=== PATIENT | female | born 1935 | race Asian ===

== ENCOUNTER 2017-10-19 19:37 | Inpatient (IN) | payer MEDICARE, OTHER ==
[~2017-10-19] VITALS: Ht 154.9 cm; Wt 53.9 kg
[~2017-10-19 19:37] MED LIST: AMLODIPINE BESY10 MG ORAL; ASPIR 8181 MG ORAL; CIPRO500 MG PO; COZAAR50 MG ORAL; DOXAZOSIN MESYLA4 MG ORAL; FOSAMAX70 MG ORAL; GLIPIZIDE-METF1 EAC2 PO; METOPROLOL SUCC50 MG ORAL; OYSTER SHELL C500 MG PO; SYNTHROID125 MCG ORAL; TRICOR145 MG ORAL; UNOBMED
[2017-10-19 20:30] VITALS: BP 129/65
[2017-10-19] MEDS ORDERED: Sodium Chloride 500ML 500 ML IV ONE (20:38)
--- NOTE | 2017-10-19 21:11 | Emergency Room Report ---
History of Present Illness General Chief Complaint: Abdominal Pain Source: Patient, Family Member Present Illness HPI Patient is an 82-year-old female who is presenting with several months of diffuse abdominal pain now mainly in the right upper quadrant. The patient has not seen a physician for this. The daughter states that she brought her mother in now because she has had nausea and vomiting associated with pain. Additionally the pain seems to have migrated to the right upper quadrant. Patient denies any prior abdominal surgeries. She denies any diarrhea. Allergies: Coded Allergies: No Known Allergies (Verified , 07/20/11) Patient History Past Medical History: see triage record Past Surgical History: none Pertinent Family History: none Social History: Denies: smoking, alcohol use, drug use Nursing Documentation-H Hx Cardiac Problems: Yes Hx Hypertension: Yes Hx Diabetes: Yes Hx Cancer: No Hx Gastrointestinal Problems: No Hx Neurological Problems: No Review of Systems Constitutional: Reports: weakness; Denies: no symptoms, see HPI, chills, sweats , fever, malaise, other Eye: Denies: no symptoms, see HPI, eye pain, blurred vision, tearing, double vision, nose pain, nose congestion, acuity changes, discharge, other Respiratory: Denies: no symptoms, see HPI, cough, orthopnea, shortness of breath, stridor, wheezing, MANN, sputum, other Cardiovascular: Denies: no symptoms, see HPI, chest pain, edema, palpitations, syncope, PND, other Gastrointestinal: Reports: see HPI Genitourinary: Denies: no symptoms, see HPI, discharge, dysuria, frequency, hematuria, pain, retention, incontinence, urgency, vag bleed/dc, other Musculoskeletal: Denies: no symptoms, see HPI, back pain, gout, joint pain, joint swelling, muscle pain, muscle stiffness, other Skin: Denies: no symptoms, see HPI, rash, change in color, change in hair/nails , dryness, lesions, other Neurological: Denies: no symptoms, see HPI, headache, numbness, paresthesia, seizure, tingling, tremors, focal weakness, syncope, dizziness, other Endocrine: Denies: no symptoms, see HPI, excessive sweating, flushing, intolerance to temperature, increased thirst, increased urine, unexplained weight loss, other Hematologic/Lymphatic: Denies: no symptoms, see HPI, anemia, blood clots, easy bleeding, easy bruising, swollen glands, diathesis, other Physical Exam Vital Signs Date Time Temp Pulse Resp B/P (MAP) Pulse Ox O2 Delivery O2 Flow Rate FiO2 10/19/17 20:00 97.7 71 16 114/62 99 Room Air 97.7 Sp02 EP Interpretation: reviewed, normal General Appearance: no apparent distress, alert, GCS 15, non-toxic Head: normocephalic, atraumatic Eyes: bilateral eye normal inspection, bilateral eye PERRL ENT: hearing grossly normal, normal pharynx, no angioedema, normal voice Neck: full range of motion, supple/symm/no masses Respiratory: chest non-tender, lungs clear, normal breath sounds, speaking full sentences Cardiovascular #1: regular rate, rhythm, no edema Cardiovascular #2: 2+ carotid (R), 2+ carotid (L), 2+ radial (R), 2+ radial (L) , 2+ dorsalis pedis (R), 2+ dorsalis pedis (L) Gastrointestinal: normal bowel sounds, soft, non-distended, no guarding, no rebound, tenderness - Mild right upper quadrant tenderness to palpation, negative Queen sign Rectal: deferred Genitourinary: normal inspection, no CVA tenderness Musculoskeletal: back normal, gait/station normal, normal range of motion, non- tender, calf tenderness Neurologic: alert, oriented x3, responsive, motor strength/tone normal, sensory intact, speech normal Psychiatric: judgement/insight normal, memory normal, mood/affect normal, no suicidal/homicidal ideation Reflexes: 3+ bicep (R), 3+ bicep (L), 3+ tricep (R), 3+ tricep (L), 3+ knee (R) , 3+ knee (L) Skin: normal color, no rash, warm/dry, well hydrated Lymphatic: no adenopathy Medical Decision Making Diagnostic Impression: Primary Impression: Cholelithiasis Qualified Codes: K80.71 - Calculus of gallbladder and bile duct without cholecystitis with obstruction ER Course Patient is an 82-year-old female complaining of several months of abdominal pain now localized to the right upper quadrant. Ultrasound examination shows a dilated common duct at 24 mm per process maintenance technician. Patient will require admission for MRCP and/or GI/surgical consultation. Laboratory Tests Test 10/19/17 20:40 White Blood Count 9.0 K/UL (4.8-10.8) Red Blood Count 3.29 M/UL (4.20-5.40) L Hemoglobin 11.0 G/DL (12.0-16.0) L Hematocrit 32.1 % (37.0-47.0) L Mean Corpuscular Volume 98 FL (80-99) Mean Corpuscular Hemoglobin 33.4 PG (27.0-31.0) H Mean Corpuscular Hemoglobin Concent 34.2 G/DL (32.0-36.0) Red Cell Distribution Width 13.2 % (11.6-14.8) Platelet Count 272 K/UL (150-450) Mean Platelet Volume 8.9 FL (6.5-10.1) Neutrophils (%) (Auto) % (45.0-75.0) Lymphocytes (%) (Auto) % (20.0-45.0) Monocytes (%) (Auto) % (1.0-10.0) Eosinophils (%) (Auto) % (0.0-3.0) Basophils (%) (Auto) % (0.0-2.0) Differential Total Cells Counted 100 Neutrophils % (Manual) 90 % (45-75) H Lymphocytes % (Manual) 5 % (20-45) L Monocytes % (Manual) 4 % (1-10) Eosinophils % (Manual) 0 % (0-3) Basophils % (Manual) 0 % (0-2) Band Neutrophils 1 % (0-8) Platelet Estimate Adequate Platelet Morphology Normal Hypochromasia 1+ Anisocytosis 1+ Sodium Level 135 MMOL/L (136-145) L Potassium Level 4.5 MMOL/L (3.5-5.1) Chloride Level 102 MMOL/L (98-107) Carbon Dioxide Level 24 MMOL/L (21-32) Anion Gap 9 mmol/L (5-15) Blood Urea Nitrogen 12 mg/dL (7-18) Creatinine 1.4 MG/DL (0.55-1.30) H Estimate Glomerular Filtration Rate mL/min (>60) Glucose Level 220 MG/DL (74-106) H Calcium Level 9.1 MG/DL (8.5-10.1) Total Bilirubin 3.1 MG/DL (0.2-1.0) H Direct Bilirubin 1.6 MG/DL (0.0-0.3) H Aspartate Amino Transferase (AST) 106 U/L (15-37) H Alanine Aminotransferase (ALT) 75 U/L (12-78) Alkaline Phosphatase < 10 U/L (46-116) L Total Protein 8.1 G/DL (6.4-8.2) Albumin 3.4 G/DL (3.4-5.0) Globulin 4.7 g/dL Albumin/Globulin Ratio 0.7 (1.0-2.7) L Lipase 382 U/L (73-393) Last Vital Signs Date Time Temp Pulse Resp B/P (MAP) Pulse Ox O2 Delivery O2 Flow Rate FiO2 10/19/17 20:00 97.7 71 16 114/62 99 Room Air 97.7 Disposition: ADMITTED INPATIENT Condition: Stable Referrals: NON PHYSICIAN (PCP) William Mayorga MD Oct 19, 2017 21:11
[2017-10-19 21:28] LABS: HEMATOCRIT 32.1 % (37.0-47.0); MEAN CORPUSCULAR VOLUME 98 FL (80-99); PLATELET COUNT 272 K/UL (150-450); RED BLOOD COUNT 3.29 M/UL (4.20-5.40); RED CELL DISTRIBUTION WIDTH 13.2 % (11.6-14.8)
[2017-10-19 21:38] LABS: ANION GAP 9 mmol/L (5-15); BLOOD UREA NITROGEN 12 mg/dL (7-18); CALCIUM 9.1 MG/DL (8.5-10.1); CARBON DIOXIDE 24 MMOL/L (21-32); CHLORIDE 102 MMOL/L (98-107); CREATININE 1.4 MG/DL (0.55-1.30); POTASSIUM 4.5 MMOL/L (3.5-5.1); SODIUM 135 MMOL/L (136-145)
[2017-10-19 21:48] LABS: ALANINE AMINOTRANSFERASE 75 U/L (12-78); ALBUMIN 3.4 G/DL (3.4-5.0); ALBUMIN/GLOBULIN RATIO 0.7 (1.0-2.7); ALKALINE PHOSPHATASE < 10 U/L (46-116); ASPARTATE AMINO TRANSFERASE 106 U/L (15-37); BILIRUBIN,TOTAL 3.1 MG/DL (0.2-1.0)
[2017-10-19 21:52] LABS: BILIRUBIN,DIRECT 1.6 MG/DL (0.0-0.3)
--- NOTE | 2017-10-19 22:40 | Diagnostic Imaging Report ---
EXAM: US Abdomen Limited, Right Upper Quadrant CLINICAL HISTORY: ABD PAIN TECHNIQUE: Real-time ultrasound of the right upper quadrant with image documentation. COMPARISON: No relevant prior studies available. FINDINGS: Liver: Unremarkable. No mass. No intrahepatic bile duct dilation. Gallbladder: There are multiple gallstones. No gallbladder wall thickening. The gallbladder wall measures 2.2 mm in thickness. Common bile duct: The common bile duct is dilated measuring 24.2 mm in diameter. No stones. Pancreas: Unremarkable as visualized. Right kidney: Multiple cysts in the right kidney measuring up to 0.9 cm. No stones. No hydronephrosis. IMPRESSION: 1. Cholelithiasis. No evidence of cholecystitis. 2. Dilated common bile duct measuring 24.2 mm diameter.
[2017-10-19] MEDS ORDERED: Milk of Magnesia 30ml Ud ORAL PRN (22:45)
[2017-10-19] MEDS ORDERED: Morphine Sulfate 4mg/ml Inj (IV USE ONLY) IVP PRN (22:45)
[2017-10-19] MEDS ORDERED: Morphine Sulfate 2mg/ml Inj(IV/IM USE ONLY) IVP PRN (22:45)
[2017-10-19] MEDS ORDERED: Gadavist 7.5mMol/7.5ml vial IV ONE (22:45)
[2017-10-19] MEDS ORDERED: Nitroglycerin Subl 0.4mg tab SL PRN (22:45)
[2017-10-19] MEDS ORDERED: Acetaminophen 650 MG SUPP RECTAL PRN ×2 (22:45)
[2017-10-19 22:53] VITALS: BP 115/67
[2017-10-19 23:00] VITALS: BP 110/61
[2017-10-20] MEDS ORDERED: Zosyn 3.375gm/50ml Premix 50 ML IVPB SCH
[2017-10-20] MEDS: 1/2NS w/KCl 20mEq 1000ml 1,000 ML IV SCH ×3 (00:43→16:53)
[2017-10-20 04:00] VITALS: BP 111/66
[2017-10-20] MEDS: Levothyroxine 125mcg tab ORAL SCH (06:18)
[2017-10-20] MEDS: NovoLOG Insulin Flexpen SUBQ SCH ×4 (06:21→21:00)
[2017-10-20 07:52] LABS: BASOPHILS % (AUTO) 0.6 % (0.0-2.0); EOSINOPHILS % (AUTO) 0.6 % (0.0-3.0); HEMATOCRIT 27.5 % (37.0-47.0); HEMOGLOBIN 9.3 G/DL (12.0-16.0); LYMPHOCYTES % (AUTO) 9.6 % (20.0-45.0); MEAN CORPUSCULAR VOLUME 98 FL (80-99); MONOCYTES % (AUTO) 7.5 % (1.0-10.0); NEUTROPHILS % (AUTO) 81.8 % (45.0-75.0); PLATELET COUNT 271 K/UL (150-450); RED BLOOD COUNT 2.81 M/UL (4.20-5.40); RED CELL DISTRIBUTION WIDTH 12.7 % (11.6-14.8)
[2017-10-20 08:00] VITALS: BP 103/62
[2017-10-20 08:26] LABS: ALANINE AMINOTRANSFERASE 71 U/L (12-78); ALBUMIN 2.7 G/DL (3.4-5.0); ALBUMIN/GLOBULIN RATIO 0.8 (1.0-2.7); ALKALINE PHOSPHATASE 103 U/L (46-116); ANION GAP 10 mmol/L (5-15); ASPARTATE AMINO TRANSFERASE 108 U/L (15-37); BILIRUBIN,TOTAL 4.2 MG/DL (0.2-1.0); BLOOD UREA NITROGEN 11 mg/dL (7-18); CARBON DIOXIDE 22 MMOL/L (21-32); CHLORIDE 106 MMOL/L (98-107); CREATININE 1.5 MG/DL (0.55-1.30); SODIUM 138 MMOL/L (136-145)
[2017-10-20 08:28] LABS: BILIRUBIN,DIRECT 3.7 MG/DL (0.0-0.3)
[2017-10-20] MEDS ORDERED: Aspirin EC 81mg tab ORAL SCH (09:00)
[2017-10-20] MEDS: Doxazosin 4mg tab ORAL SCH (09:00)
[2017-10-20] MEDS: Metoprolol Succinate XL 50mg tab ORAL SCH (09:00)
[2017-10-20] MEDS: Losartan 50mg tab ORAL SCH (09:00)
[2017-10-20] MEDS: Zoysn 3.37gm in NS 100ML IVPB SCH ×2 (10:13→16:54)
[2017-10-20] MEDS: Heparin 5000 units/ml inj SUBQ SCH ×2 (10:18→21:24)
[2017-10-20 11:52] VITALS: BP 115/68
--- NOTE | 2017-10-20 14:10 | Consultation ---
History of Present Illness General Date patient seen: Oct 20, 2017 Chief Complaint: Abdominal Pain Reason for Consultation: obstructive jaundice Present Illness HPI 82 year old female presented with abdominal pain, RUQ pain for over a month that is acutely worsening. In ed noted to have elevated LFT's, elevated t bili , US with stones and dilated duct. surgery called to evaluate for obstructive jaundice. patient seen, chart reviewed, patient examined. pending further imaging. Allergies: Coded Allergies: No Known Allergies (Verified , 07/20/11) Medication History Scheduled Alendronate Sodium* (Fosamax*), 70 MG ORAL ONCE A WEEK, (Reported) Amlodipine Besylate* (Amlodipine Besylate*), 10 MG ORAL DAILY, (Reported) Aspirin* (Aspir 81*), 81 MG ORAL DAILY, (Reported) Doxazosin Mesylate* (Doxazosin Mesylate*), 4 MG ORAL DAILY, (Reported) Fenofibrate (Tricor), 145 MG ORAL DAILY, (Reported) Levothyroxine Sodium* (Synthroid*), 125 MCG ORAL DAILY, (Reported) Losartan Potassium* (Cozaar*), 100 MG ORAL DAILY, (Reported) Metoprolol Succinate* (Metoprolol Succinate*), 50 MG ORAL DAILY, (Reported) Miscellaneous Medications Calcium Carbonate (Oyster Shell Calcium), 500 MG PO, (Reported) Glipizide/Metformin Hcl (Glipizide-Metformin 5-500 Mg), 1 EACH PO, (Reported) Patient History Limited by: age History Provided By: Patient, Medical Record, PMD Healthcare decision maker Resuscitation status Advanced Directive on File No Past Medical/Surgical History Past Medical/Surgical History: (1) Obstructive jaundice (2) ARF (acute renal failure) (3) CHF exacerbation (4) Dyspnea (5) Hypercholesterolemia (6) UTI (urinary tract infection) (7) Thyroid cancer (8) E coli infection (9) Anemia, chronic renal failure (10) Diabetes mellitus (11) Hypothyroidism (12) Renal failure (13) HTN (hypertension) (14) Anemia of renal disease (15) Cholelithiasis Review of Systems All Other Systems: negative except mentioned in HPI Physical Exam General Appearance: no apparent distress Lines, tubes and drains: peripheral HEENT: mucous membranes moist Neck: normal inspection Respiratory/Chest: normal breath sounds, no respiratory distress, no accessory muscle use Cardiovascular/Chest: normal rate Abdomen: normal bowel sounds, soft, no organomegaly, no mass, tender Extremities: non-tender, normal inspection Skin Exam: normal pigmentation Neurologic: alert, responsive Last 24 Hour Vital Signs Date Time Temp Pulse Resp B/P (MAP) Pulse Ox O2 Delivery O2 Flow Rate FiO2 10/20/17 11:52 98.9 81 20 115/68 (84) 96 98.9 10/20/17 09:00 83 103/62 10/20/17 09:00 103/62 10/20/17 09:00 83 103/62 10/20/17 09:00 Room Air 10/20/17 08:00 99.5 83 20 103/62 (76) 100 99.5 10/20/17 07:19 98.9 10/20/17 06:20 99.8 10/20/17 04:00 99.8 89 20 111/66 (81) 100 99.8 10/19/17 23:28 Room Air 10/19/17 23:20 97.5 94 22 115/67 95 Room Air 10/19/17 23:00 98.9 85 20 110/61 (77) 96 98.9 10/19/17 22:53 97.9 94 22 115/67 95 Room Air 97.9 10/19/17 20:30 97.9 81 20 129/65 98 Room Air 97.9 10/19/17 20:00 97.7 71 16 114/62 99 Room Air 97.7 Intake and Output 10/19/17 10/20/17 19:00 07:00 Intake Total 450 ml Output Total 50 ml Balance 400 ml Intake IV Total 450 ml Output Emesis 50 ml # Voids 4 # Bowel Movements 1 Laboratory Tests Test 10/19/17 20:40 10/20/17 07:25 White Blood Count 9.0 K/UL (4.8-10.8) 7.0 K/UL (4.8-10.8) Red Blood Count 3.29 M/UL (4.20-5.40) L 2.81 M/UL (4.20-5.40) L Hemoglobin 11.0 G/DL (12.0-16.0) L 9.3 G/DL (12.0-16.0) L Hematocrit 32.1 % (37.0-47.0) L 27.5 % (37.0-47.0) L Mean Corpuscular Volume 98 FL (80-99) 98 FL (80-99) Mean Corpuscular Hemoglobin 33.4 PG (27.0-31.0) H 33.0 PG (27.0-31.0) H Mean Corpuscular Hemoglobin Concent 34.2 G/DL (32.0-36.0) 33.7 G/DL (32.0-36.0) Red Cell Distribution Width 13.2 % (11.6-14.8) 12.7 % (11.6-14.8) Platelet Count 272 K/UL (150-450) 271 K/UL (150-450) Mean Platelet Volume 8.9 FL (6.5-10.1) 7.5 FL (6.5-10.1) Neutrophils (%) (Auto) % (45.0-75.0) 81.8 % (45.0-75.0) H Lymphocytes (%) (Auto) % (20.0-45.0) 9.6 % (20.0-45.0) L Monocytes (%) (Auto) % (1.0-10.0) 7.5 % (1.0-10.0) Eosinophils (%) (Auto) % (0.0-3.0) 0.6 % (0.0-3.0) Basophils (%) (Auto) % (0.0-2.0) 0.6 % (0.0-2.0) Differential Total Cells Counted 100 Neutrophils % (Manual) 90 % (45-75) H Lymphocytes % (Manual) 5 % (20-45) L Monocytes % (Manual) 4 % (1-10) Eosinophils % (Manual) 0 % (0-3) Basophils % (Manual) 0 % (0-2) Band Neutrophils 1 % (0-8) Platelet Estimate Adequate Platelet Morphology Normal Hypochromasia 1+ Anisocytosis 1+ Sodium Level 135 MMOL/L (136-145) L 138 MMOL/L (136-145) Potassium Level 4.5 MMOL/L (3.5-5.1) 4.0 MMOL/L (3.5-5.1) Chloride Level 102 MMOL/L (98-107) 106 MMOL/L (98-107) Carbon Dioxide Level 24 MMOL/L (21-32) 22 MMOL/L (21-32) Anion Gap 9 mmol/L (5-15) 10 mmol/L (5-15) Blood Urea Nitrogen 12 mg/dL (7-18) 11 mg/dL (7-18) Creatinine 1.4 MG/DL (0.55-1.30) H 1.5 MG/DL (0.55-1.30) H Estimat Glomerular Filtration Rate mL/min (>60) mL/min (>60) Glucose Level 220 MG/DL (74-106) H 79 MG/DL (74-106) # Calcium Level 9.1 MG/DL (8.5-10.1) 8.0 MG/DL (8.5-10.1) L Total Bilirubin 3.1 MG/DL (0.2-1.0) H 4.2 MG/DL (0.2-1.0) H Direct Bilirubin 1.6 MG/DL (0.0-0.3) H 3.7 MG/DL (0.0-0.3) H Aspartate Amino Transf (AST/SGOT) 106 U/L (15-37) H 108 U/L (15-37) H Alanine Aminotransferase (ALT/SGPT) 75 U/L (12-78) 71 U/L (12-78) Alkaline Phosphatase < 10 U/L (46-116) L 103 U/L (46-116) Total Protein 8.1 G/DL (6.4-8.2) 6.3 G/DL (6.4-8.2) L Albumin 3.4 G/DL (3.4-5.0) 2.7 G/DL (3.4-5.0) L Globulin 4.7 g/dL 3.6 g/dL Albumin/Globulin Ratio 0.7 (1.0-2.7) L 0.8 (1.0-2.7) L Lipase 382 U/L (73-393) Prothrombin Time 10.9 SEC (9.30-11.50) Prothromb Time International Ratio 1.0 (0.9-1.1) Height (Feet): 5 Height (Inches): 1.00 Weight (Pounds): 130 Medications Current Medications Medications (Trade) Dose Ordered Sig/Tatianna Route PRN Reason Start Time Stop Time Status Last Admin Dose Admin Acetaminophen (Tylenol) 650 mg Q4H PRN ORAL Mild Pain (Pain Scale 1-3) 10/19/17 22:45 11/18/17 22:44 10/20/17 06:20 Acetaminophen (Tylenol) 650 mg Q4H PRN ORAL fever 10/19/17 22:45 11/18/17 22:44 Acetaminophen (Tylenol) 650 mg Q4H PRN RECTAL Mild Pain (Pain Scale 1-3) 10/19/17 22:45 11/18/17 22:44 Acetaminophen (Tylenol) 650 mg Q4H PRN RECTAL fever 10/19/17 22:45 11/18/17 22:44 Amlodipine Besylate (Norvasc) 10 mg DAILY ORAL 10/20/17 09:00 11/19/17 08:59 Aspirin (Ecotrin) 81 mg DAILY ORAL 10/20/17 09:00 11/19/17 08:59 10/20/17 10:14 Dextrose (Dextrose 50%) 25 ml STAT PRN IV Hypoglycemia 10/19/17 22:45 11/18/17 22:44 Dextrose (Dextrose 50%) 50 ml STAT PRN IV Hypoglycemia 10/19/17 22:45 11/18/17 22:44 Doxazosin Mesylate (Cardura) 4 mg DAILY ORAL 10/20/17 09:00 11/19/17 08:59 Famotidine (Pepcid I.v.) 20 mg Q12HR IVP 10/20/17 11:50 11/19/17 11:49 10/20/17 12:35 Heparin Sodium (Porcine) (Heparin 5000 units/ml) 5,000 units EVERY 12 HOURS SUBQ 10/20/17 09:00 11/19/17 08:59 10/20/17 10:18 Insulin Aspart (NovoLOG) BEFORE MEALS AND HS SUBQ 10/20/17 06:30 11/19/17 06:29 10/20/17 06:21 Levothyroxine Sodium (Synthroid) 125 mcg DAILY@0630 ORAL 10/20/17 06:30 11/19/17 06:29 10/20/17 06:18 Losartan Potassium (Cozaar) 100 mg DAILY ORAL 10/20/17 09:00 11/19/17 08:59 Magnesium Hydroxide (Mom) 30 ml HSPRN PRN ORAL Constipation 10/19/17 22:45 11/18/17 22:44 Metoprolol Succinate (Toprol XL) 50 mg DAILY ORAL 10/20/17 09:00 11/19/17 08:59 Morphine Sulfate (Morphine Sulfate) 2 mg Q3H PRN IVP Moderate Pain (Pain Scale 4-6) 10/19/17 22:45 10/26/17 22:44 Morphine Sulfate (Morphine Sulfate) 4 mg Q3H PRN IVP Severe Pain (Pain Scale 7-10) 10/19/17 22:45 10/26/17 22:44 Nitroglycerin (Ntg) 0.4 mg Q5M X 3 DOSES PRN SL Prn Chest Pain 10/19/17 22:45 11/18/17 22:44 Ondansetron HCl (Zofran) 4 mg Q6H PRN IVP Nausea & Vomiting 10/19/17 22:45 11/18/17 22:44 Pantoprazole (Protonix) 40 mg DAILY ORAL 10/21/17 09:00 11/20/17 08:59 Piperacillin Sod/ Tazobactam Sod 3.375 gm/Sodium Chloride 110 ml @ 27.5 mls/hr Q8H IVPB 10/20/17 08:00 10/27/17 07:59 10/20/17 10:13 Sodium 1,000 ml @ 75 mls/hr [id number] IV 10/20/17 00:00 11/19/17 00:00 10/20/17 00:43 Assessment/Plan Problem List: (1) Cholelithiasis Assessment & Plan: 82F with choledocholithiasis, obstructive jaundice likely from stones, low grade fevers, abdominal pain. US as above labs with worsening LFT's and t bili -MRCP -GI input appreciated. possible ERCP -will discuss need for cholecystectomy as work up continues -need to monitor for cholangitis given above. -IV Abx -bowel rest. -IV fluids thank you for this consultation. will follow with recs. ICD Codes: K80.20 - Calculus of gallbladder without cholecystitis without obstruction SNOMED: 561529000 Qualifiers: Qualified Codes: K80.71 - Calculus of gallbladder and bile duct without cholecystitis with obstruction (2) Obstructive jaundice ICD Codes: K83.8 - Other specified diseases of biliary tract SNOMED: 37229178 Status: stable KarelyDavis Oct 20, 2017 14:10
--- NOTE | 2017-10-20 15:12 | Diagnostic Imaging Report ---
EXAM: MR Abdomen Without and With Intravenous Contrast CLINICAL HISTORY: ABD PAIN TECHNIQUE: Multiplanar magnetic resonance images of the abdomen without and with intravenous contrast. COMPARISON: Abdominal ultrasound 10/19/17 FINDINGS: Lung bases: Unremarkable. No mass. No consolidation. Pleural space: Tiny bilateral pleural effusions. Liver: Diffusely fatty liver. Gallbladder and bile ducts: 1.5 x 2.7 cm stone in the distal CBD resulting in biliary obstruction. CBD is dilated 2.6 cm. Intrahepatic biliary dilatation. Markedly distended gallbladder. Distended gallbladder with small gallstones. There are some small stones within the cystic duct. No inflammatory changes. Pancreas: Somewhat atrophic. No ductal dilation. No mass. No inflammatory changes. Spleen: Unremarkable. No splenomegaly. Adrenals: Unremarkable. No mass. Kidneys and ureters: Several small cystic lesions within atrophic right kidney, largest measuring 10 mm. A few small cystic lesions of the left kidney, largest 10 mm.. No hydronephrosis. Stomach and bowel: Unremarkable. No obstruction. Intraperitoneal space: Unremarkable. No significant fluid collection. Bones/joints: L4 compression deformity, age-indeterminate. Soft tissues: 3.4 cm complex cystic lesion of the right breast. Vasculature: Unremarkable. No abdominal aortic aneurysm. Lymph nodes: Unremarkable. No enlarged lymph nodes. IMPRESSION: 1. 1.5 x 2.7 cm stone in the distal CBD resulting in biliary obstruction. CBD is dilated to 2.6 cm. Intrahepatic biliary dilatation. Markedly distended gallbladder. 2. Distended gallbladder with small gallstones. There are some small stones within the cystic duct. No inflammatory changes. 3. Small bilateral renal cysts. Atrophic right kidney. 4. Diffusely fatty liver. 5. 3.4 cm complex cystic lesion of the right breast. Correlate with mammography and physical exam. 6. L4 compression deformity, age-indeterminate.
[2017-10-20 16:00] VITALS: BP 114/67
[2017-10-20] MEDS ORDERED: FENOFIBRATE145 M1 ORAL (17:08)
[2017-10-20] MEDS ORDERED: OMEPRAZOLE40 M1 ORAL (17:08)
[2017-10-20] MEDS ORDERED: BACLOFEN10 MG ORAL (17:08)
[2017-10-20 20:00] VITALS: BP 106/66
--- NOTE | 2017-10-20 20:46 | History and Physical Report ---
DATE OF ADMISSION: 10/19/2017 CHIEF COMPLAINT/REASON FOR HOSPITALIZATION: The patient is admitted for abdominal pain, nausea, and vomiting. HISTORY OF PRESENT ILLNESS: The patient has had on and off nausea and vomiting for about three months with some right upper quadrant pain. She came to the emergency room with elevated bilirubin and liver enzymes. Ultrasound was read as cholelithiasis. No evidence of cholecystitis. Common bile duct measuring 24.2 mm. There are multiple gallstones. The pancreas as visualized unremarkable. The patient denies fever or chills. History is taken with the photography spotter. She has had some heartburn, hypertension, and hypothyroidism, on replacement. SURGERIES: Thyroidectomy many years ago and bilateral cataracts. MEDICATIONS: Omeprazole 40 mg daily, fenofibrate 145 mg daily, aspirin 81 mg daily, doxazosin 4 mg daily, alendronate 70 mg weekly, [place] 500 mg b.i.d., losartan 100 mg daily, glipizide-metformin 5/500 b.i.d., levothyroxine 125 mg daily, metoprolol succinate 50 mg daily, amlodipine 10 mg daily, and baclofen 10 mg p.r.n. ALLERGIES: None known. HABITS: She is a nonsmoker and nondrinker. No use of illicit drugs. SYSTEM REVIEW: HEENT: History of cataracts. Vision preserved. Hearing is good. ENDOCRINE: History of hypothyroidism, on replacement and diabetes. PULMONARY: No asthma, TB, or chronic cough. CARDIAC: History of hypertension. No angina or AR. GASTROINTESTINAL: History of being treated for gastritis and symptoms as above. No hematochezia or melena. GENITOURINARY: No dysuria or hematuria. NEUROLOGIC: No CVA or seizures. MUSCULOSKELETAL: She uses a walker. No severe joint pains. ONCOLOGIC: On my exam, I noticed a breast mass, which she says that it has been there for many years after breast-feeding, infection, not clear if there is any history of breast cancer. PHYSICAL EXAMINATION: GENERAL: The patient is an alert elderly lady, seen with a Irish-speaking nurse. VITAL SIGNS: Temperature 99.5, pulse 83, respirations 20, and blood pressure 103/62. HEENT: Oral mucosa is slightly dry. There is mild scleral icterus. NECK: No adenopathy. BREASTS: There is a hard mass in the right breast about 4 cm. Left breast has no masses. No axillary masses. LUNGS: Clear. HEART: Regular rhythm. No murmur. ABDOMEN: Soft. I am unable to feel liver or spleen. There is perhaps some minimal right upper quadrant tenderness. EXTREMITIES: No edema, cyanosis, or clubbing. There are mild degenerative changes in the knees. NEUROLOGIC: The patient is alert and oriented. Cranial nerves intact. No focal findings. PERTINENT LABORATORY DATA: Glucose 220 and 79, bilirubin total 3.1 and 4.2, and direct bilirubin 1.6 and 3.7. AST 108 and ALT is 71. Albumin 2.7. White count 9000 and 7000. Serial hemoglobin 11 and 9.3 serially. IMPRESSION: 1. Cholecystitis, most likely chronic. 2. Possible common duct stone. 3. Breast mass. 4. Anemia, possible laboratory error, possible gastrointestinal bleeding. 5. Gastritis. 6. Hypertension. 7. Diabetes. 8. Hypothyroidism. PLAN: We will try to get appropriate imaging in the consultation to rule out cholecystitis and need for gallbladder surgery. She is being given IV hydration and comfort measures. Serial CBCs in view of the drop in hemoglobin. We need to discuss further with the family as far as the status of the breast mass and prior evaluation. Detailed orders have been given. A call placed to the family. Donato Higgins M.D. DR: ROSALIND JOB#: [id number] CC:
[2017-10-21] VITALS: BP 117/72
[2017-10-21] MEDS: Zoysn 3.37gm in NS 100ML IVPB SCH ×4 (00:35→23:50)
[2017-10-21 04:00] VITALS: BP 115/69
[2017-10-21] MEDS: Levothyroxine 125mcg tab ORAL SCH (06:10)
[2017-10-21] MEDS: NovoLOG Insulin Flexpen SUBQ SCH ×4 (06:30→21:00)
[2017-10-21 08:00] VITALS: BP 129/84
[2017-10-21] MEDS: Doxazosin 4mg tab ORAL SCH (08:37)
[2017-10-21] MEDS: Heparin 5000 units/ml inj SUBQ SCH ×3 (08:38→21:30)
[2017-10-21] MEDS: 1/2NS w/KCl 20mEq 1000ml 1,000 ML IV SCH ×2 (08:39→23:50)
[2017-10-21] MEDS: Losartan 50mg tab ORAL SCH (08:50)
[2017-10-21] MEDS: Metoprolol Succinate XL 50mg tab ORAL SCH (08:51)
[2017-10-21 08:53] LABS: BASOPHILS % (AUTO) 1.3 % (0.0-2.0); EOSINOPHILS % (AUTO) 2.2 % (0.0-3.0); HEMATOCRIT 30.7 % (37.0-47.0); HEMOGLOBIN 10.2 G/DL (12.0-16.0); LYMPHOCYTES % (AUTO) 20.3 % (20.0-45.0); MEAN CORPUSCULAR VOLUME 98 FL (80-99); MONOCYTES % (AUTO) 7.3 % (1.0-10.0); NEUTROPHILS % (AUTO) 68.9 % (45.0-75.0); PLATELET COUNT 319 K/UL (150-450); RED BLOOD COUNT 3.12 M/UL (4.20-5.40); WHITE BLOOD COUNT 4.8 K/UL (4.8-10.8)
[2017-10-21 09:07] LABS: ALANINE AMINOTRANSFERASE 68 U/L (12-78); ALBUMIN/GLOBULIN RATIO 0.7 (1.0-2.7); ALKALINE PHOSPHATASE 107 U/L (46-116); ANION GAP 12 mmol/L (5-15); ASPARTATE AMINO TRANSFERASE 71 U/L (15-37); BILIRUBIN,DIRECT 2.5 MG/DL (0.0-0.3); BILIRUBIN,TOTAL 3.3 MG/DL (0.2-1.0); BLOOD UREA NITROGEN 10 mg/dL (7-18); CALCIUM 8.3 MG/DL (8.5-10.1); CARBON DIOXIDE 23 MMOL/L (21-32); CHLORIDE 106 MMOL/L (98-107); CREATININE 1.6 MG/DL (0.55-1.30); PHOSPHORUS 2.5 MG/DL (2.5-4.9); POTASSIUM 3.9 MMOL/L (3.5-5.1); SODIUM 141 MMOL/L (136-145)
[2017-10-21 12:00] VITALS: BP 110/71
--- NOTE | 2017-10-21 13:10 | General Surgery Progress Note ---
General Surgery-Progress Note Subjective Additional Comments no acute events. comfortable. labs mildly improved. Objective Last 24 Hour Vital Signs Date Time Temp Pulse Resp B/P (MAP) Pulse Ox O2 Delivery O2 Flow Rate FiO2 10/21/17 09:00 Room Air 10/21/17 08:51 82 129/84 10/21/17 08:50 129/84 10/21/17 08:37 82 129/84 10/21/17 08:00 98.6 82 20 129/84 (99) 98 98.6 10/21/17 04:00 99.1 84 20 115/69 (84) 96 99.1 10/21/17 00:00 98.8 85 20 117/72 (87) 95 98.8 10/20/17 21:00 Room Air 10/20/17 20:00 99.4 81 20 106/66 (79) 95 99.4 10/20/17 16:00 98.6 86 19 114/67 (83) 96 98.6 I&O Intake and Output 10/20/17 10/21/17 19:00 07:00 Intake Total 915.0 ml 1065.0 ml Output Total 350 ml Balance 565.0 ml 1065.0 ml Intake Oral 0 ml IV Total 915.0 ml 1065.0 ml Output Urine Total 350 ml # Voids 10 Drains: none Cardiovascular: RSR Respiratory: clear Abdomen: soft, flat, non-tender, present bowel sounds Extremities: no cyanosis Laboratory Tests Test 10/21/17 08:00 White Blood Count 4.8 K/UL (4.8-10.8) Red Blood Count 3.12 M/UL (4.20-5.40) L Hemoglobin 10.2 G/DL (12.0-16.0) L Hematocrit 30.7 % (37.0-47.0) L Mean Corpuscular Volume 98 FL (80-99) Mean Corpuscular Hemoglobin 32.6 PG (27.0-31.0) H Mean Corpuscular Hemoglobin Concent 33.1 G/DL (32.0-36.0) Red Cell Distribution Width 13.0 % (11.6-14.8) Platelet Count 319 K/UL (150-450) Mean Platelet Volume 7.7 FL (6.5-10.1) Neutrophils (%) (Auto) 68.9 % (45.0-75.0) Lymphocytes (%) (Auto) 20.3 % (20.0-45.0) Monocytes (%) (Auto) 7.3 % (1.0-10.0) Eosinophils (%) (Auto) 2.2 % (0.0-3.0) Basophils (%) (Auto) 1.3 % (0.0-2.0) Sodium Level 141 MMOL/L (136-145) Potassium Level 3.9 MMOL/L (3.5-5.1) Chloride Level 106 MMOL/L (98-107) Carbon Dioxide Level 23 MMOL/L (21-32) Anion Gap 12 mmol/L (5-15) Blood Urea Nitrogen 10 mg/dL (7-18) Creatinine 1.6 MG/DL (0.55-1.30) H Estimat Glomerular Filtration Rate mL/min (>60) Glucose Level 97 MG/DL (74-106) Calcium Level 8.3 MG/DL (8.5-10.1) L Phosphorus Level 2.5 MG/DL (2.5-4.9) Magnesium Level 2.1 MG/DL (1.8-2.4) Total Bilirubin 3.3 MG/DL (0.2-1.0) H Direct Bilirubin 2.5 MG/DL (0.0-0.3) H Aspartate Amino Transf (AST/SGOT) 71 U/L (15-37) H Alanine Aminotransferase (ALT/SGPT) 68 U/L (12-78) Alkaline Phosphatase 107 U/L (46-116) Total Protein 7.1 G/DL (6.4-8.2) Albumin 3.0 G/DL (3.4-5.0) L Globulin 4.1 g/dL Albumin/Globulin Ratio 0.7 (1.0-2.7) L Lipase 94 U/L (73-393) Plan Problems: (1) Cholelithiasis Assessment & Plan: 82F with choledocholithiasis, obstructive jaundice likely from stones, low grade fevers, abdominal pain. US as above labs with worsening LFT's and t bili labs improved MRCP with obstructing stone -GI input appreciated. possible ERCP -will discuss need for cholecystectomy as work up continues -need to monitor for cholangitis given above. -IV Abx -bowel rest. -IV fluids thank you for this consultation. will follow with recs. (2) Obstructive jaundice Davis Cali Oct 21, 2017 13:10
--- NOTE | 2017-10-21 14:23 | General Progress Note ---
Assessment/Plan Problem List: (1) Choledocholithiasis with acute cholecystitis with obstruction ICD Codes: K80.43 - Calculus of bile duct with acute cholecystitis with obstruction SNOMED: 72365609 (2) Cholelithiasis ICD Codes: K80.20 - Calculus of gallbladder without cholecystitis without obstruction SNOMED: 598390299 Qualifiers: Qualified Codes: K80.71 - Calculus of gallbladder and bile duct without cholecystitis with obstruction (3) Diabetes mellitus ICD Codes: E11.9 - Type 2 diabetes mellitus without complications SNOMED: 78891263 Assessment/Plan cont antibiotics, possible ERCP soon Subjective Constitutional: Reports: weakness HEENT: Reports: no symptoms Cardiovascular: Reports: no symptoms Respiratory: Reports: no symptoms Gastrointestinal/Abdominal: Reports: no symptoms, abdominal pain Genitourinary: Reports: no symptoms Neurologic/Psychiatric: Reports: no symptoms Endocrine: Reports: no symptoms Allergies: Coded Allergies: No Known Allergies (Verified , 07/20/11) Objective Last 24 Hour Vital Signs Date Time Temp Pulse Resp B/P (MAP) Pulse Ox O2 Delivery O2 Flow Rate FiO2 10/21/17 12:00 99.4 85 20 110/71 (84) 98 99.4 10/21/17 09:00 Room Air 10/21/17 08:51 82 129/84 10/21/17 08:50 129/84 10/21/17 08:37 82 129/84 10/21/17 08:00 98.6 82 20 129/84 (99) 98 98.6 10/21/17 04:00 99.1 84 20 115/69 (84) 96 99.1 10/21/17 00:00 98.8 85 20 117/72 (87) 95 98.8 10/20/17 21:00 Room Air 10/20/17 20:00 99.4 81 20 106/66 (79) 95 99.4 10/20/17 16:00 98.6 86 19 114/67 (83) 96 98.6 Intake and Output 10/20/17 10/21/17 19:00 07:00 Intake Total 915.0 ml 1065.0 ml Output Total 350 ml Balance 565.0 ml 1065.0 ml Intake Oral 0 ml IV Total 915.0 ml 1065.0 ml Output Urine Total 350 ml # Voids 10 Laboratory Tests 10/21/17 08:00: White Blood Count 4.8, Red Blood Count 3.12L, Hemoglobin 10.2L, Hematocrit 30.7L , Mean Corpuscular Volume 98, Mean Corpuscular Hemoglobin 32.6H, Mean Corpuscular Hemoglobin Concent 33.1, Red Cell Distribution Width 13.0, Platelet Count 319, Mean Platelet Volume 7.7, Neutrophils (%) (Auto) 68.9, Lymphocytes (% ) (Auto) 20.3, Monocytes (%) (Auto) 7.3, Eosinophils (%) (Auto) 2.2, Basophils ( %) (Auto) 1.3, Sodium Level 141, Potassium Level 3.9, Chloride Level 106, Carbon Dioxide Level 23, Anion Gap 12, Blood Urea Nitrogen 10, Creatinine 1.6H, Estimat Glomerular Filtration Rate , Glucose Level 97, Calcium Level 8.3L, Phosphorus Level 2.5, Magnesium Level 2.1, Total Bilirubin 3.3H, Direct Bilirubin 2.5H, Aspartate Amino Transf (AST/SGOT) 71H, Alanine Aminotransferase (ALT/SGPT) 68, Alkaline Phosphatase 107, Total Protein 7.1, Albumin 3.0L, Globulin 4.1, Albumin/Globulin Ratio 0.7L, Lipase 94 Height (Feet): 5 Height (Inches): 1.00 Weight (Pounds): 130 General Appearance: no apparent distress, alert EENT: normal ENT inspection Neck: normal alignment Cardiovascular: regular rhythm Respiratory/Chest: lungs clear, normal breath sounds Abdomen: non tender, soft, tender - mild ruq Extremities: no calf tenderness Edema: no edema noted Arm (L), no edema noted Arm (R), no edema noted Leg (L), no edema noted Leg (R), no edema noted Pedal (L), no edema noted Pedal (R), no edema noted Generalized MARCIA ADAMS Oct 21, 2017 14:23
--- NOTE | 2017-10-21 14:53 | General Progress Note ---
Assessment/Plan Assessment/Plan GI CONSULT Full note dictated Will arrange for ERCP in am Thank you Elizabeth Elliott MD Subjective Allergies: Coded Allergies: No Known Allergies (Verified , 07/20/11) Objective Last 24 Hour Vital Signs Date Time Temp Pulse Resp B/P (MAP) Pulse Ox O2 Delivery O2 Flow Rate FiO2 10/21/17 12:00 99.4 85 20 110/71 (84) 98 99.4 10/21/17 09:00 Room Air 10/21/17 08:51 82 129/84 10/21/17 08:50 129/84 10/21/17 08:37 82 129/84 10/21/17 08:00 98.6 82 20 129/84 (99) 98 98.6 10/21/17 04:00 99.1 84 20 115/69 (84) 96 99.1 10/21/17 00:00 98.8 85 20 117/72 (87) 95 98.8 10/20/17 21:00 Room Air 10/20/17 20:00 99.4 81 20 106/66 (79) 95 99.4 10/20/17 16:00 98.6 86 19 114/67 (83) 96 98.6 Intake and Output 10/20/17 10/21/17 19:00 07:00 Intake Total 915.0 ml 1065.0 ml Output Total 350 ml Balance 565.0 ml 1065.0 ml Intake Oral 0 ml IV Total 915.0 ml 1065.0 ml Output Urine Total 350 ml # Voids 10 Laboratory Tests 10/21/17 08:00: White Blood Count 4.8, Red Blood Count 3.12L, Hemoglobin 10.2L, Hematocrit 30.7L , Mean Corpuscular Volume 98, Mean Corpuscular Hemoglobin 32.6H, Mean Corpuscular Hemoglobin Concent 33.1, Red Cell Distribution Width 13.0, Platelet Count 319, Mean Platelet Volume 7.7, Neutrophils (%) (Auto) 68.9, Lymphocytes (% ) (Auto) 20.3, Monocytes (%) (Auto) 7.3, Eosinophils (%) (Auto) 2.2, Basophils ( %) (Auto) 1.3, Sodium Level 141, Potassium Level 3.9, Chloride Level 106, Carbon Dioxide Level 23, Anion Gap 12, Blood Urea Nitrogen 10, Creatinine 1.6H, Estimat Glomerular Filtration Rate , Glucose Level 97, Calcium Level 8.3L, Phosphorus Level 2.5, Magnesium Level 2.1, Total Bilirubin 3.3H, Direct Bilirubin 2.5H, Aspartate Amino Transf (AST/SGOT) 71H, Alanine Aminotransferase (ALT/SGPT) 68, Alkaline Phosphatase 107, Total Protein 7.1, Albumin 3.0L, Globulin 4.1, Albumin/Globulin Ratio 0.7L, Lipase 94 Height (Feet): 5 Height (Inches): 1.00 Weight (Pounds): 130 Citlali Elliott MD Oct 21, 2017 14:52
[2017-10-21 16:00] VITALS: BP 129/61
[2017-10-21] MEDS ORDERED: Tubing IV Secondary IV ONE (16:36)
[2017-10-21 20:00] VITALS: BP 109/66
--- NOTE | 2017-10-21 23:45 | Consultation ---
DATE OF CONSULTATION: 10/21/2017 GASTROENTEROLOGY CONSULTATION CONSULTING PHYSICIAN: Citlali Elliott M.D. REFERRING PHYSICIAN: Donato Higgins M.D. CHIEF COMPLAINT: I was asked to see this patient by Dr. Donato Higgins for evaluation of choledocholithiasis. HISTORY OF PRESENT ILLNESS: The patient is an 82-year-old [place]zer[place] woman, who is admitted with abdominal pain, nausea, and vomiting. She also has some elevated bilirubin and liver enzymes. Ultrasound showed cholelithiasis and subsequent imaging with an MRI showed common bile duct stone. Surgery has been consulted. ERCP examination has been requested first. The patient feels better today and complains of minimal right upper quadrant abdominal tenderness. She is n.p.o. PAST MEDICAL HISTORY: Remarkable for history of diabetes, history of osteoporosis, and hypertension. PAST SURGICAL HISTORY: Status post thyroidectomy as well as cataracts. ALLERGIES: None. FAMILY HISTORY: Not available. SOCIAL HISTORY: The patient by report is a nonsmoker and nondrinker. REVIEW OF SYSTEMS: Otherwise negative. PHYSICAL EXAMINATION: GENERAL: An elderly [place]zeri woman, seen in her room. HEENT: Normocephalic and atraumatic. Sclerae anicteric. Oropharynx clear. NECK: Supple. CHEST: Clear to auscultation. CARDIOVASCULAR: Regular rate. ABDOMEN: Soft with good bowel sounds. There was no organomegaly. There was some minimal right upper quadrant tenderness to palpation. EXTREMITIES: No edema. LABORATORY DATA: Noted. ASSESSMENT: choledocholithiasis. The patient will require an ERCP to remove the visualized common bile duct stones. Subsequently, the patient will have laparoscopic cholecystectomy to complete the clearance of the bile duct and the gallbladder. The above was discussed with the patient's family. An informed consent will be obtained. The patient will be kept n.p.o. and the procedure can be scheduled for tomorrow once consent was obtained. RECOMMENDATIONS: Per above discussion and per orders written in the chart. Thank you for asking me to participate in the care of this patient. Citlali Elliott M.D. DR: DENAE JOB#: [id number] CC: BLANCA
[2017-10-22] VITALS (11 sets, daily range): BP systolic 91–135; BP diastolic 58–81
[2017-10-22] MEDS: Levothyroxine 125mcg tab ORAL SCH (06:10)
[2017-10-22] MEDS: NovoLOG Insulin Flexpen SUBQ SCH ×4 (06:30→22:09)
[2017-10-22] MEDS: Doxazosin 4mg tab ORAL SCH (08:14)
[2017-10-22] MEDS: Heparin 5000 units/ml inj SUBQ SCH ×2 (08:14→22:08)
[2017-10-22] MEDS: Metoprolol Succinate XL 50mg tab ORAL SCH (08:15)
[2017-10-22] MEDS: Losartan 50mg tab ORAL SCH (08:16)
[2017-10-22] MEDS: Zoysn 3.37gm in NS 100ML IVPB SCH ×2 (08:17→16:18)
[2017-10-22 08:54] LABS: BASOPHILS % (AUTO) 1.9 % (0.0-2.0); EOSINOPHILS % (AUTO) 1.9 % (0.0-3.0); HEMATOCRIT 30.4 % (37.0-47.0); HEMOGLOBIN 10.4 G/DL (12.0-16.0); LYMPHOCYTES % (AUTO) 26.7 % (20.0-45.0); MEAN CORPUSCULAR VOLUME 98 FL (80-99); MONOCYTES % (AUTO) 8.7 % (1.0-10.0); NEUTROPHILS % (AUTO) 60.8 % (45.0-75.0); PLATELET COUNT 370 K/UL (150-450); RED CELL DISTRIBUTION WIDTH 12.9 % (11.6-14.8); WHITE BLOOD COUNT 5.2 K/UL (4.8-10.8)
[2017-10-22 09:47] LABS: ALANINE AMINOTRANSFERASE 53 U/L (12-78); ALBUMIN/GLOBULIN RATIO 0.7 (1.0-2.7); ALKALINE PHOSPHATASE 99 U/L (46-116); ANION GAP 18 mmol/L (5-15); ASPARTATE AMINO TRANSFERASE 33 U/L (15-37); BLOOD UREA NITROGEN 11 mg/dL (7-18); CALCIUM 8.3 MG/DL (8.5-10.1); CARBON DIOXIDE 18 MMOL/L (21-32); CHLORIDE 102 MMOL/L (98-107); CREATININE 1.5 MG/DL (0.55-1.30); SODIUM 137 MMOL/L (136-145)
[2017-10-22 09:59] LABS: BILIRUBIN,DIRECT 1.5 MG/DL (0.0-0.3)
[2017-10-22] MEDS ORDERED: Iothalamate Meglumine 60% 30ML INJ ONE ×2 (11:07→12:58)
[2017-10-22] MEDS ORDERED: Ketamine 500mg Inj ONE (11:50)
[2017-10-22] MEDS ORDERED: Midazolam 2mg/2ml Inj ONE (12:00)
[2017-10-22] MEDS ORDERED: LR 1000ml ONE (12:00)
[2017-10-22] MEDS ORDERED: Propofol 200mg/20ml IV ONE (12:00)
[2017-10-22] MEDS ORDERED: Lidocaine 1% MPF 10mg/ml 5ml ONE (12:00)
[2017-10-22] MEDS ORDERED: NS 500ML IVPB ONE (12:15)
[2017-10-22] MEDS ORDERED: LR 1000ml 1,000 ML IVLG SCH (12:16)
--- NOTE | 2017-10-22 12:16 | Anethesia Preoperative Eval ---
Anesthesia Pre-op PMH/ROS General Date of Evaluation: Oct 22, 2017 Time of Evaluation: 12:01 Anesthesiologist: Jessica ASA Score: ASA 3 Mallampati Score Class I : Soft palate, uvula, fauces, pillars visible Class II: Soft palate, uvula, fauces visible Class III: Soft palate, base of uvula visible Class IV: Only hard plate visible Mallampati Classification: Class III Surgeon: Sunil Diagnosis: Abd Pain Surgical Procedure: ERCP Anesthesia History: none Family History: no anesthesia problems Allergies: Coded Allergies: No Known Allergies (Verified , 07/20/11) Medications: see eMAR Past Medical History Cardiovascular: Reports: HTN Gastrointestinal/Genitourinary: Reports: GERD Endocrine: Reports: DM Hematology/Immune: Reports: anemia PSxH Narrative: Thyroidectomy Anesthesia Pre-op Phys. Exam Physician Exam Last Vital Signs Date Time Temp Pulse Resp B/P (MAP) Pulse Ox O2 Delivery O2 Flow Rate FiO2 10/22/17 08:30 Room Air 10/22/17 08:16 120/85 10/22/17 08:15 85 10/22/17 08:00 99.0 20 96 99.0 Constitutional: NAD Neurologic: CN 2-12 intact Cardiovascular: RRR Respiratory: CTA Gastrointestinal: S/NT/ND Airway Exam Mallampati Score: Class III MO: limited ROM: limited Teeth: missing Anesthesia Pre-op A/P Labs Hematology Test 10/22/17 08:30 White Blood Count 5.2 K/UL (4.8-10.8) Red Blood Count 3.10 M/UL (4.20-5.40) L Hemoglobin 10.4 G/DL (12.0-16.0) L Hematocrit 30.4 % (37.0-47.0) L Mean Corpuscular Volume 98 FL (80-99) Mean Corpuscular Hemoglobin 33.6 PG (27.0-31.0) H Mean Corpuscular Hemoglobin Concent 34.3 G/DL (32.0-36.0) Red Cell Distribution Width 12.9 % (11.6-14.8) Platelet Count 370 K/UL (150-450) Mean Platelet Volume 6.9 FL (6.5-10.1) Neutrophils (%) (Auto) 60.8 % (45.0-75.0) Lymphocytes (%) (Auto) 26.7 % (20.0-45.0) Monocytes (%) (Auto) 8.7 % (1.0-10.0) Eosinophils (%) (Auto) 1.9 % (0.0-3.0) Basophils (%) (Auto) 1.9 % (0.0-2.0) Chemistry Test 10/22/17 08:30 Sodium Level 137 MMOL/L (136-145) Potassium Level 4.0 MMOL/L (3.5-5.1) Chloride Level 102 MMOL/L (98-107) Carbon Dioxide Level 18 MMOL/L (21-32) L Anion Gap 18 mmol/L (5-15) H Blood Urea Nitrogen 11 mg/dL (7-18) Creatinine 1.5 MG/DL (0.55-1.30) H Estimat Glomerular Filtration Rate mL/min (>60) Glucose Level 90 MG/DL (74-106) Calcium Level 8.3 MG/DL (8.5-10.1) L Total Bilirubin 2.0 MG/DL (0.2-1.0) H Direct Bilirubin 1.5 MG/DL (0.0-0.3) H Aspartate Amino Transf (AST/SGOT) 33 U/L (15-37) Alanine Aminotransferase (ALT/SGPT) 53 U/L (12-78) Alkaline Phosphatase 99 U/L (46-116) Total Protein 7.5 G/DL (6.4-8.2) Albumin 3.0 G/DL (3.4-5.0) L Globulin 4.5 g/dL Albumin/Globulin Ratio 0.7 (1.0-2.7) L Risk Assessment & Plan Assessment: ASA 3 Plan: GA Status Change Before Surgery: Jonathan Toney MD Oct 22, 2017 12:16
--- NOTE | 2017-10-22 12:17 | Pre-Procedure Note/Attestation ---
Pre-Procedure Note/Attestation Complete Prior to Procedure Planned Procedure: not applicable Procedure Narrative: ercp Indications for Procedure Pre-Operative Diagnosis: choledocholithiasis Attestation I attest that I discussed the nature of the procedure; its benefits; risks and complications; and alternatives (and the risks and benefits of such alternatives ), prior to the procedure, with the patient (or the patient's legal major account representative). I attest that, if there was a reasonable possibility of needing a blood transfusion, the patient (or the patient's legal major account representative) was given the [facility] standardized written summary, pursuant to the Jose Enrique Sabi Blood Safety Act ([place] Health and Safety Code # 1645, as amended). I attest that I re-evaluated the patient just prior to the surgery and that there has been no change in the patient's H&P, except as documented below: Dewayne Barber MD Oct 22, 2017 12:17
--- NOTE | 2017-10-22 12:19 | Immediate Post-Op Evaluation ---
Immediate Post-Op Evalulation Immediate Post-Op Evalulation Procedure: ERCP Date of Evaluation: Oct 22, 2017 Time of Evaluation: 13:15 IV Fluids: 400 LR Blood Products: 0 Estimated Blood Loss: 4 Urinary Output: 0 Blood Pressure Systolic: 91 Blood Pressure Diastolic: 58 Pulse Rate: 72 Respiratory Rate: 14 O2 Sat by Pulse Oximetry: 98 Temperature (Fahrenheit): 97.9 Pain Score (1-10): 2 Nausea: No Vomiting: No Complications 0 Patient Status: awake, reacts, patent, none Hydration Status: adequate Jonathan Lopez MD Oct 22, 2017 12:19
--- NOTE | 2017-10-22 12:20 | 48 Hour Post Anesthesia Eval ---
Post Anesthesia Evaluation Procedure: ERCP Date of Evaluation: Oct 22, 2017 Time of Evaluation: 15:21 Blood Pressure Systolic: 119 0: 82 Pulse Rate: 74 Respiratory Rate: 18 Temperature (Fahrenheit): 98.2 O2 Sat by Pulse Oximetry: 97 Airway: patent Nausea: No Vomiting: No Pain Intensity: 1 Hydration Status: adequate Cardiopulmonary Status: Stable Mental Status/LOC: patient returned to baseline Follow-up Care/Observations: 0 Post-Anesthesia Complications: 0 Follow-up care needed: ready to discharge Jonathan Lopez MD Oct 22, 2017 12:20
[2017-10-22] MEDS ORDERED: DiphenhydrAMINE 50mg/ml Inj IVP PRN (12:30)
[2017-10-22] MEDS ORDERED: HYDROcodone/Acetamin 7.5/325 tab ORAL PRN (12:30)
[2017-10-22] MEDS ORDERED: Midazolam 2mg/2ml Inj IVP PRN (12:30)
[2017-10-22] MEDS ORDERED: fentaNYL 100 mcg/2 mL IV PRN (12:30)
[2017-10-22] MEDS ORDERED: LORazepam Inj 2mg/ml 1ml IV PRN (12:30)
[2017-10-22] MEDS ORDERED: Labetalol 5mg/ml 20ml vial IV PRN (12:30)
[2017-10-22] MEDS ORDERED: Hydromorphone 0.5mg/0.5ml inj IVP PRN (12:30)
[2017-10-22] MEDS ORDERED: Metoclopramide 10mg/2ml Inj IVP PRN (12:30)
[2017-10-22] MEDS ORDERED: oxyCODONE HCL/Acetaminophen 5/325mg ORAL PRN (12:30)
[2017-10-22] MEDS ORDERED: Norco 5mg/325mg tab ORAL PRN (12:30)
[2017-10-22] MEDS ORDERED: Atropine Inj 1mg/10ml Syr IV PRN (12:30)
--- NOTE | 2017-10-22 12:54 | Endoscopy Procedure Note ---
Endoscopy Procedure Note General Indication for Procedure: choledocholithiasis Procedures Performed: ERCP Operative Findings/Diagnosis: same Specimen: none Pt Tolerated Procedure Well: Yes Estimated Blood Loss: none Anesthesia Anesthesiologist: quan Anesthesia: MAC Inserted Devices Implant(s) used?: No GI Core Measures 50 yrs or older w/o bx or poly: Not Applicable 10yrs. F/U not recommended: Not Applicable Dewayne Barber MD Oct 22, 2017 12:54
[2017-10-22] MEDS: 1/2NS w/KCl 20mEq 1000ml 1,000 ML IV SCH (15:12)
--- NOTE | 2017-10-22 16:07 | Diagnostic Imaging Report ---
Indication: Abnormal liver function tests, biliary duct stone demonstrated on previous imaging studies Technique: Intraoperative images Comparison: MRCP dated 10/20/2017 Findings: Intraoperative images demonstrate cannulation and opacification of the bile ducts. A large filling defect is seen in the common hepatic duct, presumably correlating to the common duct stone demonstrated on MRCP. There is also dilatation of the central intrahepatic ducts. Subsequent images demonstrate deployment of stone extraction balloon. Impression: Intraoperative images, as described
--- NOTE | 2017-10-22 16:30 | Procedure Note ---
DATE OF PROCEDURE: 10/22/2017 SURGEON: Dewayne Barber M.D. REFERRING PHYSICIAN: Donato Higgins M.D. PROCEDURE: ERCP, sphincterotomy, stone removal, lithotripsy. ANESTHESIA: Per Dr. Lopez. INSTRUMENT: Olympus adult flexible ERCP scope. INDICATION: Choledocholithiasis. The procedure, risks, benefits, and possible consequences, including hemorrhage, aspiration, perforation and infection, and alternative treatments, were explained to the patient/legal guardian by Dr. Dewayne Barber and the patient/legal guardian understood and accepted these risks. DESCRIPTION OF PROCEDURE: After informed consent was obtained and the patient was adequately sedated, an ERCP scope was advanced from mouth into the second portion of duodenum. The patient had a large periampullary diverticulum. Using a sphincterotome, common bile duct was selectively cannulated. Initially, cholangiogram showed severely dilated duct to about 15 to 16 mm with a large stone, roughly about 3 cm in the proximal common bile duct. Cystic duct was not filled out and the gallbladder was not seen. At this time, over a guidewire, 95% sphincterotomy was performed. Then, we used a balloon to perform repeat cholangiogram, which showed again same findings. Given the stone was very big, we decided to do lithotripsy, which was successful using a basket. Partially broken. Then, using a balloon, we swept the duct and removed the large stone from distal common bile duct. Postballoon occlusion cholangiogram showed no further filling defect in the common bile duct. At this time, the procedure was terminated. The patient tolerated the procedure very well without any complication. SUMMARY OF FINDINGS: 1. Choledocholithiasis. 2. Periampullary diverticulum. 3. Status post ERCP with sphincterotomy, lithotripsy, stone removal. 4. Unable to see the gallbladder. No cystic duct. RECOMMENDATIONS: Monitor labs. Advance diet as tolerated. Follow up with surgical team for possible cholecystectomy. I want to thank Dr. Higgins for this kind referral. Dewayne Barber M.D. DR: VISHNU JOB#: [id number] CC: Donato Higgins M.D.; Fax#: [phone]
--- NOTE | 2017-10-22 20:13 | General Surgery Progress Note ---
General Surgery-Progress Note Subjective Additional Comments no acute events. ERCP today Objective Last 24 Hour Vital Signs Date Time Temp Pulse Resp B/P (MAP) Pulse Ox O2 Delivery O2 Flow Rate FiO2 10/22/17 16:00 98.0 80 19 120/77 (91) 98 98.0 10/22/17 13:30 98.0 73 16 103/67 99 Nasal Cannula 3 98.0 10/22/17 13:20 72 21 101/65 99 Nasal Cannula 3 10/22/17 13:14 72 23 102/67 99 Nasal Cannula 3 10/22/17 13:09 71 21 95/63 99 Nasal Cannula 3 10/22/17 13:04 97.9 72 14 91/58 98 Nasal Cannula 3 97.9 10/22/17 13:04 208.8 74 18 97 10/22/17 12:00 98.9 82 20 123/79 (94) 97 98.9 10/22/17 08:30 Room Air 10/22/17 08:16 120/85 10/22/17 08:15 85 120/81 10/22/17 08:15 85 120/81 10/22/17 08:00 99.0 85 20 120/81 (94) 96 99.0 10/22/17 04:00 99.0 85 20 132/72 (92) 94 99.0 10/22/17 00:00 99.1 87 20 135/80 (98) 96 99.1 10/21/17 21:00 Room Air I&O Intake and Output 10/21/17 10/22/17 19:00 07:00 Intake Total 887.5 ml 990.0 ml Output Total 500 ml Balance 387.5 ml 990.0 ml IV Total 887.5 ml 990.0 ml Output Urine Total 500 ml # Voids 8 4 Cardiovascular: RSR Respiratory: clear Abdomen: soft, non-tender, present bowel sounds Laboratory Tests Test 10/22/17 08:30 White Blood Count 5.2 K/UL (4.8-10.8) Red Blood Count 3.10 M/UL (4.20-5.40) L Hemoglobin 10.4 G/DL (12.0-16.0) L Hematocrit 30.4 % (37.0-47.0) L Mean Corpuscular Volume 98 FL (80-99) Mean Corpuscular Hemoglobin 33.6 PG (27.0-31.0) H Mean Corpuscular Hemoglobin Concent 34.3 G/DL (32.0-36.0) Red Cell Distribution Width 12.9 % (11.6-14.8) Platelet Count 370 K/UL (150-450) Mean Platelet Volume 6.9 FL (6.5-10.1) Neutrophils (%) (Auto) 60.8 % (45.0-75.0) Lymphocytes (%) (Auto) 26.7 % (20.0-45.0) Monocytes (%) (Auto) 8.7 % (1.0-10.0) Eosinophils (%) (Auto) 1.9 % (0.0-3.0) Basophils (%) (Auto) 1.9 % (0.0-2.0) Sodium Level 137 MMOL/L (136-145) Potassium Level 4.0 MMOL/L (3.5-5.1) Chloride Level 102 MMOL/L (98-107) Carbon Dioxide Level 18 MMOL/L (21-32) L Anion Gap 18 mmol/L (5-15) H Blood Urea Nitrogen 11 mg/dL (7-18) Creatinine 1.5 MG/DL (0.55-1.30) H Estimat Glomerular Filtration Rate mL/min (>60) Glucose Level 90 MG/DL (74-106) Calcium Level 8.3 MG/DL (8.5-10.1) L Total Bilirubin 2.0 MG/DL (0.2-1.0) H Direct Bilirubin 1.5 MG/DL (0.0-0.3) H Aspartate Amino Transf (AST/SGOT) 33 U/L (15-37) Alanine Aminotransferase (ALT/SGPT) 53 U/L (12-78) Alkaline Phosphatase 99 U/L (46-116) Total Protein 7.5 G/DL (6.4-8.2) Albumin 3.0 G/DL (3.4-5.0) L Globulin 4.5 g/dL Albumin/Globulin Ratio 0.7 (1.0-2.7) L Plan Problems: (1) Cholelithiasis Assessment & Plan: 82F with choledocholithiasis, obstructive jaundice likely from stones, low grade fevers, abdominal pain. US as above labs with worsening LFT's and t bili labs improved MRCP with obstructing stone s/p ERCP with removal of large stone -will discuss need for cholecystectomy as work up continues -need to monitor for cholangitis given above. -IV Abx -bowel rest. -IV fluids thank you for this consultation. will follow with recs. (2) Obstructive jaundice Davis Cali Oct 22, 2017 20:13
[2017-10-23] VITALS (20 sets, daily range): BP systolic 91–133; BP diastolic 48–84
--- NOTE | 2017-10-23 00:30 | Progress Note ---
DATE: 10/22/2017 SUBJECTIVE: The patient is alert post ERCP. She is in no distress. She is seen as just she is arriving in the room. OBJECTIVE: VITAL SIGNS: Blood pressure 101/65, pulse 72, O2 saturation 99%, and temperature 97.9 degrees. LUNGS: Clear. HEART: Regular rhythm. No murmur. ABDOMEN: Soft. No organomegaly. EXTREMITIES: No edema. ASSESSMENT AND PLAN: The patient is seen post ERCP in the chart. She is nontoxic at this time. We will discuss with Dr. Barber. Plan is for any further studies and advancing diet as tolerated. Her bilirubin is low today at 2.0. Remainder of the labs also show improvement of . Empiric antibiotics are continued. Donato Higgins M.D. DR: Cheyanne JOB#: [id number] CC:
[2017-10-23] MEDS: Zoysn 3.37gm in NS 100ML IVPB SCH ×2 (01:15→08:25)
[2017-10-23 06:42] LABS: EOSINOPHILS % (AUTO) 2.2 % (0.0-3.0); HEMATOCRIT 30.9 % (37.0-47.0); HEMOGLOBIN 10.4 G/DL (12.0-16.0); LYMPHOCYTES % (AUTO) 20.9 % (20.0-45.0); MEAN CORPUSCULAR VOLUME 98 FL (80-99); PLATELET COUNT 373 K/UL (150-450); RED BLOOD COUNT 3.14 M/UL (4.20-5.40); RED CELL DISTRIBUTION WIDTH 12.8 % (11.6-14.8); WHITE BLOOD COUNT 5.9 K/UL (4.8-10.8)
[2017-10-23] MEDS: NovoLOG Insulin Flexpen SUBQ SCH ×3 (06:42→19:43)
[2017-10-23] MEDS: Levothyroxine 125mcg tab ORAL SCH (06:43)
[2017-10-23 07:12] LABS: ALANINE AMINOTRANSFERASE 36 U/L (12-78); ALBUMIN 3.1 G/DL (3.4-5.0); ALBUMIN/GLOBULIN RATIO 0.7 (1.0-2.7); ALKALINE PHOSPHATASE 97 U/L (46-116); ANION GAP 12 mmol/L (5-15); ASPARTATE AMINO TRANSFERASE 27 U/L (15-37); BILIRUBIN,TOTAL 1.7 MG/DL (0.2-1.0); BLOOD UREA NITROGEN 10 mg/dL (7-18); CALCIUM 8.5 MG/DL (8.5-10.1); CARBON DIOXIDE 21 MMOL/L (21-32); CHLORIDE 105 MMOL/L (98-107); CREATININE 1.4 MG/DL (0.55-1.30); POTASSIUM 3.7 MMOL/L (3.5-5.1); SODIUM 138 MMOL/L (136-145)
[2017-10-23 07:14] LABS: BILIRUBIN,DIRECT 1.2 MG/DL (0.0-0.3)
[2017-10-23] MEDS: 1/2NS w/KCl 20mEq 1000ml 1,000 ML IV SCH (08:24)
[2017-10-23] MEDS: Heparin 5000 units/ml inj SUBQ SCH ×2 (08:26→21:01)
[2017-10-23] MEDS: Doxazosin 4mg tab ORAL SCH (08:28)
[2017-10-23] MEDS: Metoprolol Succinate XL 50mg tab ORAL SCH (08:28)
[2017-10-23] MEDS: Losartan 50mg tab ORAL SCH (08:29)
--- NOTE | 2017-10-23 10:47 | General Surgery Progress Note ---
General Surgery-Progress Note Subjective Symptoms: improved, pain absent, passing flatus Objective Last 24 Hour Vital Signs Date Time Temp Pulse Resp B/P (MAP) Pulse Ox O2 Delivery O2 Flow Rate FiO2 10/23/17 08:29 133/73 10/23/17 08:28 80 133/73 10/23/17 08:28 80 133/73 10/23/17 08:15 Room Air 10/23/17 08:00 98.6 78 20 133/73 (93) 97 98.6 10/23/17 04:43 98.7 72 18 132/72 (92) 97 98.7 10/23/17 00:15 98.0 89 18 125/69 (87) 97 98.0 10/22/17 21:00 Room Air 10/22/17 20:00 97.9 91 18 128/72 (90) 96 97.9 10/22/17 16:00 98.0 80 19 120/77 (91) 98 98.0 10/22/17 13:30 98.0 73 16 103/67 99 Nasal Cannula 3 98.0 10/22/17 13:20 72 21 101/65 99 Nasal Cannula 3 10/22/17 13:14 72 23 102/67 99 Nasal Cannula 3 10/22/17 13:09 71 21 95/63 99 Nasal Cannula 3 10/22/17 13:04 97.9 72 14 91/58 98 Nasal Cannula 3 97.9 10/22/17 13:04 208.8 74 18 97 10/22/17 12:00 98.9 82 20 123/79 (94) 97 98.9 I&O Intake and Output 10/22/17 10/23/17 19:00 07:00 Intake Total 1915.0 ml 315 ml Output Total 4 ml Balance 1911.0 ml 315 ml Intake Oral 800 ml 240 ml IV Total 1115.0 ml 75 ml Estimated Blood Loss 4 ml # Voids 2 3 # Bowel Movements 2 Drains: none Cardiovascular: RSR Respiratory: clear Abdomen: soft, non-tender, present bowel sounds Extremities: no cyanosis Laboratory Tests Test 10/23/17 05:10 White Blood Count 5.9 K/UL (4.8-10.8) Red Blood Count 3.14 M/UL (4.20-5.40) L Hemoglobin 10.4 G/DL (12.0-16.0) L Hematocrit 30.9 % (37.0-47.0) L Mean Corpuscular Volume 98 FL (80-99) Mean Corpuscular Hemoglobin 33.1 PG (27.0-31.0) H Mean Corpuscular Hemoglobin Concent 33.6 G/DL (32.0-36.0) Red Cell Distribution Width 12.8 % (11.6-14.8) Platelet Count 373 K/UL (150-450) Mean Platelet Volume 7.2 FL (6.5-10.1) Neutrophils (%) (Auto) 69.0 % (45.0-75.0) Lymphocytes (%) (Auto) 20.9 % (20.0-45.0) Monocytes (%) (Auto) 7.0 % (1.0-10.0) Eosinophils (%) (Auto) 2.2 % (0.0-3.0) Basophils (%) (Auto) 1.0 % (0.0-2.0) Sodium Level 138 MMOL/L (136-145) Potassium Level 3.7 MMOL/L (3.5-5.1) Chloride Level 105 MMOL/L (98-107) Carbon Dioxide Level 21 MMOL/L (21-32) Anion Gap 12 mmol/L (5-15) Blood Urea Nitrogen 10 mg/dL (7-18) Creatinine 1.4 MG/DL (0.55-1.30) H Estimat Glomerular Filtration Rate mL/min (>60) Glucose Level 121 MG/DL (74-106) H Calcium Level 8.5 MG/DL (8.5-10.1) Total Bilirubin 1.7 MG/DL (0.2-1.0) H Direct Bilirubin 1.2 MG/DL (0.0-0.3) H Aspartate Amino Transf (AST/SGOT) 27 U/L (15-37) Alanine Aminotransferase (ALT/SGPT) 36 U/L (12-78) Alkaline Phosphatase 97 U/L (46-116) Total Protein 7.5 G/DL (6.4-8.2) Albumin 3.1 G/DL (3.4-5.0) L Globulin 4.4 g/dL Albumin/Globulin Ratio 0.7 (1.0-2.7) L Plan Problems: (1) Cholelithiasis Assessment & Plan: 82F with choledocholithiasis, obstructive jaundice likely from stones, low grade fevers, abdominal pain. US as above labs with worsening LFT's and t bili labs improved MRCP with obstructing stone s/p ERCP with removal of large stone -will schedule for lap rob soon thank you for this consultation. will follow with recs. (2) Obstructive jaundice Davis Cali Oct 23, 2017 10:47
--- NOTE | 2017-10-23 10:52 | Pre-Procedure Note/Attestation ---
Pre-Procedure Note/Attestation Complete Prior to Procedure Planned Procedure: not applicable Procedure Narrative: laparoscopic cholecystectomy, possible open Indications for Procedure Pre-Operative Diagnosis: acute cholecystitis, choledocholithiasis Attestation I attest that I discussed the nature of the procedure; its benefits; risks and complications; and alternatives (and the risks and benefits of such alternatives ), prior to the procedure, with the patient (or the patient's legal technology sales representative). I attest that, if there was a reasonable possibility of needing a blood transfusion, the patient (or the patient's legal technology sales representative) was given the [facility] standardized written summary, pursuant to the [employer] [place] Blood Safety Act ([place] Health and Safety Code # 1645, as amended). I attest that I re-evaluated the patient just prior to the surgery and that there has been no change in the patient's H&P, except as documented below: Davis Cali Oct 23, 2017 10:52
[2017-10-23] MEDS ORDERED: Iothalamate Meglumine 60% 30ML INJ ONE (12:28)
[2017-10-23] MEDS ORDERED: Bupivacaine 0.25% Inj 30ml INJ ONE ×2 (12:28→15:37)
[2017-10-23] MEDS ORDERED: Lidocaine 1% 10mg/ml/EPI 0.01mg/ml 50ml INJ ONE (12:28)
[2017-10-23] MEDS ORDERED: Sterile Water Irrig 1000ml IRRIG ONE (13:00)
[2017-10-23] MEDS ORDERED: LR 1000ml ONE (13:00)
[2017-10-23] MEDS ORDERED: NS Irrig 1000ml ONE (13:00)
--- NOTE | 2017-10-23 13:13 | General Progress Note ---
Assessment/Plan Problem List: (1) Choledocholithiasis with acute cholecystitis with obstruction ICD Codes: K80.43 - Calculus of bile duct with acute cholecystitis with obstruction SNOMED: 13877971 (2) Cholelithiasis ICD Codes: K80.20 - Calculus of gallbladder without cholecystitis without obstruction SNOMED: 607309359 Qualifiers: Qualified Codes: K80.71 - Calculus of gallbladder and bile duct without cholecystitis with obstruction (3) Diabetes mellitus ICD Codes: E11.9 - Type 2 diabetes mellitus without complications SNOMED: 28374076 Assessment/Plan cont antibiotics, stable for cholecystectomy Subjective Constitutional: Reports: weakness HEENT: Reports: no symptoms Cardiovascular: Reports: no symptoms Respiratory: Reports: no symptoms Gastrointestinal/Abdominal: Reports: abdominal pain Genitourinary: Reports: no symptoms Neurologic/Psychiatric: Reports: no symptoms Endocrine: Reports: no symptoms Hematologic/Lymphatic: Reports: no symptoms Allergies: Coded Allergies: No Known Allergies (Verified , 07/20/11) Objective Last 24 Hour Vital Signs Date Time Temp Pulse Resp B/P (MAP) Pulse Ox O2 Delivery O2 Flow Rate FiO2 10/23/17 12:00 98.8 78 20 125/74 (91) 95 98.8 10/23/17 08:29 133/73 10/23/17 08:28 80 133/73 10/23/17 08:28 80 133/73 10/23/17 08:15 Room Air 10/23/17 08:00 98.6 78 20 133/73 (93) 97 98.6 10/23/17 04:43 98.7 72 18 132/72 (92) 97 98.7 10/23/17 00:15 98.0 89 18 125/69 (87) 97 98.0 10/22/17 21:00 Room Air 10/22/17 20:00 97.9 91 18 128/72 (90) 96 97.9 10/22/17 16:00 98.0 80 19 120/77 (91) 98 98.0 10/22/17 13:30 98.0 73 16 103/67 99 Nasal Cannula 3 98.0 10/22/17 13:20 72 21 101/65 99 Nasal Cannula 3 10/22/17 13:14 72 23 102/67 99 Nasal Cannula 3 Intake and Output 10/22/17 10/23/17 19:00 07:00 Intake Total 1915.0 ml 315 ml Output Total 4 ml Balance 1911.0 ml 315 ml Intake Oral 800 ml 240 ml IV Total 1115.0 ml 75 ml Estimated Blood Loss 4 ml # Voids 2 3 # Bowel Movements 2 Laboratory Tests 10/23/17 05:10: White Blood Count 5.9, Red Blood Count 3.14L, Hemoglobin 10.4L, Hematocrit 30.9L , Mean Corpuscular Volume 98, Mean Corpuscular Hemoglobin 33.1H, Mean Corpuscular Hemoglobin Concent 33.6, Red Cell Distribution Width 12.8, Platelet Count 373, Mean Platelet Volume 7.2, Neutrophils (%) (Auto) 69.0, Lymphocytes (% ) (Auto) 20.9, Monocytes (%) (Auto) 7.0, Eosinophils (%) (Auto) 2.2, Basophils ( %) (Auto) 1.0, Sodium Level 138, Potassium Level 3.7, Chloride Level 105, Carbon Dioxide Level 21, Anion Gap 12, Blood Urea Nitrogen 10, Creatinine 1.4H, Estimat Glomerular Filtration Rate , Glucose Level 121H, Calcium Level 8.5, Total Bilirubin 1.7H, Direct Bilirubin 1.2H, Aspartate Amino Transf (AST/SGOT) 27, Alanine Aminotransferase (ALT/SGPT) 36, Alkaline Phosphatase 97, Total Protein 7.5, Albumin 3.1L, Globulin 4.4, Albumin/Globulin Ratio 0.7L Height (Feet): 5 Height (Inches): 1.00 Weight (Pounds): 130 General Appearance: no apparent distress, alert EENT: normal ENT inspection Neck: non-tender, normal alignment Cardiovascular: normal rate, regular rhythm Respiratory/Chest: lungs clear, normal breath sounds Abdomen: non tender, soft Extremities: non-tender Edema: no edema noted Arm (L), no edema noted Arm (R), no edema noted Leg (L), no edema noted Leg (R), no edema noted Pedal (L), no edema noted Pedal (R), no edema noted Generalized MARCIA ADAMS Oct 23, 2017 13:13
[2017-10-23] MEDS ORDERED: Zemuron 50mg/5ml Inj IV ONE (13:30)
[2017-10-23] MEDS ORDERED: Lidocaine 1% MPF 10mg/ml 5ml ONE (13:33)
[2017-10-23] MEDS ORDERED: Propofol 200mg/20ml IV ONE (13:33)
[2017-10-23] MEDS ORDERED: fentaNYL 100 mcg/2 mL IV ONE (13:58)
--- NOTE | 2017-10-23 13:59 | GI Progress Note ---
Assessment/Plan Problems: (1) Choledocholithiasis with acute cholecystitis with obstruction ICD Codes: K80.43 - Calculus of bile duct with acute cholecystitis with obstruction SNOMED: 14543208 (2) Anemia, chronic renal failure ICD Codes: N18.9 - Chronic kidney disease, unspecified; D63.1 - Anemia in chronic kidney disease SNOMED: 84313879 (3) CHF exacerbation ICD Codes: I50.9 - Heart failure, unspecified SNOMED: 99718275 (4) Diabetes mellitus ICD Codes: E11.9 - Type 2 diabetes mellitus without complications SNOMED: 98198892 (5) Cholelithiasis ICD Codes: K80.20 - Calculus of gallbladder without cholecystitis without obstruction SNOMED: 987354422 Qualifiers: Qualified Codes: K80.71 - Calculus of gallbladder and bile duct without cholecystitis with obstruction (6) Hypothyroidism ICD Codes: E03.9 - Hypothyroidism, unspecified SNOMED: 55890157 Status: unchanged Status Narrative Discussed with Dr. Barber. Assessment/Plan SUMMARY OF FINDINGS: 1. Choledocholithiasis. 2. Periampullary diverticulum. 3. Status post ERCP with sphincterotomy, lithotripsy, stone removal. 4. Unable to see the gallbladder. No cystic duct. RECOMMENDATIONS: lap rob today fu surgical recommendations will follow with additional recs for post operative N/V pain mgmt diet per surgery ppi fu labs Subjective Gastrointestinal/Abdominal: Reports: no symptoms Objective Last 24 Hour Vital Signs Date Time Temp Pulse Resp B/P (MAP) Pulse Ox O2 Delivery O2 Flow Rate FiO2 10/23/17 12:00 98.8 78 20 125/74 (91) 95 98.8 10/23/17 08:29 133/73 10/23/17 08:28 80 133/73 10/23/17 08:28 80 133/73 10/23/17 08:15 Room Air 10/23/17 08:00 98.6 78 20 133/73 (93) 97 98.6 10/23/17 04:43 98.7 72 18 132/72 (92) 97 98.7 10/23/17 00:15 98.0 89 18 125/69 (87) 97 98.0 10/22/17 21:00 Room Air 10/22/17 20:00 97.9 91 18 128/72 (90) 96 97.9 10/22/17 16:00 98.0 80 19 120/77 (91) 98 98.0 Intake and Output 10/22/17 10/23/17 19:00 07:00 Intake Total 1915.0 ml 315 ml Output Total 4 ml Balance 1911.0 ml 315 ml Intake Oral 800 ml 240 ml IV Total 1115.0 ml 75 ml Estimated Blood Loss 4 ml # Voids 2 3 # Bowel Movements 2 Laboratory Tests Test 10/23/17 05:10 White Blood Count 5.9 K/UL (4.8-10.8) Red Blood Count 3.14 M/UL (4.20-5.40) L Hemoglobin 10.4 G/DL (12.0-16.0) L Hematocrit 30.9 % (37.0-47.0) L Mean Corpuscular Volume 98 FL (80-99) Mean Corpuscular Hemoglobin 33.1 PG (27.0-31.0) H Mean Corpuscular Hemoglobin Concent 33.6 G/DL (32.0-36.0) Red Cell Distribution Width 12.8 % (11.6-14.8) Platelet Count 373 K/UL (150-450) Mean Platelet Volume 7.2 FL (6.5-10.1) Neutrophils (%) (Auto) 69.0 % (45.0-75.0) Lymphocytes (%) (Auto) 20.9 % (20.0-45.0) Monocytes (%) (Auto) 7.0 % (1.0-10.0) Eosinophils (%) (Auto) 2.2 % (0.0-3.0) Basophils (%) (Auto) 1.0 % (0.0-2.0) Sodium Level 138 MMOL/L (136-145) Potassium Level 3.7 MMOL/L (3.5-5.1) Chloride Level 105 MMOL/L (98-107) Carbon Dioxide Level 21 MMOL/L (21-32) Anion Gap 12 mmol/L (5-15) Blood Urea Nitrogen 10 mg/dL (7-18) Creatinine 1.4 MG/DL (0.55-1.30) H Estimat Glomerular Filtration Rate mL/min (>60) Glucose Level 121 MG/DL (74-106) H Calcium Level 8.5 MG/DL (8.5-10.1) Total Bilirubin 1.7 MG/DL (0.2-1.0) H Direct Bilirubin 1.2 MG/DL (0.0-0.3) H Aspartate Amino Transf (AST/SGOT) 27 U/L (15-37) Alanine Aminotransferase (ALT/SGPT) 36 U/L (12-78) Alkaline Phosphatase 97 U/L (46-116) Total Protein 7.5 G/DL (6.4-8.2) Albumin 3.1 G/DL (3.4-5.0) L Globulin 4.4 g/dL Albumin/Globulin Ratio 0.7 (1.0-2.7) L Height (Feet): 5 Height (Inches): 1.00 Weight (Pounds): 130 General Appearance: WD/WN, no apparent distress, alert Cardiovascular: normal rate Respiratory/Chest: normal breath sounds, no respiratory distress Abdominal Exam: normal bowel sounds, non tender, soft Extremities: non-tender Kranthi Pearl NP Oct 23, 2017 13:59
[2017-10-23] MEDS ORDERED: Dexamethasone 4mg/ml vial ONE (14:08)
[2017-10-23] MEDS ORDERED: Glycopyrrolate 0.2mg/ml 1ml Vial ONE (14:22)
[2017-10-23] MEDS ORDERED: Neostigmine 1mg/ml 10ml Inj ONE (14:22)
--- NOTE | 2017-10-23 14:27 | Anethesia Preoperative Eval ---
Anesthesia Pre-op PMH/ROS General Date of Evaluation: Oct 23, 2017 Time of Evaluation: 12:30 Anesthesiologist: ASA Score: ASA 3 Mallampati Score Class I : Soft palate, uvula, fauces, pillars visible Class II: Soft palate, uvula, fauces visible Class III: Soft palate, base of uvula visible Class IV: Only hard plate visible Mallampati Classification: Class II Surgeon: elías Diagnosis: cholelithiasis Surgical Procedure: lapchole Anesthesia History: none Allergies: Coded Allergies: No Known Allergies (Verified , 07/20/11) Past Medical History Cardiovascular: Reports: HTN; Denies: CAD, AR, valve dz, arrhythmia, other Pulmonary: Denies: asthma, COPD, IVAN, other Gastrointestinal/Genitourinary: Denies: GERD, CRI, ESRD, other Neurologic/Psychiatric: Reports: dementia; Denies: CVA, depression/anxiety, TIA, other Endocrine: Reports: DM, hypothyroidism; Denies: steroids, other HEENT: Denies: cataract (L), cataract (R), glaucoma, [place] (L), [place] (R), other Hematology/Immune: Denies: anemia, DVT, bleeding disorder, other Musculoskeletal/Integumentary: Denies: OA, RA, DJD, DDD, edema, other Anesthesia Pre-op Phys. Exam Physician Exam Last Vital Signs Date Time Temp Pulse Resp B/P (MAP) Pulse Ox O2 Delivery O2 Flow Rate FiO2 10/23/17 12:00 98.8 78 20 125/74 (91) 95 98.8 10/23/17 08:15 Room Air 10/22/17 13:30 3 Constitutional: NAD Cardiovascular: RRR Respiratory: CTA Gastrointestinal: S/NT/ND Airway Exam Mallampati Score: Class II MO: full ROM: full Teeth: missing Anesthesia Pre-op A/P Labs Hematology Test 10/23/17 05:10 White Blood Count 5.9 K/UL (4.8-10.8) Red Blood Count 3.14 M/UL (4.20-5.40) L Hemoglobin 10.4 G/DL (12.0-16.0) L Hematocrit 30.9 % (37.0-47.0) L Mean Corpuscular Volume 98 FL (80-99) Mean Corpuscular Hemoglobin 33.1 PG (27.0-31.0) H Mean Corpuscular Hemoglobin Concent 33.6 G/DL (32.0-36.0) Red Cell Distribution Width 12.8 % (11.6-14.8) Platelet Count 373 K/UL (150-450) Mean Platelet Volume 7.2 FL (6.5-10.1) Neutrophils (%) (Auto) 69.0 % (45.0-75.0) Lymphocytes (%) (Auto) 20.9 % (20.0-45.0) Monocytes (%) (Auto) 7.0 % (1.0-10.0) Eosinophils (%) (Auto) 2.2 % (0.0-3.0) Basophils (%) (Auto) 1.0 % (0.0-2.0) Chemistry Test 10/23/17 05:10 Sodium Level 138 MMOL/L (136-145) Potassium Level 3.7 MMOL/L (3.5-5.1) Chloride Level 105 MMOL/L (98-107) Carbon Dioxide Level 21 MMOL/L (21-32) Anion Gap 12 mmol/L (5-15) Blood Urea Nitrogen 10 mg/dL (7-18) Creatinine 1.4 MG/DL (0.55-1.30) H Estimat Glomerular Filtration Rate mL/min (>60) Glucose Level 121 MG/DL (74-106) H Calcium Level 8.5 MG/DL (8.5-10.1) Total Bilirubin 1.7 MG/DL (0.2-1.0) H Direct Bilirubin 1.2 MG/DL (0.0-0.3) H Aspartate Amino Transf (AST/SGOT) 27 U/L (15-37) Alanine Aminotransferase (ALT/SGPT) 36 U/L (12-78) Alkaline Phosphatase 97 U/L (46-116) Total Protein 7.5 G/DL (6.4-8.2) Albumin 3.1 G/DL (3.4-5.0) L Globulin 4.4 g/dL Albumin/Globulin Ratio 0.7 (1.0-2.7) L Risk Assessment & Plan Assessment: asa 3E Plan: ETGA Status Change Before Surgery: No Pre-Antibiotics Drug: ancef 2 grams Given Within 1 Hr of Incision: Yes Time Given: 13:55 Aminata Aguila M.D. Oct 23, 2017 14:26
--- NOTE | 2017-10-23 14:28 | Brief Operative Note ---
Immediate Post Operative Note Operative Note Pre-op Diagnosis: acute cholecystitis, choledocholithiasis Procedure: laparoscopic cholecystectomy Post-op Diagnosis: same as pre-op Surgeon: elías Anesthesiologist: zev Anesthesia: general Specimen: yes Complications: none Condition: stable Fluids: see records Estimated Blood Loss: minimal Drains: none Implant(s) used?: No Davis Cali Oct 23, 2017 14:28
[2017-10-23] MEDS ORDERED: Morphine Sulfate 4mg/ml Inj (IV USE ONLY) IVP PRN ×2 (14:30→18:30)
[2017-10-23] MEDS ORDERED: Morphine Sulfate 2mg/ml Inj(IV/IM USE ONLY) IVP PRN ×3 (14:30→18:30)
[2017-10-23] MEDS ORDERED: Milk of Magnesia 30ml Ud ORAL PRN ×2 (14:30→18:30)
[2017-10-23] MEDS ORDERED: Norco 5mg/325mg tab ORAL PRN ×2 (14:30→18:30)
[2017-10-23] MEDS ORDERED: HYDROcodone/Acetamin 10/325 tab ORAL PRN ×2 (14:30→18:30)
[2017-10-23] MEDS ORDERED: LR 1000ml 1,000 ML IVLG SCH (14:32)
[2017-10-23] MEDS ORDERED: DiphenhydrAMINE 50mg/ml Inj IVP PRN ×2 (14:45→17:15)
[2017-10-23] MEDS ORDERED: fentaNYL 100 mcg/2 mL IV PRN ×2 (14:45→17:15)
--- NOTE | 2017-10-23 14:45 | Immediate Post-Op Evaluation ---
Immediate Post-Op Evalulation Immediate Post-Op Evalulation Procedure: lap rob Date of Evaluation: Oct 23, 2017 Time of Evaluation: 15:03 IV Fluids: 1000ml Blood Products: 0 Estimated Blood Loss: 10ml Urinary Output: 0 Blood Pressure Systolic: 92 Blood Pressure Diastolic: 64 Pulse Rate: 110 Respiratory Rate: 23 O2 Sat by Pulse Oximetry: 98 Temperature (Fahrenheit): 97.2 Pain Score (1-10): 0 Nausea: No Vomiting: No Complications none Patient Status: awake, patent, none Hydration Status: adequate Drug: ancef 2 grams Given Within 1 Hr of Incision: Yes Time Given: 13:55 Aminata Aguila M.D. Oct 23, 2017 14:45
[2017-10-23] MEDS ORDERED: Sugammadex Sodium 200mg/2ml vial IV ONE (14:55)
[2017-10-23] MEDS ORDERED: D5 1/2NS w/KCl 40meq 1000ml 1,000 ML IV ONE ×2 (16:15→17:15)
[2017-10-23 17:03] LABS: HEMATOCRIT 29.2 % (37.0-47.0); HEMOGLOBIN 9.8 G/DL (12.0-16.0); MEAN CORPUSCULAR VOLUME 98 FL (80-99); PLATELET COUNT 315 K/UL (150-450); RED BLOOD COUNT 2.97 M/UL (4.20-5.40); RED CELL DISTRIBUTION WIDTH 13.1 % (11.6-14.8)
[2017-10-23 17:20] LABS: ANION GAP 15 mmol/L (5-15); BLOOD UREA NITROGEN 9 mg/dL (7-18); CALCIUM 8.1 MG/DL (8.5-10.1); CARBON DIOXIDE 19 MMOL/L (21-32); CHLORIDE 105 MMOL/L (98-107); CREATININE 1.3 MG/DL (0.55-1.30); POTASSIUM 3.6 MMOL/L (3.5-5.1); SODIUM 139 MMOL/L (136-145)
[2017-10-23] MEDS ORDERED: Docusate 100mg cap ORAL SCH (18:00)
[2017-10-23] MEDS ORDERED: Metoprolol 25mg tab ORAL SCH ×2 (18:30→21:45)
[2017-10-23] MEDS ORDERED: Nitroglycerin Subl 0.4mg tab SL PRN (18:30)
[2017-10-23] MEDS: Docusate 100mg cap ORAL SCH (19:47)
--- NOTE | 2017-10-23 20:00 | Operative Note - Dictated ---
DATE OF OPERATION: 10/23/2017 PREOPERATIVE DIAGNOSES: 1. Choledocholithiasis. 2. Cystic duct stones. POSTOPERATIVE DIAGNOSES: 1. Choledocholithiasis. 2. Cystic duct stones. OPERATION PERFORMED: Laparoscopic cholecystectomy. ATTENDING PHYSICIAN: Davis Cali M.D. NUCLEAR WEAPONS SPECIALIST: None. ANESTHESIOLOGIST: Dr. Machuca. ANESTHESIA: General EXECUTIVE SOUS CHEF. ESTIMATED BLOOD LOSS: Minimal. IV FLUIDS: Please see anesthesia records. ANTIBIOTICS: Ancef 2 g IV given 1 hour prior to cut time. COMPLICATIONS: None. DRAINS: None. SPECIMEN: Gallbladder and stones sent to pathology for review. WOUND CLASSIFICATION: Class III. COUNT: Sponge and needle count correct x2. INDICATIONS FOR PROCEDURE: This is an 82-year-old female, who presented to the emergency department at [facility] with weakness, fatigue, abdominal pain, nausea, and vomiting with elevated bilirubin and liver enzymes. The patient on imaging studies was found to have abdominal ultrasound with cholelithiasis and dilated common bile duct of 2.42 mm with likely stone. MRCP performed identified a large stone in the distal common bile duct resulting in biliary obstruction with common bile duct of 2.6 cm, distended gallbladder with multiple stones, and some stones in the cystic duct as well. The patient had ERCP and stones were evacuated and the common duct cleared, but there were significant concerns given the stones in the cystic duct and the gallbladder that there would be another episode of choledocholithiasis and potentially worsening condition and therefore, surgery was indicated and recommended. Surgical intervention was discussed with primary team and GI as well as Surgical teams, who all agreed that in the patient's best interest, cholecystectomy prior to discharge would be recommended. Risks, benefits, and alternatives were discussed with the patient's family who consented to surgery. OPERATIVE NOTE: The patient was taken to the operating room and placed on the operating table in supine position with left arm tucked. All bony prominences were well padded. SCDs were placed. No Casper catheter was inserted given the patient voided prior to entering the operating room. General anesthesia was induced. The patient was intubated. Preoperative time-out was taken identifying the patient, procedure, operative site, and surgical staff. The abdomen was prepped and draped in standard surgical fashion. IV antibiotics were given prior to cut time. Infraumbilical incision was made using a fresh #11 scalpel. Incision was carried down to the fascia, which was elevated and incised. The abdomen was entered using open Austen technique without complication. A Austen trocar was inserted. The abdomen was insufflated to 12-15 mmHg. The patient tolerated the insufflation well. The abdomen was inspected and no abnormalities were noted. Secondary trocars were placed in the following positions beginning with a subxiphoid epigastric 12 mm trocar and two 5 mm right subcostal port sites. The dome of the gallbladder was identified, grasped, and retracted over the liver. The infundibulum was identified, grasped, and retracted to the right lower quadrant. The peritoneal lining of the gallbladder was taken down and the cystic duct and artery were easily identified and circumferentially dissected out. Critical view was obtained identifying these two to be the only structures entering within the gallbladder. Stones were milked out of the cystic duct and infundibulum was grasped to ensure that no stones were released into the common bile duct during the procedure. The cystic duct and artery were then doubly clipped and divided. The gallbladder was then taken off the remaining liver attachments using electrocautery. Hemostasis was obtained with electrocautery as necessary. Once this was completed, the gallbladder was placed in an endoscopic retrieval bag and removed through the subxiphoid port and sent to pathology for review. The abdomen was inspected and no other abnormalities were noted and hemostasis was achieved. No cystic duct leak or cystic artery bleeding was identified. At this time, we began the conclusion of our procedure. Secondary trocars were removed under direct visualization. The abdomen was allowed to desufflate and the umbilical trocar site removed. The umbilical trocar site fascia was closed using #0 [id number] Vicryl suture. The wounds were cleansed and the surgical skin incisions were closed using interrupted 4-0 Monocryl subcuticular sutures. Benzoin and Steri-Strips were placed followed by dressings. The patient tolerated the procedure well, was extubated, and taken to postanesthetic care unit in stable condition. Margoth Campbell JOB#: [id number] CC:
[2017-10-23] MEDS ORDERED: D5 1/2NS w/KCl 40meq 1000ml 1,000 ML IV SCH (21:15)
[2017-10-23] MEDS: D5 1/2NS w/KCl 40meq 1000ml 1,000 ML IV SCH (21:21)
[2017-10-23] MEDS: Piperacillin/Tazobactam 3.375 GM in NS 110 ML IVPB SCH (23:51)
[2017-10-24] VITALS (24 sets, daily range): BP systolic 105–151; BP diastolic 42–87
[2017-10-24] MEDS: NovoLOG Insulin Flexpen SUBQ SCH ×4 (06:26→21:00)
[2017-10-24] MEDS: D5 1/2NS w/KCl 40meq 1000ml 1,000 ML IV SCH (06:27)
[2017-10-24] MEDS ORDERED: Levothyroxine 125mcg tab ORAL SCH (06:30)
[2017-10-24 06:56] LABS: BASOPHILS % (AUTO) 0.4 % (0.0-2.0); EOSINOPHILS % (AUTO) 0.2 % (0.0-3.0); HEMATOCRIT 32.8 % (37.0-47.0); HEMOGLOBIN 11.1 G/DL (12.0-16.0); LYMPHOCYTES % (AUTO) 12.7 % (20.0-45.0); MEAN CORPUSCULAR VOLUME 98 FL (80-99); MONOCYTES % (AUTO) 6.2 % (1.0-10.0); NEUTROPHILS % (AUTO) 80.6 % (45.0-75.0); PLATELET COUNT 380 K/UL (150-450); RED BLOOD COUNT 3.34 M/UL (4.20-5.40); RED CELL DISTRIBUTION WIDTH 12.7 % (11.6-14.8); WHITE BLOOD COUNT 8.2 K/UL (4.8-10.8)
[2017-10-24 07:18] LABS: ALANINE AMINOTRANSFERASE 40 U/L (12-78); ALBUMIN 3.1 G/DL (3.4-5.0); ALBUMIN/GLOBULIN RATIO 0.7 (1.0-2.7); ALKALINE PHOSPHATASE 92 U/L (46-116); ANION GAP 10 mmol/L (5-15); ASPARTATE AMINO TRANSFERASE 51 U/L (15-37); BILIRUBIN,TOTAL 1.4 MG/DL (0.2-1.0); BLOOD UREA NITROGEN 7 mg/dL (7-18); CALCIUM 8.6 MG/DL (8.5-10.1); CARBON DIOXIDE 23 MMOL/L (21-32); CHLORIDE 106 MMOL/L (98-107); CREATININE 1.3 MG/DL (0.55-1.30); POTASSIUM 4.4 MMOL/L (3.5-5.1); SODIUM 139 MMOL/L (136-145)
[2017-10-24 07:19] LABS: BILIRUBIN,DIRECT 0.9 MG/DL (0.0-0.3)
[2017-10-24] MEDS: Piperacillin/Tazobactam 3.375 GM in NS 110 ML IVPB SCH ×3 (08:07→23:47)
--- NOTE | 2017-10-24 08:10 | 48 Hour Post Anesthesia Eval ---
Post Anesthesia Evaluation Procedure: lap rob Date of Evaluation: Oct 24, 2017 Time of Evaluation: 07:00 Blood Pressure Systolic: 130 0: 70 Pulse Rate: 66 Respiratory Rate: 20 Temperature (Fahrenheit): 98.5 O2 Sat by Pulse Oximetry: 100 Airway: patent Nausea: No Vomiting: No Pain Intensity: 0 Hydration Status: adequate Cardiopulmonary Status: patient back in SR. Mental Status/LOC: patient returned to baseline Post-Anesthesia Complications: 0 Follow-up care needed: N/A - further care as per primary team Elysia Dickson MD Oct 24, 2017 08:10
--- NOTE | 2017-10-24 08:51 | Diagnostic Imaging Report ---
Indication: Dyspnea Technique: One view of the chest Comparison: 12/28/2015 Findings: Free air seen under the right hemidiaphragm. The lungs demonstrate diffuse interstitial disease which appears similar in extent to the prior study. The pleural spaces are clear. The heart is borderline enlarged. The aorta is tortuous and calcified. Old healed fracture deformity of the right proximal humerus again noted. Impression: Positive for pneumoperitoneum. Per the electronic medical record, patient has undergone recent laparoscopic cholecystectomy earlier the same day so this is an expected finding Diffuse interstitial disease. Acuity is indeterminate; similarity similarity to the prior study suggests this is likely chronic in nature but could also be acute. This agrees with the preliminary interpretation provided overnight by [facility] teleradiology service.
[2017-10-24] MEDS ORDERED: Metoprolol Succinate XL 50mg tab ORAL SCH (09:00)
[2017-10-24] MEDS ORDERED: Doxazosin 4mg tab ORAL SCH (09:00)
[2017-10-24] MEDS ORDERED: Losartan 50mg tab ORAL SCH (09:00)
[2017-10-24] MEDS ORDERED: Aspirin Baby 81mg ORAL SCH (09:00)
[2017-10-24] MEDS ORDERED: Metoprolol 25mg tab ORAL SCH (09:00)
[2017-10-24] MEDS: Metoprolol Tartrate 50mg tab ORAL SCH ×2 (09:06→21:21)
[2017-10-24] MEDS: Docusate 100mg cap ORAL SCH ×2 (09:06→17:34)
[2017-10-24] MEDS: Losartan 50mg tab ORAL SCH ×2 (09:07→21:22)
[2017-10-24] MEDS: Heparin 5000 units/ml inj SUBQ SCH (09:08)
--- NOTE | 2017-10-24 09:28 | Diagnostic Imaging Report ---
Indication: Cough Technique: One view of the chest Comparison: 10/23/2017 Findings: Previously demonstrated interstitial disease has improved somewhat. Previously demonstrated postoperative pneumoperitoneum is no longer evident. The pleural spaces remain clear. The heart size is upper limits of normal. Aorta is tortuous and calcified. Impression: Improved interstitial congestion, over one Other findings as noted
--- NOTE | 2017-10-24 10:34 | General Surgery Progress Note ---
General Surgery-Progress Note Subjective Procedure Performed laparoscopic cholecystectomy Additional Comments intermittent a fib post op. given age and post op placed in ICU for overnight monitoring. back in NSR without intervention. no n/v/f/c. doing well. pain minimal. good spirits today. Objective Last 24 Hour Vital Signs Date Time Temp Pulse Resp B/P (MAP) Pulse Ox O2 Delivery O2 Flow Rate FiO2 10/24/17 10:00 65 18 122/64 (83) 100 10/24/17 09:07 124/72 10/24/17 09:06 71 124/72 10/24/17 09:00 72 21 124/72 (89) 100 10/24/17 08:10 209.3 66 20 100 10/24/17 08:00 74 10/24/17 08:00 69 20 126/71 (89) 100 10/24/17 08:00 Nasal Cannula 2.0 10/24/17 07:00 98.5 66 20 130/70 (90) 100 98.5 10/24/17 06:00 70 17 130/67 (88) 100 10/24/17 05:00 76 16 146/76 (99) 100 10/24/17 04:00 97.7 78 20 130/87 (101) 100 97.7 10/24/17 04:00 Nasal Cannula 2.0 10/24/17 04:00 78 10/24/17 03:00 73 18 135/76 (95) 96 10/24/17 02:00 79 18 132/81 (98) 96 10/24/17 01:00 78 18 122/67 (85) 96 10/24/17 00:00 98.2 68 18 129/77 (94) 98 98.2 10/24/17 00:00 68 10/24/17 00:00 Nasal Cannula 2.0 10/23/17 23:00 61 17 114/68 (83) 99 10/23/17 22:06 74 105/59 10/23/17 22:00 71 18 109/64 (79) 100 10/23/17 21:00 70 17 105/59 (74) 100 10/23/17 20:00 84 10/23/17 20:00 84 20 129/84 (99) 98 10/23/17 20:00 Nasal Cannula 2.0 10/23/17 19:47 83 124/74 10/23/17 19:00 102 18 106/70 (82) 95 10/23/17 19:00 82 18 124/74 (91) 100 10/23/17 18:00 102 18 106/70 (82) 95 10/23/17 18:00 Nasal Cannula 2.0 10/23/17 17:06 111 10/23/17 17:05 98.5 103 20 95/48 (64) 96 98.5 10/23/17 16:44 101 20 96/54 97 Room Air 10/23/17 16:25 103 23 91/54 98 Room Air 10/23/17 16:00 109 20 94/54 97 Room Air 10/23/17 15:45 107 20 99/49 97 Room Air 10/23/17 15:35 103 23 99/62 93 Room Air 10/23/17 15:30 103 23 95/68 98 Simple Mask 5 10/23/17 15:15 207.0 110 23 98 10/23/17 15:12 110 23 94/65 98 Simple Mask 5 10/23/17 15:07 110 23 94/65 98 Simple Mask 5 10/23/17 15:02 98 110 23 92/64 98 Simple Mask 5 98.0 10/23/17 12:00 98.8 78 20 125/74 (91) 95 98.8 I&O Intake and Output 10/23/17 10/24/17 19:00 07:00 Intake Total 2437.5 ml 1490.0 ml Output Total 610 ml 2650 ml Balance 1827.5 ml -1160.0 ml Intake Oral 530 ml 180 ml IV Total 1907.5 ml 1310.0 ml Output Urine Total 600 ml 2650 ml Estimated Blood Loss 10 ml # Voids 5 Wound: clean Drains: none Cardiovascular: RSR Respiratory: clear Abdomen: soft, non-tender, present bowel sounds Extremities: no cyanosis Laboratory Tests Test 10/23/17 16:55 10/24/17 05:43 White Blood Count 9.0 K/UL (4.8-10.8) # 8.2 K/UL (4.8-10.8) Red Blood Count 2.97 M/UL (4.20-5.40) L 3.34 M/UL (4.20-5.40) L Hemoglobin 9.8 G/DL (12.0-16.0) L 11.1 G/DL (12.0-16.0) L Hematocrit 29.2 % (37.0-47.0) L 32.8 % (37.0-47.0) L Mean Corpuscular Volume 98 FL (80-99) 98 FL (80-99) Mean Corpuscular Hemoglobin 33.1 PG (27.0-31.0) H 33.3 PG (27.0-31.0) H Mean Corpuscular Hemoglobin Concent 33.6 G/DL (32.0-36.0) 33.9 G/DL (32.0-36.0) Red Cell Distribution Width 13.1 % (11.6-14.8) 12.7 % (11.6-14.8) Platelet Count 315 K/UL (150-450) 380 K/UL (150-450) Mean Platelet Volume 6.6 FL (6.5-10.1) 6.9 FL (6.5-10.1) Neutrophils (%) (Auto) % (45.0-75.0) 80.6 % (45.0-75.0) H Lymphocytes (%) (Auto) % (20.0-45.0) 12.7 % (20.0-45.0) L Monocytes (%) (Auto) % (1.0-10.0) 6.2 % (1.0-10.0) Eosinophils (%) (Auto) % (0.0-3.0) 0.2 % (0.0-3.0) Basophils (%) (Auto) % (0.0-2.0) 0.4 % (0.0-2.0) Differential Total Cells Counted 100 Neutrophils % (Manual) 93 % (45-75) H Lymphocytes % (Manual) 3 % (20-45) L Monocytes % (Manual) 2 % (1-10) Eosinophils % (Manual) 1 % (0-3) Basophils % (Manual) 0 % (0-2) Band Neutrophils 1 % (0-8) Platelet Estimate Adequate Platelet Morphology Normal Hypochromasia 1+ Anisocytosis 1+ Macrocytosis Occasional Schistocytes Occasional Sodium Level 139 MMOL/L (136-145) 139 MMOL/L (136-145) Potassium Level 3.6 MMOL/L (3.5-5.1) 4.4 MMOL/L (3.5-5.1) Chloride Level 105 MMOL/L (98-107) 106 MMOL/L (98-107) Carbon Dioxide Level 19 MMOL/L (21-32) L 23 MMOL/L (21-32) Anion Gap 15 mmol/L (5-15) 10 mmol/L (5-15) Blood Urea Nitrogen 9 mg/dL (7-18) 7 mg/dL (7-18) Creatinine 1.3 MG/DL (0.55-1.30) 1.3 MG/DL (0.55-1.30) Estimat Glomerular Filtration Rate mL/min (>60) mL/min (>60) Glucose Level 267 MG/DL (74-106) #H 195 MG/DL (74-106) H Calcium Level 8.1 MG/DL (8.5-10.1) L 8.6 MG/DL (8.5-10.1) Troponin I 0.000 ng/mL (0.000-0.056) 0.000 ng/mL (0.000-0.056) Total Bilirubin 1.4 MG/DL (0.2-1.0) H Direct Bilirubin 0.9 MG/DL (0.0-0.3) H Aspartate Amino Transf (AST/SGOT) 51 U/L (15-37) H Alanine Aminotransferase (ALT/SGPT) 40 U/L (12-78) Alkaline Phosphatase 92 U/L (46-116) Total Protein 7.6 G/DL (6.4-8.2) Albumin 3.1 G/DL (3.4-5.0) L Globulin 4.5 g/dL Albumin/Globulin Ratio 0.7 (1.0-2.7) L Plan Problems: (1) Cholelithiasis Assessment & Plan: 82F with choledocholithiasis, obstructive jaundice likely from stones, low grade fevers, abdominal pain. US as above labs with worsening LFT's and t bili labs improved MRCP with obstructing stone s/p ERCP with removal of large stone s/p lap rob post op a fib resolved tolerating diet labs improving -okay to downgrade -diet as tolerated -activity as tolerated -AM labs appreciate cardiology input thank you for this consultation. will follow with recs. (2) Obstructive jaundice Davis Cali Oct 24, 2017 10:34
--- NOTE | 2017-10-24 11:29 | GI Progress Note ---
Assessment/Plan Problems: (1) Choledocholithiasis with acute cholecystitis with obstruction ICD Codes: K80.43 - Calculus of bile duct with acute cholecystitis with obstruction SNOMED: 32671435 (2) Anemia, chronic renal failure ICD Codes: N18.9 - Chronic kidney disease, unspecified; D63.1 - Anemia in chronic kidney disease SNOMED: 95113855 (3) CHF exacerbation ICD Codes: I50.9 - Heart failure, unspecified SNOMED: 60984964 (4) Diabetes mellitus ICD Codes: E11.9 - Type 2 diabetes mellitus without complications SNOMED: 75360444 (5) Cholelithiasis ICD Codes: K80.20 - Calculus of gallbladder without cholecystitis without obstruction SNOMED: 018360918 Qualifiers: Qualified Codes: K80.71 - Calculus of gallbladder and bile duct without cholecystitis with obstruction (6) Hypothyroidism ICD Codes: E03.9 - Hypothyroidism, unspecified SNOMED: 01962432 Status: stable, progressing Status Narrative Discussed with Dr. Barber. Assessment/Plan SUMMARY OF FINDINGS: 1. Choledocholithiasis. 2. Periampullary diverticulum. 3. Status post ERCP with sphincterotomy, lithotripsy, stone removal. 4. Unable to see the gallbladder. No cystic duct. s/p lap rob RECOMMENDATIONS: fu surgical recommendations monitor for post operative N/V >> zofran prn pain mgmt diet per surgery ppi fu labs The patient was seen and examined at bedside and all new and available data was reviewed in the patients chart. I agree with the above findings, impression and plan. (Patient seen earlier today. Signature stamp does not reflect patient encounter time.). - Dewayne Barber MD Subjective Gastrointestinal/Abdominal: Reports: no symptoms Objective Last 24 Hour Vital Signs Date Time Temp Pulse Resp B/P (MAP) Pulse Ox O2 Delivery O2 Flow Rate FiO2 10/24/17 11:00 67 17 113/58 (76) 100 10/24/17 10:00 65 18 122/64 (83) 100 10/24/17 09:07 124/72 10/24/17 09:06 71 124/72 10/24/17 09:00 72 21 124/72 (89) 100 10/24/17 08:10 209.3 66 20 100 10/24/17 08:00 74 10/24/17 08:00 69 20 126/71 (89) 100 10/24/17 08:00 Nasal Cannula 2.0 10/24/17 07:00 98.5 66 20 130/70 (90) 100 98.5 10/24/17 06:00 70 17 130/67 (88) 100 10/24/17 05:00 76 16 146/76 (99) 100 10/24/17 04:00 97.7 78 20 130/87 (101) 100 97.7 10/24/17 04:00 Nasal Cannula 2.0 10/24/17 04:00 78 10/24/17 03:00 73 18 135/76 (95) 96 10/24/17 02:00 79 18 132/81 (98) 96 10/24/17 01:00 78 18 122/67 (85) 96 10/24/17 00:00 98.2 68 18 129/77 (94) 98 98.2 10/24/17 00:00 68 10/24/17 00:00 Nasal Cannula 2.0 10/23/17 23:00 61 17 114/68 (83) 99 18 22:06 74 105/59 18 22:00 71 18 109/64 (79) 100 10/23/17 21:00 70 17 105/59 (74) 100 10/23/17 20:00 84 10/23/17 20:00 84 20 129/84 (99) 98 10/23/17 20:00 Nasal Cannula 2.0 10/23/17 19:47 83 124/74 10/23/17 19:00 102 18 106/70 (82) 95 18 19:00 82 18 124/74 (91) 100 18 18:00 102 18 106/70 (82) 95 18 18:00 Nasal Cannula 2.0 10/23/17 17:06 111 10/23/17 17:05 98.5 103 20 95/48 (64) 96 98.5 10/23/17 16:44 101 20 96/54 97 Room Air 10/23/17 16:25 103 23 91/54 98 Room Air 18 16:00 109 20 94/54 97 Room Air 18 15:45 107 20 99/49 97 Room Air 10/23/17 15:35 103 23 99/62 93 Room Air 10/23/17 15:30 103 23 95/68 98 Simple Mask 5 10/23/17 15:15 207.0 110 23 98 10/23/17 15:12 110 23 94/65 98 Simple Mask 5 10/23/17 15:07 110 23 94/65 98 Simple Mask 5 10/23/17 15:02 98 110 23 92/64 98 Simple Mask 5 98.0 10/23/17 12:00 98.8 78 20 125/74 (91) 95 98.8 Intake and Output 10/23/17 10/24/17 19:00 07:00 Intake Total 2437.5 ml 1490.0 ml Output Total 610 ml 2650 ml Balance 1827.5 ml -1160.0 ml Intake Oral 530 ml 180 ml IV Total 1907.5 ml 1310.0 ml Output Urine Total 600 ml 2650 ml Estimated Blood Loss 10 ml # Voids 5 Laboratory Tests Test 10/23/17 16:55 10/24/17 05:43 White Blood Count 9.0 K/UL (4.8-10.8) # 8.2 K/UL (4.8-10.8) Red Blood Count 2.97 M/UL (4.20-5.40) L 3.34 M/UL (4.20-5.40) L Hemoglobin 9.8 G/DL (12.0-16.0) L 11.1 G/DL (12.0-16.0) L Hematocrit 29.2 % (37.0-47.0) L 32.8 % (37.0-47.0) L Mean Corpuscular Volume 98 FL (80-99) 98 FL (80-99) Mean Corpuscular Hemoglobin 33.1 PG (27.0-31.0) H 33.3 PG (27.0-31.0) H Mean Corpuscular Hemoglobin Concent 33.6 G/DL (32.0-36.0) 33.9 G/DL (32.0-36.0) Red Cell Distribution Width 13.1 % (11.6-14.8) 12.7 % (11.6-14.8) Platelet Count 315 K/UL (150-450) 380 K/UL (150-450) Mean Platelet Volume 6.6 FL (6.5-10.1) 6.9 FL (6.5-10.1) Neutrophils (%) (Auto) % (45.0-75.0) 80.6 % (45.0-75.0) H Lymphocytes (%) (Auto) % (20.0-45.0) 12.7 % (20.0-45.0) L Monocytes (%) (Auto) % (1.0-10.0) 6.2 % (1.0-10.0) Eosinophils (%) (Auto) % (0.0-3.0) 0.2 % (0.0-3.0) Basophils (%) (Auto) % (0.0-2.0) 0.4 % (0.0-2.0) Differential Total Cells Counted 100 Neutrophils % (Manual) 93 % (45-75) H Lymphocytes % (Manual) 3 % (20-45) L Monocytes % (Manual) 2 % (1-10) Eosinophils % (Manual) 1 % (0-3) Basophils % (Manual) 0 % (0-2) Band Neutrophils 1 % (0-8) Platelet Estimate Adequate Platelet Morphology Normal Hypochromasia 1+ Anisocytosis 1+ Macrocytosis Occasional Schistocytes Occasional Sodium Level 139 MMOL/L (136-145) 139 MMOL/L (136-145) Potassium Level 3.6 MMOL/L (3.5-5.1) 4.4 MMOL/L (3.5-5.1) Chloride Level 105 MMOL/L (98-107) 106 MMOL/L (98-107) Carbon Dioxide Level 19 MMOL/L (21-32) L 23 MMOL/L (21-32) Anion Gap 15 mmol/L (5-15) 10 mmol/L (5-15) Blood Urea Nitrogen 9 mg/dL (7-18) 7 mg/dL (7-18) Creatinine 1.3 MG/DL (0.55-1.30) 1.3 MG/DL (0.55-1.30) Estimat Glomerular Filtration Rate mL/min (>60) mL/min (>60) Glucose Level 267 MG/DL (74-106) #H 195 MG/DL (74-106) H Calcium Level 8.1 MG/DL (8.5-10.1) L 8.6 MG/DL (8.5-10.1) Troponin I 0.000 ng/mL (0.000-0.056) 0.000 ng/mL (0.000-0.056) Total Bilirubin 1.4 MG/DL (0.2-1.0) H Direct Bilirubin 0.9 MG/DL (0.0-0.3) H Aspartate Amino Transf (AST/SGOT) 51 U/L (15-37) H Alanine Aminotransferase (ALT/SGPT) 40 U/L (12-78) Alkaline Phosphatase 92 U/L (46-116) Total Protein 7.6 G/DL (6.4-8.2) Albumin 3.1 G/DL (3.4-5.0) L Globulin 4.5 g/dL Albumin/Globulin Ratio 0.7 (1.0-2.7) L Height (Feet): 5 Height (Inches): 1.00 Weight (Pounds): 130 General Appearance: WD/WN, no apparent distress, alert, thin Cardiovascular: normal rate Respiratory/Chest: normal breath sounds, no respiratory distress Abdominal Exam: normal bowel sounds, non tender, soft Extremities: normal range of motion, non-tender Kranthi Pearl NP Oct 24, 2017 11:29
--- NOTE | 2017-10-24 17:24 | General Progress Note ---
Assessment/Plan Problem List: (1) Choledocholithiasis with acute cholecystitis with obstruction ICD Codes: K80.43 - Calculus of bile duct with acute cholecystitis with obstruction SNOMED: 19167108 (2) Cholelithiasis ICD Codes: K80.20 - Calculus of gallbladder without cholecystitis without obstruction SNOMED: 321715220 Qualifiers: Qualified Codes: K80.71 - Calculus of gallbladder and bile duct without cholecystitis with obstruction (3) Diabetes mellitus ICD Codes: E11.9 - Type 2 diabetes mellitus without complications SNOMED: 64214154 (4) Paroxysmal A-fib ICD Codes: I48.0 - Paroxysmal atrial fibrillation SNOMED: 280091573 Assessment/Plan cont antibiotics, stable post cholecystectomy, had postop afib, converted nsr, bp 90's postop now normal, improving Subjective Constitutional: Reports: weakness HEENT: Reports: no symptoms Cardiovascular: Reports: no symptoms Respiratory: Reports: no symptoms Gastrointestinal/Abdominal: Reports: abdominal pain Genitourinary: Reports: no symptoms Neurologic/Psychiatric: Reports: no symptoms Endocrine: Reports: no symptoms Allergies: Coded Allergies: No Known Allergies (Verified , 07/20/11) Objective Last 24 Hour Vital Signs Date Time Temp Pulse Resp B/P (MAP) Pulse Ox O2 Delivery O2 Flow Rate FiO2 10/24/17 17:00 72 23 119/76 (90) 99 10/24/17 16:00 Nasal Cannula 2.0 10/24/17 16:00 72 10/24/17 16:00 72 24 118/63 (81) 99 10/24/17 15:00 71 23 106/51 (69) 99 10/24/17 14:00 74 23 113/60 (77) 100 10/24/17 13:00 67 22 114/66 (82) 99 10/24/17 12:00 98.2 66 25 118/59 (78) 99 98.2 10/24/17 12:00 63 10/24/17 12:00 Nasal Cannula 2.0 10/24/17 11:00 67 17 113/58 (76) 100 10/24/17 10:00 65 18 122/64 (83) 100 10/24/17 09:07 124/72 10/24/17 09:06 71 124/72 10/24/17 09:00 72 21 124/72 (89) 100 10/24/17 08:10 209.3 66 20 100 10/24/17 08:00 74 10/24/17 08:00 69 20 126/71 (89) 100 10/24/17 08:00 Nasal Cannula 2.0 10/24/17 07:00 98.5 66 20 130/70 (90) 100 98.5 10/24/17 06:00 70 17 130/67 (88) 100 10/24/17 05:00 76 16 146/76 (99) 100 10/24/17 04:00 97.7 78 20 130/87 (101) 100 97.7 10/24/17 04:00 Nasal Cannula 2.0 10/24/17 04:00 78 10/24/17 03:00 73 18 135/76 (95) 96 10/24/17 02:00 79 18 132/81 (98) 96 10/24/17 01:00 78 18 122/67 (85) 96 10/24/17 00:00 98.2 68 18 129/77 (94) 98 98.2 10/24/17 00:00 68 10/24/17 00:00 Nasal Cannula 2.0 10/23/17 23:00 61 17 114/68 (83) 99 10/23/17 22:06 74 105/59 10/23/17 22:00 71 18 109/64 (79) 100 10/23/17 21:00 70 17 105/59 (74) 100 10/23/17 20:00 84 10/23/17 20:00 84 20 129/84 (99) 98 10/23/17 20:00 Nasal Cannula 2.0 10/23/17 19:47 83 124/74 10/23/17 19:00 102 18 106/70 (82) 95 10/23/17 19:00 82 18 124/74 (91) 100 10/23/17 18:00 102 18 106/70 (82) 95 10/23/17 18:00 Nasal Cannula 2.0 Intake and Output 10/23/17 10/24/17 19:00 07:00 Intake Total 2437.5 ml 1490.0 ml Output Total 610 ml 2650 ml Balance 1827.5 ml -1160.0 ml Intake Oral 530 ml 180 ml IV Total 1907.5 ml 1310.0 ml Output Urine Total 600 ml 2650 ml Estimated Blood Loss 10 ml # Voids 5 Laboratory Tests 10/24/17 05:43: White Blood Count 8.2, Red Blood Count 3.34L, Hemoglobin 11.1L, Hematocrit 32.8L , Mean Corpuscular Volume 98, Mean Corpuscular Hemoglobin 33.3H, Mean Corpuscular Hemoglobin Concent 33.9, Red Cell Distribution Width 12.7, Platelet Count 380, Mean Platelet Volume 6.9, Neutrophils (%) (Auto) 80.6H, Lymphocytes ( %) (Auto) 12.7L, Monocytes (%) (Auto) 6.2, Eosinophils (%) (Auto) 0.2, Basophils (%) (Auto) 0.4, Sodium Level 139, Potassium Level 4.4, Chloride Level 106, Carbon Dioxide Level 23, Anion Gap 10, Blood Urea Nitrogen 7, Creatinine 1.3, Estimat Glomerular Filtration Rate , Glucose Level 195H, Calcium Level 8.6 , Total Bilirubin 1.4H, Direct Bilirubin 0.9H, Aspartate Amino Transf (AST/SGOT ) 51H, Alanine Aminotransferase (ALT/SGPT) 40, Alkaline Phosphatase 92, Troponin I 0.000, Total Protein 7.6, Albumin 3.1L, Globulin 4.5, Albumin/ Globulin Ratio 0.7L Height (Feet): 5 Height (Inches): 1.00 Weight (Pounds): 130 General Appearance: no apparent distress, alert EENT: normal ENT inspection Neck: normal alignment Cardiovascular: normal rate, regular rhythm Respiratory/Chest: lungs clear, normal breath sounds Abdomen: non tender, soft Edema: no edema noted Arm (L), no edema noted Arm (R), no edema noted Leg (L), no edema noted Leg (R), no edema noted Pedal (L), no edema noted Pedal (R), no edema noted 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
[2017-10-24] MEDS: Surgicel 4in x 8in TOPIC ONE ×2 (17:34→19:29)
--- NOTE | 2017-10-24 18:26 | Cardiology Progress Note ---
Assessment/Plan Assessment/Plan The patient is seen and examined, full consult note will be dictated. Objective Last 24 Hour Vital Signs Date Time Temp Pulse Resp B/P (MAP) Pulse Ox O2 Delivery O2 Flow Rate FiO2 10/24/17 18:00 71 21 112/61 (78) 99 10/24/17 17:00 72 23 119/76 (90) 99 10/24/17 16:00 Nasal Cannula 2.0 10/24/17 16:00 72 10/24/17 16:00 72 24 118/63 (81) 99 10/24/17 15:00 71 23 106/51 (69) 99 10/24/17 14:00 74 23 113/60 (77) 100 10/24/17 13:00 67 22 114/66 (82) 99 10/24/17 12:00 98.2 66 25 118/59 (78) 99 98.2 10/24/17 12:00 63 10/24/17 12:00 Nasal Cannula 2.0 10/24/17 11:00 67 17 113/58 (76) 100 10/24/17 10:00 65 18 122/64 (83) 100 10/24/17 09:07 124/72 10/24/17 09:06 71 124/72 10/24/17 09:00 72 21 124/72 (89) 100 10/24/17 08:10 209.3 66 20 100 10/24/17 08:00 74 10/24/17 08:00 69 20 126/71 (89) 100 10/24/17 08:00 Nasal Cannula 2.0 10/24/17 07:00 98.5 66 20 130/70 (90) 100 98.5 10/24/17 06:00 70 17 130/67 (88) 100 10/24/17 05:00 76 16 146/76 (99) 100 10/24/17 04:00 97.7 78 20 130/87 (101) 100 97.7 10/24/17 04:00 Nasal Cannula 2.0 10/24/17 04:00 78 10/24/17 03:00 73 18 135/76 (95) 96 10/24/17 02:00 79 18 132/81 (98) 96 10/24/17 01:00 78 18 122/67 (85) 96 10/24/17 00:00 98.2 68 18 129/77 (94) 98 98.2 10/24/17 00:00 68 10/24/17 00:00 Nasal Cannula 2.0 10/23/17 23:00 61 17 114/68 (83) 99 10/23/17 22:06 74 105/59 10/23/17 22:00 71 18 109/64 (79) 100 10/23/17 21:00 70 17 105/59 (74) 100 10/23/17 20:00 84 10/23/17 20:00 84 20 129/84 (99) 98 10/23/17 20:00 Nasal Cannula 2.0 10/23/17 19:47 83 124/74 10/23/17 19:00 102 18 106/70 (82) 95 10/23/17 19:00 82 18 124/74 (91) 100 Intake and Output 10/23/17 10/24/17 19:00 07:00 Intake Total 2437.5 ml 1490.0 ml Output Total 610 ml 2650 ml Balance 1827.5 ml -1160.0 ml Intake Oral 530 ml 180 ml IV Total 1907.5 ml 1310.0 ml Output Urine Total 600 ml 2650 ml Estimated Blood Loss 10 ml # Voids 5 Laboratory Tests Test 10/24/17 05:43 White Blood Count 8.2 K/UL (4.8-10.8) Red Blood Count 3.34 M/UL (4.20-5.40) L Hemoglobin 11.1 G/DL (12.0-16.0) L Hematocrit 32.8 % (37.0-47.0) L Mean Corpuscular Volume 98 FL (80-99) Mean Corpuscular Hemoglobin 33.3 PG (27.0-31.0) H Mean Corpuscular Hemoglobin Concent 33.9 G/DL (32.0-36.0) Red Cell Distribution Width 12.7 % (11.6-14.8) Platelet Count 380 K/UL (150-450) Mean Platelet Volume 6.9 FL (6.5-10.1) Neutrophils (%) (Auto) 80.6 % (45.0-75.0) H Lymphocytes (%) (Auto) 12.7 % (20.0-45.0) L Monocytes (%) (Auto) 6.2 % (1.0-10.0) Eosinophils (%) (Auto) 0.2 % (0.0-3.0) Basophils (%) (Auto) 0.4 % (0.0-2.0) Sodium Level 139 MMOL/L (136-145) Potassium Level 4.4 MMOL/L (3.5-5.1) Chloride Level 106 MMOL/L (98-107) Carbon Dioxide Level 23 MMOL/L (21-32) Anion Gap 10 mmol/L (5-15) Blood Urea Nitrogen 7 mg/dL (7-18) Creatinine 1.3 MG/DL (0.55-1.30) Estimat Glomerular Filtration Rate mL/min (>60) Glucose Level 195 MG/DL (74-106) H Calcium Level 8.6 MG/DL (8.5-10.1) Total Bilirubin 1.4 MG/DL (0.2-1.0) H Direct Bilirubin 0.9 MG/DL (0.0-0.3) H Aspartate Amino Transf (AST/SGOT) 51 U/L (15-37) H Alanine Aminotransferase (ALT/SGPT) 40 U/L (12-78) Alkaline Phosphatase 92 U/L (46-116) Troponin I 0.000 ng/mL (0.000-0.056) Total Protein 7.6 G/DL (6.4-8.2) Albumin 3.1 G/DL (3.4-5.0) L Globulin 4.5 g/dL Albumin/Globulin Ratio 0.7 (1.0-2.7) L Steven Teixeira MD Oct 24, 2017 18:26
[2017-10-24] MEDS: Morphine Sulfate 2mg/ml Inj(IV/IM USE ONLY) IVP PRN (22:03)
[2017-10-25] VITALS (9 sets, daily range): BP systolic 99–145; BP diastolic 46–73
[2017-10-25] MEDS: Morphine Sulfate 2mg/ml Inj(IV/IM USE ONLY) IVP PRN (02:44)
[2017-10-25] MEDS ORDERED: Nitroglycerin Subl 0.4mg tab SL PRN (04:45)
[2017-10-25 06:10] LABS: BASOPHILS % (AUTO) 0.8 % (0.0-2.0); EOSINOPHILS % (AUTO) 2.1 % (0.0-3.0); HEMATOCRIT 30.5 % (37.0-47.0); HEMOGLOBIN 10.1 G/DL (12.0-16.0); LYMPHOCYTES % (AUTO) 22.2 % (20.0-45.0); MEAN CORPUSCULAR VOLUME 99 FL (80-99); MONOCYTES % (AUTO) 6.3 % (1.0-10.0); NEUTROPHILS % (AUTO) 68.6 % (45.0-75.0); PLATELET COUNT 359 K/UL (150-450); RED BLOOD COUNT 3.08 M/UL (4.20-5.40); RED CELL DISTRIBUTION WIDTH 13.3 % (11.6-14.8); WHITE BLOOD COUNT 7.7 K/UL (4.8-10.8)
[2017-10-25] MEDS ORDERED: Morphine Sulfate 4mg/ml Inj (IV USE ONLY) IVP PRN (06:30)
[2017-10-25] MEDS ORDERED: Levothyroxine 125mcg tab ORAL SCH (06:30)
[2017-10-25] MEDS ORDERED: HYDROcodone/Acetamin 10/325 tab ORAL PRN (06:30)
[2017-10-25] MEDS ORDERED: Norco 5mg/325mg tab ORAL PRN (06:30)
[2017-10-25] MEDS ORDERED: Morphine Sulfate 2mg/ml Inj(IV/IM USE ONLY) IVP PRN ×2 (06:30)
[2017-10-25 06:46] LABS: ALANINE AMINOTRANSFERASE 31 U/L (12-78); ALBUMIN 2.8 G/DL (3.4-5.0); ALBUMIN/GLOBULIN RATIO 0.7 (1.0-2.7); ALKALINE PHOSPHATASE 79 U/L (46-116); ANION GAP 9 mmol/L (5-15); ASPARTATE AMINO TRANSFERASE 38 U/L (15-37); BILIRUBIN,TOTAL 1.3 MG/DL (0.2-1.0); BLOOD UREA NITROGEN 6 mg/dL (7-18); CALCIUM 8.4 MG/DL (8.5-10.1); CARBON DIOXIDE 25 MMOL/L (21-32); CHLORIDE 108 MMOL/L (98-107); CREATININE 1.5 MG/DL (0.55-1.30); POTASSIUM 3.8 MMOL/L (3.5-5.1); SODIUM 141 MMOL/L (136-145)
[2017-10-25 06:47] LABS: BILIRUBIN,DIRECT 0.8 MG/DL (0.0-0.3)
[2017-10-25] MEDS: NovoLOG Insulin Flexpen SUBQ SCH ×3 (06:58→16:30)
[2017-10-25] MEDS ORDERED: Piperacillin/Tazobactam 3.375 GM in NS 110 ML IVPB SCH (08:00)
[2017-10-25] MEDS: Docusate 100mg cap ORAL SCH ×2 (08:22→17:54)
[2017-10-25] MEDS ORDERED: Losartan 50mg tab ORAL SCH (09:00)
[2017-10-25] MEDS ORDERED: Metoprolol Tartrate 50mg tab ORAL SCH (09:00)
--- NOTE | 2017-10-25 10:11 | GI Progress Note ---
Assessment/Plan Problems: (1) Choledocholithiasis with acute cholecystitis with obstruction ICD Codes: K80.43 - Calculus of bile duct with acute cholecystitis with obstruction SNOMED: 79614639 (2) Anemia, chronic renal failure ICD Codes: N18.9 - Chronic kidney disease, unspecified; D63.1 - Anemia in chronic kidney disease SNOMED: 18962848 (3) CHF exacerbation ICD Codes: I50.9 - Heart failure, unspecified SNOMED: 26587386 (4) Diabetes mellitus ICD Codes: E11.9 - Type 2 diabetes mellitus without complications SNOMED: 58312486 (5) Cholelithiasis ICD Codes: K80.20 - Calculus of gallbladder without cholecystitis without obstruction SNOMED: 714962071 Qualifiers: Qualified Codes: K80.71 - Calculus of gallbladder and bile duct without cholecystitis with obstruction (6) Hypothyroidism ICD Codes: E03.9 - Hypothyroidism, unspecified SNOMED: 28172562 Status: stable, progressing Status Narrative Discussed with Dr. Barber. Assessment/Plan SUMMARY OF FINDINGS: 1. Choledocholithiasis. 2. Periampullary diverticulum. 3. Status post ERCP with sphincterotomy, lithotripsy, stone removal. 4. Unable to see the gallbladder. No cystic duct. s/p lap rob RECOMMENDATIONS: fu surgical recommendations >> s/p lap rob monitor for post operative N/V >> zofran prn pain mgmt diet per surgery ppi fu labs The patient was seen and examined at bedside and all new and available data was reviewed in the patients chart. I agree with the above findings, impression and plan. (Patient seen earlier today. Signature stamp does not reflect patient encounter time.). - Dewayne Barber MD Subjective Gastrointestinal/Abdominal: Reports: no symptoms Objective Last 24 Hour Vital Signs Date Time Temp Pulse Resp B/P (MAP) Pulse Ox O2 Delivery O2 Flow Rate FiO2 10/25/17 08:23 91 103/55 10/25/17 08:22 103/55 10/25/17 08:00 75 10/25/17 08:00 Room Air 10/25/17 08:00 97.7 78 20 103/55 (71) 95 97.7 10/25/17 05:30 98.7 74 18 145/73 (97) 95 98.7 10/25/17 04:00 Mechanical Ventilator 10/25/17 04:00 72 15 105/53 (70) 95 10/25/17 04:00 74 10/25/17 03:00 72 15 101/53 (69) 95 10/25/17 02:00 71 18 99/46 (63) 98 10/25/17 01:00 68 18 110/52 (71) 100 10/25/17 00:00 98.2 70 18 105/52 (69) 100 98.2 10/25/17 00:00 Mechanical Ventilator 10/24/17 23:00 70 18 105/42 (63) 100 10/24/17 22:00 74 19 151/71 (97) 100 10/24/17 21:22 136/72 10/24/17 21:21 87 136/72 10/24/17 21:00 83 20 144/66 (92) 99 10/24/17 20:46 72 10/24/17 20:00 77 10/24/17 20:00 98.0 77 20 121/62 (81) 99 98.0 10/24/17 20:00 Nasal Cannula 2.0 10/24/17 19:00 70 20 120/62 (81) 99 10/24/17 18:00 71 21 112/61 (78) 99 10/24/17 17:00 72 23 119/76 (90) 99 10/24/17 16:00 Nasal Cannula 2.0 10/24/17 16:00 72 10/24/17 16:00 98.3 72 24 118/63 (81) 99 98.3 10/24/17 15:00 71 23 106/51 (69) 99 10/24/17 14:00 74 23 113/60 (77) 100 10/24/17 13:00 67 22 114/66 (82) 99 10/24/17 12:00 98.2 66 25 118/59 (78) 99 98.2 10/24/17 12:00 63 10/24/17 12:00 Nasal Cannula 2.0 10/24/17 11:00 67 17 113/58 (76) 100 Intake and Output 10/24/17 10/25/17 19:00 07:00 Intake Total 692.5 ml 140.0 ml Output Total 350 ml 450 ml Balance 342.5 ml -310.0 ml Intake Oral 160 ml 30 ml IV Total 532.5 ml 110.0 ml Output Urine Total 350 ml 450 ml # Bowel Movements 1 Laboratory Tests Test 10/24/17 18:40 10/25/17 04:51 Stool Occult Blood Pending White Blood Count 7.7 K/UL (4.8-10.8) Red Blood Count 3.08 M/UL (4.20-5.40) L Hemoglobin 10.1 G/DL (12.0-16.0) L Hematocrit 30.5 % (37.0-47.0) L Mean Corpuscular Volume 99 FL (80-99) Mean Corpuscular Hemoglobin 32.7 PG (27.0-31.0) H Mean Corpuscular Hemoglobin Concent 33.0 G/DL (32.0-36.0) Red Cell Distribution Width 13.3 % (11.6-14.8) Platelet Count 359 K/UL (150-450) Mean Platelet Volume 6.9 FL (6.5-10.1) Neutrophils (%) (Auto) 68.6 % (45.0-75.0) Lymphocytes (%) (Auto) 22.2 % (20.0-45.0) Monocytes (%) (Auto) 6.3 % (1.0-10.0) Eosinophils (%) (Auto) 2.1 % (0.0-3.0) Basophils (%) (Auto) 0.8 % (0.0-2.0) Sodium Level 141 MMOL/L (136-145) Potassium Level 3.8 MMOL/L (3.5-5.1) Chloride Level 108 MMOL/L (98-107) H Carbon Dioxide Level 25 MMOL/L (21-32) Anion Gap 9 mmol/L (5-15) Blood Urea Nitrogen 6 mg/dL (7-18) L Creatinine 1.5 MG/DL (0.55-1.30) H Estimat Glomerular Filtration Rate mL/min (>60) Glucose Level 132 MG/DL (74-106) H Calcium Level 8.4 MG/DL (8.5-10.1) L Total Bilirubin 1.3 MG/DL (0.2-1.0) H Direct Bilirubin 0.8 MG/DL (0.0-0.3) H Aspartate Amino Transf (AST/SGOT) 38 U/L (15-37) H Alanine Aminotransferase (ALT/SGPT) 31 U/L (12-78) Alkaline Phosphatase 79 U/L (46-116) Total Protein 7.1 G/DL (6.4-8.2) Albumin 2.8 G/DL (3.4-5.0) L Globulin 4.3 g/dL Albumin/Globulin Ratio 0.7 (1.0-2.7) L Height (Feet): 5 Height (Inches): 1.00 Weight (Pounds): 118 General Appearance: WD/WN, no apparent distress, alert Cardiovascular: normal rate Respiratory/Chest: normal breath sounds, no respiratory distress Abdominal Exam: normal bowel sounds, non tender, soft, incision site Extremities: normal range of motion, non-tender Kranthi Pearl NP Oct 25, 2017 10:11
--- NOTE | 2017-10-25 11:23 | General Surgery Progress Note ---
General Surgery-Progress Note Subjective Procedure Performed laparoscopic cholecystectomy Additional Comments doing well. mild oozing from umbilical port site now with good hemostasis. mild elevation in Cr. Objective Last 24 Hour Vital Signs Date Time Temp Pulse Resp B/P (MAP) Pulse Ox O2 Delivery O2 Flow Rate FiO2 10/25/17 08:23 91 103/55 10/25/17 08:22 103/55 10/25/17 08:00 75 10/25/17 08:00 Room Air 10/25/17 08:00 97.7 78 20 103/55 (71) 95 97.7 10/25/17 05:30 98.7 74 18 145/73 (97) 95 98.7 10/25/17 04:00 Mechanical Ventilator 10/25/17 04:00 72 15 105/53 (70) 95 10/25/17 04:00 74 10/25/17 03:00 72 15 101/53 (69) 95 10/25/17 02:00 71 18 99/46 (63) 98 10/25/17 01:00 68 18 110/52 (71) 100 10/25/17 00:00 98.2 70 18 105/52 (69) 100 98.2 10/25/17 00:00 Mechanical Ventilator 10/24/17 23:00 70 18 105/42 (63) 100 10/24/17 22:00 74 19 151/71 (97) 100 10/24/17 21:22 136/72 10/24/17 21:21 87 136/72 10/24/17 21:00 83 20 144/66 (92) 99 10/24/17 20:46 72 10/24/17 20:00 77 10/24/17 20:00 98.0 77 20 121/62 (81) 99 98.0 10/24/17 20:00 Nasal Cannula 2.0 10/24/17 19:00 70 20 120/62 (81) 99 18 18:00 71 21 112/61 (78) 99 10/24/17 17:00 72 23 119/76 (90) 99 10/24/17 16:00 Nasal Cannula 2.0 10/24/17 16:00 72 10/24/17 16:00 98.3 72 24 118/63 (81) 99 98.3 10/24/17 15:00 71 23 106/51 (69) 99 7/18/18 14:00 74 23 113/60 (77) 100 10/24/17 13:00 67 22 114/66 (82) 99 10/24/17 12:00 98.2 66 25 118/59 (78) 99 98.2 10/24/17 12:00 63 10/24/17 12:00 Nasal Cannula 2.0 I&O Intake and Output 10/24/17 10/25/17 19:00 07:00 Intake Total 692.5 ml 140.0 ml Output Total 350 ml 450 ml Balance 342.5 ml -310.0 ml Intake Oral 160 ml 30 ml IV Total 532.5 ml 110.0 ml Output Urine Total 350 ml 450 ml # Bowel Movements 1 Wound: clean, dry Drains: none Cardiovascular: RSR Respiratory: clear Abdomen: soft, flat, non-tender, present bowel sounds Extremities: no cyanosis Laboratory Tests Test 10/24/17 18:40 10/25/17 04:51 Stool Occult Blood Pending White Blood Count 7.7 K/UL (4.8-10.8) Red Blood Count 3.08 M/UL (4.20-5.40) L Hemoglobin 10.1 G/DL (12.0-16.0) L Hematocrit 30.5 % (37.0-47.0) L Mean Corpuscular Volume 99 FL (80-99) Mean Corpuscular Hemoglobin 32.7 PG (27.0-31.0) H Mean Corpuscular Hemoglobin Concent 33.0 G/DL (32.0-36.0) Red Cell Distribution Width 13.3 % (11.6-14.8) Platelet Count 359 K/UL (150-450) Mean Platelet Volume 6.9 FL (6.5-10.1) Neutrophils (%) (Auto) 68.6 % (45.0-75.0) Lymphocytes (%) (Auto) 22.2 % (20.0-45.0) Monocytes (%) (Auto) 6.3 % (1.0-10.0) Eosinophils (%) (Auto) 2.1 % (0.0-3.0) Basophils (%) (Auto) 0.8 % (0.0-2.0) Sodium Level 141 MMOL/L (136-145) Potassium Level 3.8 MMOL/L (3.5-5.1) Chloride Level 108 MMOL/L (98-107) H Carbon Dioxide Level 25 MMOL/L (21-32) Anion Gap 9 mmol/L (5-15) Blood Urea Nitrogen 6 mg/dL (7-18) L Creatinine 1.5 MG/DL (0.55-1.30) H Estimat Glomerular Filtration Rate mL/min (>60) Glucose Level 132 MG/DL (74-106) H Calcium Level 8.4 MG/DL (8.5-10.1) L Total Bilirubin 1.3 MG/DL (0.2-1.0) H Direct Bilirubin 0.8 MG/DL (0.0-0.3) H Aspartate Amino Transf (AST/SGOT) 38 U/L (15-37) H Alanine Aminotransferase (ALT/SGPT) 31 U/L (12-78) Alkaline Phosphatase 79 U/L (46-116) Total Protein 7.1 G/DL (6.4-8.2) Albumin 2.8 G/DL (3.4-5.0) L Globulin 4.3 g/dL Albumin/Globulin Ratio 0.7 (1.0-2.7) L Plan Problems: (1) Cholelithiasis Assessment & Plan: 82F with choledocholithiasis, obstructive jaundice likely from stones, low grade fevers, abdominal pain. US as above labs with worsening LFT's and t bili labs improved MRCP with obstructing stone s/p ERCP with removal of large stone s/p lap rob post op a fib resolved tolerating diet LFT's improving wounds c/d/i now mild elevation in Cr. -stopped meds that could potentially cause simba -diet as tolerated -activity as tolerated -AM labs -discharge planning. thank you for this consultation. will follow with recs. (2) Obstructive jaundice Davis Cali Oct 25, 2017 11:23
--- NOTE | 2017-10-25 17:24 | Cardiology Report ---
APPROVED REPORT EKG Measurement Heart [id number] Sinus rhythm with 1st degree AV block Abnormal ECG
[2017-10-25] MEDS ORDERED: Milk of Magnesia 30ml Ud ORAL PRN (18:30)
[2017-10-25] MEDS ORDERED: Tubing IV Secondary IV ONE (20:16)
[2017-10-25] MEDS ORDERED: NS 500ML ONE (20:16)
--- NOTE | 2017-10-26 04:45 | Discharge Summary ---
DATE OF ADMISSION: 10/19/2017 DATE OF DISCHARGE: 10/25/2017 PERTINENT HISTORY: The patient admitted with abdominal pain, nausea, vomiting, and elevated bilirubin and liver enzymes. There is a history of diabetes, hypertension, hyperlipidemia, gastritis, and hypothyroidism. PERTINENT PHYSICAL FINDINGS: See the dictated History and Physical. HEAD, EYES, EARS, NOSE, AND THROAT: Oral mucosa is slightly dry. NECK: No adenopathy. BREASTS: There is a hard mass in the right breast. LUNGS: Clear. HEART: Regular rhythm. ABDOMEN: Soft. There is minimal right upper quadrant tenderness. EXTREMITIES: No edema. Noted degenerative changes in the knees. COURSE IN THE HOSPITAL: The patient was admitted with clinical cholecystitis and common duct stone. During the hospitalization, she had IV antibiotics hydration and ERCP by Dr. Barber, who removed multiple stones. She subsequently stabilized and brought to surgery by Dr. Cali, who performed laparoscopic cholecystectomy. The patient tolerated the procedure well. However, postoperatively she had transient atrial fibrillation and blood pressure in the 90s and was kept overnight in the ICU and spontaneously converted to sinus rhythm and no further . The patient's blood pressure stabilized. She was able to tolerate her diet. She was able to walk a short distance in the room. Discharge plans were made with the family. She was discharged home in improved condition. FINAL DIAGNOSES: 1. Acute cholecystitis. 2. Choledocholithiasis. 3. Cystic duct stones. 4. Paroxysmal atrial fibrillation. 5. Postoperative hypotension transient. 6. History of hypertension. 7. History of adult-onset diabetes. 8. History of gastritis. 9. History of osteoarthritis. DISCHARGE DISPOSITION: She is discharged home on a diabetic diet. MEDICATIONS: Per the discharge medication list. FOLLOWUP: She can follow up in the office of Dr. Cali for surgical followup as well can follow up in the office of Dr. Higgins providers. Donato Higgins M.D. DR: SOHAIL JOB#: [id number] CC:
--- NOTE | 2017-10-29 08:15 | Consultation ---
DATE OF CONSULTATION: 10/24/2017 CARDIOLOGY CONSULTATION CONSULTING PHYSICIAN: Steven Teixeira M.D. REFERRING PHYSICIAN: Donato Higgins M.D. REASON FOR CONSULTATION: Management of atrial fibrillation. HISTORY OF PRESENT ILLNESS: The patient is a very unfortunate 82-year-old female, who presents to the hospital with diffuse abdominal pain which has been going on for few months. Apparently, over the past couple of days, it has been more focused in the right upper quadrant. According to the patient's daughter, she has nausea and vomiting as well as abdominal pain in the right upper quadrant. She was seen in the emergency department, initial blood pressure was 114/62 mmHg, heart rate of 71, she was admitted to medical/surgical after she was found to have cholelithiasis and dilatation of common bile duct measuring about 24.2 mm in preparation for cholecystectomy. On 10/22/2017, she had ERCP of biliary which showed a large filling defect in the common hepatic duct, it was only due to common duct stone. The patient underwent laparoscopic cholecystectomy on 10/23/2017. Following the surgery, the patient was admitted to the intensive care unit of [facility] with atrial fibrillation and rapid ventricular response. The patient was placed on metoprolol and responded well with which she converted to sinus rhythm. PAST MEDICAL HISTORY: Hypertension, diabetes mellitus, cardiac problems. PAST SURGICAL HISTORY: None. FAMILY HISTORY: No premature coronary artery disease in the first-degree relatives. SOCIAL HISTORY: Denies any use of tobacco, alcohol, or illicit drug use. ALLERGIES: No known drug allergies. REVIEW OF SYSTEMS: HEENT: Denies any headache, diplopia, or blurred vision. CONSTITUTIONAL: denies any fever, chills, night sweats, or weight loss. CARDIOVASCULAR: Denies any chest pain, shortness of breath, PND, orthopnea, or leg swelling. PULMONARY: Denies any cough, hemoptysis, or wheezing. GASTROINTESTINAL: Complains of right upper quadrant abdominal pain, nausea, and vomiting, but no diarrhea, constipation, or GI bleed. GENITOURINARY: Denies any hematuria, dysuria, incontinence. NEUROLOGIC: Denies any motor dysfunction, sensory deficit, or altered speech. MEDICATIONS: List of medications at home including Fosamax 70 mg p.o. q.weekly, amlodipine 10 mg p.o. daily, aspirin 81 mg p.o. daily, baclofen 10 mg three times a day, calcium carbonate 500 mg daily, doxazosin 4 mg p.o. daily, TriCor or fenofibrate 145 mg p.o. daily, glipizide/metformin one tablet daily, Synthroid 125 mcg p.o. daily, Cozaar 100 mg p.o. daily, metoprolol 50 mg p.o. daily, omeprazole 40 mg p.o. daily. PHYSICAL EXAMINATION: VITAL SIGNS: Blood pressure at the time of arrival was 114/62, heart rate of 71, respirations 16, temperature 97.7 degrees Fahrenheit, O2 saturation 99% on room air. GENERAL: The patient is a very unfortunate 82-year-old , who is in no apparent respiratory distress. HEENT: Atraumatic and normocephalic. ENT, pupils are equal, round, reactive to light and accommodation. Extraocular muscles intact. NECK: JVP is less than 5 cm. No carotid bruit. CARDIOVASCULAR: Normal S1, S2. Regular rate and rhythm. No murmurs, gallops, or rubs. PMI is at fourth intercostal space in the midclavicular line. LUNGS: Clear to auscultation bilaterally. ABDOMEN: Soft, nontender, nondistended. No hepatosplenomegaly. Positive bowel sounds. EXTREMITIES: LABORATORY AND DIAGNOSTIC DATA: WBC was 9.0, hemoglobin 11.7, hematocrit 32.1, platelet count 272,000. Sodium 135, potassium was 4.5, chloride 102, bicarbonate 24, BUN 12, creatinine 1.4, glucose is 220, calcium is 9.0. ASSESSMENT AND PLAN: 1. Paroxysmal atrial fibrillation. Metoprolol 50 mg p.o. twice daily initiated. Continue the patient's rhythm throughout the stay. 2. Cholecystitis with gastritis. Steven Teixeira M.D. DR: Dustin JOB#: [id number] CC:
--- NOTE | 2017-10-31 07:42 | Diagnostic Imaging Report ---
APPROVED REPORT CPT Code: 28760 Present Symptoms Comments: BILATERAL LEGS PAIN. BILATERAL: Imaging reveals a patent deep venous system bilaterally. There is no evidence of thrombus within the femoral, popliteal or tibial segments. The greater saphenous veins are also within normal limits. Doppler indicates normal spontaneous flow within these segments.
== END 2017-10-25 20:17 | disposition home or self-care (01) | DRG 418 ==
LOC: EMR 20:36 → 4E 22:16 → EDBEDREQ 22:27 → 4E 10-20 02:00 → ICU 10-23 17:14 → 2E 10-25 05:09
DX: K80.63 Calculus of gallbladder and bile duct with acute cholecystitis with obstruction (principal); I13.0 Hypertensive heart and chronic kidney disease with heart failure and stage 1 through stage 4 chronic kidney disease, or unspecified chronic kidney disease; R17 Unspecified jaundice; K29.70 Gastritis, unspecified, without bleeding; E11.22 Type 2 diabetes mellitus with diabetic chronic kidney disease; N18.9 Chronic kidney disease, unspecified; I50.9 Heart failure, unspecified; E03.9 Hypothyroidism, unspecified; N63.0 Unspecified lump in unspecified breast; D64.9 Anemia, unspecified; M81.0 Age-related osteoporosis without current pathological fracture; K31.4 Gastric diverticulum; I48.0 Paroxysmal atrial fibrillation; I95.89 Other hypotension
CPT/HCPCS: 36415; 71045; 74181; 74328; 76000; 76700; 80048; 80053; 82248; 82270; 82962; 83690; 83735; 84100; 84484; 85007; 85025; 85610; 87040; 93005; 93970; 94003; 94150; 99285; J1815; J2250; J2405; J2710

== ENCOUNTER 2018-10-03 12:20 | Inpatient (IN) | payer MEDICARE, OTHER ==
[~2018-10-03] VITALS: Ht 152.4 cm; Wt 54.9 kg
[~2018-10-03 12:20] MED LIST changes: +BACLOFEN10 MG ORAL; +FENOFIBRATE145 M1 ORAL; +OMEPRAZOLE40 M1 ORAL
--- NOTE | 2018-10-03 12:30 | NUR ---
ED Nurse Note: Patient brought in to ER by daughter from home due to difficulty to breath for last a week but worsen for last 3 days. pt aao x3-4 and able to pivot weight when transfer to bed. skin clean and intact but pale. calm and cooperative. pt is in gown and on claims manager.
[2018-10-03] MEDS ORDERED: CARVEDILOL12.5 MG ORAL (12:34)
[2018-10-03] MEDS ORDERED: ATORVASTATIN CA20 MG ORAL (12:34)
[2018-10-03] MEDS ORDERED: FERROUS SULFAT325 MG ORAL (12:34)
[2018-10-03] MEDS ORDERED: HYDRALAZINE HCL25 M1 ORAL (12:34)
[2018-10-03] MEDS ORDERED: TORSEMIDE20 MG ORAL (12:34)
[2018-10-03] MEDS ORDERED: PLAVIX75 MG ORAL (12:34)
[2018-10-03] MEDS ORDERED: ISOSORBIDE MONO30 M1 PO (12:34)
--- NOTE | 2018-10-03 12:49 | NUR ---
ED Nurse Note: x-ray at bedside.
--- NOTE | 2018-10-03 13:06 | Emergency Room Report ---
History of Present Illness General Chief Complaint: Dyspnea/Respdistress Source: Patient, Family Member Present Illness HPI Patient presents with complaints of shortness of breath and heaviness ongoing for the past 3 days she feels that the symptoms are worse at nighttime laying flat Denies any vomiting or diarrhea denies any fevers or chills denies any cough Denies any dysuria frequency no obvious edema in the legs Allergies: Coded Allergies: No Known Allergies (Verified , 07/20/11) Patient History Past Medical History: see triage record Pertinent Family History: none Reviewed Nursing Documentation: PMH: Agreed; PSxH: Agreed Nursing Documentation-PMH Past Medical History: No History, Except For Hx Cardiac Problems: Yes Hx Hypertension: Yes Hx Diabetes: Yes Hx Cancer: No Hx Gastrointestinal Problems: Yes Hx Neurological Problems: No Review of Systems All Other Systems: negative except mentioned in HPI Physical Exam Vital Signs Date Time Temp Pulse Resp B/P (MAP) Pulse Ox O2 Delivery O2 Flow Rate FiO2 10/03/18 12:22 97.0 85 27 88/56 (67) 96 Room Air Sp02 EP Interpretation: reviewed, normal General Appearance: no apparent distress - However mildly tachypneic Head: normocephalic, atraumatic Eyes: bilateral eye PERRL, bilateral eye EOMI ENT: hearing grossly normal, normal pharynx, TMs + canals normal, uvula midline Neck: full range of motion, supple, no meningismus, no bony tend Respiratory: no respiratory distress, no retraction, no accessory muscle use, crackles - bilaterally Cardiovascular #1: normal peripheral pulses, regular rate, rhythm, no edema, no gallop, no JVD, no murmur Gastrointestinal: normal bowel sounds, non tender, soft, no mass, no organomegaly, non-distended, no guarding, no hernia, no pulsatile mass, no rebound Genitourinary: no CVA tenderness Musculoskeletal: normal inspection Neurologic: oriented x3, responsive, catalogue and special products manager III-XII nml as tested, motor strength/ tone normal, sensory intact Psychiatric: mood/affect normal Skin: normal color, no rash, warm/dry, palpation normal Lymphatic: normal inspection, no adenopathy Procedures Critical Care Time Critical Care Time 75 minutes for multiple re-evaluations critical presentation and critical findings concerning for respiratory and cardiac not including any procedural time Medical Decision Making Diagnostic Impression: Primary Impression: Dyspnea Additional Impression: CHF exacerbation ER Course Patient is a fairly complex patient with multiple differential to consideration including but not limited to cardiac cardiopulmonary and vascular emergencies Patient's x-ray is concerning for CHF initial hemoglobin came back significantly low however I feel it is likely air therefore it was repeated and appears much improved Patient's troponin also elevated Patient provided diuretics aspirin Requires high level of care admission Labs Test 10/03/18 12:35 10/03/18 13:15 10/03/18 13:23 10/03/18 17:43 Sodium Level 137 MMOL/L (136-145) Potassium Level 4.3 MMOL/L (3.5-5.1) Chloride Level 102 MMOL/L (98-107) Carbon Dioxide Level 23 MMOL/L (21-32) Anion Gap 12 mmol/L (5-15) Blood Urea Nitrogen 44 mg/dL (7-18) Creatinine 2.8 MG/DL (0.55-1.30) Estimat Glomerular Filtration Rate mL/min (>60) Glucose Level 166 MG/DL (74-106) Calcium Level 7.8 MG/DL (8.5-10.1) Total Bilirubin 0.8 MG/DL (0.2-1.0) Aspartate Amino Transf (AST/SGOT) 30 U/L (15-37) Alanine Aminotransferase (ALT/SGPT) 10 U/L (12-78) Alkaline Phosphatase 40 U/L (46-116) Total Creatine Kinase 143 U/L (26-308) Creatine Kinase MB 1.7 NG/ML (0.0-3.6) Creatine Kinase MB Relative Index 1.1 Troponin I 2.719 ng/mL (0.000-0.056) Pro-B-Type Natriuretic Peptide 77344 pg/mL (0-125) Total Protein 7.1 G/DL (6.4-8.2) Albumin 3.4 G/DL (3.4-5.0) Globulin 3.7 g/dL Albumin/Globulin Ratio 0.9 (1.0-2.7) Lipase 120 U/L (73-393) Urine Color Pale yellow Urine Appearance Slightly cloudy Urine pH 6 (4.5-8.0) Urine Specific [place] 1.010 (1.005-1.035) Urine Protein 1+ (NEGATIVE) Urine Glucose (UA) Negative (NEGATIVE) Urine Ketones Negative (NEGATIVE) Urine Blood 1+ (NEGATIVE) Urine Nitrite Negative (NEGATIVE) Urine Bilirubin Negative (NEGATIVE) Urine Urobilinogen Normal MG/DL (0.0-1.0) Urine Leukocyte Esterase 2+ (NEGATIVE) Urine RBC 2-4 /HPF (0 - 2) Urine WBC 15-20 /HPF (0 - 2) Urine Squamous Epithelial Cells Occasional /LPF Urine Bacteria Many /HPF (NONE) White Blood Count 5.5 K/UL (4.8-10.8) Red Blood Count 2.56 M/UL (4.20-5.40) Hemoglobin 8.1 G/DL (12.0-16.0) Hematocrit 24.5 % (37.0-47.0) Mean Corpuscular Volume 96 FL (80-99) Mean Corpuscular Hemoglobin 31.8 PG (27.0-31.0) Mean Corpuscular Hemoglobin Concent 33.2 G/DL (32.0-36.0) Red Cell Distribution Width 13.6 % (11.6-14.8) Platelet Count 238 K/UL (150-450) Mean Platelet Volume 8.0 FL (6.5-10.1) Neutrophils (%) (Auto) 60.2 % (45.0-75.0) Lymphocytes (%) (Auto) 27.7 % (20.0-45.0) Monocytes (%) (Auto) 8.9 % (1.0-10.0) Eosinophils (%) (Auto) 2.3 % (0.0-3.0) Basophils (%) (Auto) 1.0 % (0.0-2.0) Arterial Blood pH 7.477 (7.350-7.450) Arterial Blood Partial Pressure CO2 29.4 mmHg (35.0-45.0) Arterial Blood Partial Pressure O2 63.6 mmHg (75.0-100.0) Arterial Blood HCO3 21.3 mmol/L (22.0-26.0) Arterial Blood Oxygen Saturation 91.3 % (95-100) Arterial Blood Base Excess -1.8 (-2-2) Migel Test Positive Test 10/03/18 18:00 10/04/18 04:00 10/04/18 09:30 Troponin I 2.879 ng/mL (0.000-0.056) 2.982 ng/mL (0.000-0.056) White Blood Count 5.1 K/UL (4.8-10.8) Red Blood Count 2.43 M/UL (4.20-5.40) Hemoglobin 7.8 G/DL (12.0-16.0) Hematocrit 23.3 % (37.0-47.0) Mean Corpuscular Volume 96 FL (80-99) Mean Corpuscular Hemoglobin 32.2 PG (27.0-31.0) Mean Corpuscular Hemoglobin Concent 33.6 G/DL (32.0-36.0) Red Cell Distribution Width 14.1 % (11.6-14.8) Platelet Count 273 K/UL (150-450) Mean Platelet Volume 7.8 FL (6.5-10.1) Neutrophils (%) (Auto) % (45.0-75.0) Lymphocytes (%) (Auto) % (20.0-45.0) Monocytes (%) (Auto) % (1.0-10.0) Eosinophils (%) (Auto) % (0.0-3.0) Basophils (%) (Auto) % (0.0-2.0) Differential Total Cells Counted 100 Neutrophils % (Manual) 60 % (45-75) Lymphocytes % (Manual) 32 % (20-45) Monocytes % (Manual) 7 % (1-10) Eosinophils % (Manual) 1 % (0-3) Basophils % (Manual) 0 % (0-2) Band Neutrophils 0 % (0-8) Platelet Estimate Adequate Platelet Morphology Normal Hypochromasia 1+ Anisocytosis 1+ Sodium Level 141 MMOL/L (136-145) Potassium Level 3.3 MMOL/L (3.5-5.1) Chloride Level 105 MMOL/L (98-107) Carbon Dioxide Level 25 MMOL/L (21-32) Anion Gap 11 mmol/L (5-15) Blood Urea Nitrogen 45 mg/dL (7-18) Creatinine 2.6 MG/DL (0.55-1.30) Estimat Glomerular Filtration Rate mL/min (>60) Glucose Level 62 MG/DL (74-106) Calcium Level 8.0 MG/DL (8.5-10.1) Iron Level 76 ug/dL (50-175) Total Iron Binding Capacity 253 ug/dL (250-450) Percent Iron Saturation 30 % (15-50) Unsaturated Iron Binding 177 ug/dL (112-346) Ferritin 332 NG/ML (8-388) Triglycerides Level 92 MG/DL (30-150) Cholesterol Level 119 MG/DL (< 200) LDL Cholesterol 65 mg/dL (<100) HDL Cholesterol 41 MG/DL (40-60) Cholesterol/HDL Ratio 2.9 (3.3-4.4) Vitamin B12 Level 370 PG/ML (193-986) Folate 10.9 NG/ML (8.6-58.9) Thyroid Stimulating Hormone (TSH) 3.545 uiU/mL (0.358-3.740) Free Thyroxine 1.51 NG/DL (0.76-1.46) Free Triiodothyronine 1.7 pg/mL (2.3-4.2) Urine Random Sodium 104 mmol/L (20-110) EKG Diagnostic Results Rate: normal ST Segments: other - Nonspecific ST, T wave changes Rhythm Strip Diag. Results EP Interpretation: yes Rate: 80 Rhythm: NSR, no PVC's, no ectopy Chest X-Ray Diagnostic Results Chest X-Ray Diagnostic Results : Chest X-Ray Ordered: Yes # of Views/Limited/Complete: 1 View Indication: Chest Pain EP Interpretation: Yes Interpretation: no consolidation, no effusion, no pneumothorax, other - Cardiomegaly, pulmonary congestion Impression: Other - Acute CHF Electronically Signed by: Kanchan Loredo DO Last Vital Signs Date Time Temp Pulse Resp B/P (MAP) Pulse Ox O2 Delivery O2 Flow Rate FiO2 10/03/18 12:22 97.0 85 27 88/56 (67) 96 Room Air Status: improved Disposition: ADMITTED INPATIENT Condition: Critical Referrals: NOT CHOSEN IPA/,REFERRING (PCP) Kanchan Loredo DO Oct 03, 2018 13:06
[2018-10-03 13:12] LABS: ANION GAP 12 mmol/L (5-15); BLOOD UREA NITROGEN 44 mg/dL (7-18); CALCIUM 7.8 MG/DL (8.5-10.1); CARBON DIOXIDE 23 MMOL/L (21-32); CHLORIDE 102 MMOL/L (98-107); CREATININE 2.8 MG/DL (0.55-1.30); POTASSIUM 4.3 MMOL/L (3.5-5.1); SODIUM 137 MMOL/L (136-145)
[2018-10-03 13:19] LABS: ALANINE AMINOTRANSFERASE 10 U/L (12-78); ALBUMIN 3.4 G/DL (3.4-5.0); ALBUMIN/GLOBULIN RATIO 0.9 (1.0-2.7); ALKALINE PHOSPHATASE 40 U/L (46-116); ASPARTATE AMINO TRANSFERASE 30 U/L (15-37); BILIRUBIN,TOTAL 0.8 MG/DL (0.2-1.0); CKMB 1.7 NG/ML (0.0-3.6); CREATINE KINASE 143 U/L (26-308)
[2018-10-03 13:35] LABS: APPEARANCE,URINE SLIGHTLY CLOUDY; BILIRUBIN, URINE NEGATIVE (NEGATIVE); COLOR,URINE PALE YELLOW; GLUCOSE, URINE (UA) NEGATIVE (NEGATIVE); KETONES,URINE NEGATIVE (NEGATIVE); LEUKOCYTE ESTERASE ,URINE 2+ (NEGATIVE); NITRITE,URINE NEGATIVE (NEGATIVE); PH,URINE 6 (4.5-8.0); PROTEIN,URINE 1+ (NEGATIVE); UROBILINOGEN,URINE NORMAL MG/DL (0.0-1.0)
[2018-10-03 13:40] LABS: EOSINOPHILS % (AUTO) 2.3 % (0.0-3.0); HEMATOCRIT 24.5 % (37.0-47.0); HEMOGLOBIN 8.1 G/DL (12.0-16.0); LYMPHOCYTES % (AUTO) 27.7 % (20.0-45.0); MEAN CORPUSCULAR VOLUME 96 FL (80-99); MONOCYTES % (AUTO) 8.9 % (1.0-10.0); NEUTROPHILS % (AUTO) 60.2 % (45.0-75.0); PLATELET COUNT 238 K/UL (150-450); RED BLOOD COUNT 2.56 M/UL (4.20-5.40); RED CELL DISTRIBUTION WIDTH 13.6 % (11.6-14.8); WHITE BLOOD COUNT 5.5 K/UL (4.8-10.8)
--- NOTE | 2018-10-03 13:40 | NUR ---
ED Nurse Note: Lab called for new Hgb level 8.1. per lab technitian the previous sample was hemolized.
--- NOTE | 2018-10-03 13:44 | Diagnostic Imaging Report ---
Indication: Dyspnea Comparison: 10/24/2017 A single view chest radiograph was obtained. Findings: Pulmonary vascular congestion with interstitial edema noted moderate in degree. Cardiomegaly is present. Bones are osteopenic. Aorta is moderately calcified. IMPRESSION: Congestive heart failure
[2018-10-03 13:51] VITALS: BP 92/61
[2018-10-03] MEDS ORDERED: Miralax 17gm pkt ORAL PRN (14:30)
[2018-10-03] MEDS ORDERED: Albuterol/Ipratropium 3ml neb HHN PRN (14:30)
--- NOTE | 2018-10-03 14:57 | NUR ---
ED Nurse Note: US at bedside.
--- NOTE | 2018-10-03 15:13 | NUR ---
ED Nurse Note: Per JANNETH Morales the accepting nurse JANNETH Everett is with another patient at this moment. will call back in 10 minutes.
--- NOTE | 2018-10-03 15:22 | NUR ---
ED Nurse Note: Called for a report. no answer. will call back in 5 minutes.
--- NOTE | 2018-10-03 15:24 | NUR ---
ED Nurse Note: US done at bedside.
--- NOTE | 2018-10-03 15:29 | NUR ---
ED Nurse Note: Called for a report. no answer. will try in 5 minutes.
--- NOTE | 2018-10-03 15:38 | NUR ---
ED Nurse Note: Report given to JANNETH Everett.
--- NOTE | 2018-10-03 15:40 | NUR ---
ED Nurse Note: pt left unit with 1 nuclear fuel processing technician and 1 RN.
--- NOTE | 2018-10-03 15:45 | NUR ---
NURSE NOTES: received patient report from alka carrion from ER. Patient came in via gurney. patient is noted to be yakut speaking only. personnel monitor initiated. belongings list checked and signed. daughter came with the patient. daughter speaks simple russian. IV line noted on the R FA& L Hand. skin is intact. no open skin issues. med recon done in ER. under the care of dr reynoso/dr bentley. dr sotelo puts in the order already.will continue to monitor.
[2018-10-03 16:00] VITALS: BP 106/68
--- NOTE | 2018-10-03 16:09 | NUR ---
CASE MANAGEMENT: INITIAL REVIEW 83 YO F PRESENTED TO OUR ED FROM HOME CC: DYSPNEA X 3 DAYS PMHx: HTN. DM. SI:DYSPNEA. ELEVATED TROPONIN. T 97 HR 85 RR 27 B/P 88/56 SATS 96% ON RA BUN 44 CR 2.8 GLU 166 CA 7.8 ALT 10 ALP 40 TROPONIN 2.719 BNP 48722 IS: LASIX IV X1 PATIENT ADMITTED TO SDU @ 1342 DCP: PATIENT TO BE DISCHARGED TO HOME ONCE MEDICALLY CLEARED. PLAN OF CARE: SERIAL TROPONIN CARDIO EVAL Addendum: 10/03/18 at 1622 by Aline Cordero CM INTERQUAL MET
[2018-10-03] MEDS: NovoLOG Insulin Flexpen SUBQ SCH ×2 (16:30→21:48)
--- NOTE | 2018-10-03 17:39 | History & Physical ---
History and Physical History & Physicial Dictated for Int med-no. [id number]. Morgan Ha MD Oct 03, 2018 17:39
--- NOTE | 2018-10-03 19:08 | NUR ---
HAND-OFF: Report given to tl carrion.
--- NOTE | 2018-10-03 19:10 | NUR ---
NURSE NOTES: Received patient from Marguerite LAGUNAS. Patient is awake, in bed with no signs of distress. On 2L nasal canula. Patient is calm follows commands. Bed is at its lowest position, call light in reach and X3 bed rails up.
[2018-10-03 20:00] VITALS: BP 106/68
--- NOTE | 2018-10-03 20:54 | NUR ---
NURSE NOTES: Dr Robert contacted with second EKG and updated with second Troponin levels. Dr Robert acknowledged he received the message. No action needed at this time.
[2018-10-03] MEDS: Carvedilol 12.5mg tab ORAL SCH (21:00)
[2018-10-03] MEDS: Heparin 5000 units/ml inj SUBQ SCH (21:49)
[2018-10-03] MEDS: HydrALAZINE 25mg tab ORAL SCH (21:51)
[2018-10-04] VITALS (16 sets, daily range): BP systolic 91–116; BP diastolic 52–68
--- NOTE | 2018-10-04 01:00 | Consultation ---
DATE OF CONSULTATION: 10/03/2018 CARDIOLOGY CONSULT CONSULTING PHYSICIAN: Brady Meraz M.D. REFERRING PHYSICIAN: Kalen Guan M.D. REASON FOR CONSULT: Acute myocardial infarction. HISTORY OF PRESENT ILLNESS: This 83-year-old Upper Sor[place] female developed shortness of breath and heaviness, which progressed over the past few days. The patient notes she has been unable to lie flat at night and has been congested. She was brought to the emergency room and was noted to have clinical and radiographic signs of acute congestive heart failure and a grossly abnormal troponin level. The patient was placed on anti-platelet therapy, beta-blockade, and diuretics. I have been asked to assist with cardiovascular care. PAST MEDICAL HISTORY: Hypertension, type 2 diabetes mellitus, peripheral artery disease, gastroesophageal reflux disease, history of congestive heart failure. ALLERGIES: None. MEDICATIONS: Reviewed and reconciled. FAMILY HISTORY: Not known. SOCIAL HISTORY: Negative for smoking, alcohol, or substance abuse. REVIEW OF SYSTEMS: Cannot be reliably obtained from the patient due to language barrier; however, with a pail tester all pertinent systems were outlined above. PHYSICAL EXAMINATION: VITAL SIGNS: Initial blood pressure 88/56, heart rate 85, respiratory rate 27, and afebrile. Presently blood pressure slightly better at 106/68, heart rate 79, respiratory rate 20, and afebrile. Monitored rhythm sinus with sinus arrhythmia. There are reports of atrial fibrillation although I have not been able to document this with the available strips and EKGs. HEENT: Conjunctivae pink. Oropharynx clear. NECK: Supple. Jugular venous pressure elevated. LUNGS: With bilateral rales. No accessory muscle use. CARDIAC: Regular rhythm and rate. Normal S1, S2 with a fourth heart sound and a 1/6 systolic murmur at the apex. ABDOMEN: Soft and nontender. EXTREMITIES: No clubbing or cyanosis. No edema. NEUROLOGIC: Nonfocal. DIAGNOSTIC DATA: Chest x-ray reveals pulmonary edema. EKG, sinus rhythm with nonspecific ST-T changes. LABORATORY DATA: Urinalysis with 15 to 20 white cells. Sodium 137, potassium 4.3, bicarbonate 23, BUN 44, creatinine 2.8, glucose 166. Pro-natriuretic peptide is 34,000. Troponin is 2.7, repeated is 2.8. ABG, 7.47, 29, 64. IMPRESSION: 1. Acute myocardial infarction. 2. Acute systolic and diastolic congestive heart failure. 3. Hypoxia. 4. Severe anemia, likely due to chronic kidney disease. 5. Type 2 diabetes mellitus. 6. Acute on chronic kidney disease. 7. Possible paroxysms of atrial fibrillation. PLAN: 1. Cardiac monitoring. 2. Diuresis with intravenous loop diuretic. 3. Monitor volume status and cardiorenal function. 4. Beta-blockade. 5. Anti-platelet therapy. 6. Topical nitrates if blood pressure can tolerate. 7. Check lipid panel and thyroid function. 8. Renal ultrasound. 9. Echocardiogram. 10. Further recommendations will follow based on response to current interventions and clinical course. Brady Meraz M.D. DR: HERMILA JOB#: [id number] CC:
--- NOTE | 2018-10-04 01:06 | NUR ---
NURSE NOTES: Lasix given late due to low BP. Charge nurse notified and approved to give after patient complained of chest discomfort. No signs of acute distress and patient's symptoms are no worsening. Will continue to monitor.
--- NOTE | 2018-10-04 02:00 | History and Physical Report ---
DATE OF ADMISSION: 10/03/2018 CHIEF COMPLAINT: The patient is an 83-year-old female, who presents with a chief complaint of shortness of breath. HISTORY OF PRESENT ILLNESS: The patient has a history of diabetes and paroxysmal atrial fibrillation. The patient presented to [facility] emergency room complaining of a two-day history of shortness of breath. The patient denies cough. The patient herself speaks mostly Creole. Much of the history and physical is taken from the patient's daughter, who is at the bedside. The patient presented to [facility] emergency room. The patient was found to have elevated troponin, elevated BNP, and chest x-ray consistent with congestive heart failure. The patient is admitted with dyspnea and acute exacerbation of congestive heart failure with elevated troponin. REVIEW OF SYSTEMS: CONSTITUTIONAL: The patient denies weight loss or weight gain. The patient denies fevers or chills. HEENT: The patient denies ear or throat pain. The patient denies headache. CARDIOVASCULAR: The patient denies palpitations or chest pain. CHEST: The patient complains of shortness of breath as above. The patient denies wheezes. ABDOMEN: The patient denies nausea, vomiting, diarrhea, or constipation. GENITOURINARY: The patient denies dysuria or increased frequency of urination. NEUROMUSCULAR: The patient denies seizures or generalized weakness. PAST MEDICAL HISTORY: Significant for, 1. Paroxysmal atrial fibrillation. 2. Hypertension. 3. Diabetes type 2. 4. Gastritis. 5. Osteoarthritis. 6. Hypothyroidism. PAST SURGICAL HISTORY: Significant for, 1. Thyroidectomy. 2. Bilateral cataract surgery. 3. Laparoscopic cholecystectomy in October of 2017. CURRENT MEDICATIONS: 1. Fosamax 70 mg p.o. every week. 2. Amlodipine 10 mg p.o. daily. 3. Aspirin 81 mg p.o. daily. 4. Atorvastatin 20 mg p.o. at bedtime. 5. Baclofen 10 mg p.o. three times a day. 6. Calcium carbonate 500 mg p.o. daily. 7. Carvedilol 12.5 mg p.o. twice daily. 8. Clopidogrel 75 mg p.o. daily. 9. Doxazosin 1 mg p.o. daily. 10. TriCor 145 mg p.o. daily. 11. Iron sulfate 325 mg p.o. daily. 12. Glipizide/metformin 5/500 one tab p.o. twice daily. 13. Hydralazine 25 mg p.o. q.8 hours. 14. Isosorbide mononitrate 30 mg p.o. daily. 15. Levoxyl 0.125 mg p.o. daily. 16. Losartan 100 mg p.o. daily. 17. Metoprolol 50 mg p.o. daily. 18. Omeprazole 40 mg p.o. daily. 19. Demodex 20 mg p.o. daily. ALLERGIES: No known drug allergies. SOCIAL HISTORY: The patient is single and lives with her adult daughter. The patient denies tobacco or alcohol use. PHYSICAL EXAMINATION: VITAL SIGNS: Temperature 97, respirations 27, pulse 85, blood pressure 88/56, and pulse oximetry 96% on room air. GENERAL: The patient is a well-developed and well-nourished female, in no apparent distress. HEENT: Eyes, pupils are equal and responsive to light and accommodation. Extraocular movements are intact. NECK: Supple without lymphadenopathy. CHEST: Crackles in bilateral bases. Otherwise, clear to auscultation without wheezes or rales. CARDIOVASCULAR: Irregular rhythm and irregular rate. S1 and S2 are normal without murmurs, rubs, or gallops. ABDOMEN: Soft, nontender, and nondistended. Positive bowel sounds. No evidence of hepatosplenomegaly. Currently, no rebound or guarding noted. EXTREMITIES: Negative for clubbing, cyanosis, or edema. RECTAL/GENITAL: Not performed. NEUROLOGIC: Cranial nerves II through XII are grossly intact without focal deficits. Motor strength is 5/5 bilaterally. Deep tendon reflexes are 2+ plantar. LABORATORY STUDIES: WBC 5.5, hemoglobin 8.1, hematocrit 24.5, and platelets 238,000. Sodium 137, potassium 4.3, chloride 102, CO2 23, BUN 44, creatinine 2.8, and glucose 166. Troponin elevated at 2.719. BNP elevated at 34,176. An EKG demonstrated atrial fibrillation at approximately 85 beats per minute. There are no acute ST changes or Q-waves noted. ASSESSMENT: This is an 83-year-old female. 1. Dyspnea. 2. Congestive heart failure. 3. Elevated troponin. 4. Atrial fibrillation. 5. Hypertension. 6. Diabetes type 2. 7. Acute renal failure. 8. Hypercholesterolemia. TREATMENT: 1. Dyspnea, this may be secondary to congestive heart failure. A chest x-ray was reported as interstitial edema consistent with congestive heart failure. A Cardiology consultation was obtained with Dr. Steven Teixeira. We will follow recommendations of Cardiology. A Pulmonary consultation has been obtained with Dr. Aure Ortega. 2. Elevated troponin. Serial troponin levels will be performed. As above, a Cardiology consultation has been obtained with Dr. Steven Robert. 3. Atrial fibrillation. Continue metoprolol as above. The patient is currently on metoprolol and carvedilol. We will follow recommendations of Cardiology concerning 2 beta-blockers. 4. Hypertension. Continue metoprolol, losartan, and Coreg as above. Continue hydralazine as above. 5. Diabetes type 2. Continue glipizide/metformin as above. A NovoLog sliding scale has been instituted. 6. Hypothyroidism. A TSH is pending. Continue Levoxyl as above. 7. Renal failure. A Nephrology consultation has been obtained with Dr. Valdez. We will follow recommendations of Nephrology. 8. Hypercholesterolemia. Continue fenofibrate as above. Morgan Ha M.D. DR: SAV JOB#: [id number] CC:
[2018-10-04 06:21] LABS: HEMATOCRIT 23.3 % (37.0-47.0); HEMOGLOBIN 7.8 G/DL (12.0-16.0); MEAN CORPUSCULAR VOLUME 96 FL (80-99); PLATELET COUNT 273 K/UL (150-450); RED BLOOD COUNT 2.43 M/UL (4.20-5.40); RED CELL DISTRIBUTION WIDTH 14.1 % (11.6-14.8); WHITE BLOOD COUNT 5.1 K/UL (4.8-10.8)
[2018-10-04] MEDS ORDERED: Levothyroxine 125mcg tab ORAL SCH (06:30)
[2018-10-04] MEDS: NovoLOG Insulin Flexpen SUBQ SCH ×4 (06:30→20:43)
[2018-10-04] MEDS: HydrALAZINE 25mg tab ORAL SCH (06:33)
[2018-10-04 07:15] LABS: ANION GAP 11 mmol/L (5-15); BLOOD UREA NITROGEN 45 mg/dL (7-18); CARBON DIOXIDE 25 MMOL/L (21-32); CHLORIDE 105 MMOL/L (98-107); CREATININE 2.6 MG/DL (0.55-1.30); POTASSIUM 3.3 MMOL/L (3.5-5.1); SODIUM 141 MMOL/L (136-145)
--- NOTE | 2018-10-04 07:20 | NUR ---
HAND-OFF: Report given to Bonny LAGUNAS.
[2018-10-04 07:49] LABS: CHOLESTEROL 119 MG/DL (< 200); HDL CHOLESTEROL 41 MG/DL (40-60); TRIGLYCERIDES 92 MG/DL (30-150)
--- NOTE | 2018-10-04 08:12 | NUR ---
RADIOLOGY DEPT., CHEST X-RAY DONE.-P.DYE
--- NOTE | 2018-10-04 08:14 | NUR ---
NURSE NOTES: Report received from JANNETH Singh. Observed patient in bed eating breakfast. Alert and oriented with verbally responsive. Denies pain at this time. IV site intact and patent. On 2L of oxygen via N/C with no distress noted. Bed in lowest position. Call light within reach. Will continue to monitor.
[2018-10-04 08:39] LABS: FERRITIN 332 NG/ML (8-388)
[2018-10-04] MEDS: Carvedilol 12.5mg tab ORAL SCH (09:09)
[2018-10-04] MEDS: Heparin 5000 units/ml inj SUBQ SCH ×2 (09:10→20:44)
--- NOTE | 2018-10-04 09:15 | NUR ---
NURSE NOTES: Informed Dr. Valdez regarding abnormal lab result. Dr. Valdez said he will take care of it. Will follow up.
[2018-10-04 09:18] LABS: % IRON SATURATION 30 % (15-50); IRON 76 ug/dL (50-175); TOTAL IRON BINDING CAPACITY 253 ug/dL (250-450)
--- NOTE | 2018-10-04 09:26 | Diagnostic Imaging Report ---
Indication: Dyspnea Technique: XRAY Chest 1v Comparison: 10/03/2018 Findings: Stable cardiomegaly. Atherosclerotic calcifications again noted in the aortic arch. Bilateral interstitial and airspace disease again noted unchanged. Smaller pleural effusions not excluded. No evidence of pneumothorax. Linear densities project over the right lung. Degenerative changes in the spine. No acute osseous abnormality. Impression: No significant interval change in the radiographic appearance of the chest recommended prior. Findings as above.
--- NOTE | 2018-10-04 10:05 | NUR ---
NURSE NOTES: CALLED AND LEFT A MESSAGE TO DR ARIAS'S OFFICE RE HR 110-130"S AND TROPONIN LEVEL (SPOKE WITH VALORIE). AWAITING FOR CALL BACK. PATIENT IS SEEN LYING I BED, ASLEEP. NO SIGNS OF DISTRESS. WILL CONTINUE PLAN OF CARE.
[2018-10-04] MEDS ORDERED: Metoprolol 5mg/5ml Inj IVPB SCH (10:27)
[2018-10-04] MEDS ORDERED: Digoxin 0.5mg/2ml Inj IVP SCH (10:29)
[2018-10-04] MEDS ORDERED: dilTIAZem HCl 25mg/5ml Inj IV PRN ×2 (10:30→12:01)
--- NOTE | 2018-10-04 10:50 | NUR ---
NURSE NOTES: Received call from Dr. Meraz with new orders. Order carried out.
--- NOTE | 2018-10-04 10:50 | Consultation ---
History of Present Illness General Date patient seen: Oct 04, 2018 Chief Complaint: Dyspnea/Respdistress Present Illness HPI 83 year old female with hx of chronic renal insufficiency, DM, hypothyroid with multiple admissions to [facility] brought in by paramedics with CC of dyspnea and orthopnea, uncertain acuity. Pt's CXR showed pulmonary edema. She is admitted to [facility] for further management. She is sitting up in the bed, speaks Bulgarian only , looks comfortable. Allergies: Coded Allergies: No Known Allergies (Verified , 07/20/11) Medication History Scheduled Alendronate Sodium* (Fosamax*), 70 MG ORAL ONCE A WEEK, (Reported) Amlodipine Besylate* (Amlodipine Besylate*), 10 MG ORAL DAILY, (Reported) Aspirin* (Aspir 81*), 81 MG ORAL DAILY, (Reported) Atorvastatin Calcium* (Atorvastatin Calcium*), 20 MG ORAL BEDTIME, (Reported) Baclofen* (Baclofen*), 10 MG ORAL THREE TIMES A DAY, (Reported) Carvedilol* (Carvedilol*), 12.5 MG ORAL EVERY 12 HOURS, (Reported) Clopidogrel Bisulfate* (Plavix*), 75 MG ORAL DAILY, (Reported) Doxazosin Mesylate* (Doxazosin Mesylate*), 4 MG ORAL DAILY, (Reported) Fenofibrate (Tricor), 145 MG ORAL DAILY, (Reported) Fenofibrate Nanocrystallized (Fenofibrate), 145 MG ORAL DAILY, (Reported) Ferrous Sulfate* (Ferrous Sulfate*), 325 MG ORAL DAILY, (Reported) Hydralazine Hcl* (Hydralazine Hcl*), 25 MG ORAL EVERY 8 HOURS, (Reported) Levothyroxine Sodium* (Synthroid*), 125 MCG ORAL DAILY, (Reported) Losartan Potassium* (Cozaar*), 100 MG ORAL DAILY, (Reported) Metoprolol Succinate* (Metoprolol Succinate*), 50 MG ORAL DAILY, (Reported) Omeprazole (Omeprazole), 40 MG ORAL DAILY, (Reported) Torsemide* (Demadex*), 20 MG ORAL DAILY, (Reported) Miscellaneous Medications Calcium Carbonate (Oyster Shell Calcium), 500 MG PO, (Reported) Glipizide/Metformin Hcl (Glipizide-Metformin 5-500 Mg), 1 EACH PO, (Reported) Isosorbide Mononitrate (Isosorbide Mononitrate Er), 30 MG PO, (Reported) Patient History Healthcare decision maker N Resuscitation status Full Code Advanced Directive on File Past Medical/Surgical History Past Medical/Surgical History: (1) Diabetes mellitus (2) Hypothyroidism (3) Thyroid cancer (4) HTN (hypertension) (5) Anemia of renal disease Review of Systems Respiratory: Reports: orthopnea, shortness of breath Physical Exam General Appearance: cachetic, thin Lines, tubes and drains: peripheral HEENT: normocephalic, atraumatic Neck: non-tender, normal alignment Respiratory/Chest: chest wall non-tender, lungs clear Breasts: no masses Cardiovascular/Chest: normal peripheral pulses Abdomen: normal bowel sounds, non tender Genitourinary/Rectal: normal genital exam Last 24 Hour Vital Signs Date Time Temp Pulse Resp B/P (MAP) Pulse Ox O2 Delivery O2 Flow Rate FiO2 10/04/18 09:09 110 108/63 10/04/18 09:09 110 108/63 10/04/18 08:00 Nasal Cannula 2.0 10/04/18 08:00 96.3 89 19 108/63 (78) 99 10/04/18 08:00 80 10/04/18 07:36 99 Nasal Cannula 2.0 28 10/04/18 06:33 115/78 10/04/18 04:00 Nasal Cannula 2.0 10/04/18 04:00 97.8 79 19 106/62 (77) 95 10/04/18 03:37 79 10/04/18 00:00 Nasal Cannula 2.0 10/04/18 00:00 97.1 79 20 106/68 (81) 95 10/03/18 23:54 81 10/03/18 21:51 106/68 10/03/18 21:00 79 106/68 10/03/18 20:00 Nasal Cannula 2.0 10/03/18 20:00 2.0 10/03/18 20:00 97.1 79 20 106/68 (81) 95 10/03/18 18:37 Nasal Cannula 2.0 10/03/18 18:01 91 Nasal Cannula 2.0 28 10/03/18 16:20 Room Air 10/03/18 16:08 87 10/03/18 16:00 96.4 91 19 106/68 (81) 96 10/03/18 15:37 97.7 92 19 106/67 98 Room Air 10/03/18 13:51 97.0 85 22 92/61 96 Room Air 10/03/18 13:51 85 27 Room Air 10/03/18 12:22 97.0 85 27 88/56 (67) 96 Room Air Intake and Output 10/03/18 10/04/18 19:00 07:00 Intake Total 120 ml 120 ml Balance 120 ml 120 ml Intake Oral 120 ml 120 ml # Voids 3 # Bowel Movements 2 Laboratory Tests Test 10/03/18 12:35 10/03/18 13:15 10/03/18 13:23 10/03/18 17:43 Sodium Level 137 MMOL/L (136-145) Potassium Level 4.3 MMOL/L (3.5-5.1) Chloride Level 102 MMOL/L (98-107) Carbon Dioxide Level 23 MMOL/L (21-32) Anion Gap 12 mmol/L (5-15) Blood Urea Nitrogen 44 mg/dL (7-18) H Creatinine 2.8 MG/DL (0.55-1.30) H Estimat Glomerular Filtration Rate mL/min (>60) Glucose Level 166 MG/DL (74-106) H Calcium Level 7.8 MG/DL (8.5-10.1) L Total Bilirubin 0.8 MG/DL (0.2-1.0) Aspartate Amino Transf (AST/SGOT) 30 U/L (15-37) Alanine Aminotransferase (ALT/SGPT) 10 U/L (12-78) L Alkaline Phosphatase 40 U/L (46-116) L Total Creatine Kinase 143 U/L (26-308) Creatine Kinase MB 1.7 NG/ML (0.0-3.6) Creatine Kinase MB Relative Index 1.1 Troponin I 2.719 ng/mL (0.000-0.056) Pro-B-Type Natriuretic Peptide 93734 pg/mL (0-125) H Total Protein 7.1 G/DL (6.4-8.2) Albumin 3.4 G/DL (3.4-5.0) Globulin 3.7 g/dL Albumin/Globulin Ratio 0.9 (1.0-2.7) L Lipase 120 U/L (73-393) Urine Color Pale yellow Urine Appearance Slightly cloudy Urine pH 6 (4.5-8.0) Urine Specific [place] 1.010 (1.005-1.035) Urine Protein 1+ (NEGATIVE) H Urine Glucose (UA) Negative (NEGATIVE) Urine Ketones Negative (NEGATIVE) Urine Blood 1+ (NEGATIVE) H Urine Nitrite Negative (NEGATIVE) Urine Bilirubin Negative (NEGATIVE) Urine Urobilinogen Normal MG/DL (0.0-1.0) Urine Leukocyte Esterase 2+ (NEGATIVE) H Urine RBC 2-4 /HPF (0 - 2) H Urine WBC 15-20 /HPF (0 - 2) H Urine Squamous Epithelial Cells Occasional /LPF Urine Bacteria Many /HPF (NONE) H White Blood Count 5.5 K/UL (4.8-10.8) # Red Blood Count 2.56 M/UL (4.20-5.40) L Hemoglobin 8.1 G/DL (12.0-16.0) #L Hematocrit 24.5 % (37.0-47.0) #L Mean Corpuscular Volume 96 FL (80-99) Mean Corpuscular Hemoglobin 31.8 PG (27.0-31.0) H Mean Corpuscular Hemoglobin Concent 33.2 G/DL (32.0-36.0) Red Cell Distribution Width 13.6 % (11.6-14.8) Platelet Count 238 K/UL (150-450) # Mean Platelet Volume 8.0 FL (6.5-10.1) Neutrophils (%) (Auto) 60.2 % (45.0-75.0) Lymphocytes (%) (Auto) 27.7 % (20.0-45.0) Monocytes (%) (Auto) 8.9 % (1.0-10.0) Eosinophils (%) (Auto) 2.3 % (0.0-3.0) Basophils (%) (Auto) 1.0 % (0.0-2.0) Arterial Blood pH 7.477 (7.350-7.450) Arterial Blood Partial Pressure CO2 29.4 mmHg (35.0-45.0) L Arterial Blood Partial Pressure O2 63.6 mmHg (75.0-100.0) L Arterial Blood HCO3 21.3 mmol/L (22.0-26.0) L Arterial Blood Oxygen Saturation 91.3 % (95-100) L Arterial Blood Base Excess -1.8 (-2-2) Migel Test Positive Test 10/03/18 18:00 10/04/18 04:00 10/04/18 09:30 Troponin I 2.879 ng/mL (0.000-0.056) 2.982 ng/mL (0.000-0.056) White Blood Count 5.1 K/UL (4.8-10.8) Red Blood Count 2.43 M/UL (4.20-5.40) L Hemoglobin 7.8 G/DL (12.0-16.0) L Hematocrit 23.3 % (37.0-47.0) L Mean Corpuscular Volume 96 FL (80-99) Mean Corpuscular Hemoglobin 32.2 PG (27.0-31.0) H Mean Corpuscular Hemoglobin Concent 33.6 G/DL (32.0-36.0) Red Cell Distribution Width 14.1 % (11.6-14.8) Platelet Count 273 K/UL (150-450) Mean Platelet Volume 7.8 FL (6.5-10.1) Neutrophils (%) (Auto) % (45.0-75.0) Lymphocytes (%) (Auto) % (20.0-45.0) Monocytes (%) (Auto) % (1.0-10.0) Eosinophils (%) (Auto) % (0.0-3.0) Basophils (%) (Auto) % (0.0-2.0) Differential Total Cells Counted 100 Neutrophils % (Manual) 60 % (45-75) Lymphocytes % (Manual) 32 % (20-45) Monocytes % (Manual) 7 % (1-10) Eosinophils % (Manual) 1 % (0-3) Basophils % (Manual) 0 % (0-2) Band Neutrophils 0 % (0-8) Platelet Estimate Adequate Platelet Morphology Normal Hypochromasia 1+ Anisocytosis 1+ Sodium Level 141 MMOL/L (136-145) Potassium Level 3.3 MMOL/L (3.5-5.1) L Chloride Level 105 MMOL/L (98-107) Carbon Dioxide Level 25 MMOL/L (21-32) Anion Gap 11 mmol/L (5-15) Blood Urea Nitrogen 45 mg/dL (7-18) H Creatinine 2.6 MG/DL (0.55-1.30) H Estimat Glomerular Filtration Rate mL/min (>60) Glucose Level 62 MG/DL (74-106) #L Calcium Level 8.0 MG/DL (8.5-10.1) L Iron Level 76 ug/dL (50-175) Total Iron Binding Capacity 253 ug/dL (250-450) Percent Iron Saturation 30 % (15-50) Unsaturated Iron Binding 177 ug/dL (112-346) Ferritin 332 NG/ML (8-388) Triglycerides Level 92 MG/DL (30-150) Cholesterol Level 119 MG/DL (< 200) LDL Cholesterol 65 mg/dL (<100) HDL Cholesterol 41 MG/DL (40-60) Cholesterol/HDL Ratio 2.9 (3.3-4.4) L Vitamin B12 Level 370 PG/ML (193-986) Folate 10.9 NG/ML (8.6-58.9) Thyroid Stimulating Hormone (TSH) 3.545 uiU/mL (0.358-3.740) Free Thyroxine 1.51 NG/DL (0.76-1.46) H Triiodothyonine (T3) Pending Free Triiodothyronine 1.7 pg/mL (2.3-4.2) L Triiodothyronine (T3) Uptake Pending Urine Random Sodium 104 mmol/L (20-110) Microbiology Date/Time Source Procedure Growth Status 10/03/18 13:15 Urine,Clean Catch Urine Culture - Preliminary Gram Negative Sterling Resulted Height (Feet): 5 Height (Inches): 0.00 Weight (Pounds): 129 Medications Current Medications Medications (Trade) Dose Ordered Sig/Tatianna Route PRN Reason Start Time Stop Time Status Last Admin Dose Admin Acetaminophen (Tylenol) 650 mg Q4H PRN ORAL Fever 10/03/18 14:30 11/02/18 14:29 Albuterol/ Ipratropium (Albuterol/ Ipratropium) 3 ml Q4H PRN HHN Shortness of Breath 10/03/18 14:30 10/08/18 14:29 Amlodipine Besylate (Norvasc) 10 mg DAILY ORAL 10/04/18 09:00 11/03/18 08:59 10/04/18 09:09 Aspirin (ASA) 325 mg DAILY ORAL 10/03/18 15:45 7/27/19 15:44 10/04/18 09:09 Carvedilol (Coreg) 12.5 mg EVERY 12 HOURS ORAL 10/03/18 21:00 11/02/18 20:59 10/04/18 09:09 Clopidogrel Bisulfate (Plavix) 75 mg DAILY ORAL 10/04/18 09:00 11/03/18 08:59 10/04/18 09:10 Dextrose (Dextrose 50%) 25 ml Q30M PRN IV Hypoglycemia 10/03/18 14:30 11/02/18 14:29 Dextrose (Dextrose 50%) 50 ml Q30M PRN IV Hypoglycemia 10/03/18 14:30 11/02/18 14:29 Digoxin (Lanoxin) 0.5 mg ONCE IVP 10/04/18 10:29 10/04/18 12:00 Diltiazem HCl (Cardizem) 10 mg Q1H PRN IV heart rate more than 120, 10/04/18 10:30 11/03/18 10:29 Furosemide 100 mg/ Dextrose 110 ml @ 11 mls/hr Q10H IV 10/04/18 12:00 11/03/18 11:59 Heparin Sodium (Porcine) (Heparin 5000 units/ml) 5,000 units EVERY 12 HOURS SUBQ 10/03/18 21:00 11/02/18 20:59 10/04/18 09:10 Hydralazine HCl (Apresoline) 25 mg EVERY 8 HOURS ORAL 10/03/18 22:00 11/02/18 21:59 10/04/18 06:33 Insulin Aspart (NovoLOG) BEFORE MEALS AND HS SUBQ 10/03/18 16:30 11/02/18 16:29 10/03/18 21:48 Levothyroxine Sodium (Synthroid) 125 mcg Q24H ORAL 10/04/18 06:30 11/03/18 06:29 10/04/18 06:32 Metolazone (Zaroxolyn) 2.5 mg DAILY ORAL 10/05/18 09:00 11/04/18 08:59 Metoprolol Tartrate (Lopressor) 5 mg ONCE IVPB 10/04/18 10:27 10/04/18 12:00 Ondansetron HCl (Zofran) 4 mg Q6H PRN IVP Nausea & Vomiting 10/03/18 14:30 11/02/18 14:29 Polyethylene Glycol (Miralax) 17 gm DAILYPRN PRN ORAL Constipation 10/03/18 14:30 11/02/18 14:29 Temazepam (Restoril) 15 mg HSPRN PRN ORAL Insomnia 10/03/18 14:30 10/10/18 14:29 Assessment/Plan Problem List: (1) Acute respiratory failure ICD Codes: J96.00 - Acute respiratory failure, unspecified whether with hypoxia or hypercapnia SNOMED: 73947138 (2) CHF exacerbation ICD Codes: I50.9 - Heart failure, unspecified SNOMED: 46517779 (3) Paroxysmal A-fib ICD Codes: I48.0 - Paroxysmal atrial fibrillation SNOMED: 263849578 (4) Anemia, chronic renal failure ICD Codes: N18.9 - Chronic kidney disease, unspecified; D63.1 - Anemia in chronic kidney disease SNOMED: 23298344 (5) Hypothyroidism ICD Codes: E03.9 - Hypothyroidism, unspecified SNOMED: 46215728 (6) Diabetes mellitus ICD Codes: E11.9 - Type 2 diabetes mellitus without complications SNOMED: 18293137 (7) Diabetic nephropathy ICD Codes: E11.21 - Type 2 diabetes mellitus with diabetic nephropathy SNOMED: 246667039 (8) HTN (hypertension) ICD Codes: I10 - Essential (primary) hypertension SNOMED: 35765852 Assessment/Plan: diuretics check BNP and CXR in 2-3 days watch bun/creatinine renal US echocardiogram anticoagulation by cardiology Cardizem prn for heart rate more than 120 thyroid supplement, check TSH, t3, and T4 dvt prophylaxis Home meds reviewed and essential ones continued. Aure Ortega MD Oct 04, 2018 10:50
--- NOTE | 2018-10-04 11:35 | Cardiology Report ---
APPROVED REPORT EKG Measurement Heart [id number] [place] 204P53 [id number] Normal sinus rhythm Prolonged QT Abnormal ECG
--- NOTE | 2018-10-04 11:41 | Cardiology Report ---
APPROVED REPORT EKG Measurement Heart [id number] [place] 202P51 [id number] Normal sinus rhythm Prolonged QT Abnormal ECG
--- NOTE | 2018-10-04 11:43 | NUR ---
TRANSFER TO FLOOR: Patient transferred to ICU via hospital bed. Report given to JANNETH Krause. Belongings checked with patient and RN. Family informed of transfer.
--- NOTE | 2018-10-04 11:44 | NUR ---
NURSE NOTES: Received pt transfer from SDU to ICU, and report from Bonny LAGUNAS. Pt was transferred via hospital bed. Pt's belonging's list was checked and signed with the transferring nurse in front of the pt. Pt is awake, alert, oriented x3, Ukrainian speaking. relationship executive placed on pt displays AFib with heart rate fluctuating 100-110's. Bounding radial and weak pedal pulses palpated with no edema noted on extremities. Peripheral IV access is present on right FA #22G and left hand #20G, both saline locks, patent/intact. Pt is on 2L of oxygen via nasal cannula with O2sat at 97%. Bilateral diminished lung sounds. Abdomen is flat, soft, nontender to touch with hyperactive bowel sounds auscultated on all quadrants. Pt has Casper catheter in place, draining clear/yellow urine. Skin is intact. Pt is on bedrest, with head of bed at high mansfield's, bed locked/in lowest position, three side rails up and call light within reach. Will continue to monitor pt and follow plan of care per MD orders and protocol.
[2018-10-04] MEDS ORDERED: Digoxin 0.5mg/2ml Inj IVP ONE (12:00)
[2018-10-04] MEDS ORDERED: Metoprolol 5mg/5ml Inj IVPB ONE (12:00)
[2018-10-04] MEDS ORDERED: Albuterol/Ipratropium 3ml neb HHN PRN (12:01)
[2018-10-04] MEDS ORDERED: Miralax 17gm pkt ORAL PRN (12:02)
--- NOTE | 2018-10-04 12:44 | Cardiac Electrophysiology PN ---
Subjective Subjective EP consult dictated [id number]. Fib with RVR. DC amlodipine to allow higher dose of Betablocker for better rate control Add Dig Dig level in am DW Dr Ha and RN and family at bedside Troponin leak and CHF per Dr Meraz Objective Last 24 Hour Vital Signs Date Time Temp Pulse Resp B/P (MAP) Pulse Ox O2 Delivery O2 Flow Rate FiO2 10/04/18 11:00 102 103/60 10/04/18 10:35 129 10/04/18 09:09 110 108/63 10/04/18 09:09 110 108/63 10/04/18 08:00 Nasal Cannula 2.0 10/04/18 08:00 96.3 89 19 108/63 (78) 99 10/04/18 08:00 80 10/04/18 07:36 99 Nasal Cannula 2.0 10/04/18 06:33 115/78 10/04/18 04:00 Nasal Cannula 2.0 10/04/18 04:00 97.8 79 19 106/62 (77) 95 10/04/18 03:37 79 10/04/18 00:00 Nasal Cannula 2.0 10/04/18 00:00 97.1 79 20 106/68 (81) 95 10/03/18 23:54 81 10/03/18 21:51 106/68 10/03/18 21:00 79 106/68 10/03/18 20:00 Nasal Cannula 2.0 10/03/18 20:00 2.0 10/03/18 20:00 97.1 79 20 106/68 (81) 95 10/03/18 18:37 Nasal Cannula 2.0 10/03/18 18:01 91 Nasal Cannula 2.0 28 10/03/18 16:20 Room Air 10/03/18 16:08 87 10/03/18 16:00 96.4 91 19 106/68 (81) 96 10/03/18 15:37 97.7 92 19 106/67 98 Room Air 10/03/18 13:51 97.0 85 22 92/61 96 Room Air 10/03/18 13:51 85 27 Room Air Intake and Output 10/03/18 10/04/18 18:59 06:59 Intake Total 120 ml 120 ml Balance 120 ml 120 ml Intake Oral 120 ml 120 ml # Voids 3 # Bowel Movements 2 Laboratory Tests Test 6/27/19 13:15 10/03/18 13:23 10/03/18 17:43 10/03/18 18:00 Urine Color Pale yellow Urine Appearance Slightly cloudy Urine pH 6 (4.5-8.0) Urine Specific [place] 1.010 (1.005-1.035) Urine Protein 1+ (NEGATIVE) H Urine Glucose (UA) Negative (NEGATIVE) Urine Ketones Negative (NEGATIVE) Urine Blood 1+ (NEGATIVE) H Urine Nitrite Negative (NEGATIVE) Urine Bilirubin Negative (NEGATIVE) Urine Urobilinogen Normal MG/DL (0.0-1.0) Urine Leukocyte Esterase 2+ (NEGATIVE) H Urine RBC 2-4 /HPF (0 - 2) H Urine WBC 15-20 /HPF (0 - 2) H Urine Squamous Epithelial Cells Occasional /LPF Urine Bacteria Many /HPF (NONE) H White Blood Count 5.5 K/UL (4.8-10.8) # Red Blood Count 2.56 M/UL (4.20-5.40) L Hemoglobin 8.1 G/DL (12.0-16.0) #L Hematocrit 24.5 % (37.0-47.0) #L Mean Corpuscular Volume 96 FL (80-99) Mean Corpuscular Hemoglobin 31.8 PG (27.0-31.0) H Mean Corpuscular Hemoglobin Concent 33.2 G/DL (32.0-36.0) Red Cell Distribution Width 13.6 % (11.6-14.8) Platelet Count 238 K/UL (150-450) # Mean Platelet Volume 8.0 FL (6.5-10.1) Neutrophils (%) (Auto) 60.2 % (45.0-75.0) Lymphocytes (%) (Auto) 27.7 % (20.0-45.0) Monocytes (%) (Auto) 8.9 % (1.0-10.0) Eosinophils (%) (Auto) 2.3 % (0.0-3.0) Basophils (%) (Auto) 1.0 % (0.0-2.0) Arterial Blood pH 7.477 (7.350-7.450) Arterial Blood Partial Pressure CO2 29.4 mmHg (35.0-45.0) L Arterial Blood Partial Pressure O2 63.6 mmHg (75.0-100.0) L Arterial Blood HCO3 21.3 mmol/L (22.0-26.0) L Arterial Blood Oxygen Saturation 91.3 % (95-100) L Arterial Blood Base Excess -1.8 (-2-2) Migel Test Positive Troponin I 2.879 ng/mL (0.000-0.056) Test 10/04/18 04:00 10/04/18 09:30 White Blood Count 5.1 K/UL (4.8-10.8) Red Blood Count 2.43 M/UL (4.20-5.40) L Hemoglobin 7.8 G/DL (12.0-16.0) L Hematocrit 23.3 % (37.0-47.0) L Mean Corpuscular Volume 96 FL (80-99) Mean Corpuscular Hemoglobin 32.2 PG (27.0-31.0) H Mean Corpuscular Hemoglobin Concent 33.6 G/DL (32.0-36.0) Red Cell Distribution Width 14.1 % (11.6-14.8) Platelet Count 273 K/UL (150-450) Mean Platelet Volume 7.8 FL (6.5-10.1) Neutrophils (%) (Auto) % (45.0-75.0) Lymphocytes (%) (Auto) % (20.0-45.0) Monocytes (%) (Auto) % (1.0-10.0) Eosinophils (%) (Auto) % (0.0-3.0) Basophils (%) (Auto) % (0.0-2.0) Differential Total Cells Counted 100 Neutrophils % (Manual) 60 % (45-75) Lymphocytes % (Manual) 32 % (20-45) Monocytes % (Manual) 7 % (1-10) Eosinophils % (Manual) 1 % (0-3) Basophils % (Manual) 0 % (0-2) Band Neutrophils 0 % (0-8) Platelet Estimate Adequate Platelet Morphology Normal Hypochromasia 1+ Anisocytosis 1+ Sodium Level 141 MMOL/L (136-145) Potassium Level 3.3 MMOL/L (3.5-5.1) L Chloride Level 105 MMOL/L (98-107) Carbon Dioxide Level 25 MMOL/L (21-32) Anion Gap 11 mmol/L (5-15) Blood Urea Nitrogen 45 mg/dL (7-18) H Creatinine 2.6 MG/DL (0.55-1.30) H Estimat Glomerular Filtration Rate mL/min (>60) Glucose Level 62 MG/DL (74-106) #L Calcium Level 8.0 MG/DL (8.5-10.1) L Iron Level 76 ug/dL (50-175) Total Iron Binding Capacity 253 ug/dL (250-450) Percent Iron Saturation 30 % (15-50) Unsaturated Iron Binding 177 ug/dL (112-346) Ferritin 332 NG/ML (8-388) Troponin I 2.982 ng/mL (0.000-0.056) Triglycerides Level 92 MG/DL (30-150) Cholesterol Level 119 MG/DL (< 200) LDL Cholesterol 65 mg/dL (<100) HDL Cholesterol 41 MG/DL (40-60) Cholesterol/HDL Ratio 2.9 (3.3-4.4) L Vitamin B12 Level 370 PG/ML (193-986) Folate 10.9 NG/ML (8.6-58.9) Thyroid Stimulating Hormone (TSH) 3.545 uiU/mL (0.358-3.740) Free Thyroxine 1.51 NG/DL (0.76-1.46) H Triiodothyonine (T3) Pending Free Triiodothyronine 1.7 pg/mL (2.3-4.2) L Triiodothyronine (T3) Uptake Pending Urine Random Sodium 104 mmol/L (20-110) Microbiology Date/Time Source Procedure Growth Status 10/03/18 13:15 Urine,Clean Catch Urine Culture - Preliminary Gram Negative Sterling Resulted Steven Robert MD Oct 04, 2018 12:44
--- NOTE | 2018-10-04 13:00 | NUR ---
NURSE NOTES: Pt consumed 80% of her lunch meal. VS stable with heart rhythm converted to NSR with heart rate in the 80's. Temp 98.7F oral prior to meal consumption. Pt's daughter is at bedside. Casper catheter is draining clear/yellow urine at 50-120ml/hourly. Pt was assisted with repositioning in bed. Resting comfortably, watching TV.
[2018-10-04] MEDS ORDERED: HydrALAZINE 25mg tab ORAL SCH (14:00)
--- NOTE | 2018-10-04 14:25 | NUR ---
CASE MANAGEMENT: REVIEW 10/04/2018 SI:DYSPNEA. ELEVATED TROPONIN. T 98.3 HR 102 RR 23 B/P 103/60 SATS 95/65 SATS 100% ON 2L/NC HGB 7.8 HCT 23.3 K 3.3 BUN 45 CR 2.6 GLU 62 CA 8 TROPONIN 2.982 IS: HYDRALAZINE PO Q8H COREG PO Q12H ASA PO QD PLAVIX PO QD METOLAZONE PO QD DIGOXIN PO QD INSULIN ASPART AC/HS ICU STATUS DCP: PATIENT TO BE DISCHARGED TO HOME ONCE MEDICALLY CLEARED. PLAN OF CARE: TRANSFER FOR CARDIAC CATH
--- NOTE | 2018-10-04 14:29 | NUR ---
CASE MANAGEMENT:REVIEW 10/04/18 SI:CHF. ELEVATED TROPONIN ACUTE RENAL FAILURE 96.3 129 23 95/65 100% ON 2L/NC H/H-7.8/23.3 BUN+45 CR+2.6 TROPONIN(+) 2.982 IS: TRANSFUSE 1 UNIT PRBC'S ASA PO QD PLAVIX PO QD ZAROXOLYN PO QD DIGOXIN PO QD HEPARIN SQ Q12 COREG PO Q12 HYDRALAZINE PO Q8HRS : TRANSFER FROM STEP DOWN TO ICU
--- NOTE | 2018-10-04 14:30 | NUR ---
DISCHARGE PLANNING: NOTE PATIENT TO BE TRANSFERRED FOR CARDIAC CATH CLINICALS FAXED TO [facility] T: [phone] X [phone] F [phone]
--- NOTE | 2018-10-04 14:45 | NUR ---
NURSE NOTES: Blood transfusion was started on pt as per order, 1 unit of PRBC is being transfused. VS stable. Pt is resting in bed, watching TV, pt's son-in-law is at bedside.
--- NOTE | 2018-10-04 15:15 | NUR ---
NURSE NOTES: Pt was seen by Dr Valdez. PRBC blood transfusion is in progress. Pt is tolerating transfusion well with no adverse reactions, and VS stable.
--- NOTE | 2018-10-04 15:28 | Consultation ---
Consult Note Consult Note asked to evaluate for renal failure HPI Patient presents with complaints of shortness of breath and heaviness ongoing for the past 3 days she feels that the symptoms are worse at nighttime laying flat Denies any vomiting or diarrhea denies any fevers or chills denies any cough Denies any dysuria frequency no obvious edema in the legs No Known Allergies (Verified , 07/20/11) Past Medical History: No History, Except For Hx Cardiac Problems: Yes Hx Hypertension: Yes Hx Diabetes: Yes Hx Gastrointestinal Problems: Yes seen in ICu Examined data reviewed Kyrgyz speaker Has a trinity . Assessment/Plan Acute on Chronic renal failure Anemia: CKD & or Low Iron Troponin rise Atrial Fib with FVR, h/o PAT CHF Low EjFx 40% DM High Lipids UTI Avoid nephrotoxics HR management Keep BP and BS in check Monitor renal parameters monitor Dig level Varinder Valdez MD Oct 04, 2018 15:28
--- NOTE | 2018-10-04 17:20 | NUR ---
NURSE NOTES: Blood transfusion is complete. Pt tolerated well with no signs/symptoms of adverse reactions noted. VS stable. Pt consumed 80% her dinner meal.
[2018-10-04] MEDS: HydrALAZINE 10mg Tab ORAL SCH ×2 (17:30→23:33)
--- NOTE | 2018-10-04 18:00 | NUR ---
NURSE NOTES: Pt was cleaned and repositioned, gown and linens changed. Optifoam dressing was placed at sacral area for cushion-support to prevent skin breakdown.
--- NOTE | 2018-10-04 18:30 | NUR ---
NURSE NOTES: Call received from Licha from "[facility]", who was inquiring regarding "plan to transfer pt to [facility] for cardiac cath" per case fitter Aline's notes/and faxed paperwork. I spoke with Dr Robert over the phone and read MD notes, currently no MD notes correlate with Aline's notes/fax. I informed Licha to place transfer "on hold" until we can confirm with MD's and with case fitter Aline regarding this plan.
--- NOTE | 2018-10-04 19:11 | Internal Med Progress Note ---
Subjective Date of Service: Oct 04, 2018 Physician Name Morgan Ha Attending Physician Morgan Ha MD Current Medications Medications (Trade) Dose Ordered Sig/Tatianna Route PRN Reason Start Time Stop Time Status Last Admin Dose Admin Acetaminophen (Tylenol) 650 mg Q4H PRN ORAL Fever 10/04/18 11:59 11/03/18 11:58 Albuterol/ Ipratropium (Albuterol/ Ipratropium) 3 ml Q4H PRN HHN Shortness of Breath 10/04/18 12:01 10/09/18 12:00 Aspirin (ASA) 325 mg DAILY ORAL 10/05/18 09:00 11/02/18 15:44 Carvedilol (Coreg) 25 mg EVERY 12 HOURS ORAL 10/04/18 21:00 11/02/18 20:59 Clopidogrel Bisulfate (Plavix) 75 mg DAILY ORAL 10/05/18 09:00 11/03/18 08:59 Dextrose (Dextrose 50%) 25 ml Q30M PRN IV Hypoglycemia 10/04/18 12:00 11/02/18 14:29 Dextrose (Dextrose 50%) 50 ml Q30M PRN IV Hypoglycemia 10/04/18 12:00 11/02/18 14:29 Digoxin (Lanoxin) 0.125 mg DAILY ORAL 10/05/18 09:00 11/04/18 08:59 Diltiazem HCl (Cardizem) 10 mg Q1H PRN IV heart rate more than 120, 10/04/18 12:01 11/03/18 12:00 Heparin Sodium (Porcine) (Heparin 5000 units/ml) 5,000 units EVERY 12 HOURS SUBQ 10/04/18 21:00 11/02/18 20:59 Hydralazine HCl (Apresoline) 10 mg EVERY 6 HOURS ORAL 10/04/18 18:00 11/02/18 21:59 Insulin Aspart (NovoLOG) BEFORE MEALS AND HS SUBQ 10/04/18 16:30 11/02/18 16:29 10/04/18 16:24 Levothyroxine Sodium (Synthroid) 125 mcg Q24H ORAL 10/05/18 06:30 11/03/18 06:29 Metolazone (Zaroxolyn) 2.5 mg DAILY ORAL 10/05/18 09:00 11/04/18 08:59 Ondansetron HCl (Zofran) 4 mg Q6H PRN IVP Nausea & Vomiting 10/04/18 12:02 11/03/18 12:01 Pantoprazole (Protonix) 40 mg EVERY 12 HOURS ORAL 10/04/18 21:00 11/03/18 20:59 Polyethylene Glycol (Miralax) 17 gm DAILYPRN PRN ORAL Constipation 10/04/18 12:02 11/03/18 12:01 Potassium Chloride (K-Dur) 20 meq TWICE A DAY ORAL 10/04/18 18:00 10/05/18 17:59 10/04/18 17:31 Temazepam (Restoril) 15 mg HSPRN PRN ORAL Insomnia 10/04/18 14:30 10/10/18 14:29 Allergies: Coded Allergies: No Known Allergies (Verified , 07/20/11) ROS Limited/Unobtainable: No Constitutional: Reports: no symptoms HEENT: Reports: no symptoms Cardiovascular: Reports: no symptoms Respiratory: Reports: no symptoms Gastrointestinal/Abdominal: Reports: no symptoms Genitourinary: Reports: no symptoms Neurologic/Psychiatric: Reports: no symptoms Subjective 83 YO F admitted with dyspnea. Now congestive heart failure, atrial fibrillation with rapid ventricular rate and elevated troponin. ICU Objective Last Vital Signs Date Time Temp Pulse Resp B/P (MAP) Pulse Ox O2 Delivery O2 Flow Rate FiO2 10/04/18 17:30 116/68 10/04/18 17:00 87 23 98 10/04/18 16:00 98.8 10/04/18 16:00 Nasal Cannula 2.0 10/04/18 07:36 28 Laboratory Tests Test 10/04/18 04:00 10/04/18 09:30 White Blood Count 5.1 K/UL (4.8-10.8) Red Blood Count 2.43 M/UL (4.20-5.40) L Hemoglobin 7.8 G/DL (12.0-16.0) L Hematocrit 23.3 % (37.0-47.0) L Mean Corpuscular Volume 96 FL (80-99) Mean Corpuscular Hemoglobin 32.2 PG (27.0-31.0) H Mean Corpuscular Hemoglobin Concent 33.6 G/DL (32.0-36.0) Red Cell Distribution Width 14.1 % (11.6-14.8) Platelet Count 273 K/UL (150-450) Mean Platelet Volume 7.8 FL (6.5-10.1) Neutrophils (%) (Auto) % (45.0-75.0) Lymphocytes (%) (Auto) % (20.0-45.0) Monocytes (%) (Auto) % (1.0-10.0) Eosinophils (%) (Auto) % (0.0-3.0) Basophils (%) (Auto) % (0.0-2.0) Differential Total Cells Counted 100 Neutrophils % (Manual) 60 % (45-75) Lymphocytes % (Manual) 32 % (20-45) Monocytes % (Manual) 7 % (1-10) Eosinophils % (Manual) 1 % (0-3) Basophils % (Manual) 0 % (0-2) Band Neutrophils 0 % (0-8) Platelet Estimate Adequate Platelet Morphology Normal Hypochromasia 1+ Anisocytosis 1+ Sodium Level 141 MMOL/L (136-145) Potassium Level 3.3 MMOL/L (3.5-5.1) L Chloride Level 105 MMOL/L (98-107) Carbon Dioxide Level 25 MMOL/L (21-32) Anion Gap 11 mmol/L (5-15) Blood Urea Nitrogen 45 mg/dL (7-18) H Creatinine 2.6 MG/DL (0.55-1.30) H Estimat Glomerular Filtration Rate mL/min (>60) Glucose Level 62 MG/DL (74-106) #L Calcium Level 8.0 MG/DL (8.5-10.1) L Iron Level 76 ug/dL (50-175) Total Iron Binding Capacity 253 ug/dL (250-450) Percent Iron Saturation 30 % (15-50) Unsaturated Iron Binding 177 ug/dL (112-346) Ferritin 332 NG/ML (8-388) Troponin I 2.982 ng/mL (0.000-0.056) Triglycerides Level 92 MG/DL (30-150) Cholesterol Level 119 MG/DL (< 200) LDL Cholesterol 65 mg/dL (<100) HDL Cholesterol 41 MG/DL (40-60) Cholesterol/HDL Ratio 2.9 (3.3-4.4) L Vitamin B12 Level 370 PG/ML (193-986) Folate 10.9 NG/ML (8.6-58.9) Thyroid Stimulating Hormone (TSH) 3.545 uiU/mL (0.358-3.740) Free Thyroxine 1.51 NG/DL (0.76-1.46) H Triiodothyonine (T3) Pending Free Triiodothyronine 1.7 pg/mL (2.3-4.2) L Triiodothyronine (T3) Uptake Pending Urine Random Sodium 104 mmol/L (20-110) Microbiology Date/Time Source Procedure Growth Status 10/03/18 13:15 Urine,Clean Catch Urine Culture - Preliminary Gram Negative Sterling Resulted Intake and Output 10/03/18 10/04/18 19:00 07:00 Intake Total 120 ml 120 ml Balance 120 ml 120 ml Intake Oral 120 ml 120 ml # Voids 3 # Bowel Movements 2 Objective PHYSICAL EXAMINATION: GENERAL: The patient is a well-developed and well-nourished female, in no apparent distress. HEENT: Eyes, pupils are equal and responsive to light and accommodation. Extraocular movements are intact. NECK: Supple without lymphadenopathy. CHEST: Crackles in bilateral bases. Otherwise, clear to auscultation without wheezes or rales. CARDIOVASCULAR: Irregular rhythm and irregular rate. S1 and S2 are normal without murmurs, rubs, or gallops. ABDOMEN: Soft, nontender, and nondistended. Positive bowel sounds. No evidence of hepatosplenomegaly. Currently, no rebound or guarding noted. EXTREMITIES: Negative for clubbing, cyanosis, or edema. RECTAL/GENITAL: Not performed. NEUROLOGIC: Cranial nerves II through XII are grossly intact without focal deficits. Motor strength is 5/5 bilaterally. Deep tendon reflexes are 2+ plantar. Assessment/Plan Problem List: (1) Renal failure Assessment & Plan: See nephrology note=Dr Valdez (2) Dyspnea (3) CHF exacerbation Assessment & Plan: see cardiology note=Samantha Lang and Yesica (4) Elevated troponin Assessment & Plan: NSSTEMI? See cardiology note. (5) Paroxysmal A-fib Assessment & Plan: With rapid ventricular rate. Continue IV diltiazem (6) HTN (hypertension) (7) Diabetes mellitus Assessment & Plan: Continue novolog sliding scale (8) Hypothyroidism Assessment & Plan: Continue synthroid (9) Acute respiratory failure Assessment & Plan: Due to CHF (10) Hypercholesterolemia Status: not improved Morgan Ha MD Oct 04, 2018 19:11
--- NOTE | 2018-10-04 19:15 | NUR ---
NURSE NOTES: Received patient from JANNETH Krause. Patient is stable, Thai speaking. On 2L nasal cannula and vital signs are stable. Will continue plan of care.
--- NOTE | 2018-10-04 19:26 | NUR ---
HAND-OFF: Report given to Licha LAGUNAS. VS stable. Endorsed plan of care.
--- NOTE | 2018-10-04 20:00 | NUR ---
NURSE NOTES: Patient is resting comfortably. Vital signs are stable; BP:103/64, Temp:97.6F, HR:74, RESP:20. Will continue plan of care.
[2018-10-04] MEDS: Carvedilol 25mg Tab ORAL SCH (20:44)
[2018-10-04] MEDS ORDERED: Carvedilol 12.5mg tab ORAL SCH (21:00)
--- NOTE | 2018-10-04 21:15 | Consultation ---
DATE OF CONSULTATION: 10/04/2018 CARDIAC ELECTROPHYSIOLOGY CONSULTATION CONSULTING PHYSICIAN: Steven Robert M.D. REFERRING PHYSICIAN: Kalen Guan M.D. REASON FOR CONSULTATION: Atrial fibrillation with rapid ventricular response. HISTORY OF PRESENT ILLNESS: The patient is an 83-year-old [place] lady with history of hypertension, diabetes, peripheral arterial disease, gastroesophageal reflux disease, as well as congestive heart failure, was brought to the emergency room for increasing shortness of breath and heaviness that has been getting worse over the last few days. The patient was not able to lay flat and was congested. The patient was found to have elevated troponin and was evaluated by Dr. Meraz from Cardiology perspective. The patient was started on beta-michi and antiplatelet agent and diuretics. Overnight, the patient developed atrial fibrillation with rapid ventricular response and was transferred to intensive care unit and cardiac electrophysiology consultation was obtained for further evaluation and management. REVIEW OF SYSTEMS: Review of systems was negative other than what was mentioned in the history of present illness. PAST MEDICAL HISTORY: As mentioned above. FAMILY HISTORY: Noncontributory. SOCIAL HISTORY: She lives with family. Does not smoke or drink alcohol. PHYSICAL EXAMINATION: VITAL SIGNS: Show blood pressure of 103/63, pulse is 129, respirations 18, and she is afebrile. HEAD AND NECK: Shows mild JVD. LUNGS: Decreased breath sounds. CARDIOVASCULAR: Irregular S1 and S2 with no gallop or murmur. ABDOMEN: Soft. EXTREMITIES: Have no pitting edema. DIAGNOSTIC DATA: Her EKG showed atrial fibrillation with rapid ventricular response and heart rate of 120 with lateral ischemia on the EKG. LABORATORY AND DIAGNOSTIC DATA: Her labs show white count of 5.1, hemoglobin of 7.8, hematocrit 23.3, and platelet count of 273,000. Sodium 141, potassium 3.3, BUN of 45, creatinine 2.6, and glucose of 62. Troponin is 2.98, 2.87, and 2.7. BNP is 34,000. ASSESSMENT AND PLAN: 1. Atrial fibrillation with rapid ventricular response. I will discontinue amlodipine. Maximize Coreg to 25 mg b.i.d. The patient is on aspirin and Plavix for anticoagulation as well as subcutaneous heparin. The patient may need long-term anticoagulation. In the meantime, I will start the patient on low-dose digoxin. We will check a digoxin level also. 2. Non-ST elevation myocardial infarction with troponin of 2.8, 2.7, and 2.8. This could be due to renal failure. The patient's creatinine is 2.8. The patient currently does not have any chest pain. She is already on aspirin and Plavix and beta-michi per Dr. Soares. 3. Congestive heart failure. BNP of 34,000. Echo showed ejection fraction of 40%. The patient is on Coreg, hydralazine, digoxin, and received Lasix as well. She currently is also on Zaroxolyn. 4. Hypothyroidism. On Synthroid. Thank you very much, Dr. Guan, for allowing me to participate in the care of this patient. Please do not hesitate to contact for any questions regarding my evaluation. Steven Robert M.D. DR: TERESA JOB#: [id number] CC:
--- NOTE | 2018-10-04 22:00 | NUR ---
NURSE NOTES: Patient is sleeping comfortably. Vital signs are stable. BP:98/60 will keep monitoring. Will continue plan of care.
[2018-10-05] VITALS (19 sets, daily range): BP systolic 101–126; BP diastolic 54–75
--- NOTE | 2018-10-05 | NUR ---
NURSE NOTES: Patient is resting comfortably. Able to reposition herself. Vital signs are stable. Will continue plan of care.
--- NOTE | 2018-10-05 02:00 | NUR ---
NURSE NOTES: Patient is sleeping comfortably, able to shift in bed for self-repositioning. Vital signs are stable, shows no signs of pain and distress. Will continue plan of care.
--- NOTE | 2018-10-05 02:45 | Progress Note ---
DATE: 10/04/2018 CARDIOLOGY PROGRESS NOTE SUBJECTIVE: Condition has deteriorated. The patient is having episodes of rapid atrial fibrillation in addition to continued elevations in her troponin level and shortness of breath. She is transferred to the intensive care unit. OBJECTIVE: VITAL SIGNS: Blood pressure 91/52, heart rate 79, and respiratory rate 21. NECK: Jugular venous pressure elevation. LUNGS: Bilateral rales. HEART: Irregularly irregular rhythm. Normal S1, S2. ABDOMEN: Soft. EXTREMITIES: Trace edema. LABORATORY DATA: White count 5.1 and hemoglobin 7.8. Potassium 3.3, sodium 141, bicarbonate 25, BUN 45, and creatinine 2.6. Troponin 2.98. LDL cholesterol 65. IMPRESSION: 1. Acute myocardial infarction. 2. Acute on chronic systolic and diastolic congestive heart failure. 3. Paroxysmal atrial fibrillation with rapid ventricular response. 4. Acute on chronic renal failure. 5. Anemia, acute on chronic. 6. Type 2 diabetes mellitus. PLAN: 1. Intensive care unit care. 2. Intravenous beta-michi and digitalize. 3. Nitrates as tolerated by blood pressure parameters per diuresis within the limiting factor. 4. Antiplatelet therapy. 5. Packed red blood cell transfusion. 6. Hold anticoagulation in view of significant anemia and possibility of bleeding. Brady Meraz M.D. DR: NIKO JOB#: [id number] CC:
--- NOTE | 2018-10-05 04:00 | NUR ---
NURSE NOTES: Patient is awake. Showing no signs of pain or distress. Vital signs are stable. Will continue plan of care.
[2018-10-05] MEDS: HydrALAZINE 10mg Tab ORAL SCH ×3 (05:45→18:17)
[2018-10-05] MEDS: NovoLOG Insulin Flexpen SUBQ SCH ×4 (05:49→21:17)
--- NOTE | 2018-10-05 05:58 | Pulmonolgy Critical Care Note ---
Critical Care - Asmt/Plan Problems: (1) Non-ST elevation (NSTEMI) myocardial infarction (2) Acute respiratory failure (3) Paroxysmal A-fib (4) CHF exacerbation (5) Anemia of renal disease (6) Diabetic nephropathy (7) Diabetes mellitus (8) Hypothyroidism (9) HTN (hypertension) Respiratory: monitor respiratory rate, adjust FIO2, CXR Cardiac: continue to monitor HR/BP Renal: F/U I&O, check electrolytes Infectious Disease: check cultures, continue antibiotics Gastrointestinal: continue feedings/current rate Endocrine: monitor blood sugar Hematologic: monitor H/H, transfuse if hgb<8.5 Neurologic: PRN Ativan, keep patient comfortable Affect: PRN ativan Prophylaxis: Heparin Disposition: keep in ICU Notes Reviewed: produce shipper, cardio Discussed with: nurses, consultants, watch case polisherschedule manager - Objective Last 24 Hour Vital Signs Date Time Temp Pulse Resp B/P (MAP) Pulse Ox O2 Delivery O2 Flow Rate FiO2 10/05/18 05:45 111/60 10/05/18 05:00 98.1 76 24 111/60 (77) 100 10/05/18 04:00 Nasal Cannula 2.0 10/05/18 04:00 98.1 87 20 111/57 (75) 99 10/05/18 03:30 74 10/05/18 03:00 74 18 109/58 (75) 98 10/05/18 02:00 74 17 104/57 (73) 99 10/05/18 01:00 78 18 105/57 (73) 97 10/05/18 00:00 Nasal Cannula 2.0 10/05/18 00:00 98.0 74 21 101/54 (70) 100 10/04/18 23:49 73 10/04/18 23:33 100/55 10/04/18 23:00 75 19 100/55 (70) 99 10/04/18 22:00 76 18 98/60 (73) 99 10/04/18 21:00 75 19 99/57 (71) 99 10/04/18 20:44 91 99/58 10/04/18 20:00 77 10/04/18 20:00 98.8 74 20 103/64 (77) 100 10/04/18 20:00 Nasal Cannula 2.0 10/04/18 19:23 98 Nasal Cannula 2.0 28 10/04/18 19:23 81 23 98 Nasal Cannula 2.0 28 10/04/18 19:00 75 20 98/58 (71) 99 10/04/18 18:00 79 21 91/52 (65) 98 10/04/18 17:30 116/68 10/04/18 17:00 87 23 95/56 (69) 98 10/04/18 16:00 89 10/04/18 16:00 98.8 87 23 116/68 (84) 98 10/04/18 16:00 Nasal Cannula 2.0 10/04/18 15:00 89 23 113/67 (82) 98 10/04/18 15:00 115/60 10/04/18 14:00 89 23 109/61 (77) 98 10/04/18 13:00 97 24 115/60 (78) 100 10/04/18 12:00 98.4 93 24 100/53 (69) 100 10/04/18 12:00 Nasal Cannula 2.0 10/04/18 12:00 90 10/04/18 11:21 104 10/04/18 11:00 102 103/60 10/04/18 11:00 98.3 98 23 95/65 (75) 100 10/04/18 10:35 129 10/04/18 09:09 110 108/63 10/04/18 09:09 110 108/63 10/04/18 08:00 Nasal Cannula 2.0 10/04/18 08:00 96.3 89 19 108/63 (78) 99 10/04/18 08:00 80 10/04/18 07:36 99 Nasal Cannula 2.0 28 10/04/18 06:33 115/78 Status: awake Condition: critical HEENT: atraumatic, normocephalic Neck: full ROM Lungs: rales, rhonchi Heart: HR/BP stable Abdomen: soft, non-tender Extremities: no C/C/E Decubiti: location Micro: Microbiology Date/Time Source Procedure Growth Status 10/03/18 12:45 Blood Blood Culture - Preliminary NO GROWTH AFTER 24 HOURS Resulted 10/03/18 12:30 Blood Blood Culture - Preliminary NO GROWTH AFTER 24 HOURS Resulted 10/03/18 13:15 Urine,Clean Catch Urine Culture - Final Morganella Morg Spp Morganii Complete Accucheck: 123 Critical Care - Subjective ROS Limited/Unobtainable: No Interval Events: awake, comfortable FI02: 28 Sputum Amount: None I&O: Intake and Output 10/04/18 10/05/18 19:00 07:00 Intake Total 420 ml Output Total 1280 ml 875 ml Balance -860 ml -875 ml Intake Oral 420 ml Output Urine Total 1280 ml 875 ml # Bowel Movements 1 Labs: Laboratory Tests Test 10/04/18 09:30 Urine Random Sodium 104 mmol/L (20-110) Aure Ortega MD Oct 05, 2018 05:58
--- NOTE | 2018-10-05 06:00 | NUR ---
NURSE NOTES: Patient is awake, alert and oriented x3 with Hungarian global professional. Bed bath and lien changed. Patient reposition, Dr. Ortega was at bedside to see patient. Will continue care.
[2018-10-05 06:26] LABS: BASOPHILS % (AUTO) 1.6 % (0.0-2.0); EOSINOPHILS % (AUTO) 2.5 % (0.0-3.0); HEMATOCRIT 31.3 % (37.0-47.0); HEMOGLOBIN 10.5 G/DL (12.0-16.0); LYMPHOCYTES % (AUTO) 21.4 % (20.0-45.0); MEAN CORPUSCULAR VOLUME 97 FL (80-99); MONOCYTES % (AUTO) 11.3 % (1.0-10.0); NEUTROPHILS % (AUTO) 63.1 % (45.0-75.0); PLATELET COUNT 304 K/UL (150-450); RED BLOOD COUNT 3.22 M/UL (4.20-5.40); RED CELL DISTRIBUTION WIDTH 14.8 % (11.6-14.8); WHITE BLOOD COUNT 4.9 K/UL (4.8-10.8)
[2018-10-05] MEDS ORDERED: Levothyroxine 125mcg tab ORAL SCH (06:30)
[2018-10-05 07:04] LABS: CREATINE KINASE 37 U/L (26-308); GAMMA GLUTAMYL TRANSPEPTIDASE 9 U/L (5-85); PHOSPHORUS 4.2 MG/DL (2.5-4.9)
--- NOTE | 2018-10-05 07:26 | NUR ---
NURSE NOTES: Called and left message for Dr. Meraz's urgent line regarding patient's troponin this AM at 3.061. Left call back number for further orders.
--- NOTE | 2018-10-05 07:27 | NUR ---
HAND-OFF: Report given to JANNETH Chapin.
--- NOTE | 2018-10-05 07:35 | NUR ---
NURSE NOTES: Received report from Jakob Freedman RN. Patient alert and oriented x 3, able to make needs known. A fib 107 on desk monitor. Receiving O2 via nasal cannula @ 2L/min, no s/s of respiratory distress noted. Casper catheter patent and draining well. Right forearm 22g and left hand 20g saline locks patent and asymptomatic. Troponin level of 3.[address] Meraz's urgent line by night nurse. Bed locked in lowest position with side rails up x 3. All needs attended to. Call light within reach. Will continue to monitor.
[2018-10-05 07:56] LABS: ALANINE AMINOTRANSFERASE 9 U/L (12-78); ALBUMIN 3.2 G/DL (3.4-5.0); ALBUMIN/GLOBULIN RATIO 0.9 (1.0-2.7); ALKALINE PHOSPHATASE 40 U/L (46-116); ANION GAP 10 mmol/L (5-15); ASPARTATE AMINO TRANSFERASE 17 U/L (15-37); BILIRUBIN,TOTAL 0.7 MG/DL (0.2-1.0); BLOOD UREA NITROGEN 43 mg/dL (7-18); CALCIUM 8.3 MG/DL (8.5-10.1); CARBON DIOXIDE 27 MMOL/L (21-32); CHLORIDE 105 MMOL/L (98-107); CREATININE 2.5 MG/DL (0.55-1.30); SODIUM 142 MMOL/L (136-145)
[2018-10-05] MEDS: Carvedilol 25mg Tab ORAL SCH ×2 (08:42→21:02)
[2018-10-05] MEDS: Heparin 5000 units/ml inj SUBQ SCH ×2 (08:43→21:04)
[2018-10-05] MEDS ORDERED: metOLazone 2.5 MG TAB ORAL SCH ×2 (09:00)
[2018-10-05] MEDS ORDERED: Digoxin 0.125mg tab ORAL SCH (09:00)
--- NOTE | 2018-10-05 09:03 | Diagnostic Imaging Report ---
EXAM: XR Chest, 1 View CLINICAL HISTORY: DYSPNEA TECHNIQUE: Frontal view of the chest. COMPARISON: Chest x-ray 10/04/18 7:30 FINDINGS: Lungs: Hyperinflated lungs of COPD. Continued bilateral interstitial prominence and lower lobe airspace opacities that have slightly improved since the prior study. Pleural space: Small bilateral pleural effusions appear similar. No pneumothorax. Heart: Mild cardiomegaly. Mediastinum: Unremarkable. Bones/joints: Degenerative changes of the spine. Dystrophic calcification likely old right proximal humeral fracture. IMPRESSION: 1. Hyperinflated lungs of COPD. 2. Continued bilateral interstitial prominence and lower lobe airspace opacities that have slightly improved since the prior study. 3. Small bilateral pleural effusions appear similar.
--- NOTE | 2018-10-05 09:30 | NUR ---
NURSE NOTES: Patient seen and evaluated by Dr. Valdez at bedside. Potassium level now WNL after K-Dur given, no orders received.
--- NOTE | 2018-10-05 09:47 | Nephrology Progress Note ---
Assessment/Plan Problem List: (1) Renal failure (ARF), acute on chronic (2) Diabetic nephropathy (3) Anemia, chronic renal failure (4) Paroxysmal A-fib (5) CHF exacerbation Assessment: cardiomyopathy, Ej fx 40% Assessment Acute on Chronic renal failure Anemia: CKD & or Low Iron Troponin rise Atrial Fib with FVR, h/o PAT CHF Low EjFx 40% DM High Lipids UTI Plan Avoid nephrotoxics HR management Keep BP and BS in check Monitor renal parameters monitor Dig level Dig on hold for now Subjective ROS Limited/Unobtainable: No Constitutional: Reports: malaise Objective Objective Last 24 Hour Vital Signs Date Time Temp Pulse Resp B/P (MAP) Pulse Ox O2 Delivery O2 Flow Rate FiO2 10/05/18 08:42 77 115/65 10/05/18 08:41 77 10/05/18 08:00 Nasal Cannula 2.0 10/05/18 07:40 77 20 100 Nasal Cannula 2.0 28 10/05/18 07:40 100 Nasal Cannula 2.0 28 10/05/18 07:00 77 21 121/75 (90) 100 10/05/18 06:00 76 20 109/62 (78) 100 10/05/18 05:45 111/60 10/05/18 05:00 76 24 111/60 (77) 100 10/05/18 04:00 Nasal Cannula 2.0 10/05/18 04:00 98.1 87 20 111/57 (75) 99 10/05/18 03:30 74 10/05/18 03:00 74 18 109/58 (75) 98 10/05/18 02:00 74 17 104/57 (73) 99 10/05/18 01:00 78 18 105/57 (73) 97 10/05/18 00:00 Nasal Cannula 2.0 10/05/18 00:00 98.0 74 21 101/54 (70) 100 10/04/18 23:49 73 10/04/18 23:33 100/55 10/04/18 23:00 75 19 100/55 (70) 99 10/04/18 22:00 76 18 98/60 (73) 99 10/04/18 21:00 75 19 99/57 (71) 99 10/04/18 20:44 91 99/58 10/04/18 20:00 77 10/04/18 20:00 98.8 74 20 103/64 (77) 100 10/04/18 20:00 Nasal Cannula 2.0 10/04/18 19:23 98 Nasal Cannula 2.0 28 10/04/18 19:23 81 23 98 Nasal Cannula 2.0 28 10/04/18 19:00 75 20 98/58 (71) 99 10/04/18 18:00 79 21 91/52 (65) 98 10/04/18 17:30 116/68 10/04/18 17:00 87 23 95/56 (69) 98 10/04/18 16:00 89 10/04/18 16:00 98.8 87 23 116/68 (84) 98 10/04/18 16:00 Nasal Cannula 2.0 10/04/18 15:00 89 23 113/67 (82) 98 10/04/18 15:00 115/60 10/04/18 14:00 89 23 109/61 (77) 98 10/04/18 13:00 97 24 115/60 (78) 100 10/04/18 12:00 98.4 93 24 100/53 (69) 100 10/04/18 12:00 Nasal Cannula 2.0 10/04/18 12:00 90 10/04/18 11:21 104 10/04/18 11:00 102 103/60 10/04/18 11:00 98.3 98 23 95/65 (75) 100 10/04/18 10:35 129 Intake and Output 10/04/18 10/05/18 19:00 07:00 Intake Total 420 ml Output Total 1280 ml 1075 ml Balance -860 ml -1075 ml Intake Oral 420 ml Output Urine Total 1280 ml 1075 ml # Bowel Movements 1 Laboratory Tests 10/05/18 05:35: White Blood Count 4.9, Red Blood Count 3.22L, Hemoglobin 10.5#L, Hematocrit 31.3 #L, Mean Corpuscular Volume 97, Mean Corpuscular Hemoglobin 32.5H, Mean Corpuscular Hemoglobin Concent 33.5, Red Cell Distribution Width 14.8, Platelet Count 304, Mean Platelet Volume 6.9, Neutrophils (%) (Auto) 63.1, Lymphocytes (% ) (Auto) 21.4, Monocytes (%) (Auto) 11.3H, Eosinophils (%) (Auto) 2.5, Basophils (%) (Auto) 1.6, Sodium Level 142, Potassium Level 4.0, Chloride Level 105, Carbon Dioxide Level 27, Anion Gap 10, Blood Urea Nitrogen 43H, Creatinine 2.5H, Estimat Glomerular Filtration Rate , Glucose Level 125H, Hemoglobin A1c 6.4H, Uric Acid 8.2H, Calcium Level 8.3L, Phosphorus Level 4.2, Magnesium Level 2.2, Total Bilirubin 0.7, Gamma Glutamyl Transpeptidase 9, Aspartate Amino Transf (AST/SGOT) 17, Alanine Aminotransferase (ALT/SGPT) 9L, Alkaline Phosphatase 40L, Total Creatine Kinase 37, Troponin I 3.061H, C-Reactive Protein , Quantitative 2.3H, Pro-B-Type Natriuretic Peptide 96096I, Total Protein 6.8, Albumin 3.2L, Globulin 3.6, Albumin/Globulin Ratio 0.9L, Digoxin Level 2.0 Height (Feet): 5 Height (Inches): 0.00 Weight (Pounds): 127 General Appearance: no apparent distress Cardiovascular: normal rate Respiratory/Chest: decreased breath sounds Abdomen: soft Varinder Valdez MD Oct 05, 2018 09:46
--- NOTE | 2018-10-05 10:14 | NUR ---
NURSE NOTES: Received call back from Dr. Marie regarding patient's elevated troponin levels. No new orders received.
--- NOTE | 2018-10-05 12:00 | NUR ---
NURSE NOTES: Patient turned and repositioned. Vital signs stable. Will continue to monitor.
--- NOTE | 2018-10-05 13:00 | NUR ---
NURSE NOTES: Patient ate 100% of lunch, tolerated well.
--- NOTE | 2018-10-05 14:50 | NUR ---
NURSE NOTES: Patient seen by Dr. Ha at bedside. Patient in stable condition, A fib at controlled rate. Order placed for transfer to telemetry.
--- NOTE | 2018-10-05 14:56 | Internal Med Progress Note ---
Subjective Date of Service: Oct 05, 2018 Physician Name Morgan Ha Attending Physician Morgan Ha MD Current Medications Medications (Trade) Dose Ordered Sig/Tatianna Route PRN Reason Start Time Stop Time Status Last Admin Dose Admin Acetaminophen (Tylenol) 650 mg Q4H PRN ORAL Fever 10/04/18 11:59 11/03/18 11:58 Albuterol/ Ipratropium (Albuterol/ Ipratropium) 3 ml Q4H PRN HHN Shortness of Breath 10/04/18 12:01 10/09/18 12:00 Aspirin (ASA) 325 mg DAILY ORAL 10/05/18 09:00 11/02/18 15:44 10/05/18 08:42 Carvedilol (Coreg) 25 mg EVERY 12 HOURS ORAL 10/04/18 21:00 11/02/18 20:59 10/05/18 08:42 Clopidogrel Bisulfate (Plavix) 75 mg DAILY ORAL 10/05/18 09:00 11/03/18 08:59 10/05/18 08:42 Dextrose (Dextrose 50%) 25 ml Q30M PRN IV Hypoglycemia 10/04/18 12:00 11/02/18 14:29 Dextrose (Dextrose 50%) 50 ml Q30M PRN IV Hypoglycemia 10/04/18 12:00 11/02/18 14:29 Diltiazem HCl (Cardizem) 10 mg Q1H PRN IV heart rate more than 120, 10/04/18 12:01 11/03/18 12:00 Heparin Sodium (Porcine) (Heparin 5000 units/ml) 5,000 units EVERY 12 HOURS SUBQ 10/04/18 21:00 11/02/18 20:59 10/05/18 08:43 Hydralazine HCl (Apresoline) 10 mg EVERY 6 HOURS ORAL 10/04/18 18:00 11/02/18 21:59 10/05/18 12:15 Insulin Aspart (NovoLOG) BEFORE MEALS AND HS SUBQ 10/04/18 16:30 11/02/18 16:29 10/05/18 11:33 Levothyroxine Sodium (Synthroid) 125 mcg Q24H ORAL 10/05/18 06:30 11/03/18 06:29 10/05/18 05:52 Metolazone (Zaroxolyn) 2.5 mg DAILY ORAL 10/05/18 09:00 11/04/18 08:59 10/05/18 08:41 Ondansetron HCl (Zofran) 4 mg Q6H PRN IVP Nausea & Vomiting 10/04/18 12:02 11/03/18 12:01 Pantoprazole (Protonix) 40 mg EVERY 12 HOURS ORAL 10/04/18 21:00 11/03/18 20:59 10/05/18 08:41 Polyethylene Glycol (Miralax) 17 gm DAILYPRN PRN ORAL Constipation 10/04/18 12:02 11/03/18 12:01 Potassium Chloride (K-Dur) 20 meq TWICE A DAY ORAL 10/04/18 18:00 10/05/18 17:59 10/05/18 08:41 Temazepam (Restoril) 15 mg HSPRN PRN ORAL Insomnia 10/04/18 14:30 10/10/18 14:29 Allergies: Coded Allergies: No Known Allergies (Verified , 07/20/11) ROS Limited/Unobtainable: No Constitutional: Reports: no symptoms HEENT: Reports: no symptoms Cardiovascular: Reports: no symptoms Respiratory: Reports: no symptoms Gastrointestinal/Abdominal: Reports: no symptoms Genitourinary: Reports: no symptoms Neurologic/Psychiatric: Reports: no symptoms Subjective 83 YO F admitted with dyspnea. Now congestive heart failure, atrial fibrillation with rapid ventricular rate and elevated troponin. ICU Objective Last Vital Signs Date Time Temp Pulse Resp B/P (MAP) Pulse Ox O2 Delivery O2 Flow Rate FiO2 10/05/18 12:31 75 10/05/18 12:15 129/60 10/05/18 12:00 Nasal Cannula 2.0 10/05/18 12:00 98.5 25 100 10/05/18 07:40 28 Laboratory Tests Test 10/05/18 05:35 10/05/18 14:25 White Blood Count 4.9 K/UL (4.8-10.8) Red Blood Count 3.22 M/UL (4.20-5.40) L Hemoglobin 10.5 G/DL (12.0-16.0) #L Hematocrit 31.3 % (37.0-47.0) #L Mean Corpuscular Volume 97 FL (80-99) Mean Corpuscular Hemoglobin 32.5 PG (27.0-31.0) H Mean Corpuscular Hemoglobin Concent 33.5 G/DL (32.0-36.0) Red Cell Distribution Width 14.8 % (11.6-14.8) Platelet Count 304 K/UL (150-450) Mean Platelet Volume 6.9 FL (6.5-10.1) Neutrophils (%) (Auto) 63.1 % (45.0-75.0) Lymphocytes (%) (Auto) 21.4 % (20.0-45.0) Monocytes (%) (Auto) 11.3 % (1.0-10.0) H Eosinophils (%) (Auto) 2.5 % (0.0-3.0) Basophils (%) (Auto) 1.6 % (0.0-2.0) Sodium Level 142 MMOL/L (136-145) Potassium Level 4.0 MMOL/L (3.5-5.1) Chloride Level 105 MMOL/L (98-107) Carbon Dioxide Level 27 MMOL/L (21-32) Anion Gap 10 mmol/L (5-15) Blood Urea Nitrogen 43 mg/dL (7-18) H Creatinine 2.5 MG/DL (0.55-1.30) H Estimat Glomerular Filtration Rate mL/min (>60) Glucose Level 125 MG/DL (74-106) H Hemoglobin A1c 6.4 % (4.3-6.0) H Uric Acid 8.2 MG/DL (2.6-7.2) H Calcium Level 8.3 MG/DL (8.5-10.1) L Phosphorus Level 4.2 MG/DL (2.5-4.9) Magnesium Level 2.2 MG/DL (1.8-2.4) Total Bilirubin 0.7 MG/DL (0.2-1.0) Gamma Glutamyl Transpeptidase 9 U/L (5-85) Aspartate Amino Transf (AST/SGOT) 17 U/L (15-37) Alanine Aminotransferase (ALT/SGPT) 9 U/L (12-78) L Alkaline Phosphatase 40 U/L (46-116) L Total Creatine Kinase 37 U/L (26-308) Pending Troponin I 3.061 ng/mL (0.000-0.056) Pending C-Reactive Protein, Quantitative 2.3 mg/dL (0.00-0.90) H Pro-B-Type Natriuretic Peptide 33375 pg/mL (0-125) H Total Protein 6.8 G/DL (6.4-8.2) Albumin 3.2 G/DL (3.4-5.0) L Globulin 3.6 g/dL Albumin/Globulin Ratio 0.9 (1.0-2.7) L Digoxin Level 2.0 NG/ML (0.9-2.0) Creatine Kinase MB Pending Microbiology Date/Time Source Procedure Growth Status 10/03/18 12:45 Blood Blood Culture - Preliminary NO GROWTH AFTER 24 HOURS Resulted 10/03/18 12:30 Blood Blood Culture - Preliminary NO GROWTH AFTER 24 HOURS Resulted 10/03/18 13:15 Urine,Clean Catch Urine Culture - Final Morganella Morg Spp Morganii Complete Intake and Output 10/04/18 10/05/18 19:00 07:00 Intake Total 420 ml Output Total 1280 ml 1075 ml Balance -860 ml -1075 ml Intake Oral 420 ml Output Urine Total 1280 ml 1075 ml # Bowel Movements 1 Objective PHYSICAL EXAMINATION: GENERAL: The patient is a well-developed and well-nourished female, in no apparent distress. HEENT: Eyes, pupils are equal and responsive to light and accommodation. Extraocular movements are intact. NECK: Supple without lymphadenopathy. CHEST: Crackles in bilateral bases. Otherwise, clear to auscultation without wheezes or rales. CARDIOVASCULAR: Irregular rhythm and irregular rate. S1 and S2 are normal without murmurs, rubs, or gallops. ABDOMEN: Soft, nontender, and nondistended. Positive bowel sounds. No evidence of hepatosplenomegaly. Currently, no rebound or guarding noted. EXTREMITIES: Negative for clubbing, cyanosis, or edema. RECTAL/GENITAL: Not performed. NEUROLOGIC: Cranial nerves II through XII are grossly intact without focal deficits. Motor strength is 5/5 bilaterally. Deep tendon reflexes are 2+ plantar. Assessment/Plan Problem List: (1) Renal failure Assessment & Plan: See nephrology note=Dr Valdez (2) Dyspnea (3) CHF exacerbation Assessment & Plan: BNP=>34,000 see cardiology note=Samantha Lang and Yesica (4) Elevated troponin Assessment & Plan: NSSTEMI? See cardiology note. (5) Paroxysmal A-fib Assessment & Plan: With rapid ventricular rate. Continue IV diltiazem (6) HTN (hypertension) (7) Diabetes mellitus Assessment & Plan: Continue novolog sliding scale (8) Hypothyroidism Assessment & Plan: Continue synthroid (9) Acute respiratory failure Assessment & Plan: Due to CHF (10) Hypercholesterolemia Assessment/Plan Transfer to tele today Morgan Ha MD Oct 05, 2018 14:56
--- NOTE | 2018-10-05 15:11 | NUR ---
NURSE NOTES: Received call from Ariana from lab. Patient's troponin level is 2.691, trending down from 3.061. Will continue to monitor.
[2018-10-05 15:59] LABS: CKMB < 0.5 NG/ML (0.0-3.6); CREATINE KINASE 31 U/L (26-308)
[2018-10-05] MEDS ORDERED: Albuterol/Ipratropium 3ml neb HHN PRN (16:32)
[2018-10-05] MEDS ORDERED: Miralax 17gm pkt ORAL PRN (16:33)
--- NOTE | 2018-10-05 16:35 | NUR ---
NURSE NOTES: Received patient from the ICU. Patient alert and oriented x3. Bed in the lowest position and call light within reach. Patient's skin intact. Patient does not display any signs of distress or SOB.
--- NOTE | 2018-10-05 16:35 | NUR ---
TRANSFER TO FLOOR: Patient transferred to telemetry room 204-2, per Dr. Ha. Report given to JANNETH Mijares. Belongings and medications given to receiving nurse. Family informed of transfer.
[2018-10-05] MEDS ORDERED: dilTIAZem HCl 25mg/5ml Inj IV PRN (16:48)
--- NOTE | 2018-10-05 17:55 | NUR ---
CASE MANAGEMENT: REVIEW 10/05/2018 SI:DYSPNEA. ELEVATED TROPONIN. T 98 HR 78 RR 25 B/P 118/60 SATS 100% ON 2L/NC BUN 43 CR 2.5 GLU 125 CA 8.3 ALT 9 ALP 40 TROPONIN 3.061 BNP 42413 IS: HYDRALAZINE PO Q8H COREG PO Q12H ASA PO QD PLAVIX PO QD METOLAZONE PO QD DIGOXIN PO QD INSULIN ASPART AC/HS TELE STATUS DCP: PATIENT TO BE DISCHARGED TO HOME ONCE MEDICALLY CLEARED. PLAN OF CARE: TRANSFER FOR CARDIAC CATH
--- NOTE | 2018-10-05 18:42 | NUR ---
DISCHARGE/TRANSFER: NOTE F/U CALL PLACED TO [facility] PL[facility] [phone] X [phone] DIRECT TO AFTER HOURS CM [phone]>> AWAITING CALL BACK
--- NOTE | 2018-10-05 18:54 | NUR ---
HAND-OFF: Report given to Carol Pryor RN.
--- NOTE | 2018-10-05 19:00 | NUR ---
NURSE NOTES: Received report from Carol Chambers RN. Patient in bed AAO X4 Swedish speaking with minimal Polish noted. No complaints of acute pain or distress at this time. Kept clean, dry, and comfortable in bed. IV line intact and patent SL and placed on continuous cardiac placement per protocol and history of A-fib. On NC 2L tolerating well with 02 sat at 96-97% with no S/S SOB or resp. distress noted at this time. FC in place for retention; kept patent, intact and is draining well with yellow urine observed. Needs and wants anticipated and attended. Will continue plan of care and monitor for any changes noted. Trop lvl trending down. aware, NNO at this time and will continue to monitor.
--- NOTE | 2018-10-05 22:45 | Progress Note ---
DATE: 10/05/2018 CARDIOLOGY PROGRESS NOTE SUBJECTIVE: The patient is up and alert. Less shortness of breath. Remaining in the intensive care unit however. OBJECTIVE: VITAL SIGNS: Blood pressure 119/56, pulse 77, and respirations 18. Monitored rhythm, sinus. LUNGS: Few rales and rhonchi. Irregularly irregular rhythm. Normal S1, S2. ABDOMEN: Soft. EXTREMITIES: No edema. LABORATORY DATA: White count 4.9 and hemoglobin 10.5. Potassium 4, BUN 43, and creatinine 2.5. Troponin peaked at 3.06, now 2.69. CK is 31 with CK-MB less than 0.5, index 1.6. IMPRESSION: 1. Paroxysmal atrial fibrillation. 2. Acute myocardial infarction secondary to high demand from arrhythmias. 3. Acute on chronic diastolic and systolic congestive heart failure. 4. Acute on chronic renal failure. 5. Anemia of chronic kidney disease. 6. Recovered respiratory failure. PLAN: 1. Antimicrobials. 2. Respiratory hygiene. 3. Diuresis. 4. Optimization and titration of anti-failure regimen. 5. Continue digitalis and beta-michi. 6. Avoid over-diuresis. 7. Replace electrolytes as needed. Brady Meraz M.D. DR: NIKO JOB#: [id number] CC:
[2018-10-06] VITALS: BP 117/62
[2018-10-06] MEDS: HydrALAZINE 10mg Tab ORAL SCH ×5 (00:23→23:58)
--- NOTE | 2018-10-06 02:15 | NUR ---
NURSE NOTES: Patient in bed asleep with no S/S of distress noted at this time. Will continue to monitor.
[2018-10-06 04:00] VITALS: BP 119/66
[2018-10-06] MEDS: Levothyroxine 125mcg tab ORAL SCH (05:54)
[2018-10-06] MEDS: NovoLOG Insulin Flexpen SUBQ SCH ×4 (05:55→20:35)
--- NOTE | 2018-10-06 06:26 | Pulmonology Progress Note ---
Assessment/Plan Problems: (1) CHF exacerbation (2) Paroxysmal A-fib (3) Anemia, chronic renal failure (4) Hypothyroidism (5) Diabetes mellitus (6) Diabetic nephropathy (7) HTN (hypertension) Assessment/Plan so far 1.5 liter negative fluid balance off lasix, on zaroxylin heart rate controlled CXR 10/06 reviewed, Left side improved. R LL infiltrate VX edema. chest PT titrate cardiac meds titrate fio2 to sat of 92% Subjective ROS Limited/Unobtainable: No Constitutional: Reports: no symptoms HEENT: Repors: no symptoms Respiratory: Reports: no symptoms Allergies: Coded Allergies: No Known Allergies (Verified , 07/20/11) Objective Last 24 Hour Vital Signs Date Time Temp Pulse Resp B/P (MAP) Pulse Ox O2 Delivery O2 Flow Rate FiO2 10/06/18 05:54 119/70 10/06/18 04:00 98.1 80 18 119/66 (83) 97 10/06/18 04:00 Nasal Cannula 2.0 10/06/18 04:00 86 10/06/18 00:23 117/62 10/06/18 00:00 79 10/06/18 00:00 98.3 83 18 117/62 (80) 98 10/06/18 00:00 Nasal Cannula 2.0 10/05/18 21:02 84 116/67 10/05/18 21:00 Nasal Cannula 2.0 10/05/18 20:00 81 10/05/18 20:00 98.6 84 18 116/67 (83) 98 10/05/18 19:48 79 20 99 Nasal Cannula 2.0 28 10/05/18 19:48 99 Nasal Cannula 2.0 28 10/05/18 18:17 104/57 10/05/18 18:16 82 20 104/57 (73) 99 10/05/18 16:00 Nasal Cannula 2.0 10/05/18 16:00 80 10/05/18 16:00 98.0 78 25 118/60 (79) 100 10/05/18 15:00 78 23 126/64 (84) 100 10/05/18 14:00 77 18 119/56 (77) 100 10/05/18 13:00 78 23 114/62 (79) 100 10/05/18 12:31 75 10/05/18 12:15 129/60 10/05/18 12:00 Nasal Cannula 2.0 10/05/18 12:00 98.5 79 25 118/59 (78) 100 10/05/18 11:00 77 22 118/65 (82) 100 10/05/18 10:00 78 21 111/56 (74) 100 10/05/18 09:00 77 23 113/56 (75) 100 10/05/18 08:42 77 115/65 10/05/18 08:41 77 10/05/18 08:10 88 10/05/18 08:00 Nasal Cannula 2.0 10/05/18 08:00 98.1 78 22 115/65 (82) 100 10/05/18 07:40 77 20 100 Nasal Cannula 2.0 28 10/05/18 07:40 100 Nasal Cannula 2.0 28 10/05/18 07:00 77 21 121/75 (90) 100 Intake and Output 10/05/18 10/06/18 19:00 07:00 Intake Total 780 ml Output Total 660 ml Balance 120 ml Intake Oral 780 ml Output Urine Total 660 ml # Bowel Movements 1 General Appearance: cachetic HEENT: normocephalic, atraumatic Respiratory/Chest: chest wall non-tender, lungs clear Breasts: no masses Cardiovascular: normal peripheral pulses Abdomen: soft, non tender, no organomegaly Extremities: no clubbing 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 Microbiology Date/Time Source Procedure Growth Status 10/03/18 12:45 Blood Blood Culture - Preliminary NO GROWTH AFTER 48 HOURS Resulted 10/03/18 12:30 Blood Blood Culture - Preliminary NO GROWTH AFTER 48 HOURS Resulted 10/03/18 13:15 Urine,Clean Catch Urine Culture - Final Morganella Morg Spp Morganii Complete Laboratory Tests 10/05/18 14:25: Total Creatine Kinase 31, Creatine Kinase MB < 0.5, Creatine Kinase MB Relative Index 1.6, Troponin I 2.691H Current Medications Medications (Trade) Dose Ordered Sig/Tatianna Route PRN Reason Start Time Stop Time Status Last Admin Dose Admin Acetaminophen (Tylenol) 650 mg Q4H PRN ORAL Fever 10/05/18 16:32 11/04/18 16:31 Albuterol/ Ipratropium (Albuterol/ Ipratropium) 3 ml Q4H PRN HHN Shortness of Breath 10/05/18 16:32 10/10/18 16:31 Aspirin (ASA) 325 mg DAILY ORAL 10/06/18 09:00 11/02/18 15:44 Carvedilol (Coreg) 25 mg EVERY 12 HOURS ORAL 10/05/18 21:00 11/02/18 20:59 10/05/18 21:02 Clopidogrel Bisulfate (Plavix) 75 mg DAILY ORAL 10/06/18 09:00 11/03/18 08:59 Dextrose (Dextrose 50%) 25 ml Q30M PRN IV Hypoglycemia 10/05/18 17:00 11/02/18 14:29 Dextrose (Dextrose 50%) 50 ml Q30M PRN IV Hypoglycemia 10/05/18 17:00 11/02/18 14:29 Diltiazem HCl (Cardizem) 10 mg Q1H PRN IV heart rate more than 120, 10/05/18 16:48 11/04/18 16:47 Heparin Sodium (Porcine) (Heparin 5000 units/ml) 5,000 units EVERY 12 HOURS SUBQ 10/05/18 21:00 11/02/18 20:59 10/05/18 21:04 Hydralazine HCl (Apresoline) 10 mg EVERY 6 HOURS ORAL 10/05/18 18:00 11/02/18 21:59 10/06/18 05:54 Insulin Aspart (NovoLOG) BEFORE MEALS AND HS SUBQ 10/05/18 21:00 11/04/18 20:59 10/06/18 05:55 Levothyroxine Sodium (Synthroid) 125 mcg Q24H ORAL 10/06/18 06:30 11/03/18 06:29 10/06/18 05:54 Metolazone (Zaroxolyn) 2.5 mg DAILY ORAL 10/06/18 09:00 11/04/18 08:59 Ondansetron HCl (Zofran) 4 mg Q6H PRN IVP Nausea & Vomiting 10/05/18 16:33 11/04/18 16:32 Pantoprazole (Protonix) 40 mg EVERY 12 HOURS ORAL 10/05/18 21:00 11/03/18 20:59 10/05/18 21:02 Polyethylene Glycol (Miralax) 17 gm DAILYPRN PRN ORAL Constipation 10/05/18 16:33 11/04/18 16:32 Potassium Chloride (K-Dur) 20 meq TWICE A DAY ORAL 10/05/18 18:00 10/06/18 17:59 10/05/18 18:17 Temazepam (Restoril) 15 mg HSPRN PRN ORAL Insomnia 10/05/18 16:32 10/12/18 16:31 Aure Ortega MD Oct 06, 2018 06:26
--- NOTE | 2018-10-06 07:15 | NUR ---
HAND-OFF: Report given to Carol Chambers RN. Patient in bed in stable condition. Endorsed plan of care.
--- NOTE | 2018-10-06 07:19 | NUR ---
NURSE NOTES: I received the patient resting comfortably in bed. Patient alert and oriented. Bed in the lowest position and call light within reach. Patient does not display any signs of distress or SOB. I will continue to monitor the patient and implement care.
[2018-10-06 07:40] LABS: BASOPHILS % (AUTO) 0.9 % (0.0-2.0); EOSINOPHILS % (AUTO) 2.7 % (0.0-3.0); HEMATOCRIT 31.7 % (37.0-47.0); HEMOGLOBIN 10.4 G/DL (12.0-16.0); LYMPHOCYTES % (AUTO) 29.3 % (20.0-45.0); MEAN CORPUSCULAR VOLUME 98 FL (80-99); MONOCYTES % (AUTO) 8.7 % (1.0-10.0); NEUTROPHILS % (AUTO) 58.4 % (45.0-75.0); PLATELET COUNT 310 K/UL (150-450); RED BLOOD COUNT 3.22 M/UL (4.20-5.40); RED CELL DISTRIBUTION WIDTH 15.2 % (11.6-14.8); WHITE BLOOD COUNT 5.5 K/UL (4.8-10.8)
[2018-10-06 08:00] VITALS: BP 104/65
--- NOTE | 2018-10-06 08:09 | NUR ---
NURSE NOTES: Reported from Mame, laboratory, Troponin level 1.557. Endorsed to Maryana.
[2018-10-06 08:20] LABS: ALANINE AMINOTRANSFERASE 11 U/L (12-78); ALBUMIN 3.4 G/DL (3.4-5.0); ALBUMIN/GLOBULIN RATIO 1.1 (1.0-2.7); ALKALINE PHOSPHATASE 41 U/L (46-116); ANION GAP 9 mmol/L (5-15); ASPARTATE AMINO TRANSFERASE 14 U/L (15-37); BILIRUBIN,TOTAL 0.6 MG/DL (0.2-1.0); BLOOD UREA NITROGEN 46 mg/dL (7-18); CALCIUM 8.6 MG/DL (8.5-10.1); CARBON DIOXIDE 27 MMOL/L (21-32); CHLORIDE 106 MMOL/L (98-107); CREATININE 2.8 MG/DL (0.55-1.30); POTASSIUM 4.9 MMOL/L (3.5-5.1); SODIUM 142 MMOL/L (136-145)
[2018-10-06 08:40] LABS: PHOSPHORUS 3.7 MG/DL (2.5-4.9)
[2018-10-06] MEDS: Carvedilol 25mg Tab ORAL SCH ×2 (09:30→20:33)
[2018-10-06] MEDS: metOLazone 2.5 MG TAB ORAL SCH (09:31)
[2018-10-06] MEDS: Heparin 5000 units/ml inj SUBQ SCH ×2 (09:32→20:35)
--- NOTE | 2018-10-06 11:46 | Diagnostic Imaging Report ---
EXAM: XR Chest, 1 View CLINICAL HISTORY: DYSPNEA TECHNIQUE: Frontal view of the chest. COMPARISON: Chest radiograph on 10/05/2018 FINDINGS: Hardware: None. Lungs/pleura: Similar hyperinflation of the lungs, compatible with COPD changes. Stable bibasilar opacities which likely represent combinations of pleural effusions with atelectasis versus pneumonia. Pulmonary vasculature congestion. Heart/mediastinum: Stable enlargement of the cardio mediastinal silhouette. Atherosclerotic calcifications in aorta. Soft tissues: Unremarkable. Bones: No acute fracture. Degenerative changes of the spine. Upper abdomen: Normal. IMPRESSION: Stable bibasilar opacities which likely represent combinations of pleural effusions with atelectasis versus pneumonia. Pulmonary vasculature congestion. Findings are suggestive of CHF.
[2018-10-06 12:00] VITALS: BP 111/62
--- NOTE | 2018-10-06 13:22 | Internal Med Progress Note ---
Subjective Date of Service: Oct 06, 2018 Physician Name Morgan aH Attending Physician Morgan Ha MD Current Medications Medications (Trade) Dose Ordered Sig/Tatianna Route PRN Reason Start Time Stop Time Status Last Admin Dose Admin Acetaminophen (Tylenol) 650 mg Q4H PRN ORAL Fever 10/05/18 16:32 11/04/18 16:31 Albuterol/ Ipratropium (Albuterol/ Ipratropium) 3 ml Q4H PRN HHN Shortness of Breath 10/05/18 16:32 10/10/18 16:31 Aspirin (ASA) 325 mg DAILY ORAL 10/06/18 09:00 11/02/18 15:44 10/06/18 09:31 Carvedilol (Coreg) 25 mg EVERY 12 HOURS ORAL 10/05/18 21:00 11/02/18 20:59 10/06/18 09:30 Clopidogrel Bisulfate (Plavix) 75 mg DAILY ORAL 10/06/18 09:00 11/03/18 08:59 10/06/18 09:31 Dextrose (Dextrose 50%) 25 ml Q30M PRN IV Hypoglycemia 10/05/18 17:00 11/02/18 14:29 Dextrose (Dextrose 50%) 50 ml Q30M PRN IV Hypoglycemia 10/05/18 17:00 11/02/18 14:29 Diltiazem HCl (Cardizem) 10 mg Q1H PRN IV heart rate more than 120, 10/05/18 16:48 11/04/18 16:47 Heparin Sodium (Porcine) (Heparin 5000 units/ml) 5,000 units EVERY 12 HOURS SUBQ 10/05/18 21:00 11/02/18 20:59 10/06/18 09:32 Hydralazine HCl (Apresoline) 10 mg EVERY 6 HOURS ORAL 10/05/18 18:00 11/02/18 21:59 10/06/18 12:13 Insulin Aspart (NovoLOG) BEFORE MEALS AND HS SUBQ 10/05/18 21:00 11/04/18 20:59 10/06/18 12:14 Levothyroxine Sodium (Synthroid) 125 mcg Q24H ORAL 10/06/18 06:30 11/03/18 06:29 10/06/18 05:54 Metolazone (Zaroxolyn) 2.5 mg DAILY ORAL 10/06/18 09:00 11/04/18 08:59 10/06/18 09:31 Ondansetron HCl (Zofran) 4 mg Q6H PRN IVP Nausea & Vomiting 10/05/18 16:33 11/04/18 16:32 Pantoprazole (Protonix) 40 mg EVERY 12 HOURS ORAL 10/05/18 21:00 11/03/18 20:59 10/06/18 09:30 Polyethylene Glycol (Miralax) 17 gm DAILYPRN PRN ORAL Constipation 10/05/18 16:33 11/04/18 16:32 Potassium Chloride (K-Dur) 20 meq TWICE A DAY ORAL 10/05/18 18:00 10/06/18 17:59 10/05/18 18:17 Temazepam (Restoril) 15 mg HSPRN PRN ORAL Insomnia 10/05/18 16:32 10/12/18 16:31 Allergies: Coded Allergies: No Known Allergies (Verified , 07/20/11) ROS Limited/Unobtainable: No Constitutional: Reports: no symptoms HEENT: Reports: no symptoms Cardiovascular: Reports: no symptoms Respiratory: Reports: shortness of breath Gastrointestinal/Abdominal: Reports: no symptoms Genitourinary: Reports: no symptoms Neurologic/Psychiatric: Reports: no symptoms Subjective 83 YO F admitted with dyspnea. Now congestive heart failure, atrial fibrillation with rapid ventricular rate and elevated troponin. Await transfer to contracted facility Objective Last Vital Signs Date Time Temp Pulse Resp B/P (MAP) Pulse Ox O2 Delivery O2 Flow Rate FiO2 10/06/18 12:13 111/62 10/06/18 12:00 Nasal Cannula 2.0 10/06/18 12:00 98.5 79 18 98 10/06/18 08:30 28 Laboratory Tests Test 10/05/18 14:25 10/06/18 05:42 10/06/18 08:00 Total Creatine Kinase 31 U/L (26-308) Creatine Kinase MB < 0.5 NG/ML (0.0-3.6) Creatine Kinase MB Relative Index 1.6 Troponin I 2.691 ng/mL (0.000-0.056) 1.557 ng/mL (0.000-0.056) White Blood Count 5.5 K/UL (4.8-10.8) Red Blood Count 3.22 M/UL (4.20-5.40) L Hemoglobin 10.4 G/DL (12.0-16.0) L Hematocrit 31.7 % (37.0-47.0) L Mean Corpuscular Volume 98 FL (80-99) Mean Corpuscular Hemoglobin 32.1 PG (27.0-31.0) H Mean Corpuscular Hemoglobin Concent 32.7 G/DL (32.0-36.0) Red Cell Distribution Width 15.2 % (11.6-14.8) H Platelet Count 310 K/UL (150-450) Mean Platelet Volume 6.8 FL (6.5-10.1) Neutrophils (%) (Auto) 58.4 % (45.0-75.0) Lymphocytes (%) (Auto) 29.3 % (20.0-45.0) Monocytes (%) (Auto) 8.7 % (1.0-10.0) Eosinophils (%) (Auto) 2.7 % (0.0-3.0) Basophils (%) (Auto) 0.9 % (0.0-2.0) Sodium Level 142 MMOL/L (136-145) Potassium Level 4.9 MMOL/L (3.5-5.1) Chloride Level 106 MMOL/L (98-107) Carbon Dioxide Level 27 MMOL/L (21-32) Anion Gap 9 mmol/L (5-15) Blood Urea Nitrogen 46 mg/dL (7-18) H Creatinine 2.8 MG/DL (0.55-1.30) H Estimat Glomerular Filtration Rate mL/min (>60) Glucose Level 161 MG/DL (74-106) H Uric Acid 8.0 MG/DL (2.6-7.2) H Calcium Level 8.6 MG/DL (8.5-10.1) Phosphorus Level 3.7 MG/DL (2.5-4.9) Magnesium Level 2.4 MG/DL (1.8-2.4) Total Bilirubin 0.6 MG/DL (0.2-1.0) Aspartate Amino Transf (AST/SGOT) 14 U/L (15-37) L Alanine Aminotransferase (ALT/SGPT) 11 U/L (12-78) L Alkaline Phosphatase 41 U/L (46-116) L C-Reactive Protein, Quantitative 1.4 mg/dL (0.00-0.90) H Pro-B-Type Natriuretic Peptide 20228 pg/mL (0-125) H Total Protein 6.4 G/DL (6.4-8.2) Albumin 3.4 G/DL (3.4-5.0) Globulin 3.0 g/dL Albumin/Globulin Ratio 1.1 (1.0-2.7) Digoxin Level 2.0 NG/ML (0.9-2.0) Urine Eosinophils None seen (NONE SEEN) Intake and Output 10/05/18 10/06/18 19:00 07:00 Intake Total 780 ml 100 ml Output Total 660 ml 500 ml Balance 120 ml -400 ml Intake Oral 780 ml 100 ml Output Urine Total 660 ml 500 ml # Bowel Movements 1 1 Objective PHYSICAL EXAMINATION: GENERAL: The patient is a well-developed and well-nourished female, in no apparent distress. HEENT: Eyes, pupils are equal and responsive to light and accommodation. Extraocular movements are intact. NECK: Supple without lymphadenopathy. CHEST: Crackles in bilateral bases. Otherwise, clear to auscultation without wheezes or rales. CARDIOVASCULAR: Irregular rhythm and irregular rate. S1 and S2 are normal without murmurs, rubs, or gallops. ABDOMEN: Soft, nontender, and nondistended. Positive bowel sounds. No evidence of hepatosplenomegaly. Currently, no rebound or guarding noted. EXTREMITIES: Negative for clubbing, cyanosis, or edema. RECTAL/GENITAL: Not performed. NEUROLOGIC: Cranial nerves II through XII are grossly intact without focal deficits. Motor strength is 5/5 bilaterally. Deep tendon reflexes are 2+ plantar. Assessment/Plan Problem List: (1) Renal failure Assessment & Plan: See nephrology note=Dr Valdez (2) Dyspnea (3) CHF exacerbation Assessment & Plan: BNP=>34,000; LVEF=40%. See cardiology note=Samantha Lang and Yesica (4) Elevated troponin Assessment & Plan: NSSTEMI? See cardiology note. (5) Paroxysmal A-fib Assessment & Plan: With rapid ventricular rate. Continue IV diltiazem (6) HTN (hypertension) (7) Diabetes mellitus Assessment & Plan: Continue novolog sliding scale (8) Hypothyroidism Assessment & Plan: Continue synthroid (9) Acute respiratory failure Assessment & Plan: Due to CHF (10) Hypercholesterolemia Status: progressing Assessment/Plan Transfer to contracted hospital, [facility]-see case management note. Morgan Ha MD Oct 06, 2018 13:22
--- NOTE | 2018-10-06 15:46 | Nephrology Progress Note ---
Assessment/Plan Problem List: (1) Renal failure (ARF), acute on chronic (2) Diabetic nephropathy (3) Anemia, chronic renal failure (4) Paroxysmal A-fib (5) CHF exacerbation Assessment: cardiomyopathy, Ej fx 40% Assessment Acute on Chronic renal failure Anemia: CKD & or Low Iron Troponin rise Atrial Fib with FVR, h/o PAT CHF Low EjFx 40% DM High Lipids UTI Plan Avoid nephrotoxics HR management Keep BP and BS in check Monitor renal parameters monitor Dig level Dig on hold for now Subjective ROS Limited/Unobtainable: No Constitutional: Reports: malaise Objective Objective Last 24 Hour Vital Signs Date Time Temp Pulse Resp B/P (MAP) Pulse Ox O2 Delivery O2 Flow Rate FiO2 10/06/18 12:13 111/62 10/06/18 12:00 Nasal Cannula 2.0 10/06/18 12:00 98.5 79 18 111/62 (78) 98 10/06/18 12:00 72 10/06/18 09:30 73 104/65 10/06/18 08:30 81 20 98 Nasal Cannula 2.0 28 10/06/18 08:30 98 Nasal Cannula 2.0 28 10/06/18 08:00 79 10/06/18 08:00 Nasal Cannula 2.0 10/06/18 08:00 98.1 73 18 104/65 (78) 99 10/06/18 05:54 119/70 10/06/18 04:00 98.1 80 18 119/66 (83) 97 10/06/18 04:00 Nasal Cannula 2.0 10/06/18 04:00 86 10/06/18 00:23 117/62 10/06/18 00:00 79 10/06/18 00:00 98.3 83 18 117/62 (80) 98 10/06/18 00:00 Nasal Cannula 2.0 10/05/18 21:02 84 116/67 10/05/18 21:00 Nasal Cannula 2.0 10/05/18 20:00 81 10/05/18 20:00 98.6 84 18 116/67 (83) 98 10/05/18 19:48 79 20 99 Nasal Cannula 2.0 28 10/05/18 19:48 99 Nasal Cannula 2.0 28 10/05/18 18:17 104/57 10/05/18 18:16 82 20 104/57 (73) 99 10/05/18 16:00 Nasal Cannula 2.0 10/05/18 16:00 80 10/05/18 16:00 98.0 78 25 118/60 (79) 100 Intake and Output 10/05/18 10/06/18 19:00 07:00 Intake Total 780 ml 100 ml Output Total 660 ml 500 ml Balance 120 ml -400 ml Intake Oral 780 ml 100 ml Output Urine Total 660 ml 500 ml # Bowel Movements 1 1 Laboratory Tests 10/06/18 05:42: White Blood Count 5.5, Red Blood Count 3.22L, Hemoglobin 10.4L, Hematocrit 31.7L , Mean Corpuscular Volume 98, Mean Corpuscular Hemoglobin 32.1H, Mean Corpuscular Hemoglobin Concent 32.7, Red Cell Distribution Width 15.2H, Platelet Count 310, Mean Platelet Volume 6.8, Neutrophils (%) (Auto) 58.4, Lymphocytes (%) (Auto) 29.3, Monocytes (%) (Auto) 8.7, Eosinophils (%) (Auto) 2.7, Basophils (%) (Auto) 0.9, Sodium Level 142, Potassium Level 4.9, Chloride Level 106, Carbon Dioxide Level 27, Anion Gap 9, Blood Urea Nitrogen 46H, Creatinine 2.8H, Estimat Glomerular Filtration Rate , Glucose Level 161H, Uric Acid 8.0H, Calcium Level 8.6, Phosphorus Level 3.7, Magnesium Level 2.4, Total Bilirubin 0.6, Aspartate Amino Transf (AST/SGOT) 14L, Alanine Aminotransferase ( ALT/SGPT) 11L, Alkaline Phosphatase 41L, Troponin I 1.557H, C-Reactive Protein, Quantitative 1.4H, Pro-B-Type Natriuretic Peptide 00177R, Total Protein 6.4, Albumin 3.4, Globulin 3.0, Albumin/Globulin Ratio 1.1, Digoxin Level 2.0 10/06/18 08:00: Urine Eosinophils None seen Height (Feet): 5 Height (Inches): 0.00 Weight (Pounds): 122 General Appearance: no apparent distress Respiratory/Chest: decreased breath sounds Abdomen: soft Varinder Valdez MD Oct 06, 2018 15:46
[2018-10-06 16:00] VITALS: BP 118/75
--- NOTE | 2018-10-06 19:10 | NUR ---
NURSE NOTES: Received report from Maryana RN, pt. in bed awake, no signs or symptoms of acute cardiac or respiratory distress noted, pt. is awake in bed alert to name- Welsh speaking, coal mill operator is on, bed alarm on, side rails up x's3 and safety brakes engaged, call light within easy reach, and bed locked in position, pt. appears to be sating well on 2L NC at 97%- no distress noted, Casper intact and draining to gravity, RFA 22G and Lt. hand 20G both Saline lock- IVs intact and patent, safety measures continued, will continue with plan of care.
--- NOTE | 2018-10-06 19:28 | NUR ---
HAND-OFF: Report given to JANNETH Gardner.
[2018-10-06 20:00] VITALS: BP 119/64
--- NOTE | 2018-10-06 20:30 | NUR ---
NURSE NOTES: Casper out at bedside, pt. remains stable and no distress noted- asked pt. if I can re-insert Casper catheter- pt. denying to have Casper reinserted.
[2018-10-07] VITALS: BP 112/57
[2018-10-07 04:00] VITALS: BP 113/66
--- NOTE | 2018-10-07 04:00 | NUR ---
NURSE NOTES: bladder scanner done on patient- pt having good output after Casper was pulled out by patient- bladder scanner shows 130mls- pt. continues to have good output- will continue to monitor pt. and with plan of care.
--- NOTE | 2018-10-07 04:15 | Progress Note ---
DATE: 10/06/2018 CARDIOLOGY PROGRESS NOTE SUBJECTIVE: The patient remains with rate control and AFib episodes. OBJECTIVE: VITAL SIGNS: Blood pressure 119/66. GENERAL: Less shortness of breath. Still on diuretics. NECK: Jugular venous pressure still elevated. LUNGS: Bilateral rales improved. HEART: Irregularly irregular rhythm. Normal S1 and S2 with 1/6 systolic apical murmur. ABDOMEN: Soft. No edema. DIAGNOSTIC DATA: Chest x-ray reveals right lower lobe infiltrate. Improvement on the left and positive edema. LABORATORY DATA: White count 5.5 and hemoglobin 10.4. Troponin down to 1.55, BUN 46, creatinine 2.8. Natriuretic peptide 32,000. IMPRESSION: 1. Acute myocardial infarction. 2. Acute on chronic systolic and diastolic congestive heart failure. 3. Community-acquired pneumonia. 4. Acute on chronic renal failure. PLAN: 1. Continue diuresis. 2. Monitor renal function and volume status closely. 3. Titrate anti-failure and antianginal regimen based on clinical parameters including anti-platelet therapy, beta-blockers, and we will readdress for nitrate therapy. Brady Meraz M.D. DR: ZOE JOB#: [id number] CC:
[2018-10-07] MEDS: HydrALAZINE 10mg Tab ORAL SCH ×3 (05:29→17:29)
[2018-10-07] MEDS: Levothyroxine 125mcg tab ORAL SCH (05:30)
[2018-10-07] MEDS: NovoLOG Insulin Flexpen SUBQ SCH ×4 (05:31→20:39)
--- NOTE | 2018-10-07 07:10 | NUR ---
NURSE NOTES: Received report from JANNETH Gardner. The patient is resting on the bed without acute distress or shortness of breath. The patient's bed in the lowest position, call light in reach, and fall and aspiration precaution reinforced. The patient's IV is intact and patent. Was told that there is possibility for her to transfer to [place] due to insurance coverage for cardiac cath. Will follow up for Casper as she pull out last night. Per Kendra, her urine residual during bladder scan was 130mL without Casper cath. Will continue plan of care.
--- NOTE | 2018-10-07 07:18 | NUR ---
HAND-OFF: Report given to Rosalva Clark Rn, pt. remains stable and no signs of distress noted. Nurse aware to f/u with doctor regarding if Casper needs to be reinserted or discontinued.
[2018-10-07 07:41] LABS: BASOPHILS % (AUTO) 0.8 % (0.0-2.0); EOSINOPHILS % (AUTO) 3.1 % (0.0-3.0); HEMATOCRIT 30.3 % (37.0-47.0); LYMPHOCYTES % (AUTO) 23.9 % (20.0-45.0); MEAN CORPUSCULAR VOLUME 99 FL (80-99); MONOCYTES % (AUTO) 10.1 % (1.0-10.0); NEUTROPHILS % (AUTO) 62.1 % (45.0-75.0); PLATELET COUNT 286 K/UL (150-450); RED BLOOD COUNT 3.06 M/UL (4.20-5.40); RED CELL DISTRIBUTION WIDTH 15.4 % (11.6-14.8); WHITE BLOOD COUNT 6.1 K/UL (4.8-10.8)
[2018-10-07 08:00] VITALS: BP 107/65
[2018-10-07 08:07] LABS: ANION GAP 10 mmol/L (5-15); BLOOD UREA NITROGEN 58 mg/dL (7-18); CALCIUM 8.9 MG/DL (8.5-10.1); CARBON DIOXIDE 26 MMOL/L (21-32); CHLORIDE 105 MMOL/L (98-107); CREATININE 3.6 MG/DL (0.55-1.30); POTASSIUM 4.4 MMOL/L (3.5-5.1); SODIUM 141 MMOL/L (136-145)
--- NOTE | 2018-10-07 08:51 | Cardiology Report ---
APPROVED REPORT EXAM: Two-dimensional and M-mode echocardiogram with Doppler and color Doppler. INDICATION LV FUNCTION M-Mode DIMENSIONS IVSd1.1 (0.7-1.1cm)Left Atrium (MM)5.6 (1.6-4.0cm) LVDd3.6 (3.5-5.6cm)Aortic Root3.0 (2.0-3.7cm) PWd1.1 (0.7-1.1cm)Aortic Cusp Exc.1.5 (1.5-2.0cm) IVSs1.5 cm LVDs2.1 (2.5-4.0cm) PWs1.5 cm Normal left ventricular chamber size. Global left ventricular hypokinesis with anteroseptal distal and apical akinesis . Left ventricular ejection fraction estimated to be 35-40%. Mild left ventricular hypertrophy. Anterior Echo-free space, may be due to pericardial fat or effusion. Possible pleural effusion . Mild left atrial enlargement . Right cardiac chamber sizes are within normal limits. Focal aortic valve sclerosis with adequate cusp excursion. Mildly thickened mitral valve leaflets with normal excursion. Mild mitral annulus and aortic root calcification. Pulmonic valve not well visualized. IVC at normal size with physiologic collapse. A color flow and spectral Doppler study was performed and revealed: Mild aortic insufficiency . Mitral inflow velocities indicates possible pseudo normalization pattern implying moderately elevated left atrial pressure (Grade II ) Moderate mitral regurgitation. Mild to moderate tricuspid regurgitation. Tricuspid systolic velocities suggests peak right ventricular systolic pressure of 53mmHg,consistent with moderate pulmonary HTN.
[2018-10-07] MEDS: Heparin 5000 units/ml inj SUBQ SCH ×2 (09:36→20:28)
[2018-10-07] MEDS: Carvedilol 25mg Tab ORAL SCH ×2 (09:37→20:27)
[2018-10-07] MEDS: metOLazone 2.5 MG TAB ORAL SCH (09:38)
--- NOTE | 2018-10-07 09:59 | NUR ---
CASE MANAGEMENT: REVIEW 10/06/2018 SI:DYSPNEA. ELEVATED TROPONIN. T 98.4 HR 81 RR 20 B/P 116/64 SATS 98% ON 2L/NC BUN 46 CR 2.8 GLU 161 CA 8 AST 14 ALT 11 ALP 41 TROPONIN 1.557 BNP 09789 IS: HYDRALAZINE PO Q8H COREG PO Q12H ASA PO QD PLAVIX PO QD METOLAZONE PO QD DIGOXIN PO QD INSULIN ASPART AC/HS TELE STATUS DCP: PATIENT TO BE DISCHARGED TO HOME ONCE MEDICALLY CLEARED. CASE MANAGEMENT: REVIEW 10/07/2018 SI:DYSPNEA. ELEVATED TROPONIN. T 98.4 HR 81 RR 20 B/P 119/64 SATS 98% ON 2L/NC BUN 58 CR 3.6 GLU 173 IS: HYDRALAZINE PO Q8H COREG PO Q12H ASA PO QD PLAVIX PO QD METOLAZONE PO QD DIGOXIN PO QD INSULIN ASPART AC/HS TELE STATUS DCP: PATIENT TO BE DISCHARGED TO HOME ONCE MEDICALLY CLEARED. PLAN OF CARE: ORDER FOR TRANSFER TO [facility]
--- NOTE | 2018-10-07 10:04 | NUR ---
DISCHARGE/TRANSFER: NOTE F/U CALL RECEIVED FROM NINA DUNCAN [facility] PLAN [phone] X [phone] PER NINA P2 WAS HELD WITH MD BAEZA NO TRANSFER D/T UNSTABLE RENAL PARAMETERS. NEW CM ORDER NOTED FOR TRANSFER TO [facility] WILL F/U Addendum: 10/07/18 at 1510 by Aline Cordero F/U LEFT FOR [facility] REGARDING TRANSFER TO [facility] AWAITING CALL BACK
--- NOTE | 2018-10-07 10:04 | NUR ---
NURSE NOTES: Notified Dr. Meraz regarding downtrending of Troponin from 2.691 to 1.557 and awaiting to be transferred to [place] for cardiac cath due to insurance issue. Will carry out the order as soon as receives it and will continue plan of care.
--- NOTE | 2018-10-07 10:12 | NUR ---
INSURANCE UPDATED CLINICALS FAXED TO F [phone] ALONG WITH ORDER FOR TRANSFER
[2018-10-07 11:10] LABS: ALANINE AMINOTRANSFERASE 13 U/L (12-78); ALKALINE PHOSPHATASE 39 U/L (46-116); ASPARTATE AMINO TRANSFERASE 12 U/L (15-37); BILIRUBIN,DIRECT 0.3 MG/DL (0.0-0.3); BILIRUBIN,TOTAL 0.6 MG/DL (0.2-1.0); PHOSPHORUS 4.9 MG/DL (2.5-4.9)
[2018-10-07 12:00] VITALS: BP 107/58
--- NOTE | 2018-10-07 12:23 | NUR ---
RD ASSESSMENT & RECOMMENDATIONS SEE CARE ACTIVITY FOR COMPLETE ASSESSMENT DAILY ESTIMATED NEEDS: Needs based on DM, CHF 56kg 25-30 kcals/kg 5064-3838 total kcals 1-1.5 g protein/kg 56-84 g total protein Fluid per MD, on diuretics NUTRITION DIAGNOSIS: (1) Decreased sodium needs r/t exacerbated CHF and renal dysfunction as evidenced by pt w/ elevated proBNP on diuretics, renal labs trending up (creat 3.6). (CURRENT DIET:CCHO MED w/ NTL) PO DIET RECOMMENDATIONS: LOW NA/ CCHO LOW texture as tolerated ADDITIONAL RECOMMENDATIONS: 1) Obtain a STANDING weight as able; or Calibrated bed scale wt 2) Monitor lytes w/ current renal fxn 3) Add snacks w/ variable po intake 4) PRINCIPAL ANDROID DEVELOPER eval-> currently on nectar thick liquids
--- NOTE | 2018-10-07 13:05 | Pulmonology Progress Note ---
Assessment/Plan Problems: (1) CHF exacerbation (2) Paroxysmal A-fib (3) Anemia, chronic renal failure (4) Hypothyroidism (5) Diabetes mellitus (6) Diabetic nephropathy (7) HTN (hypertension) Assessment/Plan so far 1.8 liter negative fluid balance bun/creatinine higher, avoid nephrotoxic off lasix, off zaroxylin heart rate controlled CXR 10/06 reviewed, Left side improved. R LL infiltrate chest PT titrate cardiac meds titrate fio2 to sat of 92% Subjective ROS Limited/Unobtainable: No Constitutional: Reports: no symptoms HEENT: Repors: no symptoms Respiratory: Reports: no symptoms Allergies: Coded Allergies: No Known Allergies (Verified , 07/20/11) Objective Last 24 Hour Vital Signs Date Time Temp Pulse Resp B/P (MAP) Pulse Ox O2 Delivery O2 Flow Rate FiO2 10/07/18 12:11 107/58 10/07/18 12:00 96.6 81 18 107/58 (74) 99 10/07/18 09:37 71 107/65 10/07/18 09:00 Nasal Cannula 2.0 10/07/18 08:00 71 18 97 Nasal Cannula 2.0 28 10/07/18 08:00 96 Nasal Cannula 2.0 28 10/07/18 08:00 82 10/07/18 08:00 98.4 85 17 107/65 (79) 97 10/07/18 05:29 113/66 10/07/18 04:00 2.0 10/07/18 04:00 82 10/07/18 04:00 98.2 84 18 113/66 (82) 98 10/07/18 00:00 83 10/07/18 00:00 2.0 10/07/18 00:00 98.2 84 18 112/57 (75) 97 10/06/18 23:58 112/58 10/06/18 20:37 98 Nasal Cannula 2.0 28 10/06/18 20:33 61 119/64 10/06/18 20:05 79 18 98 Nasal Cannula 2.0 28 10/06/18 20:00 81 10/06/18 20:00 Nasal Cannula 2.0 10/06/18 20:00 98.4 61 20 119/64 (82) 98 10/06/18 20:00 2.0 10/06/18 17:06 118/75 10/06/18 16:00 Nasal Cannula 2.0 10/06/18 16:00 84 10/06/18 16:00 98.5 90 18 118/75 (89) 99 Intake and Output 10/06/18 10/07/18 19:00 07:00 Intake Total 840 ml Output Total 700 ml Balance 140 ml Intake Oral 840 ml Output Urine Total 700 ml # Voids 3 # Bowel Movements 1 General Appearance: WD/WN HEENT: normocephalic, atraumatic Respiratory/Chest: chest wall non-tender, lungs clear Breasts: no masses Cardiovascular: normal peripheral pulses, normal rate Abdomen: normal bowel sounds, soft, non tender Genitourinary: normal external genitalia Extremities: no cyanosis Laboratory Tests 10/07/18 05:57: White Blood Count 6.1, Red Blood Count 3.06L, Hemoglobin 10.0L, Hematocrit 30.3L , Mean Corpuscular Volume 99, Mean Corpuscular Hemoglobin 32.7H, Mean Corpuscular Hemoglobin Concent 33.0, Red Cell Distribution Width 15.4H, Platelet Count 286, Mean Platelet Volume 6.8, Neutrophils (%) (Auto) 62.1, Lymphocytes (%) (Auto) 23.9, Monocytes (%) (Auto) 10.1H, Eosinophils (%) (Auto) 3.1H, Basophils (%) (Auto) 0.8, Sodium Level 141, Potassium Level 4.4, Chloride Level 105, Carbon Dioxide Level 26, Anion Gap 10, Blood Urea Nitrogen 58H, Creatinine 3.6H, Estimat Glomerular Filtration Rate , Glucose Level 173H, Uric Acid 8.7H, Calcium Level 8.9, Phosphorus Level 4.9, Magnesium Level 2.4, Total Bilirubin 0.6, Direct Bilirubin 0.3, Aspartate Amino Transf (AST/SGOT) 12L, Alanine Aminotransferase (ALT/SGPT) 13, Alkaline Phosphatase 39L, Pro-B-Type Natriuretic Peptide 31381S, Total Protein 6.7, Albumin 3.0L 10/07/18 06:30: Urine Eosinophils None seen Current Medications Medications (Trade) Dose Ordered Sig/Tatianna Route PRN Reason Start Time Stop Time Status Last Admin Dose Admin Acetaminophen (Tylenol) 650 mg Q4H PRN ORAL Fever 10/05/18 16:32 11/04/18 16:31 Albuterol/ Ipratropium (Albuterol/ Ipratropium) 3 ml Q4H PRN HHN Shortness of Breath 10/05/18 16:32 10/10/18 16:31 Aspirin (ASA) 325 mg DAILY ORAL 10/06/18 09:00 11/02/18 15:44 10/07/18 09:36 Carvedilol (Coreg) 25 mg EVERY 12 HOURS ORAL 10/05/18 21:00 11/02/18 20:59 10/07/18 09:37 Clopidogrel Bisulfate (Plavix) 75 mg DAILY ORAL 10/06/18 09:00 11/03/18 08:59 10/07/18 09:38 Dextrose (Dextrose 50%) 25 ml Q30M PRN IV Hypoglycemia 10/05/18 17:00 11/02/18 14:29 Dextrose (Dextrose 50%) 50 ml Q30M PRN IV Hypoglycemia 10/05/18 17:00 11/02/18 14:29 Diltiazem HCl (Cardizem) 10 mg Q1H PRN IV heart rate more than 120, 10/05/18 16:48 11/04/18 16:47 Heparin Sodium (Porcine) (Heparin 5000 units/ml) 5,000 units EVERY 12 HOURS SUBQ 10/05/18 21:00 11/02/18 20:59 10/07/18 09:36 Hydralazine HCl (Apresoline) 10 mg EVERY 6 HOURS ORAL 10/05/18 18:00 11/02/18 21:59 10/07/18 12:11 Insulin Aspart (NovoLOG) BEFORE MEALS AND HS SUBQ 10/05/18 21:00 11/04/18 20:59 10/07/18 12:04 Levothyroxine Sodium (Synthroid) 125 mcg Q24H ORAL 10/06/18 06:30 11/03/18 06:29 10/07/18 05:30 Metolazone (Zaroxolyn) 2.5 mg DAILY ORAL 10/06/18 09:00 11/04/18 08:59 10/07/18 09:38 Ondansetron HCl (Zofran) 4 mg Q6H PRN IVP Nausea & Vomiting 10/05/18 16:33 11/04/18 16:32 Pantoprazole (Protonix) 40 mg EVERY 12 HOURS ORAL 10/05/18 21:00 11/03/18 20:59 10/07/18 09:38 Polyethylene Glycol (Miralax) 17 gm DAILYPRN PRN ORAL Constipation 10/05/18 16:33 11/04/18 16:32 Temazepam (Restoril) 15 mg HSPRN PRN ORAL Insomnia 10/05/18 16:32 10/12/18 16:31 Aure Ortega MD Oct 07, 2018 13:05
--- NOTE | 2018-10-07 13:50 | Nephrology Progress Note ---
Assessment/Plan Problem List: (1) Renal failure (ARF), acute on chronic (2) Diabetic nephropathy (3) Anemia, chronic renal failure (4) Paroxysmal A-fib (5) CHF exacerbation Assessment: cardiomyopathy, Ej fx 40% Assessment Acute on Chronic renal failure Anemia: CKD & or Low Iron Troponin rise Atrial Fib with FVR, h/o PAT CHF Low EjFx 40% DM High Lipids UTI Plan Post voiding bladder scan Avoid nephrotoxics HR management Keep BP and BS in check Monitor renal parameters monitor Dig level Dig on hold for now Subjective ROS Limited/Unobtainable: No Constitutional: Reports: malaise, weakness Objective Objective Last 24 Hour Vital Signs Date Time Temp Pulse Resp B/P (MAP) Pulse Ox O2 Delivery O2 Flow Rate FiO2 10/07/18 12:11 107/58 10/07/18 12:00 96.6 81 18 107/58 (74) 99 10/07/18 09:37 71 107/65 10/07/18 09:00 Nasal Cannula 2.0 10/07/18 08:00 71 18 97 Nasal Cannula 2.0 28 10/07/18 08:00 96 Nasal Cannula 2.0 28 10/07/18 08:00 82 10/07/18 08:00 98.4 85 17 107/65 (79) 97 10/07/18 05:29 113/66 10/07/18 04:00 2.0 10/07/18 04:00 82 10/07/18 04:00 98.2 84 18 113/66 (82) 98 10/07/18 00:00 83 10/07/18 00:00 2.0 10/07/18 00:00 98.2 84 18 112/57 (75) 97 10/06/18 23:58 112/58 10/06/18 20:37 98 Nasal Cannula 2.0 28 10/06/18 20:33 61 119/64 10/06/18 20:05 79 18 98 Nasal Cannula 2.0 28 10/06/18 20:00 81 10/06/18 20:00 Nasal Cannula 2.0 10/06/18 20:00 98.4 61 20 119/64 (82) 98 10/06/18 20:00 2.0 10/06/18 17:06 118/75 10/06/18 16:00 Nasal Cannula 2.0 10/06/18 16:00 84 10/06/18 16:00 98.5 90 18 118/75 (89) 99 Intake and Output 10/06/18 10/07/18 19:00 07:00 Intake Total 840 ml Output Total 700 ml Balance 140 ml Intake Oral 840 ml Output Urine Total 700 ml # Voids 3 # Bowel Movements 1 Laboratory Tests 10/07/18 05:57: White Blood Count 6.1, Red Blood Count 3.06L, Hemoglobin 10.0L, Hematocrit 30.3L , Mean Corpuscular Volume 99, Mean Corpuscular Hemoglobin 32.7H, Mean Corpuscular Hemoglobin Concent 33.0, Red Cell Distribution Width 15.4H, Platelet Count 286, Mean Platelet Volume 6.8, Neutrophils (%) (Auto) 62.1, Lymphocytes (%) (Auto) 23.9, Monocytes (%) (Auto) 10.1H, Eosinophils (%) (Auto) 3.1H, Basophils (%) (Auto) 0.8, Sodium Level 141, Potassium Level 4.4, Chloride Level 105, Carbon Dioxide Level 26, Anion Gap 10, Blood Urea Nitrogen 58H, Creatinine 3.6H, Estimat Glomerular Filtration Rate , Glucose Level 173H, Uric Acid 8.7H, Calcium Level 8.9, Phosphorus Level 4.9, Magnesium Level 2.4, Total Bilirubin 0.6, Direct Bilirubin 0.3, Aspartate Amino Transf (AST/SGOT) 12L, Alanine Aminotransferase (ALT/SGPT) 13, Alkaline Phosphatase 39L, Pro-B-Type Natriuretic Peptide 63942Q, Total Protein 6.7, Albumin 3.0L 10/07/18 06:30: Urine Eosinophils None seen Height (Feet): 5 Height (Inches): 0.00 Weight (Pounds): 124 General Appearance: no apparent distress, lethargic Cardiovascular: normal rate Respiratory/Chest: decreased breath sounds Abdomen: soft Varinder Valdez MD Oct 07, 2018 13:49
--- NOTE | 2018-10-07 14:04 | Cardiac Electrophysiology PN ---
Assessment/Plan Assessment/Plan 1. Atrial fibrillation with rapid ventricular response. On Coreg to 25 mg b.i.d. The patient is on aspirin and Plavix for anticoagulation. 2. Non-ST elevation myocardial infarction with troponin of 2.8, 2.7, and 2.8. This could be due to renal failure. The patient's creatinine is 2.8. The patient currently does not have any chest pain. She is already on aspirin and Plavix and beta-michi per Dr. Meraz 3. Congestive heart failure. BNP of 34,000. Echo EF 40%. The patient is on Coreg 4. Hypothyroidism. On Synthroid. 5. ARF Cr 3.6. Off Lasix, Al;dactone and ACEI Subjective Subjective HR better in atrial fib. Pulled out Casper Objective Last 24 Hour Vital Signs Date Time Temp Pulse Resp B/P (MAP) Pulse Ox O2 Delivery O2 Flow Rate FiO2 10/07/18 12:11 107/58 10/07/18 12:00 96.6 81 18 107/58 (74) 99 10/07/18 09:37 71 107/65 10/07/18 09:00 Nasal Cannula 2.0 10/07/18 08:00 71 18 97 Nasal Cannula 2.0 28 10/07/18 08:00 96 Nasal Cannula 2.0 28 10/07/18 08:00 82 10/07/18 08:00 98.4 85 17 107/65 (79) 97 10/07/18 05:29 113/66 10/07/18 04:00 2.0 10/07/18 04:00 82 10/07/18 04:00 98.2 84 18 113/66 (82) 98 10/07/18 00:00 83 10/07/18 00:00 2.0 10/07/18 00:00 98.2 84 18 112/57 (75) 97 10/06/18 23:58 112/58 10/06/18 20:37 98 Nasal Cannula 2.0 28 10/06/18 20:33 61 119/64 10/06/18 20:05 79 18 98 Nasal Cannula 2.0 28 10/06/18 20:00 81 10/06/18 20:00 Nasal Cannula 2.0 10/06/18 20:00 98.4 61 20 119/64 (82) 98 10/06/18 20:00 2.0 10/06/18 17:06 118/75 10/06/18 16:00 Nasal Cannula 2.0 10/06/18 16:00 84 10/06/18 16:00 98.5 90 18 118/75 (89) 99 Intake and Output 10/06/18 10/07/18 19:00 07:00 Intake Total 840 ml Output Total 700 ml Balance 140 ml Intake Oral 840 ml Output Urine Total 700 ml # Voids 3 # Bowel Movements 1 Laboratory Tests Test 10/07/18 05:57 10/07/18 06:30 White Blood Count 6.1 K/UL (4.8-10.8) Red Blood Count 3.06 M/UL (4.20-5.40) L Hemoglobin 10.0 G/DL (12.0-16.0) L Hematocrit 30.3 % (37.0-47.0) L Mean Corpuscular Volume 99 FL (80-99) Mean Corpuscular Hemoglobin 32.7 PG (27.0-31.0) H Mean Corpuscular Hemoglobin Concent 33.0 G/DL (32.0-36.0) Red Cell Distribution Width 15.4 % (11.6-14.8) H Platelet Count 286 K/UL (150-450) Mean Platelet Volume 6.8 FL (6.5-10.1) Neutrophils (%) (Auto) 62.1 % (45.0-75.0) Lymphocytes (%) (Auto) 23.9 % (20.0-45.0) Monocytes (%) (Auto) 10.1 % (1.0-10.0) H Eosinophils (%) (Auto) 3.1 % (0.0-3.0) H Basophils (%) (Auto) 0.8 % (0.0-2.0) Sodium Level 141 MMOL/L (136-145) Potassium Level 4.4 MMOL/L (3.5-5.1) Chloride Level 105 MMOL/L (98-107) Carbon Dioxide Level 26 MMOL/L (21-32) Anion Gap 10 mmol/L (5-15) Blood Urea Nitrogen 58 mg/dL (7-18) H Creatinine 3.6 MG/DL (0.55-1.30) H Estimat Glomerular Filtration Rate mL/min (>60) Glucose Level 173 MG/DL (74-106) H Uric Acid 8.7 MG/DL (2.6-7.2) H Calcium Level 8.9 MG/DL (8.5-10.1) Phosphorus Level 4.9 MG/DL (2.5-4.9) Magnesium Level 2.4 MG/DL (1.8-2.4) Total Bilirubin 0.6 MG/DL (0.2-1.0) Direct Bilirubin 0.3 MG/DL (0.0-0.3) Aspartate Amino Transf (AST/SGOT) 12 U/L (15-37) L Alanine Aminotransferase (ALT/SGPT) 13 U/L (12-78) Alkaline Phosphatase 39 U/L (46-116) L Pro-B-Type Natriuretic Peptide 63961 pg/mL (0-125) H Total Protein 6.7 G/DL (6.4-8.2) Albumin 3.0 G/DL (3.4-5.0) L Urine Eosinophils None seen (NONE SEEN) Objective HEAD AND NECK: Shows mild JVD. LUNGS: Decreased breath sounds. CARDIOVASCULAR: Irregular S1 and S2 with no gallop or murmur. ABDOMEN: Soft. EXTREMITIES: Have no pitting edema. Steven Robert MD Oct 07, 2018 14:04
--- NOTE | 2018-10-07 14:41 | NUR ---
NURSE NOTES: Notified Dr. Valdez regarding urine residual of 130mL based on the bladder scan. Per Dr. Valdez reinsert Casper due to elevated BUN and Cr. Carried out the order.
[2018-10-07 16:00] VITALS: BP 111/68
--- NOTE | 2018-10-07 16:13 | NUR ---
NURSE NOTES: Called Aline, major case detective regarding update of transferring the patient to [facility] for cardiac cath. Per Aline, she will call back and update. Will wait for the response.
--- NOTE | 2018-10-07 18:51 | Internal Med Progress Note ---
Subjective Date of Service: Oct 07, 2018 Physician Name Morgan Ha Attending Physician Morgan Ha MD Current Medications Medications (Trade) Dose Ordered Sig/Tatianna Route PRN Reason Start Time Stop Time Status Last Admin Dose Admin Acetaminophen (Tylenol) 650 mg Q4H PRN ORAL Fever 10/05/18 16:32 11/04/18 16:31 Albuterol/ Ipratropium (Albuterol/ Ipratropium) 3 ml Q4H PRN HHN Shortness of Breath 10/05/18 16:32 10/10/18 16:31 Aspirin (ASA) 325 mg DAILY ORAL 10/06/18 09:00 11/02/18 15:44 10/07/18 09:36 Carvedilol (Coreg) 25 mg EVERY 12 HOURS ORAL 10/07/18 21:00 11/02/18 20:59 Clopidogrel Bisulfate (Plavix) 75 mg DAILY ORAL 10/06/18 09:00 11/03/18 08:59 10/07/18 09:38 Dextrose (Dextrose 50%) 25 ml Q30M PRN IV Hypoglycemia 10/05/18 17:00 11/02/18 14:29 Dextrose (Dextrose 50%) 50 ml Q30M PRN IV Hypoglycemia 10/05/18 17:00 11/02/18 14:29 Diltiazem HCl (Cardizem) 10 mg Q1H PRN IV heart rate more than 120, 10/05/18 16:48 11/04/18 16:47 Heparin Sodium (Porcine) (Heparin 5000 units/ml) 5,000 units EVERY 12 HOURS SUBQ 10/05/18 21:00 11/02/18 20:59 10/07/18 09:36 Hydralazine HCl (Apresoline) 10 mg EVERY 6 HOURS ORAL 10/05/18 18:00 11/02/18 21:59 10/07/18 17:29 Insulin Aspart (NovoLOG) BEFORE MEALS AND HS SUBQ 10/05/18 21:00 11/04/18 20:59 10/07/18 17:23 Levothyroxine Sodium (Synthroid) 125 mcg Q24H ORAL 10/06/18 06:30 11/03/18 06:29 10/07/18 05:30 Ondansetron HCl (Zofran) 4 mg Q6H PRN IVP Nausea & Vomiting 10/05/18 16:33 11/04/18 16:32 Pantoprazole (Protonix) 40 mg EVERY 12 HOURS ORAL 10/05/18 21:00 11/03/18 20:59 10/07/18 09:38 Polyethylene Glycol (Miralax) 17 gm DAILYPRN PRN ORAL Constipation 10/05/18 16:33 11/04/18 16:32 Temazepam (Restoril) 15 mg HSPRN PRN ORAL Insomnia 10/05/18 16:32 10/12/18 16:31 Allergies: Coded Allergies: No Known Allergies (Verified , 07/20/11) ROS Limited/Unobtainable: No Constitutional: Reports: no symptoms HEENT: Reports: no symptoms Cardiovascular: Reports: no symptoms Respiratory: Reports: shortness of breath Gastrointestinal/Abdominal: Reports: no symptoms Genitourinary: Reports: no symptoms Neurologic/Psychiatric: Reports: no symptoms Subjective 83 YO F admitted with dyspnea. Now congestive heart failure, atrial fibrillation with rapid ventricular rate and elevated troponin. Await transfer to contracted facility Objective Last Vital Signs Date Time Temp Pulse Resp B/P (MAP) Pulse Ox O2 Delivery O2 Flow Rate FiO2 10/07/18 17:29 111/68 10/07/18 16:00 98.8 84 18 98 10/07/18 09:00 Nasal Cannula 2.0 10/07/18 08:00 28 Laboratory Tests Test 10/07/18 05:57 10/07/18 06:30 White Blood Count 6.1 K/UL (4.8-10.8) Red Blood Count 3.06 M/UL (4.20-5.40) L Hemoglobin 10.0 G/DL (12.0-16.0) L Hematocrit 30.3 % (37.0-47.0) L Mean Corpuscular Volume 99 FL (80-99) Mean Corpuscular Hemoglobin 32.7 PG (27.0-31.0) H Mean Corpuscular Hemoglobin Concent 33.0 G/DL (32.0-36.0) Red Cell Distribution Width 15.4 % (11.6-14.8) H Platelet Count 286 K/UL (150-450) Mean Platelet Volume 6.8 FL (6.5-10.1) Neutrophils (%) (Auto) 62.1 % (45.0-75.0) Lymphocytes (%) (Auto) 23.9 % (20.0-45.0) Monocytes (%) (Auto) 10.1 % (1.0-10.0) H Eosinophils (%) (Auto) 3.1 % (0.0-3.0) H Basophils (%) (Auto) 0.8 % (0.0-2.0) Sodium Level 141 MMOL/L (136-145) Potassium Level 4.4 MMOL/L (3.5-5.1) Chloride Level 105 MMOL/L (98-107) Carbon Dioxide Level 26 MMOL/L (21-32) Anion Gap 10 mmol/L (5-15) Blood Urea Nitrogen 58 mg/dL (7-18) H Creatinine 3.6 MG/DL (0.55-1.30) H Estimat Glomerular Filtration Rate mL/min (>60) Glucose Level 173 MG/DL (74-106) H Uric Acid 8.7 MG/DL (2.6-7.2) H Calcium Level 8.9 MG/DL (8.5-10.1) Phosphorus Level 4.9 MG/DL (2.5-4.9) Magnesium Level 2.4 MG/DL (1.8-2.4) Total Bilirubin 0.6 MG/DL (0.2-1.0) Direct Bilirubin 0.3 MG/DL (0.0-0.3) Aspartate Amino Transf (AST/SGOT) 12 U/L (15-37) L Alanine Aminotransferase (ALT/SGPT) 13 U/L (12-78) Alkaline Phosphatase 39 U/L (46-116) L Pro-B-Type Natriuretic Peptide 91054 pg/mL (0-125) H Total Protein 6.7 G/DL (6.4-8.2) Albumin 3.0 G/DL (3.4-5.0) L Urine Eosinophils None seen (NONE SEEN) Intake and Output 10/06/18 10/07/18 19:00 07:00 Intake Total 840 ml Output Total 700 ml Balance 140 ml Intake Oral 840 ml Output Urine Total 700 ml # Voids 3 # Bowel Movements 1 Objective PHYSICAL EXAMINATION: GENERAL: The patient is a well-developed and well-nourished female, in no apparent distress. HEENT: Eyes, pupils are equal and responsive to light and accommodation. Extraocular movements are intact. NECK: Supple without lymphadenopathy. CHEST: Crackles in bilateral bases. Otherwise, clear to auscultation without wheezes or rales. CARDIOVASCULAR: Irregular rhythm and irregular rate. S1 and S2 are normal without murmurs, rubs, or gallops. ABDOMEN: Soft, nontender, and nondistended. Positive bowel sounds. No evidence of hepatosplenomegaly. Currently, no rebound or guarding noted. EXTREMITIES: Negative for clubbing, cyanosis, or edema. RECTAL/GENITAL: Not performed. NEUROLOGIC: Cranial nerves II through XII are grossly intact without focal deficits. Motor strength is 5/5 bilaterally. Deep tendon reflexes are 2+ plantar. Assessment/Plan Problem List: (1) Renal failure Assessment & Plan: ?acute on chronic? See nephrology note=Dr Valdez (2) Dyspnea (3) CHF exacerbation Assessment & Plan: BNP=>34,000; LVEF=40%. See cardiology note=Samantha Lang and Yesica (4) Elevated troponin Assessment & Plan: NSSTEMI? See cardiology note. (5) Paroxysmal A-fib Assessment & Plan: With rapid ventricular rate. Continue IV diltiazem (6) HTN (hypertension) (7) Diabetes mellitus Assessment & Plan: Continue novolog sliding scale (8) Hypothyroidism Assessment & Plan: Continue synthroid (9) Acute respiratory failure Assessment & Plan: Due to CHF (10) Hypercholesterolemia Assessment/Plan Transfer to contracted hospital, [facility]-see case management note. Morgan Ha MD Oct 07, 2018 18:51
--- NOTE | 2018-10-07 19:45 | NUR ---
NURSE NOTES: Received patient from JANNETH Harrison in stable condition, in bed , resting comfortably. On O2@2L nasal cannula. AOx 3, Urdu speaking patient. Able to make needs known. Denies pain at this time. IV site on Left hand G20 and Right forearm G20 patent, no s/sx of infiltration or phlebitis. Casper catheter draining to gravity, patent. Bed lowest position, brakes on, call light within reach, will continue to monitor and reassess.
--- NOTE | 2018-10-07 19:59 | NUR ---
HAND-OFF: Report given to JANNETH Cuadra. The patient is resting on the bed without acute distress or shortness of breath. The patient's bed in the lowest position, call light in reach, and fall and aspiration precaution reinforced. Endorsed plan of care.
[2018-10-07 20:00] VITALS: BP 111/59
[2018-10-08] VITALS: BP 118/61
[2018-10-08] MEDS: HydrALAZINE 10mg Tab ORAL SCH ×4 (00:24→18:15)
[2018-10-08 04:00] VITALS: BP 108/60
--- NOTE | 2018-10-08 04:45 | Progress Note ---
DATE: 10/07/2018 CARDIOLOGY PROGRESS NOTE SUBJECTIVE: The patient remains with atrial fibrillation with adequate rate control. No apparent chest pain. Denies shortness of breath. OBJECTIVE: LUNGS: Diminished breath sounds with few rales. HEART: Irregularly irregular rhythm. Normal S1 and S2. ABDOMEN: Soft. EXTREMITIES: Trace edema. LABORATORY DATA: The troponin now has decreased to the range of 1.5. IMPRESSION: 1. Acute myocardial infarction. 2. Acute on chronic systolic and diastolic congestive heart failure. 3. Paroxysmal atrial fibrillation now with controlled ventricular response. 4. Hypothyroidism, on replacement therapy. 5. Acute on chronic renal failure. PLAN: 1. Continue antiplatelet therapy. 2. Discontinue diuretics and angiotensin-converting enzyme inhibitors. 3. Monitor renal function closely. 4. Await transfer for cardiac catheterization. 5. Maintain beta-blockade. Brady Meraz M.D. DR: CHRISTEN JOB#: [id number] CC:
[2018-10-08] MEDS: Levothyroxine 125mcg tab ORAL SCH (05:34)
[2018-10-08] MEDS: NovoLOG Insulin Flexpen SUBQ SCH ×4 (05:37→21:49)
[2018-10-08 06:54] LABS: BASOPHILS % (AUTO) 0.6 % (0.0-2.0); HEMATOCRIT 30.2 % (37.0-47.0); HEMOGLOBIN 9.9 G/DL (12.0-16.0); LYMPHOCYTES % (AUTO) 19.7 % (20.0-45.0); MEAN CORPUSCULAR VOLUME 99 FL (80-99); MONOCYTES % (AUTO) 5.6 % (1.0-10.0); NEUTROPHILS % (AUTO) 72.1 % (45.0-75.0); PLATELET COUNT 296 K/UL (150-450); RED BLOOD COUNT 3.04 M/UL (4.20-5.40); WHITE BLOOD COUNT 7.8 K/UL (4.8-10.8)
--- NOTE | 2018-10-08 07:03 | NUR ---
HAND-OFF: Report given to JANNETH Harrison. Patient is awake sitting [employer] eating breakfast. In stable condition.
--- NOTE | 2018-10-08 07:10 | NUR ---
NURSE NOTES: Received report from JANNETH Cuadra. The patient is resting on the bed without acute distress or shortness of breath. The patient's bed in the lowest position, call light in reach, and fall and aspiration precaution reinforced. Will continue plan of care.
[2018-10-08 07:40] LABS: ALANINE AMINOTRANSFERASE 15 U/L (12-78); ALBUMIN 3.1 G/DL (3.4-5.0); ALBUMIN/GLOBULIN RATIO 0.9 (1.0-2.7); ALKALINE PHOSPHATASE 40 U/L (46-116); ANION GAP 12 mmol/L (5-15); ASPARTATE AMINO TRANSFERASE 14 U/L (15-37); BILIRUBIN,TOTAL 0.8 MG/DL (0.2-1.0); BLOOD UREA NITROGEN 63 mg/dL (7-18); CALCIUM 9.1 MG/DL (8.5-10.1); CARBON DIOXIDE 25 MMOL/L (21-32); CHLORIDE 109 MMOL/L (98-107); CREATININE 3.2 MG/DL (0.55-1.30); PHOSPHORUS 4.8 MG/DL (2.5-4.9); POTASSIUM 4.8 MMOL/L (3.5-5.1); SODIUM 145 MMOL/L (136-145)
[2018-10-08 08:00] VITALS: BP 100/57
[2018-10-08] MEDS: Carvedilol 25mg Tab ORAL SCH (08:45)
[2018-10-08] MEDS: Heparin 5000 units/ml inj SUBQ SCH ×2 (08:46→21:44)
--- NOTE | 2018-10-08 09:00 | NUR ---
NURSE NOTES: Dr. Valdez came in and discussed about progressive result of renal function. He will review further ahead and will talk to watch case polisher for the patient's case. Will continue to monitor the patient and carry out the order as soon as receives it.
--- NOTE | 2018-10-08 11:17 | Pulmonology Progress Note ---
Assessment/Plan Problems: (1) CHF exacerbation (2) Paroxysmal A-fib (3) Anemia, chronic renal failure (4) Hypothyroidism (5) Diabetes mellitus (6) Diabetic nephropathy (7) HTN (hypertension) Assessment/Plan so far 2.6 liter negative fluid balance watch bun/creatinine, off lasix, off zaroxylin heart rate controlled CXR 10/06 reviewed, Left side improved. R LL infiltrate chest PT titrate cardiac meds titrate fio2 to sat of 92% could go home in 1-2 days. Subjective ROS Limited/Unobtainable: No Constitutional: Reports: no symptoms HEENT: Repors: no symptoms Respiratory: Reports: no symptoms Allergies: Coded Allergies: No Known Allergies (Verified , 07/20/11) Objective Last 24 Hour Vital Signs Date Time Temp Pulse Resp B/P (MAP) Pulse Ox O2 Delivery O2 Flow Rate FiO2 10/08/18 10:03 99 Nasal Cannula 2.0 28 10/08/18 10:03 79 18 99 Nasal Cannula 2.0 28 10/08/18 08:45 84 100/57 10/08/18 08:00 77 10/08/18 08:00 98.2 84 18 100/57 (71) 99 10/08/18 05:35 108/60 10/08/18 04:00 73 10/08/18 04:00 98.2 82 19 108/60 (76) 98 10/08/18 00:24 118/61 10/08/18 00:00 77 10/08/18 00:00 98.5 82 19 118/61 (80) 97 10/07/18 21:00 Nasal Cannula 2.0 10/07/18 20:27 84 111/59 10/07/18 20:00 83 10/07/18 20:00 98.5 83 18 111/59 (76) 98 10/07/18 19:50 76 18 97 Nasal Cannula 2.0 28 10/07/18 19:50 97 Nasal Cannula 2.0 28 10/07/18 17:29 111/68 10/07/18 16:00 98.8 84 18 111/68 (82) 98 10/07/18 16:00 84 10/07/18 12:11 107/58 10/07/18 12:00 96.6 81 18 107/58 (74) 99 10/07/18 12:00 72 Intake and Output 7/1/19 7/2/19 19:00 07:00 Intake Total 300 ml 120 ml Output Total 1200 ml Balance 300 ml -1080 ml Intake Oral 300 ml 120 ml Output Urine Total 1200 ml # Bowel Movements 4 2 General Appearance: WD/WN HEENT: normocephalic, atraumatic Respiratory/Chest: chest wall non-tender, lungs clear Breasts: no masses Cardiovascular: normal peripheral pulses, regular rhythm Abdomen: normal bowel sounds, soft, non tender Laboratory Tests 10/08/18 05:47: White Blood Count 7.8, Red Blood Count 3.04L, Hemoglobin 9.9L, Hematocrit 30.2L , Mean Corpuscular Volume 99, Mean Corpuscular Hemoglobin 32.6H, Mean Corpuscular Hemoglobin Concent 32.9, Red Cell Distribution Width 15.0H, Platelet Count 296, Mean Platelet Volume 6.9, Neutrophils (%) (Auto) 72.1, Lymphocytes (%) (Auto) 19.7L, Monocytes (%) (Auto) 5.6, Eosinophils (%) (Auto) 2.0, Basophils (%) (Auto) 0.6, Sodium Level 145, Potassium Level 4.8, Chloride Level 109H, Carbon Dioxide Level 25, Anion Gap 12, Blood Urea Nitrogen 63H, Creatinine 3.2H, Estimat Glomerular Filtration Rate , Glucose Level 166H, Uric Acid 8.2H, Calcium Level 9.1, Phosphorus Level 4.8, Magnesium Level 2.5H, Total Bilirubin 0.8, Aspartate Amino Transf (AST/SGOT) 14L, Alanine Aminotransferase ( ALT/SGPT) 15, Alkaline Phosphatase 40L, Troponin I 0.116H, C-Reactive Protein, Quantitative 0.9, Total Protein 6.6, Albumin 3.1L, Globulin 3.5, Albumin/ Globulin Ratio 0.9L, Digoxin Level 1.5 Current Medications Medications (Trade) Dose Ordered Sig/Tatianna Route PRN Reason Start Time Stop Time Status Last Admin Dose Admin Acetaminophen (Tylenol) 650 mg Q4H PRN ORAL Fever 10/05/18 16:32 11/04/18 16:31 Albuterol/ Ipratropium (Albuterol/ Ipratropium) 3 ml Q4H PRN HHN Shortness of Breath 10/05/18 16:32 10/10/18 16:31 Aspirin (ASA) 325 mg DAILY ORAL 10/06/18 09:00 11/02/18 15:44 10/08/18 08:44 Carvedilol (Coreg) 25 mg EVERY 12 HOURS ORAL 10/07/18 21:00 11/02/18 20:59 10/07/18 20:27 Clopidogrel Bisulfate (Plavix) 75 mg DAILY ORAL 10/06/18 09:00 11/03/18 08:59 10/08/18 08:45 Dextrose (Dextrose 50%) 25 ml Q30M PRN IV Hypoglycemia 10/05/18 17:00 11/02/18 14:29 Dextrose (Dextrose 50%) 50 ml Q30M PRN IV Hypoglycemia 10/05/18 17:00 11/02/18 14:29 Diltiazem HCl (Cardizem) 10 mg Q1H PRN IV heart rate more than 120, 10/05/18 16:48 11/04/18 16:47 Heparin Sodium (Porcine) (Heparin 5000 units/ml) 5,000 units EVERY 12 HOURS SUBQ 10/05/18 21:00 11/02/18 20:59 10/08/18 08:46 Hydralazine HCl (Apresoline) 10 mg EVERY 6 HOURS ORAL 10/05/18 18:00 11/02/18 21:59 10/08/18 05:35 Insulin Aspart (NovoLOG) BEFORE MEALS AND HS SUBQ 10/05/18 21:00 11/04/18 20:59 10/08/18 05:37 Levothyroxine Sodium (Synthroid) 125 mcg Q24H ORAL 10/06/18 06:30 11/03/18 06:29 10/08/18 05:34 Ondansetron HCl (Zofran) 4 mg Q6H PRN IVP Nausea & Vomiting 10/05/18 16:33 11/04/18 16:32 Pantoprazole (Protonix) 40 mg EVERY 12 HOURS ORAL 10/05/18 21:00 11/03/18 20:59 10/08/18 08:45 Polyethylene Glycol (Miralax) 17 gm DAILYPRN PRN ORAL Constipation 10/05/18 16:33 11/04/18 16:32 Temazepam (Restoril) 15 mg HSPRN PRN ORAL Insomnia 10/05/18 16:32 10/12/18 16:31 Aure Ortega MD Oct 08, 2018 11:17
--- NOTE | 2018-10-08 11:49 | NUR ---
CASE MANAGEMENT:REVIEW 10/08/18 SI: CHF EXACERBATION. PAFIB. NSTEMI RLL INFILTRATE 98.2 84 18 100/57 99% ON 2L/NC H/H-9.9/30.2 BUN+63 CR+3.2 TROPONIN(+) 0.116 IS: COREG PO Q12 ASA PO QD PLAVIX PO QD HEPARIN SQ Q12 PROTONIX PO Q12 HYDRALAZINE PO Q6HRS : TELEMETRY STATUS DCP: FROM HOME
[2018-10-08 12:00] VITALS: BP 103/54
--- NOTE | 2018-10-08 12:23 | NUR ---
TRANSFER UPDATE [employer] NOT IN AGREEMENT TO TRANSFER THIS PATIENT TO ANY OTHER HOSPITAL DISCHARGE PLAN IS FOR HOME
--- NOTE | 2018-10-08 13:23 | NUR ---
INSURANCE UPDATED CLINICALS FAXED TO F [phone]
--- NOTE | 2018-10-08 13:30 | NUR ---
NURSE NOTES: Notified Dr. Meraz and Dr. Robert regarding 6 beats of PVT. The patient denies of acute distress or shortness of breath. Will carry out the order as soon as receives it. Will continue to monitor the patient closely.
--- NOTE | 2018-10-08 14:40 | Nephrology Progress Note ---
Assessment/Plan Problem List: (1) Renal failure (ARF), acute on chronic (2) Diabetic nephropathy (3) Anemia, chronic renal failure (4) Paroxysmal A-fib (5) CHF exacerbation Assessment: cardiomyopathy, Ej fx 40% Assessment Acute on Chronic renal failure Anemia: CKD & or Low Iron Troponin rise Atrial Fib with FVR, h/o PAT CHF Low EjFx 40% DM High Lipids UTI Plan Post voiding bladder scan Avoid nephrotoxics HR management Keep BP and BS in check Monitor renal parameters monitor Dig level resume dig Subjective ROS Limited/Unobtainable: No Constitutional: Reports: malaise, weakness Objective Objective Last 24 Hour Vital Signs Date Time Temp Pulse Resp B/P (MAP) Pulse Ox O2 Delivery O2 Flow Rate FiO2 10/08/18 12:04 110/58 10/08/18 12:00 98.5 66 18 103/54 (70) 99 10/08/18 12:00 70 10/08/18 10:03 99 Nasal Cannula 2.0 10/08/18 10:03 79 18 99 Nasal Cannula 2.0 28 10/08/18 09:00 Nasal Cannula 2.0 10/08/18 08:45 84 100/57 10/08/18 08:00 77 10/08/18 08:00 98.2 84 18 100/57 (71) 99 10/08/18 05:35 108/60 10/08/18 04:00 73 10/08/18 04:00 98.2 82 19 108/60 (76) 98 10/08/18 00:24 118/61 10/08/18 00:00 77 10/08/18 00:00 98.5 82 19 118/61 (80) 97 10/07/18 21:00 Nasal Cannula 2.0 10/07/18 20:27 84 111/59 10/07/18 20:00 83 10/07/18 20:00 98.5 83 18 111/59 (76) 98 10/07/18 19:50 76 18 97 Nasal Cannula 2.0 28 10/07/18 19:50 97 Nasal Cannula 2.0 28 10/07/18 17:29 111/68 10/07/18 16:00 98.8 84 18 111/68 (82) 98 10/07/18 16:00 84 Intake and Output 10/07/18 10/08/18 19:00 07:00 Intake Total 300 ml 120 ml Output Total 1200 ml Balance 300 ml -1080 ml Intake Oral 300 ml 120 ml Output Urine Total 1200 ml # Bowel Movements 4 2 Laboratory Tests 10/08/18 05:47: White Blood Count 7.8, Red Blood Count 3.04L, Hemoglobin 9.9L, Hematocrit 30.2L , Mean Corpuscular Volume 99, Mean Corpuscular Hemoglobin 32.6H, Mean Corpuscular Hemoglobin Concent 32.9, Red Cell Distribution Width 15.0H, Platelet Count 296, Mean Platelet Volume 6.9, Neutrophils (%) (Auto) 72.1, Lymphocytes (%) (Auto) 19.7L, Monocytes (%) (Auto) 5.6, Eosinophils (%) (Auto) 2.0, Basophils (%) (Auto) 0.6, Sodium Level 145, Potassium Level 4.8, Chloride Level 109H, Carbon Dioxide Level 25, Anion Gap 12, Blood Urea Nitrogen 63H, Creatinine 3.2H, Estimat Glomerular Filtration Rate , Glucose Level 166H, Uric Acid 8.2H, Calcium Level 9.1, Phosphorus Level 4.8, Magnesium Level 2.5H, Total Bilirubin 0.8, Aspartate Amino Transf (AST/SGOT) 14L, Alanine Aminotransferase ( ALT/SGPT) 15, Alkaline Phosphatase 40L, Troponin I 0.116H, C-Reactive Protein, Quantitative 0.9, Total Protein 6.6, Albumin 3.1L, Globulin 3.5, Albumin/ Globulin Ratio 0.9L, Digoxin Level 1.5 Height (Feet): 5 Height (Inches): 0.00 Weight (Pounds): 117 General Appearance: no apparent distress Respiratory/Chest: decreased breath sounds Abdomen: soft Varinder Valdez MD Oct 08, 2018 14:39
--- NOTE | 2018-10-08 15:18 | NUR ---
NURSE NOTES: Called Jesenia, briefcase sewer, regarding possible transfer to [place] for cardiac cath. Per Jesenia's latest note, the patient cannot be transferred to other hospital but needs to be discharged to home due to insurance issue. Not clear about the note and call Yadi but no answer and left voicemail. Will follow up with Jesenia and will continue plan of care.
[2018-10-08 16:00] VITALS: BP 120/63
--- NOTE | 2018-10-08 17:00 | Internal Med Progress Note ---
Subjective Date of Service: Oct 08, 2018 Physician Name Morgan Ha Attending Physician Morgan Ha MD Current Medications Medications (Trade) Dose Ordered Sig/Tatianna Route PRN Reason Start Time Stop Time Status Last Admin Dose Admin Acetaminophen (Tylenol) 650 mg Q4H PRN ORAL Fever 10/05/18 16:32 11/04/18 16:31 Albuterol/ Ipratropium (Albuterol/ Ipratropium) 3 ml Q4H PRN HHN Shortness of Breath 10/05/18 16:32 10/10/18 16:31 Aspirin (ASA) 325 mg DAILY ORAL 10/06/18 09:00 11/02/18 15:44 10/08/18 08:44 Carvedilol (Coreg) 12.5 mg EVERY 12 HOURS ORAL 10/08/18 21:00 11/02/18 20:59 Clopidogrel Bisulfate (Plavix) 75 mg DAILY ORAL 10/06/18 09:00 11/03/18 08:59 10/08/18 08:45 Dextrose (Dextrose 50%) 25 ml Q30M PRN IV Hypoglycemia 10/05/18 17:00 11/02/18 14:29 Dextrose (Dextrose 50%) 50 ml Q30M PRN IV Hypoglycemia 10/05/18 17:00 11/02/18 14:29 Digoxin (Lanoxin) 0.125 mg QOD ORAL 10/09/18 09:00 11/08/18 08:59 Diltiazem HCl (Cardizem) 10 mg Q1H PRN IV heart rate more than 120, 10/05/18 16:48 11/04/18 16:47 Heparin Sodium (Porcine) (Heparin 5000 units/ml) 5,000 units EVERY 12 HOURS SUBQ 10/05/18 21:00 11/02/18 20:59 10/08/18 08:46 Hydralazine HCl (Apresoline) 10 mg EVERY 6 HOURS ORAL 10/05/18 18:00 11/02/18 21:59 10/08/18 12:04 Insulin Aspart (NovoLOG) BEFORE MEALS AND HS SUBQ 10/05/18 21:00 11/04/18 20:59 10/08/18 11:59 Levothyroxine Sodium (Synthroid) 125 mcg Q24H ORAL 10/06/18 06:30 11/03/18 06:29 10/08/18 05:34 Ondansetron HCl (Zofran) 4 mg Q6H PRN IVP Nausea & Vomiting 10/05/18 16:33 11/04/18 16:32 Pantoprazole (Protonix) 40 mg EVERY 12 HOURS ORAL 10/05/18 21:00 11/03/18 20:59 10/08/18 08:45 Polyethylene Glycol (Miralax) 17 gm DAILYPRN PRN ORAL Constipation 10/05/18 16:33 11/04/18 16:32 Temazepam (Restoril) 15 mg HSPRN PRN ORAL Insomnia 10/05/18 16:32 10/12/18 16:31 Allergies: Coded Allergies: No Known Allergies (Verified , 07/20/11) ROS Limited/Unobtainable: No Constitutional: Reports: no symptoms HEENT: Reports: no symptoms Cardiovascular: Reports: no symptoms Gastrointestinal/Abdominal: Reports: no symptoms Genitourinary: Reports: no symptoms Neurologic/Psychiatric: Reports: no symptoms Subjective 83 YO F admitted with dyspnea. Now congestive heart failure, atrial fibrillation with rapid ventricular rate and elevated troponin. Worsening renal function Objective Last Vital Signs Date Time Temp Pulse Resp B/P (MAP) Pulse Ox O2 Delivery O2 Flow Rate FiO2 10/08/18 12:04 110/58 10/08/18 12:00 98.5 66 18 99 10/08/18 10:03 Nasal Cannula 2.0 28 Laboratory Tests Test 10/08/18 05:47 White Blood Count 7.8 K/UL (4.8-10.8) Red Blood Count 3.04 M/UL (4.20-5.40) L Hemoglobin 9.9 G/DL (12.0-16.0) L Hematocrit 30.2 % (37.0-47.0) L Mean Corpuscular Volume 99 FL (80-99) Mean Corpuscular Hemoglobin 32.6 PG (27.0-31.0) H Mean Corpuscular Hemoglobin Concent 32.9 G/DL (32.0-36.0) Red Cell Distribution Width 15.0 % (11.6-14.8) H Platelet Count 296 K/UL (150-450) Mean Platelet Volume 6.9 FL (6.5-10.1) Neutrophils (%) (Auto) 72.1 % (45.0-75.0) Lymphocytes (%) (Auto) 19.7 % (20.0-45.0) L Monocytes (%) (Auto) 5.6 % (1.0-10.0) Eosinophils (%) (Auto) 2.0 % (0.0-3.0) Basophils (%) (Auto) 0.6 % (0.0-2.0) Sodium Level 145 MMOL/L (136-145) Potassium Level 4.8 MMOL/L (3.5-5.1) Chloride Level 109 MMOL/L (98-107) H Carbon Dioxide Level 25 MMOL/L (21-32) Anion Gap 12 mmol/L (5-15) Blood Urea Nitrogen 63 mg/dL (7-18) H Creatinine 3.2 MG/DL (0.55-1.30) H Estimat Glomerular Filtration Rate mL/min (>60) Glucose Level 166 MG/DL (74-106) H Uric Acid 8.2 MG/DL (2.6-7.2) H Calcium Level 9.1 MG/DL (8.5-10.1) Phosphorus Level 4.8 MG/DL (2.5-4.9) Magnesium Level 2.5 MG/DL (1.8-2.4) H Total Bilirubin 0.8 MG/DL (0.2-1.0) Aspartate Amino Transf (AST/SGOT) 14 U/L (15-37) L Alanine Aminotransferase (ALT/SGPT) 15 U/L (12-78) Alkaline Phosphatase 40 U/L (46-116) L Troponin I 0.116 ng/mL (0.000-0.056) C-Reactive Protein, Quantitative 0.9 mg/dL (0.00-0.90) Total Protein 6.6 G/DL (6.4-8.2) Albumin 3.1 G/DL (3.4-5.0) L Globulin 3.5 g/dL Albumin/Globulin Ratio 0.9 (1.0-2.7) L Digoxin Level 1.5 NG/ML (0.9-2.0) Intake and Output 10/07/18 10/08/18 19:00 07:00 Intake Total 300 ml 120 ml Output Total 1200 ml Balance 300 ml -1080 ml Intake Oral 300 ml 120 ml Output Urine Total 1200 ml # Bowel Movements 4 2 Objective PHYSICAL EXAMINATION: GENERAL: The patient is a well-developed and well-nourished female, in no apparent distress. HEENT: Eyes, pupils are equal and responsive to light and accommodation. Extraocular movements are intact. NECK: Supple without lymphadenopathy. CHEST: Crackles in bilateral bases. Otherwise, clear to auscultation without wheezes or rales. CARDIOVASCULAR: Irregular rhythm and irregular rate. S1 and S2 are normal without murmurs, rubs, or gallops. ABDOMEN: Soft, nontender, and nondistended. Positive bowel sounds. No evidence of hepatosplenomegaly. Currently, no rebound or guarding noted. EXTREMITIES: Negative for clubbing, cyanosis, or edema. RECTAL/GENITAL: Not performed. NEUROLOGIC: Cranial nerves II through XII are grossly intact without focal deficits. Motor strength is 5/5 bilaterally. Deep tendon reflexes are 2+ plantar. Assessment/Plan Problem List: (1) Renal failure Assessment & Plan: ?acute on chronic? Worsening. See nephrology note=Dr Valdez (2) Dyspnea (3) CHF exacerbation Assessment & Plan: BNP=>34,000; LVEF=40%. See cardiology note=Samantha Lang and Yesica (4) Elevated troponin Assessment & Plan: NSSTEMI? See cardiology note. (5) Paroxysmal A-fib Assessment & Plan: With rapid ventricular rate. Continue IV diltiazem (6) HTN (hypertension) (7) Diabetes mellitus Assessment & Plan: Continue novolog sliding scale (8) Hypothyroidism Assessment & Plan: Continue synthroid (9) Acute respiratory failure Assessment & Plan: Due to CHF (10) Hypercholesterolemia Status: unchanged Morgan Ha MD Oct 08, 2018 17:00
--- NOTE | 2018-10-08 17:00 | NUR ---
NURSE NOTES: Clarification made with Jesenia regarding discharge planning. Spoke with Dr. Robert regarding 6 beats of PVT today and no new order per Dr. Robert. Dr. Meraz was also notified for the condition.
--- NOTE | 2018-10-08 18:27 | Cardiac Electrophysiology PN ---
Assessment/Plan Assessment/Plan 1. Atrial fibrillation with rapid ventricular response. On Coreg 25 mg bid and aspirin and Plavix 2. Nonsustained VT. Could be also Kathleen phenomenon. On Coreg 3. Non-ST elevation myocardial infarction with troponin of 2.8, 2.7, and 2.8. This could be due to renal failure. The patient's creatinine is 2.8. The patient currently does not have any chest pain. She is already on aspirin and Plavix and beta-michi per Dr. Meraz 4. Congestive heart failure. BNP of 34,000. Echo EF 40%. The patient is on Coreg 5. Hypothyroidism. On Synthroid. 6. ARF Cr 3.6. Off Lasix, Aldactone and ACEI Subjective Subjective HR better in atrial fib.Had 6 beats of nonsustained VT around 120 bpm Objective Last 24 Hour Vital Signs Date Time Temp Pulse Resp B/P (MAP) Pulse Ox O2 Delivery O2 Flow Rate FiO2 10/08/18 18:15 120/63 10/08/18 16:00 98.1 61 18 120/63 (82) 99 10/08/18 12:04 110/58 10/08/18 12:00 98.5 66 18 103/54 (70) 99 10/08/18 12:00 70 10/08/18 10:03 99 Nasal Cannula 2.0 28 10/08/18 10:03 79 18 99 Nasal Cannula 2.0 28 10/08/18 09:00 Nasal Cannula 2.0 10/08/18 08:45 84 100/57 10/08/18 08:00 77 10/08/18 08:00 98.2 84 18 100/57 (71) 99 10/08/18 05:35 108/60 10/08/18 04:00 73 10/08/18 04:00 98.2 82 19 108/60 (76) 98 10/08/18 00:24 118/61 10/08/18 00:00 77 10/08/18 00:00 98.5 82 19 118/61 (80) 97 10/07/18 21:00 Nasal Cannula 2.0 10/07/18 20:27 84 111/59 10/07/18 20:00 83 10/07/18 20:00 98.5 83 18 111/59 (76) 98 10/07/18 19:50 76 18 97 Nasal Cannula 2.0 28 10/07/18 19:50 97 Nasal Cannula 2.0 28 Neck: tenderness Intake and Output 10/07/18 10/08/18 19:00 07:00 Intake Total 300 ml 120 ml Output Total 1200 ml Balance 300 ml -1080 ml Intake Oral 300 ml 120 ml Output Urine Total 1200 ml # Bowel Movements 4 2 Laboratory Tests Test 10/08/18 05:47 White Blood Count 7.8 K/UL (4.8-10.8) Red Blood Count 3.04 M/UL (4.20-5.40) L Hemoglobin 9.9 G/DL (12.0-16.0) L Hematocrit 30.2 % (37.0-47.0) L Mean Corpuscular Volume 99 FL (80-99) Mean Corpuscular Hemoglobin 32.6 PG (27.0-31.0) H Mean Corpuscular Hemoglobin Concent 32.9 G/DL (32.0-36.0) Red Cell Distribution Width 15.0 % (11.6-14.8) H Platelet Count 296 K/UL (150-450) Mean Platelet Volume 6.9 FL (6.5-10.1) Neutrophils (%) (Auto) 72.1 % (45.0-75.0) Lymphocytes (%) (Auto) 19.7 % (20.0-45.0) L Monocytes (%) (Auto) 5.6 % (1.0-10.0) Eosinophils (%) (Auto) 2.0 % (0.0-3.0) Basophils (%) (Auto) 0.6 % (0.0-2.0) Sodium Level 145 MMOL/L (136-145) Potassium Level 4.8 MMOL/L (3.5-5.1) Chloride Level 109 MMOL/L (98-107) H Carbon Dioxide Level 25 MMOL/L (21-32) Anion Gap 12 mmol/L (5-15) Blood Urea Nitrogen 63 mg/dL (7-18) H Creatinine 3.2 MG/DL (0.55-1.30) H Estimat Glomerular Filtration Rate mL/min (>60) Glucose Level 166 MG/DL (74-106) H Uric Acid 8.2 MG/DL (2.6-7.2) H Calcium Level 9.1 MG/DL (8.5-10.1) Phosphorus Level 4.8 MG/DL (2.5-4.9) Magnesium Level 2.5 MG/DL (1.8-2.4) H Total Bilirubin 0.8 MG/DL (0.2-1.0) Aspartate Amino Transf (AST/SGOT) 14 U/L (15-37) L Alanine Aminotransferase (ALT/SGPT) 15 U/L (12-78) Alkaline Phosphatase 40 U/L (46-116) L Troponin I 0.116 ng/mL (0.000-0.056) C-Reactive Protein, Quantitative 0.9 mg/dL (0.00-0.90) Total Protein 6.6 G/DL (6.4-8.2) Albumin 3.1 G/DL (3.4-5.0) L Globulin 3.5 g/dL Albumin/Globulin Ratio 0.9 (1.0-2.7) L Digoxin Level 1.5 NG/ML (0.9-2.0) Objective HEAD AND NECK: Mild JVD. LUNGS: Decreased breath sounds. CARDIOVASCULAR: Irregular S1 and S2 with no gallop or murmur. ABDOMEN: Soft. EXTREMITIES: Have no pitting edema. Steven Robert MD Oct 08, 2018 18:27
--- NOTE | 2018-10-08 19:39 | NUR ---
NURSE NOTES: Received report from JANNETH Harrison, patient in stable condition, lying comfortably in bed, on O2 N/c @2L, no distress noted, able to make needs known. Denies pain at this time. F/C patent, draining to gravity. Bed lowest position, brakes on, side rails upx3.
[2018-10-08 20:00] VITALS: BP 98/52
[2018-10-08] MEDS: Carvedilol 12.5mg tab ORAL SCH (21:00)
[2018-10-09] VITALS: BP 105/64
[2018-10-09] MEDS: HydrALAZINE 10mg Tab ORAL SCH ×3 (00:21→12:35)
--- NOTE | 2018-10-09 01:00 | Progress Note ---
CARDIOLOGY PROGRESS NOTE DATE: 10/08/2018 SUBJECTIVE: The patient remains in atrial fibrillation with episodes of ventricular tachycardia. 16-beat run was noted earlier. OBJECTIVE: VITAL SIGNS: Blood pressure 120/63, pulse 61, respirations 18, and afebrile. LUNGS: Few rales. CARDIAC: Irregularly irregular rhythm. Normal S1, S2. A 1/6 systolic apical murmur. ABDOMEN: Soft. EXTREMITIES: No edema. LABORATORY DATA: White count 7.8, hemoglobin 9.9. BUN 63, creatinine 3.2. Troponin down to 0.116. IMPRESSION: 1. Gdl-WJ-bvzknntor myocardial infarction with low ejection fraction of approximately 40%, complicated by acute congestive heart failure. 2. Atrial and ventricular arrhythmias. 3. Renal failure. PLAN: 1. I recommend assessment of coronary anatomy. Insurance has refused to transfer the patient to a higher level of care. 2. We will try to optimize medically, however, standard of care would be assessment of coronary anatomy once renal parameters have been optimized. Brady Meraz M.D. DR: RIKY JOB#: [id number] CC:
[2018-10-09 04:00] VITALS: BP 128/60
[2018-10-09] MEDS: Levothyroxine 125mcg tab ORAL SCH (06:13)
[2018-10-09] MEDS: NovoLOG Insulin Flexpen SUBQ SCH ×2 (06:15→12:06)
--- NOTE | 2018-10-09 07:08 | NUR ---
HAND-OFF: Report given to JANNETH Harrison.Patient in stable condition
--- NOTE | 2018-10-09 07:09 | NUR ---
NURSE NOTES: Received report from JANNETH Cuadra. The patient is sitting on the bed without acute distress or shortness of breath. The patient's bed in the lowest position, call light in reach, and fall and aspiration precaution reinforced. IV site intact and patent. Will continue plan of care.
[2018-10-09 07:20] LABS: BASOPHILS % (AUTO) 1.1 % (0.0-2.0); EOSINOPHILS % (AUTO) 3.4 % (0.0-3.0); HEMATOCRIT 30.3 % (37.0-47.0); LYMPHOCYTES % (AUTO) 28.2 % (20.0-45.0); MEAN CORPUSCULAR VOLUME 100 FL (80-99); MONOCYTES % (AUTO) 8.6 % (1.0-10.0); NEUTROPHILS % (AUTO) 58.8 % (45.0-75.0); PLATELET COUNT 284 K/UL (150-450); RED BLOOD COUNT 3.04 M/UL (4.20-5.40); RED CELL DISTRIBUTION WIDTH 15.2 % (11.6-14.8); WHITE BLOOD COUNT 6.2 K/UL (4.8-10.8)
[2018-10-09 07:40] LABS: ANION GAP 10 mmol/L (5-15); BLOOD UREA NITROGEN 59 mg/dL (7-18); CALCIUM 9.2 MG/DL (8.5-10.1); CARBON DIOXIDE 26 MMOL/L (21-32); CHLORIDE 106 MMOL/L (98-107); CREATININE 2.8 MG/DL (0.55-1.30); POTASSIUM 4.7 MMOL/L (3.5-5.1); SODIUM 142 MMOL/L (136-145)
[2018-10-09 08:00] VITALS: BP 120/63
[2018-10-09] MEDS: Carvedilol 12.5mg tab ORAL SCH (08:36)
[2018-10-09] MEDS: Heparin 5000 units/ml inj SUBQ SCH (08:39)
[2018-10-09] MEDS ORDERED: Digoxin 0.125mg tab ORAL SCH (09:00)
--- NOTE | 2018-10-09 09:02 | Nephrology Progress Note ---
Assessment/Plan Problem List: (1) Renal failure (ARF), acute on chronic (2) Diabetic nephropathy (3) Anemia, chronic renal failure (4) Paroxysmal A-fib (5) CHF exacerbation Assessment: cardiomyopathy, Ej fx 40% Assessment Acute on Chronic renal failure Anemia: CKD & or Low Iron Troponin rise Atrial Fib with FVR, h/o PAT CHF Low EjFx 40% DM High Lipids UTI Plan DC pteersen Avoid nephrotoxics HR management Keep BP and BS in check Monitor renal parameters monitor Dig level resume dig DC planning? Subjective ROS Limited/Unobtainable: No Constitutional: Reports: malaise Objective Objective Last 24 Hour Vital Signs Date Time Temp Pulse Resp B/P (MAP) Pulse Ox O2 Delivery O2 Flow Rate FiO2 10/09/18 08:37 75 10/09/18 08:36 75 96/56 10/09/18 08:00 98.0 80 18 120/63 (82) 100 10/09/18 06:13 128/60 10/09/18 04:00 66 10/09/18 04:00 97.3 74 20 128/60 (82) 100 10/09/18 00:21 108/55 10/09/18 00:00 71 10/09/18 00:00 97.8 86 20 105/64 (78) 99 10/08/18 21:00 71 98/52 10/08/18 21:00 Nasal Cannula 2.0 10/08/18 20:03 99 Nasal Cannula 2.0 28 10/08/18 20:00 98.0 71 20 98/52 (67) 99 10/08/18 20:00 71 10/08/18 18:15 120/63 10/08/18 16:00 98.1 61 18 120/63 (82) 99 10/08/18 16:00 75 10/08/18 12:04 110/58 10/08/18 12:00 98.5 66 18 103/54 (70) 99 10/08/18 12:00 70 10/08/18 10:03 99 Nasal Cannula 2.0 28 10/08/18 10:03 79 18 99 Nasal Cannula 2.0 28 Intake and Output 10/08/18 10/09/18 19:00 07:00 Intake Total 240 ml Output Total 300 ml 1000 ml Balance -60 ml -1000 ml Intake Oral 240 ml Output Urine Total 300 ml 1000 ml # Bowel Movements 1 Laboratory Tests 10/09/18 05:45: White Blood Count 6.2, Red Blood Count 3.04L, Hemoglobin 10.0L, Hematocrit 30.3L , Mean Corpuscular Volume 100H, Mean Corpuscular Hemoglobin 32.9H, Mean Corpuscular Hemoglobin Concent 33.1, Red Cell Distribution Width 15.2H, Platelet Count 284, Mean Platelet Volume 6.5, Neutrophils (%) (Auto) 58.8, Lymphocytes (%) (Auto) 28.2, Monocytes (%) (Auto) 8.6, Eosinophils (%) (Auto) 3.4H, Basophils (%) (Auto) 1.1, Sodium Level 142, Potassium Level 4.7, Chloride Level 106, Carbon Dioxide Level 26, Anion Gap 10, Blood Urea Nitrogen 59H, Creatinine 2.8H, Estimat Glomerular Filtration Rate , Glucose Level 159H, Calcium Level 9.2, Troponin I 0.030 Height (Feet): 5 Height (Inches): 0.00 Weight (Pounds): 121 General Appearance: no apparent distress Cardiovascular: normal rate Respiratory/Chest: decreased breath sounds Abdomen: soft Varinder Valdez MD Oct 09, 2018 09:02
--- NOTE | 2018-10-09 10:25 | NUR ---
CASE MANAGEMENT:REVIEW 10/09/18 SI: CHF EXACERBATION. PAFIB. NSTEMI AC/CHR RENAL FAILURE 98.0 80 18 96/56 100% ON 2L/NC BUN+59 cr+2.8 IS: DIGOXIN PO QOD COREG PO Q12 ASA PO QD PLAVIX PO QD HEPARIN SQ Q12 PROTONIX PO Q12 HYDRALAZINE PO Q6HRS : TELEMETRY STATUS DCP: FROM HOME PLAN: HEALTH PLAN WILL ARRANGE OUTPATIENT FOLLOW UP
--- NOTE | 2018-10-09 10:57 | NUR ---
INSURANCE UPDATED CLINICALS and REVIEW HAVE BEEN FAXED TO: [facility] PLEASE FAX THE REVIEW AND CLINICAL TO FX: [phone] PH: [phone] Addendum: 10/09/18 at 1500 by MATTHEW MARTÍNEZ LVN LVN SPOKE WITH NINA YANG T: [phone] [id number] WHO WILL SET UP OUTPATIENT FOLLOW UP FOR PATIENT
[2018-10-09] MEDS ORDERED: Digoxin ORAL (11:27)
[2018-10-09] MEDS ORDERED: ASPIRIN325 MG ORAL (11:27)
--- NOTE | 2018-10-09 11:29 | Internal Med Progress Note ---
Subjective Date of Service: Oct 09, 2018 Physician Name Morgan Ha Attending Physician Morgan Ha MD Current Medications Medications (Trade) Dose Ordered Sig/Tatianna Route PRN Reason Start Time Stop Time Status Last Admin Dose Admin Acetaminophen (Tylenol) 650 mg Q4H PRN ORAL Fever 10/05/18 16:32 11/04/18 16:31 Albuterol/ Ipratropium (Albuterol/ Ipratropium) 3 ml Q4H PRN HHN Shortness of Breath 10/05/18 16:32 10/10/18 16:31 Aspirin (ASA) 325 mg DAILY ORAL 10/06/18 09:00 11/02/18 15:44 10/09/18 08:36 Carvedilol (Coreg) 12.5 mg EVERY 12 HOURS ORAL 10/08/18 21:00 11/02/18 20:59 Clopidogrel Bisulfate (Plavix) 75 mg DAILY ORAL 10/06/18 09:00 11/03/18 08:59 10/09/18 08:37 Dextrose (Dextrose 50%) 25 ml Q30M PRN IV Hypoglycemia 10/05/18 17:00 11/02/18 14:29 Dextrose (Dextrose 50%) 50 ml Q30M PRN IV Hypoglycemia 10/05/18 17:00 11/02/18 14:29 Digoxin (Lanoxin) 0.125 mg QOD ORAL 10/09/18 09:00 11/08/18 08:59 10/09/18 08:37 Diltiazem HCl (Cardizem) 10 mg Q1H PRN IV heart rate more than 120, 10/05/18 16:48 11/04/18 16:47 Heparin Sodium (Porcine) (Heparin 5000 units/ml) 5,000 units EVERY 12 HOURS SUBQ 10/05/18 21:00 11/02/18 20:59 10/09/18 08:39 Hydralazine HCl (Apresoline) 10 mg EVERY 6 HOURS ORAL 10/05/18 18:00 11/02/18 21:59 10/09/18 06:13 Insulin Aspart (NovoLOG) BEFORE MEALS AND HS SUBQ 10/05/18 21:00 11/04/18 20:59 10/09/18 06:15 Levothyroxine Sodium (Synthroid) 125 mcg Q24H ORAL 10/06/18 06:30 11/03/18 06:29 10/09/18 06:13 Ondansetron HCl (Zofran) 4 mg Q6H PRN IVP Nausea & Vomiting 10/05/18 16:33 11/04/18 16:32 Pantoprazole (Protonix) 40 mg EVERY 12 HOURS ORAL 10/05/18 21:00 11/03/18 20:59 10/09/18 08:37 Polyethylene Glycol (Miralax) 17 gm DAILYPRN PRN ORAL Constipation 10/05/18 16:33 11/04/18 16:32 Temazepam (Restoril) 15 mg HSPRN PRN ORAL Insomnia 10/05/18 16:32 10/12/18 16:31 Allergies: Coded Allergies: No Known Allergies (Verified , 07/20/11) ROS Limited/Unobtainable: No Constitutional: Reports: no symptoms HEENT: Reports: no symptoms Cardiovascular: Reports: no symptoms Respiratory: Reports: no symptoms Gastrointestinal/Abdominal: Reports: no symptoms Genitourinary: Reports: no symptoms Subjective 83 YO F admitted with dyspnea. Now congestive heart failure, atrial fibrillation with rapid ventricular rate and elevated troponin. Worsening renal function Objective Last Vital Signs Date Time Temp Pulse Resp B/P (MAP) Pulse Ox O2 Delivery O2 Flow Rate FiO2 10/09/18 09:05 Nasal Cannula 2.0 10/09/18 08:37 75 10/09/18 08:36 96/56 10/09/18 08:00 98.0 18 100 10/09/18 07:11 28 Laboratory Tests Test 10/09/18 05:45 White Blood Count 6.2 K/UL (4.8-10.8) Red Blood Count 3.04 M/UL (4.20-5.40) L Hemoglobin 10.0 G/DL (12.0-16.0) L Hematocrit 30.3 % (37.0-47.0) L Mean Corpuscular Volume 100 FL (80-99) H Mean Corpuscular Hemoglobin 32.9 PG (27.0-31.0) H Mean Corpuscular Hemoglobin Concent 33.1 G/DL (32.0-36.0) Red Cell Distribution Width 15.2 % (11.6-14.8) H Platelet Count 284 K/UL (150-450) Mean Platelet Volume 6.5 FL (6.5-10.1) Neutrophils (%) (Auto) 58.8 % (45.0-75.0) Lymphocytes (%) (Auto) 28.2 % (20.0-45.0) Monocytes (%) (Auto) 8.6 % (1.0-10.0) Eosinophils (%) (Auto) 3.4 % (0.0-3.0) H Basophils (%) (Auto) 1.1 % (0.0-2.0) Sodium Level 142 MMOL/L (136-145) Potassium Level 4.7 MMOL/L (3.5-5.1) Chloride Level 106 MMOL/L (98-107) Carbon Dioxide Level 26 MMOL/L (21-32) Anion Gap 10 mmol/L (5-15) Blood Urea Nitrogen 59 mg/dL (7-18) H Creatinine 2.8 MG/DL (0.55-1.30) H Estimat Glomerular Filtration Rate mL/min (>60) Glucose Level 159 MG/DL (74-106) H Calcium Level 9.2 MG/DL (8.5-10.1) Troponin I 0.030 ng/mL (0.000-0.056) Intake and Output 10/08/18 10/09/18 19:00 07:00 Intake Total 240 ml Output Total 300 ml 1000 ml Balance -60 ml -1000 ml Intake Oral 240 ml Output Urine Total 300 ml 1000 ml # Bowel Movements 1 Objective PHYSICAL EXAMINATION: GENERAL: The patient is a well-developed and well-nourished female, in no apparent distress. HEENT: Eyes, pupils are equal and responsive to light and accommodation. Extraocular movements are intact. NECK: Supple without lymphadenopathy. CHEST: Crackles in bilateral bases. Otherwise, clear to auscultation without wheezes or rales. CARDIOVASCULAR: Irregular rhythm and irregular rate. S1 and S2 are normal without murmurs, rubs, or gallops. ABDOMEN: Soft, nontender, and nondistended. Positive bowel sounds. No evidence of hepatosplenomegaly. Currently, no rebound or guarding noted. EXTREMITIES: Negative for clubbing, cyanosis, or edema. RECTAL/GENITAL: Not performed. NEUROLOGIC: Cranial nerves II through XII are grossly intact without focal deficits. Motor strength is 5/5 bilaterally. Deep tendon reflexes are 2+ plantar. Assessment/Plan Problem List: (1) Renal failure Assessment & Plan: ?acute on chronic? Worsening. See nephrology note=Dr Valdez (2) Dyspnea (3) CHF exacerbation Assessment & Plan: BNP=>34,000; LVEF=40%. See cardiology note=Samantha Lang and Yesica (4) Elevated troponin Assessment & Plan: NSSTEMI? See cardiology note. (5) Paroxysmal A-fib Assessment & Plan: With rapid ventricular rate. Continue IV diltiazem (6) HTN (hypertension) (7) Diabetes mellitus Assessment & Plan: Continue novolog sliding scale (8) Hypothyroidism Assessment & Plan: Continue synthroid (9) Acute respiratory failure Assessment & Plan: Due to CHF (10) Hypercholesterolemia Assessment/Plan See cardiology note concerning cardiac cath and insurance refusal to transfer to higher level of care. Discharge home today Morgan Ha MD Oct 09, 2018 11:29
--- NOTE | 2018-10-09 11:31 | Diagnostic Imaging Report ---
APPROVED REPORT CPT Code: 21793 Present Symptoms Comments: BILATERAL LEGS PAIN. BILATERAL: Imaging reveals a patent deep venous system bilaterally. There is no evidence of thrombus within the femoral, popliteal or tibial segments. The greater saphenous veins are also within normal limits. Doppler indicates normal spontaneous flow within these segments.
[2018-10-09 12:00] VITALS: BP 114/61
--- NOTE | 2018-10-09 12:01 | Pulmonology Progress Note ---
Assessment/Plan Problems: (1) CHF exacerbation (2) Paroxysmal A-fib (3) Anemia, chronic renal failure (4) Hypothyroidism (5) Diabetes mellitus (6) Diabetic nephropathy (7) HTN (hypertension) Assessment/Plan so far 3.6 liter negative fluid balance watch bun/creatinine, off lasix, off zaroxylin heart rate controlled CXR 10/06 reviewed, Left side improved. R LL infiltrate chest PT titrate cardiac meds titrate fio2 to sat of 92% could go home in 1-2 days. Subjective ROS Limited/Unobtainable: No Constitutional: Reports: no symptoms HEENT: Repors: no symptoms Allergies: Coded Allergies: No Known Allergies (Verified , 07/20/11) Objective Last 24 Hour Vital Signs Date Time Temp Pulse Resp B/P (MAP) Pulse Ox O2 Delivery O2 Flow Rate FiO2 10/09/18 09:05 Nasal Cannula 2.0 10/09/18 09:00 Nasal Cannula 2.0 10/09/18 08:37 75 10/09/18 08:36 75 96/56 10/09/18 08:00 98.0 80 18 120/63 (82) 100 10/09/18 08:00 72 10/09/18 07:11 100 Nasal Cannula 2.0 28 10/09/18 06:13 128/60 10/09/18 04:00 66 10/09/18 04:00 97.3 74 20 128/60 (82) 100 10/09/18 00:21 108/55 10/09/18 00:00 71 10/09/18 00:00 97.8 86 20 105/64 (78) 99 10/08/18 21:00 71 98/52 10/08/18 21:00 Nasal Cannula 2.0 10/08/18 20:03 99 Nasal Cannula 2.0 28 10/08/18 20:00 98.0 71 20 98/52 (67) 99 10/08/18 20:00 71 10/08/18 18:15 120/63 10/08/18 16:00 98.1 61 18 120/63 (82) 99 10/08/18 16:00 75 10/08/18 12:04 110/58 Intake and Output 10/08/18 10/09/18 19:00 07:00 Intake Total 240 ml Output Total 300 ml 1000 ml Balance -60 ml -1000 ml Intake Oral 240 ml Output Urine Total 300 ml 1000 ml # Bowel Movements 1 General Appearance: WD/WN HEENT: normocephalic, atraumatic Respiratory/Chest: chest wall non-tender, lungs clear Breasts: no masses Cardiovascular: normal peripheral pulses Abdomen: normal bowel sounds, soft, non tender Genitourinary: normal external genitalia Extremities: no cyanosis Skin: no rash 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 Laboratory Tests 10/09/18 05:45: White Blood Count 6.2, Red Blood Count 3.04L, Hemoglobin 10.0L, Hematocrit 30.3L , Mean Corpuscular Volume 100H, Mean Corpuscular Hemoglobin 32.9H, Mean Corpuscular Hemoglobin Concent 33.1, Red Cell Distribution Width 15.2H, Platelet Count 284, Mean Platelet Volume 6.5, Neutrophils (%) (Auto) 58.8, Lymphocytes (%) (Auto) 28.2, Monocytes (%) (Auto) 8.6, Eosinophils (%) (Auto) 3.4H, Basophils (%) (Auto) 1.1, Sodium Level 142, Potassium Level 4.7, Chloride Level 106, Carbon Dioxide Level 26, Anion Gap 10, Blood Urea Nitrogen 59H, Creatinine 2.8H, Estimat Glomerular Filtration Rate , Glucose Level 159H, Calcium Level 9.2, Troponin I 0.030 Current Medications Medications (Trade) Dose Ordered Sig/Tatianna Route PRN Reason Start Time Stop Time Status Last Admin Dose Admin Acetaminophen (Tylenol) 650 mg Q4H PRN ORAL Fever 10/05/18 16:32 11/04/18 16:31 Albuterol/ Ipratropium (Albuterol/ Ipratropium) 3 ml Q4H PRN HHN Shortness of Breath 10/05/18 16:32 10/10/18 16:31 Aspirin (ASA) 325 mg DAILY ORAL 10/06/18 09:00 11/02/18 15:44 10/09/18 08:36 Carvedilol (Coreg) 12.5 mg EVERY 12 HOURS ORAL 10/08/18 21:00 11/02/18 20:59 Clopidogrel Bisulfate (Plavix) 75 mg DAILY ORAL 10/06/18 09:00 11/03/18 08:59 10/09/18 08:37 Dextrose (Dextrose 50%) 25 ml Q30M PRN IV Hypoglycemia 10/05/18 17:00 11/02/18 14:29 Dextrose (Dextrose 50%) 50 ml Q30M PRN IV Hypoglycemia 10/05/18 17:00 11/02/18 14:29 Digoxin (Lanoxin) 0.125 mg QOD ORAL 10/09/18 09:00 11/08/18 08:59 10/09/18 08:37 Diltiazem HCl (Cardizem) 10 mg Q1H PRN IV heart rate more than 120, 10/05/18 16:48 11/04/18 16:47 Heparin Sodium (Porcine) (Heparin 5000 units/ml) 5,000 units EVERY 12 HOURS SUBQ 10/05/18 21:00 11/02/18 20:59 10/09/18 08:39 Hydralazine HCl (Apresoline) 10 mg EVERY 6 HOURS ORAL 10/05/18 18:00 11/02/18 21:59 10/09/18 06:13 Insulin Aspart (NovoLOG) BEFORE MEALS AND HS SUBQ 10/05/18 21:00 11/04/18 20:59 10/09/18 06:15 Levothyroxine Sodium (Synthroid) 125 mcg Q24H ORAL 10/06/18 06:30 11/03/18 06:29 10/09/18 06:13 Ondansetron HCl (Zofran) 4 mg Q6H PRN IVP Nausea & Vomiting 10/05/18 16:33 11/04/18 16:32 Pantoprazole (Protonix) 40 mg EVERY 12 HOURS ORAL 10/05/18 21:00 11/03/18 20:59 10/09/18 08:37 Polyethylene Glycol (Miralax) 17 gm DAILYPRN PRN ORAL Constipation 10/05/18 16:33 11/04/18 16:32 Temazepam (Restoril) 15 mg HSPRN PRN ORAL Insomnia 10/05/18 16:32 10/12/18 16:31 Aure Ortega MD Oct 09, 2018 12:01
--- NOTE | 2018-10-09 12:03 | Cardiac Electrophysiology PN ---
Assessment/Plan Assessment/Plan 1. Atrial fibrillation with rapid ventricular response. Controlled on Coreg 25 mg bid, aspirin and Plavix 2. Nonsustained VT. Could be also Kathleen phenomenon. On Coreg 3. Non-ST elevation myocardial infarction with troponin of 2.8, 2.7, and 2.8. This could be due to renal failure. The patient's creatinine is 2.8. The patient currently does not have any chest pain. She is already on aspirin and Plavix and beta-michi per Dr. Meraz. Insurance did not accept for transfer 4. Congestive heart failure. BNP of 34,000. Echo EF 40%. The patient is on Coreg 5. Hypothyroidism. On Synthroid. 6. ARF Cr 3.6. Off Lasix, Aldactone and ACEI DW RN and Dr Ortega Subjective Subjective Still in atrial fib with controlled rate. No CP or SOB Objective Last 24 Hour Vital Signs Date Time Temp Pulse Resp B/P (MAP) Pulse Ox O2 Delivery O2 Flow Rate FiO2 10/09/18 09:05 Nasal Cannula 2.0 10/09/18 09:00 Nasal Cannula 2.0 10/09/18 08:37 75 10/09/18 08:36 75 96/56 10/09/18 08:00 98.0 80 18 120/63 (82) 100 10/09/18 08:00 72 10/09/18 07:11 100 Nasal Cannula 2.0 28 10/09/18 06:13 128/60 10/09/18 04:00 66 10/09/18 04:00 97.3 74 20 128/60 (82) 100 10/09/18 00:21 108/55 10/09/18 00:00 71 10/09/18 00:00 97.8 86 20 105/64 (78) 99 10/08/18 21:00 71 98/52 10/08/18 21:00 Nasal Cannula 2.0 10/08/18 20:03 99 Nasal Cannula 2.0 28 10/08/18 20:00 98.0 71 20 98/52 (67) 99 10/08/18 20:00 71 10/08/18 18:15 120/63 10/08/18 16:00 98.1 61 18 120/63 (82) 99 10/08/18 16:00 75 10/08/18 12:04 110/58 Intake and Output 10/08/18 10/09/18 19:00 07:00 Intake Total 240 ml Output Total 300 ml 1000 ml Balance -60 ml -1000 ml Intake Oral 240 ml Output Urine Total 300 ml 1000 ml # Bowel Movements 1 Laboratory Tests Test 10/09/18 05:45 White Blood Count 6.2 K/UL (4.8-10.8) Red Blood Count 3.04 M/UL (4.20-5.40) L Hemoglobin 10.0 G/DL (12.0-16.0) L Hematocrit 30.3 % (37.0-47.0) L Mean Corpuscular Volume 100 FL (80-99) H Mean Corpuscular Hemoglobin 32.9 PG (27.0-31.0) H Mean Corpuscular Hemoglobin Concent 33.1 G/DL (32.0-36.0) Red Cell Distribution Width 15.2 % (11.6-14.8) H Platelet Count 284 K/UL (150-450) Mean Platelet Volume 6.5 FL (6.5-10.1) Neutrophils (%) (Auto) 58.8 % (45.0-75.0) Lymphocytes (%) (Auto) 28.2 % (20.0-45.0) Monocytes (%) (Auto) 8.6 % (1.0-10.0) Eosinophils (%) (Auto) 3.4 % (0.0-3.0) H Basophils (%) (Auto) 1.1 % (0.0-2.0) Sodium Level 142 MMOL/L (136-145) Potassium Level 4.7 MMOL/L (3.5-5.1) Chloride Level 106 MMOL/L (98-107) Carbon Dioxide Level 26 MMOL/L (21-32) Anion Gap 10 mmol/L (5-15) Blood Urea Nitrogen 59 mg/dL (7-18) H Creatinine 2.8 MG/DL (0.55-1.30) H Estimat Glomerular Filtration Rate mL/min (>60) Glucose Level 159 MG/DL (74-106) H Calcium Level 9.2 MG/DL (8.5-10.1) Troponin I 0.030 ng/mL (0.000-0.056) Objective HEAD AND NECK: Mild JVD. LUNGS: Decreased breath sounds. CARDIOVASCULAR: Irregular S1 and S2 with no gallop or murmur. ABDOMEN: Soft. EXTREMITIES: Have no pitting edema. Steven Robert MD Oct 09, 2018 12:03
[2018-10-09 12:35] VITALS: BP 117/60
--- NOTE | 2018-10-09 14:10 | NUR ---
NURSE NOTES: The patient got discharged to home with Ping Blackwell, the patient's daughter, in a safe manner. The patient is stable in terms of vital signs and physically. Discharge instruction and teaching provided to the patient and family member and verbalized understanding and signed the discharge instruction form. Belongings checked and signed by the patient's family member. The patient lost [employer] flip phone after changing gown on 10/06/2018 and reported to Estephanie @ [employer] and [employer]. Informed that the patient will be in touch as soon as we receive any update. Removed IV, nameband, and telebox. Discharge medication also discussed with the charge nurse. The patient got discharged with Ping Rosalva, family member, in a safe manner.
--- NOTE | 2018-10-10 | Progress Note ---
DATE: 10/09/2018 CARDIOLOGY PROGRESS NOTE SUBJECTIVE: The patient is off diuretics therapy. She remains in atrial fibrillation with controlled rate. She has no chest pain and is not short of breath at rest. Activity has been limited however in the hospital. OBJECTIVE: VITAL SIGNS: Blood pressure 198/52 to 128/60, heart rate 66 to 80, respiratory rate 18 to 20, and afebrile. NECK: No jugular venous distention. LUNGS: Clear. CARDIAC: Irregularly irregular. Normal S1, S2 with a 1/6 systolic murmur at the apex. ABDOMEN: Soft. EXTREMITIES: No edema. IMPRESSION: 1. Acute myocardial infarction. 2. Acute on chronic diastolic and systolic congestive heart failure, now clinically compensated. 3. Paroxysmal atrial fibrillation, rate controlled. 4. Nonsustained ventricular ectopy. 5. Chronic kidney disease with acute exacerbation. PLANS: 1. The patient to be discharged home. 2. Medications reviewed and reconciled. 3. The patient should have an outpatient perfusion scan if status improves and consideration for cardiac catheterization to follow. She of course would be at increased risk for renal failure with contrast load, however that can be limited. 4. Avoid nephrotoxins in this clinical setting. 5. Maintain current anti-anginal and anti-failure regimen otherwise without change. 6. Statin therapy for LDL goal less than 100. Brady Meraz M.D. DR: NIKO JOB#: [id number] CC:
--- NOTE | 2018-10-10 13:16 | Discharge Summary ---
Discharge Summary Discharge Summary _ DATE OF ADMISSION: 10/03/2018 DATE OF DISCHARGE: 10/09/2018 DISCHARGED BY: Dr. Morgan Ha CONSULTANTS: Dr. Brady Valdez BRIEF HOSPITAL COURSE: Patient is an 83-year-old female, who presented with chief complaint of shortness of breath. The patient has a history of diabetes, hypertension, hypothyroidism and paroxysmal atrial fibrillation. The patient presented to [facility] emergency room complaining of 2-day history of shortness of breath. The patient denied cough. The patient speaks mostly Creole. On evaluation at the ED, blood pressure was 88/56. Blood work showed hemoglobin of 7.8 and hematocrit 23. Electrolytes were normal. BUN was elevated to 44 and creatinine to 2.8. Troponin was elevated to 2.7. proBNP was 34,000. Urinalysis showed 15-20 urine WBC, 2-4 urine RBC, +2 leukocyte esterase, negative nitrite, +1 protein. Chest x-ray showed evidence of congestive heart failure. She was then admitted for evaluation of dyspnea due to acute exacerbation of CHF with elevated troponin. Patient was admitted to [facility]. Cardiac enzymes were monitored. Blood glucose was monitored. She was given NovoLog sliding scale. She was continued on glipizide/metformin. She was given Levoxyl. She was placed on heparin for DVT prophylaxis. Seismographer was consulted. She was given diuresis with intravenous loop diuretic. Volume status and cardiorenal function was monitored. She was given antiplatelet therapy. She was continued on beta-blockers, nitrates as tolerated. Lipid panel showed LDL 65, HDL 41. Overnight, the patient developed atrial fibrillation with rapid ventricular response. On 10/04/2018, she was transferred to ICU. Special Education Supervisor was consulted. Amlodipine was discontinued Coreg was increased. Digoxin was added. Echocardiogram done showed EF of 40%. She was continued on Lasix as well as Zaroxolyn. Kidney function was monitored. Anemia work-up showed anemia from low iron and CKD. 1 unit packed RBC blood transfusion. Troponin peaked at 3.06. Troponin levels down trended. Heart rate improved. Chest x-ray showed improved infiltrate versus edema. She was continued on Plavix and aspirin for anticoagulation. She was continued on Coreg. He was taken off Lasix due to worsening renal function. Patient was requested transfer for cardiac cath. She continued to remain in atrial fibrillation with episodes of ventricular tachycardia. Patient was recommended needs assessment of coronary anatomy, however, insurance refused to transfer patient to a higher level of care. Patient was medically optimized, however, standard of care would be assessment of coronary anatomy once renal parameters have been optimized. She was eventually discharged home. Patient was recommended outpatient perfusion scan and consideration for cardiac catheterization to follow. She was advised to avoid nephrotoxins and to maintain current antianginal and anti- failure regimen, statin therapy for LDL goal less than 100. She was eventually discharged home. FINAL DIAGNOSES: Acute myocardial infarction/non-ST elevated IA Acute on chronic diastolic and systolic congestive heart failure A. fib with RVR, now rate controlled Nonsustained ventricular ectopy Hypothyroidism Anemia of CKD Anemia requiring blood transfusion Acute on chronic renal failure Diabetes mellitus with diabetic nephropathy Hyperlipidemia DISPOSITION: Patient was discharged home. DISCHARGE MEDICATIONS: Refer to Discharge Medication List. DISCHARGE INSTRUCTIONS: Follow-up in a week. I have been assigned to complete a discharge summary on this account, I was not involved with the patient's management.--FARIDA Kenyon Jacqueline Robles NP Oct 10, 2018 13:16
== END 2018-10-09 14:12 | disposition home or self-care (01) | DRG 280 ==
LOC: EMR 12:55 → 2W 13:42 → EDBEDREQ 14:26 → EDBEDREQSVC 14:26 → EDBEDREQ 14:56 → ICU 10-04 11:32 → 2E 10-05 16:48
DX: I13.0 Hypertensive heart and chronic kidney disease with heart failure and stage 1 through stage 4 chronic kidney disease, or unspecified chronic kidney disease (principal); I21.4 Non-ST elevation (NSTEMI) myocardial infarction; I50.43 Acute on chronic combined systolic (congestive) and diastolic (congestive) heart failure; J96.01 Acute respiratory failure with hypoxia; I48.0 Paroxysmal atrial fibrillation; K29.70 Gastritis, unspecified, without bleeding; E11.22 Type 2 diabetes mellitus with diabetic chronic kidney disease; N18.9 Chronic kidney disease, unspecified; E03.9 Hypothyroidism, unspecified; Z90.49 Acquired absence of other specified parts of digestive tract; Z79.84 Long term (current) use of oral hypoglycemic drugs; Z79.82 Long term (current) use of aspirin; I49.3 Ventricular premature depolarization; D63.1 Anemia in chronic kidney disease; E78.5 Hyperlipidemia, unspecified; E11.21 Type 2 diabetes mellitus with diabetic nephropathy; I73.9 Peripheral vascular disease, unspecified; K21.9 Gastro-esophageal reflux disease without esophagitis
CPT/HCPCS: 36415; 36600; 71045; 80048; 80053; 80061; 80076; 80162; 81003; 82550; 82553; 82607; 82728; 82746; 82803; 82962; 82977; 83036; 83540; 83550; 83690; 83735; 83880; 84100; 84300; 84439; 84443; 84480; 84481; 84484; 84550; 85007; 85025; 86140; 86850; 86900; 86901; 86920; 87040; 87086; 87181; 89050; 93005; 93306; 93970; 94664; 96374; 99285; J1815; J8499

== ENCOUNTER 2018-11-08 10:02 | Emergency (ER) | payer MEDICARE, OTHER ==
[~2018-11-08] VITALS: Ht 157.5 cm; Wt 65.8 kg
[~2018-11-08 10:02] MED LIST changes: +ASPIRIN325 MG ORAL; +ATORVASTATIN CA20 MG ORAL; +CARVEDILOL12.5 MG ORAL; +Digoxin ORAL; +FERROUS SULFAT325 MG ORAL; +HYDRALAZINE HCL25 M1 ORAL; +ISOSORBIDE MONO30 M1 PO; +PLAVIX75 MG ORAL; +TORSEMIDE20 MG ORAL
--- NOTE | 2018-11-08 10:04 | NUR ---
ED Nurse Note: PT CALLED BUT NOT IN WAITING ROOM.
[2018-11-08 10:12] VITALS: BP 101/60
--- NOTE | 2018-11-08 10:12 | NUR ---
ED Nurse Note: Patient assisted with WC to come in to ER by cesar c/o Rt hand swelling. Patient alert and oriented x 1 but no behavior issue. pt is non-ambulatory. skin clean and intact but Rt hand edema and cool to touch and bruise noted. calm and cooperative. no acute distress noted at this time. pt cannot recall what happened and daughter is assuming that pt must have hit it somewhere. per daughter, Rt hand swelling noted this morning.
--- NOTE | 2018-11-08 10:30 | Emergency Room Report ---
History of Present Illness General Chief Complaint: Upper Extremity Injury Source: Patient, Family Member, Medical Record Present Illness HPI Patient is an 83-year-old female presents after increased difficulty with right upper extremity pain. Patient had prior history of congestive heart failure. She was noted to have some gradual increased swelling to the right hand. She denies any definite trauma. And denies any recent falls. Patient a prior history of congestive heart failure. Allergies: Coded Allergies: No Known Allergies (Verified , 07/20/11) Patient History Past Medical History: see triage record Now: No Reviewed Nursing Documentation: PMH: Agreed; PSxH: Agreed Nursing Documentation-PMH Past Medical History: No History, Except For Hx Cardiac Problems: Yes - CHF Hx Hypertension: Yes Hx Diabetes: Yes Hx Cancer: No Hx Gastrointestinal Problems: Yes Hx Neurological Problems: No Review of Systems All Other Systems: negative except mentioned in HPI Physical Exam Vital Signs Date Time Temp Pulse Resp B/P (MAP) Pulse Ox O2 Delivery O2 Flow Rate FiO2 11/08/18 10:10 98.2 82 16 101/60 (74) 97 Room Air Sp02 EP Interpretation: reviewed, normal General Appearance: normal inspection, well appearing, no apparent distress, alert, GCS 15 Head: atraumatic ENT: normal ENT inspection, hearing grossly normal, normal voice Neck: normal inspection, full range of motion, supple, no bony tend Respiratory: normal inspection, lungs clear, normal breath sounds, no respiratory distress, no retraction, no wheezing Cardiovascular #1: regular rate, rhythm, no edema Gastrointestinal: normal inspection, normal bowel sounds, non tender, soft, no guarding, no hernia Genitourinary: no CVA tenderness Musculoskeletal: normal inspection, back normal, normal range of motion Neurologic: normal inspection, alert, oriented x3, responsive, exerciser III-XII nml as tested Psychiatric: normal inspection, judgement/insight normal, mood/affect normal Skin: other - right hand swelling and bruising Medical Decision Making Diagnostic Impression: Primary Impression: Hand contusion ER Course Patient presented for right hand swelling. Differential diagnosis include was not limited to dependent edema, vascular compromise, fracture among others. Because of complexity of patient's case laboratory testing and imaging studies were ordered. Patient was noted to have normal platelet count as well as Adequate hemoglobin. X-ray 3 view of the right hand showed no evidence of acute fracture read by radiology. Patient was placed in Kiran wrap. She was to follow-up with primary care physician for recheck. Last Vital Signs Date Time Temp Pulse Resp B/P (MAP) Pulse Ox O2 Delivery O2 Flow Rate FiO2 11/08/18 10:12 98.2 75 16 101/60 97 Room Air Status: improved Disposition: HOME, SELF-CARE Condition: Stable Jack Kate MD Nov 08, 2018 10:30
--- NOTE | 2018-11-08 10:37 | NUR ---
ED Nurse Note: blood sent to the lab and x-ray at the bedside.
[2018-11-08 10:47] LABS: BASOPHILS % (AUTO) 0.3 % (0.0-2.0); EOSINOPHILS % (AUTO) 1.5 % (0.0-3.0); HEMATOCRIT 29.4 % (37.0-47.0); HEMOGLOBIN 9.6 G/DL (12.0-16.0); LYMPHOCYTES % (AUTO) 22.4 % (20.0-45.0); MEAN CORPUSCULAR VOLUME 99 FL (80-99); MONOCYTES % (AUTO) 5.3 % (1.0-10.0); NEUTROPHILS % (AUTO) 70.5 % (45.0-75.0); PLATELET COUNT 276 K/UL (150-450); RED BLOOD COUNT 2.96 M/UL (4.20-5.40); RED CELL DISTRIBUTION WIDTH 13.2 % (11.6-14.8)
[2018-11-08 11:01] LABS: ALANINE AMINOTRANSFERASE 6 U/L (12-78); ALBUMIN 3.3 G/DL (3.4-5.0); ALBUMIN/GLOBULIN RATIO 0.9 (1.0-2.7); ALKALINE PHOSPHATASE 46 U/L (46-116); ANION GAP 7 mmol/L (5-15); ASPARTATE AMINO TRANSFERASE 14 U/L (15-37); BILIRUBIN,TOTAL 0.4 MG/DL (0.2-1.0); BLOOD UREA NITROGEN 30 mg/dL (7-18); CALCIUM 8.8 MG/DL (8.5-10.1); CARBON DIOXIDE 29 MMOL/L (21-32); CHLORIDE 104 MMOL/L (98-107); CREATININE 2.4 MG/DL (0.55-1.30); SODIUM 138 MMOL/L (136-145)
[2018-11-08 11:02] LABS: POTASSIUM 2.7 MMOL/L (3.5-5.1)
--- NOTE | 2018-11-08 11:22 | Diagnostic Imaging Report ---
Indication: Right hand pain Technique: 3 views right hand Comparison: none Findings: There is degenerative narrowing of the first interphalangeal joint and second through fifth distal interphalangeal joints. Bones are osteoporotic. There is what appears to be an old healed fracture deformity of the distal ulna. No definite acute fractures. No dislocations. There are degenerative changes of the distal radial ulnar joint. There is marked dorsal soft tissue swelling Impression: Dorsal soft tissue swelling Degenerative changes No acute bony trauma Osteoporotic changes
--- NOTE | 2018-11-08 12:01 | NUR ---
ED Nurse Note: arcelia wrap applied on Rt hand.
--- NOTE | 2018-11-08 12:08 | NUR ---
ED Nurse Note: pt assisted to bathroom by BIANCA for BM.
--- NOTE | 2018-11-08 12:27 | NUR ---
ED Nurse Note: YOUSIF explained to pt and daughter that there is no fx.
[2018-11-08 12:34] VITALS: BP 101/60
--- NOTE | 2018-11-08 12:35 | NUR ---
ER DISCHARGE NOTE: Patient is cleared to be discharged per ERMD, pt is aox1, accompanied by daguther by WC, on room air, with stable vital signs. pt was given dc instructions, pt was able to verbalize understanding, pt id band removed. Pt assisted to leave by WC. pt took all belongings.
== END 2018-11-08 12:37 | disposition home or self-care (01) ==
LOC: EMR 10:43
DX: S60.221A Contusion of right hand, initial encounter (principal); X58.XXXA Exposure to other specified factors, initial encounter; Y92.9 Unspecified place or not applicable; I10 Essential (primary) hypertension; E11.9 Type 2 diabetes mellitus without complications; M81.0 Age-related osteoporosis without current pathological fracture
CPT/HCPCS: 36415; 80053; 85025; 85610; 85730; 86850; 86900; 86901; 99284; J8499

== ENCOUNTER 2018-12-16 08:55 | Inpatient (IN) | payer MEDICARE, OTHER ==
[~2018-12-16] VITALS: Ht 152.4 cm; Wt 55.3 kg
--- NOTE | 2018-12-16 08:58 | Emergency Room Report ---
History of Present Illness General Chief Complaint: Dyspnea Source: Patient, EMS Present Illness HPI 83-year-old female history of diabetes, hypertension, atrial fibrillation, CHF presents with acute shortness of breath x1 day, patient woke up this morning acutely short of breath dyspneic, no chest pain, unknown aggravating or alleviating factors, severity was severe, symptoms are constant, 911 was called , patient was placed on BiPAP due to her desaturations, patient unable to speak full sentences due to shortness of breath Allergies: Coded Allergies: No Known Allergies (Verified , 07/20/11) UNABLE TO ASSESS (Unverified , 12/16/18) Patient History Limited by: medical condition - acutely short of breath Reviewed Nursing Documentation: PMH: Agreed; PSxH: Agreed Nursing Documentation-PMH Hx Cardiac Problems: Yes - CHF Hx Hypertension: Yes Hx Diabetes: Yes Hx Cancer: No Hx Gastrointestinal Problems: Yes Hx Neurological Problems: No Review of Systems All Other Systems: limited - acutely short of breath Physical Exam Vital Signs Date Time Temp Pulse Resp B/P (MAP) Pulse Ox O2 Delivery O2 Flow Rate FiO2 12/16/18 08:54 97 20 161/99 (119) 97 Non-Rebreather 15.0 12/16/18 09:05 45 Sp02 EP Interpretation: reviewed, abnormal - Sick General Appearance: alert, severe distress Head: normocephalic, atraumatic Eyes: bilateral eye PERRL, bilateral eye EOMI ENT: uvula midline, moist mucus membranes Neck: supple, thyroid normal, supple/symm/no masses Respiratory: accessory muscle use, crackles, wheezing Cardiovascular #1: normal peripheral pulses, no edema, no gallop, no murmur, tachycardia Gastrointestinal: non tender, soft, no guarding, no rebound Musculoskeletal: normal inspection Neurologic: alert, oriented x3 Psychiatric: mood/affect normal Skin: no rash, warm/dry Procedures Critical Care Time Critical Care Time Given the critical condition in which the patient arrived, the patient was immediately assessed by myself and the nurse, and cardiac monitoring initiated due to the potential for rapid decompensation of the patient's clinical condition. During the course of the patient's stay, I spent a considerable amount of time at the bedside performing serial re-evaluations of the patient's hemodynamic and clinical status because of the recognized potential threat to life or limb in this condition. I then had a chance to review not only all of the available current laboratory and radiographic studies obtained today, but I also reviewed old records available to me at the time. Additionally, any ancillary information available including skilled helper records were reviewed. Sequential vital signs were obtained. Critical Care time of 36 minutes was performed exclusive of billable procedures. Medical Decision Making Diagnostic Impression: Primary Impression: Respiratory distress Additional Impressions: CHF exacerbation Qualified Codes: I50.23 - Acute on chronic systolic (congestive) heart failure UTI (urinary tract infection) Qualified Codes: N30.00 - Acute cystitis without hematuria Respiratory failure, acute Qualified Codes: J96.01 - Acute respiratory failure with hypoxia ER Course 83-year-old female with multiple coronary days presents with acute respiratory distress on the differential includes CHF exacerbation, COPD exacerbation, pneumonia, sepsis Patient emergently evaluated by me, BiPAP was started, patient was de-satting BiPAP was titrated to effect Lasix, labs ordered, reevaluation 9:25 AM, patient is more comfortable no longer tripoding reevaluation 9:44 AM, patient is more comfortable with BiPAP, DNR/DNI order was signed 11:12 AM, patient is breathing more comfortable BiPAP was able to be removed Patient admitted to Dr. Guan 1207pm Laboratory Tests Test 12/16/18 09:06 12/16/18 09:51 White Blood Count 8.2 K/UL (4.8-10.8) Red Blood Count 3.11 M/UL (4.20-5.40) L Hemoglobin 10.1 G/DL (12.0-16.0) L Hematocrit 31.4 % (37.0-47.0) L Mean Corpuscular Volume 101 FL (80-99) H Mean Corpuscular Hemoglobin 32.6 PG (27.0-31.0) H Mean Corpuscular Hemoglobin Concent 32.3 G/DL (32.0-36.0) Red Cell Distribution Width 12.9 % (11.6-14.8) Platelet Count 301 K/UL (150-450) Mean Platelet Volume 7.5 FL (6.5-10.1) Neutrophils (%) (Auto) 77.3 % (45.0-75.0) H Lymphocytes (%) (Auto) 16.8 % (20.0-45.0) L Monocytes (%) (Auto) 4.2 % (1.0-10.0) Eosinophils (%) (Auto) 0.8 % (0.0-3.0) Basophils (%) (Auto) 0.9 % (0.0-2.0) Prothrombin Time 10.7 SEC (9.30-11.50) Prothrombin Time INR 1.0 (0.9-1.1) PTT 22 SEC (23-33) L Urine Color Pale yellow Urine Appearance Slightly cloudy Urine pH 6 (4.5-8.0) Urine Specific [place] 1.010 (1.005-1.035) Urine Protein 2+ (NEGATIVE) H Urine Glucose (UA) Negative (NEGATIVE) Urine Ketones Negative (NEGATIVE) Urine Blood 1+ (NEGATIVE) H Urine Nitrite Negative (NEGATIVE) Urine Bilirubin Negative (NEGATIVE) Urine Urobilinogen Normal MG/DL (0.0-1.0) Urine Leukocyte Esterase 3+ (NEGATIVE) H Urine RBC 0-2 /HPF (0 - 2) Urine WBC Tntc /HPF (0 - 2) H Urine Squamous Epithelial Cells None /LPF (NONE/OCC) Urine Bacteria Many /HPF (NONE) H Sodium Level 136 MMOL/L (136-145) Potassium Level 5.3 MMOL/L (3.5-5.1) H Chloride Level 102 MMOL/L (98-107) Carbon Dioxide Level 24 MMOL/L (21-32) Anion Gap 10 mmol/L (5-15) Blood Urea Nitrogen 36 mg/dL (7-18) H Creatinine 2.4 MG/DL (0.55-1.30) H Estimate Glomerular Filtration Rate mL/min (>60) Glucose Level 202 MG/DL (74-106) H Lactic Acid Level 1.90 mmol/L (0.4-2.0) Calcium Level 8.5 MG/DL (8.5-10.1) Phosphorus Level 4.3 MG/DL (2.5-4.9) Magnesium Level 2.3 MG/DL (1.8-2.4) Total Bilirubin 0.5 MG/DL (0.2-1.0) Aspartate Amino Transferase (AST) 18 U/L (15-37) Alanine Aminotransferase (ALT) 10 U/L (12-78) L Alkaline Phosphatase 43 U/L (46-116) L Total Creatine Kinase 67 U/L (26-308) Creatine Kinase MB 0.9 NG/ML (0.0-3.6) Creatine Kinase MB Relative Index 1.3 Troponin I 0.000 ng/mL (0.000-0.056) Pro-B-Type Natriuretic Peptide 61633 pg/mL (0-125) H Total Protein 7.9 G/DL (6.4-8.2) Albumin 3.7 G/DL (3.4-5.0) Globulin 4.2 g/dL Albumin/Globulin Ratio 0.9 (1.0-2.7) L Lipase 176 U/L (73-393) Arterial Blood pH 7.427 (7.350-7.450) Arterial Blood Partial Pressure CO2 34.9 mmHg (35.0-45.0) L Arterial Blood Partial Pressure O2 78.8 mmHg (75.0-100.0) Arterial Blood HCO3 22.5 mmol/L (22.0-26.0) Arterial Blood Oxygen Saturation 95.0 % (95-100) Arterial Blood Base Excess -1.5 (-2-2) Migel Test Positive EKG Diagnostic Results EKG Time: 08:57 EP Interpretation: NSR, rate 95, QTc 472, no acute ST elevations, normal axis Rhythm Strip Diag. Results Rhythm Strip Time: 09:22 EP Interpretation: yes Rate: 84 Rhythm: NSR, no PVC's, no ectopy Chest X-Ray Diagnostic Results Chest X-Ray Diagnostic Results : Chest X-Ray Ordered: Yes # of Views/Limited/Complete: 1 View Indication: Shortness of Breath EP Interpretation: Yes Interpretation: other - Bilateral pulmonary congestion Impression: Other - Bilateral pulmonary congestion Electronically Signed by: Teofilo Braun MD Disposition: ADMITTED INPATIENT Condition: Serious Teofilo Braun MD Dec 16, 2018 08:58
[2018-12-16 09:00] VITALS: BP 161/99
--- NOTE | 2018-12-16 09:00 | NUR ---
ED Nurse Note: Patient brought in to ER by ambulance from home due to SOB since this morning. pt aao x 2-3 and bedridden due to weaness. calm and cooperative. Telugu speaker. skin clean and intact but thin and pale. redness on coccyx without opening noted. SOB and labored breathing and wheezing noted. pt is in gown and on site monitor. RTYOUSIF, RN, sterile proc tech at bedside and initiated assessment and intervention.
--- NOTE | 2018-12-16 09:10 | NUR ---
ED Nurse Note: Bipap applied by RT.
--- NOTE | 2018-12-16 09:13 | NUR ---
ED Nurse Note: x-ray at bedside.
[2018-12-16 09:27] LABS: BASOPHILS % (AUTO) 0.9 % (0.0-2.0); EOSINOPHILS % (AUTO) 0.8 % (0.0-3.0); HEMATOCRIT 31.4 % (37.0-47.0); HEMOGLOBIN 10.1 G/DL (12.0-16.0); LYMPHOCYTES % (AUTO) 16.8 % (20.0-45.0); MEAN CORPUSCULAR VOLUME 101 FL (80-99); MONOCYTES % (AUTO) 4.2 % (1.0-10.0); NEUTROPHILS % (AUTO) 77.3 % (45.0-75.0); PLATELET COUNT 301 K/UL (150-450); RED BLOOD COUNT 3.11 M/UL (4.20-5.40); RED CELL DISTRIBUTION WIDTH 12.9 % (11.6-14.8); WHITE BLOOD COUNT 8.2 K/UL (4.8-10.8)
--- NOTE | 2018-12-16 09:30 | NUR ---
ED Nurse Note: sediment in urine noted. notify to ERMD.
[2018-12-16 09:31] LABS: APPEARANCE,URINE SLIGHTLY CLOUDY; BILIRUBIN, URINE NEGATIVE (NEGATIVE); COLOR,URINE PALE YELLOW; GLUCOSE, URINE (UA) NEGATIVE (NEGATIVE); KETONES,URINE NEGATIVE (NEGATIVE); LEUKOCYTE ESTERASE ,URINE 3+ (NEGATIVE); NITRITE,URINE NEGATIVE (NEGATIVE); PH,URINE 6 (4.5-8.0); PROTEIN,URINE 2+ (NEGATIVE); UROBILINOGEN,URINE NORMAL MG/DL (0.0-1.0)
[2018-12-16 09:33] LABS: ANION GAP 10 mmol/L (5-15); BLOOD UREA NITROGEN 36 mg/dL (7-18); CALCIUM 8.5 MG/DL (8.5-10.1); CARBON DIOXIDE 24 MMOL/L (21-32); CHLORIDE 102 MMOL/L (98-107); CREATININE 2.4 MG/DL (0.55-1.30); POTASSIUM 5.3 MMOL/L (3.5-5.1); SODIUM 136 MMOL/L (136-145)
--- NOTE | 2018-12-16 09:41 | NUR ---
ED Nurse Note: Called RT for ABG order.
[2018-12-16 09:47] LABS: ALANINE AMINOTRANSFERASE 10 U/L (12-78); ALBUMIN 3.7 G/DL (3.4-5.0); ALBUMIN/GLOBULIN RATIO 0.9 (1.0-2.7); ALKALINE PHOSPHATASE 43 U/L (46-116); ASPARTATE AMINO TRANSFERASE 18 U/L (15-37); BILIRUBIN,TOTAL 0.5 MG/DL (0.2-1.0); CKMB 0.9 NG/ML (0.0-3.6); CREATINE KINASE 67 U/L (26-308); PHOSPHORUS 4.3 MG/DL (2.5-4.9)
--- NOTE | 2018-12-16 09:50 | NUR ---
ED Nurse Note: ABG by RT at bedside.
[2018-12-16] MEDS ORDERED: ISOSORBIDE MONO10 MG PO (09:55)
[2018-12-16] MEDS ORDERED: GLIPIZIDE5 MG ORAL (09:55)
[2018-12-16] MEDS ORDERED: ATORVASTATIN CA20 MG ORAL (09:55)
[2018-12-16] MEDS ORDERED: FENOFIBRATE 13134 MG ORAL (09:59)
[2018-12-16 10:00] VITALS: BP 120/86
[2018-12-16] MEDS ORDERED: Cefepime HCl 2 GM in D5W 55 ML IVPB ONE (10:00)
[2018-12-16] MEDS ORDERED: Vancomycin 1 GM in NS 275 ML IVPB ONE (10:00)
[2018-12-16] MEDS ORDERED: TORSEMIDE20 MG ORAL (10:00)
--- NOTE | 2018-12-16 11:10 | Diagnostic Imaging Report ---
Indication: Shortness of breath Technique: One view of the chest Comparison: 10/06/2018 Findings: Again demonstrated is diffuse bilateral interstitial and airspace disease. There is some central bronchial wall thickening. The hemidiaphragms are obscured. Findings appear similar to the previous exam. The heart size is borderline enlarged. The aorta is tortuous ectatic and calcified. There is evidence of extensive chronic fracture deformity of the right arm Impression: Bilateral interstitial and airspace disease. This is somewhat similar to previous exam. Findings likely represent a combination of an acute changes. Obscured bilateral hemidiaphragms, likely representing combination of atelectasis and pleural fluid Borderline cardiomegaly
--- NOTE | 2018-12-16 11:35 | NUR ---
ED Nurse Note: Received the room number but doctor to doctor report not done yet. will give report after.
--- NOTE | 2018-12-16 11:57 | NUR ---
ED Nurse Note: tried pt to breath in room air and pt saturated at 94%. put her on 3L/NC and 100% and pt reported she feel comfortable to breath. ERMD made aware. pt is eating lunch.
[2018-12-16] MEDS ORDERED: Miralax 17gm pkt ORAL PRN (12:30)
[2018-12-16] MEDS ORDERED: Albuterol/Ipratropium 3ml neb HHN PRN (12:30)
--- NOTE | 2018-12-16 13:01 | NUR ---
ED Nurse Note: report given to JANNETH De Jesus
--- NOTE | 2018-12-16 13:02 | NUR ---
ED Nurse Note: pt left unit with 1 RN and 1 pollution control technician in stable condition.
--- NOTE | 2018-12-16 13:05 | NUR ---
NURSE NOTES: Received pt from TREASURE Graham RN. Transferred to room 237-2 via [facility]. A/Ox3, denies pain at this time. Primarily speaks Luxembourgish. Daughter is at bedside. VSS. T 98.6, BP 126/86, P 86 Sinus rhythm, Spo2 100% on 2LNC. Breathing even and unlabored. Bilateral b.s diminished. LFA 20G and RH 22G patent and asymptomatic. Skin assessment done. Discoloration noted on coccyx and bruising on left lower extremity. Pictures taken and dressings applied. POLST in chart, selective treatment DNR/DNI. Notified Dr. Ortega of potassium 5.3, no new orders given as patient is on lasix. Bed locked, alarmed and in lowest position.
--- NOTE | 2018-12-16 14:21 | Consultation ---
History of Present Illness General Date patient seen: Dec 16, 2018 Chief Complaint: Dyspnea/Respdistress Reason for Consultation: respiratory failure Present Illness HPI 83 year old female with hx of chronic renal insufficiency, CHF, DM, hypothyroid with multiple admissions to [facility] brought in by paramedics with CC of dyspnea and orthopnea, pt was in respiratory failure in ER and was put on BIPAP. She was make DNR in ER. Pt's CXR showed pulmonary edema. She is admitted to [facility] for further management. Allergies: Coded Allergies: No Known Allergies (Verified , 07/20/11) UNABLE TO ASSESS (Unverified , 12/16/18) Medication History Scheduled Alendronate Sodium* (Fosamax*), 70 MG ORAL ONCE A WEEK, (Reported) Aspirin* (Aspirin*), 325 MG ORAL DAILY Atorvastatin Calcium* (Atorvastatin Calcium*), 20 MG ORAL BEDTIME, (Reported) Baclofen* (Baclofen*), 10 MG ORAL THREE TIMES A DAY, (Reported) Carvedilol* (Carvedilol*), 12.5 MG ORAL EVERY 12 HOURS, (Reported) Clopidogrel Bisulfate* (Plavix*), 75 MG ORAL DAILY, (Reported) Doxazosin Mesylate* (Doxazosin Mesylate*), 4 MG ORAL DAILY, (Reported) Fenofibrate (Fenofibrate), 145 MG ORAL DAILY, (Reported) Ferrous Sulfate* (Ferrous Sulfate*), 325 MG ORAL TID, (Reported) Glipizide* (Glipizide*), 5 MG ORAL BIDAC, (Reported) Hydralazine Hcl* (Hydralazine Hcl*), 25 MG ORAL BID, (Reported) Isosorbide Mononitrate (Isosorbide Mononitrate), 30 MG PO DAILY, (Reported) Levothyroxine Sodium* (Synthroid*), 125 MCG ORAL DAILY, (Reported) Omeprazole (Omeprazole), 40 MG ORAL DAILY, (Reported) Torsemide* (Demadex*), 20 MG ORAL BID, (Reported) [Digoxin], 0.125 MG ORAL QOD Miscellaneous Medications Calcium Carbonate (Oyster Shell Calcium), 500 MG PO, (Reported) Patient History Healthcare decision maker Resuscitation status Advanced Directive on File Past Medical/Surgical History Past Medical/Surgical History: (1) Diabetes mellitus (2) Hypothyroidism (3) Thyroid cancer (4) Obstructive jaundice (5) Paroxysmal A-fib Review of Systems Respiratory: Reports: orthopnea, shortness of breath, wheezing Hematologic/Lymphatic: Reports: no symptoms Physical Exam General Appearance: thin Lines, tubes and drains: peripheral HEENT: normocephalic, atraumatic Neck: non-tender, normal alignment Respiratory/Chest: chest wall non-tender, normal breath sounds Cardiovascular/Chest: normal rate Abdomen: normal bowel sounds, soft Genitourinary/Rectal: normal genital exam, normal prostate exam Extremities: non-tender Last 24 Hour Vital Signs Date Time Temp Pulse Resp B/P (MAP) Pulse Ox O2 Delivery O2 Flow Rate FiO2 12/16/18 13:00 98.0 77 20 116/87 100 3.0 12/16/18 11:29 82 20 100 Facial 40 12/16/18 10:00 97.8 80 16 120/86 100 Bi-pap 40 12/16/18 09:29 88 16 100 Facial 40 12/16/18 09:20 15.0 45 12/16/18 09:05 45 12/16/18 09:00 97.5 81 20 161/99 97 Non-Rebreather 15.0 12/16/18 09:00 81 20 Non-Rebreather 15.0 12/16/18 08:54 97.5 97 20 161/99 (119) 97 Non-Rebreather 15.0 Laboratory Tests Test 12/16/18 09:06 12/16/18 09:51 White Blood Count 8.2 K/UL (4.8-10.8) Red Blood Count 3.11 M/UL (4.20-5.40) L Hemoglobin 10.1 G/DL (12.0-16.0) L Hematocrit 31.4 % (37.0-47.0) L Mean Corpuscular Volume 101 FL (80-99) H Mean Corpuscular Hemoglobin 32.6 PG (27.0-31.0) H Mean Corpuscular Hemoglobin Concent 32.3 G/DL (32.0-36.0) Red Cell Distribution Width 12.9 % (11.6-14.8) Platelet Count 301 K/UL (150-450) Mean Platelet Volume 7.5 FL (6.5-10.1) Neutrophils (%) (Auto) 77.3 % (45.0-75.0) H Lymphocytes (%) (Auto) 16.8 % (20.0-45.0) L Monocytes (%) (Auto) 4.2 % (1.0-10.0) Eosinophils (%) (Auto) 0.8 % (0.0-3.0) Basophils (%) (Auto) 0.9 % (0.0-2.0) Prothrombin Time 10.7 SEC (9.30-11.50) Prothromb Time International Ratio 1.0 (0.9-1.1) Activated Partial Thromboplast Time 22 SEC (23-33) L Urine Color Pale yellow Urine Appearance Slightly cloudy Urine pH 6 (4.5-8.0) Urine Specific [place] 1.010 (1.005-1.035) Urine Protein 2+ (NEGATIVE) H Urine Glucose (UA) Negative (NEGATIVE) Urine Ketones Negative (NEGATIVE) Urine Blood 1+ (NEGATIVE) H Urine Nitrite Negative (NEGATIVE) Urine Bilirubin Negative (NEGATIVE) Urine Urobilinogen Normal MG/DL (0.0-1.0) Urine Leukocyte Esterase 3+ (NEGATIVE) H Urine RBC 0-2 /HPF (0 - 2) Urine WBC Tntc /HPF (0 - 2) H Urine Squamous Epithelial Cells None /LPF (NONE/OCC) Urine Bacteria Many /HPF (NONE) H Sodium Level 136 MMOL/L (136-145) Potassium Level 5.3 MMOL/L (3.5-5.1) H Chloride Level 102 MMOL/L (98-107) Carbon Dioxide Level 24 MMOL/L (21-32) Anion Gap 10 mmol/L (5-15) Blood Urea Nitrogen 36 mg/dL (7-18) H Creatinine 2.4 MG/DL (0.55-1.30) H Estimat Glomerular Filtration Rate mL/min (>60) Glucose Level 202 MG/DL (74-106) H Lactic Acid Level 1.90 mmol/L (0.4-2.0) Calcium Level 8.5 MG/DL (8.5-10.1) Phosphorus Level 4.3 MG/DL (2.5-4.9) Magnesium Level 2.3 MG/DL (1.8-2.4) Total Bilirubin 0.5 MG/DL (0.2-1.0) Aspartate Amino Transf (AST/SGOT) 18 U/L (15-37) Alanine Aminotransferase (ALT/SGPT) 10 U/L (12-78) L Alkaline Phosphatase 43 U/L (46-116) L Total Creatine Kinase 67 U/L (26-308) Creatine Kinase MB 0.9 NG/ML (0.0-3.6) Creatine Kinase MB Relative Index 1.3 Troponin I 0.000 ng/mL (0.000-0.056) Pro-B-Type Natriuretic Peptide 77285 pg/mL (0-125) H Total Protein 7.9 G/DL (6.4-8.2) Albumin 3.7 G/DL (3.4-5.0) Globulin 4.2 g/dL Albumin/Globulin Ratio 0.9 (1.0-2.7) L Lipase 176 U/L (73-393) Arterial Blood pH 7.427 (7.350-7.450) Arterial Blood Partial Pressure CO2 34.9 mmHg (35.0-45.0) L Arterial Blood Partial Pressure O2 78.8 mmHg (75.0-100.0) Arterial Blood HCO3 22.5 mmol/L (22.0-26.0) Arterial Blood Oxygen Saturation 95.0 % (95-100) Arterial Blood Base Excess -1.5 (-2-2) Migel Test Positive Height (Feet): 5 Weight (Pounds): 120 Medications Current Medications Medications (Trade) Dose Ordered Sig/Tatianna Route PRN Reason Start Time Stop Time Status Last Admin Dose Admin Acetaminophen (Tylenol) 650 mg Q4H PRN ORAL Fever 12/16/18 12:30 01/15/19 12:29 Albuterol/ Ipratropium (Albuterol/ Ipratropium) 3 ml Q4H PRN HHN Shortness of Breath 12/16/18 12:30 12/21/18 12:29 Dextrose (Dextrose 50%) 25 ml Q30M PRN IV Hypoglycemia 12/16/18 12:30 01/15/19 12:29 Dextrose (Dextrose 50%) 50 ml Q30M PRN IV Hypoglycemia 12/16/18 12:30 01/15/19 12:29 Furosemide (Lasix) 40 mg EVERY 8 HOURS IV 12/16/18 14:00 01/15/19 13:59 Heparin Sodium (Porcine) (Heparin 5000 units/ml) 5,000 units EVERY 12 HOURS SUBQ 12/16/18 21:00 01/15/19 20:59 Insulin Aspart (NovoLOG) BEFORE MEALS AND HS SUBQ 12/16/18 16:30 01/15/19 16:29 Levothyroxine Sodium (Synthroid) 125 mcg Q24H ORAL 12/17/18 06:30 01/16/19 06:29 Ondansetron HCl (Zofran) 4 mg Q6H PRN IVP Nausea & Vomiting 12/16/18 12:30 01/15/19 12:29 Polyethylene Glycol (Miralax) 17 gm DAILYPRN PRN ORAL Constipation 12/16/18 12:30 01/15/19 12:29 Temazepam (Restoril) 15 mg HSPRN PRN ORAL Insomnia 12/16/18 12:30 12/23/18 12:29 Assessment/Plan Problem List: (1) Acute respiratory failure ICD Codes: J96.00 - Acute respiratory failure, unspecified whether with hypoxia or hypercapnia SNOMED: 19263588 (2) CHF exacerbation ICD Codes: I50.9 - Heart failure, unspecified SNOMED: 10524350 Qualifiers: Qualified Codes: I50.23 - Acute on chronic systolic (congestive) heart failure (3) Pulmonary edema ICD Codes: J81.1 - Chronic pulmonary edema SNOMED: 32841703 (4) Hypothyroidism ICD Codes: E03.9 - Hypothyroidism, unspecified SNOMED: 11957118 (5) HTN (hypertension) ICD Codes: I10 - Essential (primary) hypertension SNOMED: 55841096 (6) Diabetic nephropathy ICD Codes: E11.21 - Type 2 diabetes mellitus with diabetic nephropathy SNOMED: 277363444 (7) Diabetes mellitus ICD Codes: E11.9 - Type 2 diabetes mellitus without complications SNOMED: 99526990 Assessment/Plan: titrate BIPAP respiratory treatment check BNP cxr in a few days echocardiogram cardiology to see dvt prophylaxis sliding scale diabetic diet. Aure rOtega MD Dec 16, 2018 14:21
--- NOTE | 2018-12-16 15:00 | NUR ---
NURSE NOTES: Wound care nurse at bedside. Sacral and left leg assessed. Redness noted for sacral and non pressure related bruising on left lower leg noted.
[2018-12-16 16:00] VITALS: BP 122/69
[2018-12-16] MEDS: NovoLOG Insulin Flexpen SUBQ SCH ×2 (16:30→21:12)
--- NOTE | 2018-12-16 18:19 | NUR ---
NURSE NOTES: Notified Dr. Ortega of increased troponin 0.075. No new orders given.
--- NOTE | 2018-12-16 19:15 | NUR ---
HAND-OFF: Report given to JANNETH Garcia using SBAR.
--- NOTE | 2018-12-16 19:23 | History & Physical ---
History and Physical History & Physicial Dictated for Int Med-Dr Guan no. [id number]. Morgan Ha MD Dec 16, 2018 19:23
--- NOTE | 2018-12-16 19:33 | NUR ---
NURSE NOTES: received pt from nguyen LAGUNAS., pt is awake and resting on the bed AOx3. no SOB and no Respiratory distress noted at this moment with 2L NC. family at the bed side. amharic speaker. Left and Right FA Iv sites intact, patent, and clean. bed at the lowest position, locked, and alarmed. will continue to monitor with plan of care. call light within reach.
--- NOTE | 2018-12-16 19:54 | Cardiology Progress Note ---
Assessment/Plan Assessment/Plan 2931220 acute o chronic systolic adn diastoic heart fail cri contienudiuretic as kand cr adn bp allow Objective Last 24 Hour Vital Signs Date Time Temp Pulse Resp B/P (MAP) Pulse Ox O2 Delivery O2 Flow Rate FiO2 12/16/18 16:00 2.0 12/16/18 16:00 97.5 81 14 122/69 (86) 96 12/16/18 16:00 84 12/16/18 16:00 Nasal Cannula 2.0 12/16/18 13:47 Nasal Cannula 2.0 12/16/18 13:00 98.0 77 20 116/87 100 3.0 12/16/18 11:29 82 20 100 Facial 40 12/16/18 10:00 97.8 80 16 120/86 100 Bi-pap 40 12/16/18 09:29 88 16 100 Facial 40 12/16/18 09:20 15.0 45 12/16/18 09:05 45 12/16/18 09:00 97.5 81 20 161/99 97 Non-Rebreather 15.0 12/16/18 09:00 81 20 Non-Rebreather 15.0 12/16/18 08:54 97.5 97 20 161/99 (119) 97 Non-Rebreather 15.0 Laboratory Tests Test 12/16/18 09:06 12/16/18 09:51 12/16/18 17:10 White Blood Count 8.2 K/UL (4.8-10.8) Red Blood Count 3.11 M/UL (4.20-5.40) L Hemoglobin 10.1 G/DL (12.0-16.0) L Hematocrit 31.4 % (37.0-47.0) L Mean Corpuscular Volume 101 FL (80-99) H Mean Corpuscular Hemoglobin 32.6 PG (27.0-31.0) H Mean Corpuscular Hemoglobin Concent 32.3 G/DL (32.0-36.0) Red Cell Distribution Width 12.9 % (11.6-14.8) Platelet Count 301 K/UL (150-450) Mean Platelet Volume 7.5 FL (6.5-10.1) Neutrophils (%) (Auto) 77.3 % (45.0-75.0) H Lymphocytes (%) (Auto) 16.8 % (20.0-45.0) L Monocytes (%) (Auto) 4.2 % (1.0-10.0) Eosinophils (%) (Auto) 0.8 % (0.0-3.0) Basophils (%) (Auto) 0.9 % (0.0-2.0) Prothrombin Time 10.7 SEC (9.30-11.50) Prothromb Time International Ratio 1.0 (0.9-1.1) Activated Partial Thromboplast Time 22 SEC (23-33) L Urine Color Pale yellow Urine Appearance Slightly cloudy Urine pH 6 (4.5-8.0) Urine Specific [place] 1.010 (1.005-1.035) Urine Protein 2+ (NEGATIVE) H Urine Glucose (UA) Negative (NEGATIVE) Urine Ketones Negative (NEGATIVE) Urine Blood 1+ (NEGATIVE) H Urine Nitrite Negative (NEGATIVE) Urine Bilirubin Negative (NEGATIVE) Urine Urobilinogen Normal MG/DL (0.0-1.0) Urine Leukocyte Esterase 3+ (NEGATIVE) H Urine RBC 0-2 /HPF (0 - 2) Urine WBC Tntc /HPF (0 - 2) H Urine Squamous Epithelial Cells None /LPF (NONE/OCC) Urine Bacteria Many /HPF (NONE) H Sodium Level 136 MMOL/L (136-145) Potassium Level 5.3 MMOL/L (3.5-5.1) H Chloride Level 102 MMOL/L (98-107) Carbon Dioxide Level 24 MMOL/L (21-32) Anion Gap 10 mmol/L (5-15) Blood Urea Nitrogen 36 mg/dL (7-18) H Creatinine 2.4 MG/DL (0.55-1.30) H Estimat Glomerular Filtration Rate mL/min (>60) Glucose Level 202 MG/DL (74-106) H Lactic Acid Level 1.90 mmol/L (0.4-2.0) Calcium Level 8.5 MG/DL (8.5-10.1) Phosphorus Level 4.3 MG/DL (2.5-4.9) Magnesium Level 2.3 MG/DL (1.8-2.4) Total Bilirubin 0.5 MG/DL (0.2-1.0) Aspartate Amino Transf (AST/SGOT) 18 U/L (15-37) Alanine Aminotransferase (ALT/SGPT) 10 U/L (12-78) L Alkaline Phosphatase 43 U/L (46-116) L Total Creatine Kinase 67 U/L (26-308) Creatine Kinase MB 0.9 NG/ML (0.0-3.6) Creatine Kinase MB Relative Index 1.3 Troponin I 0.000 ng/mL (0.000-0.056) 0.075 ng/mL (0.000-0.056) Pro-B-Type Natriuretic Peptide 29961 pg/mL (0-125) H Total Protein 7.9 G/DL (6.4-8.2) Albumin 3.7 G/DL (3.4-5.0) Globulin 4.2 g/dL Albumin/Globulin Ratio 0.9 (1.0-2.7) L Lipase 176 U/L (73-393) Arterial Blood pH 7.427 (7.350-7.450) Arterial Blood Partial Pressure CO2 34.9 mmHg (35.0-45.0) L Arterial Blood Partial Pressure O2 78.8 mmHg (75.0-100.0) Arterial Blood HCO3 22.5 mmol/L (22.0-26.0) Arterial Blood Oxygen Saturation 95.0 % (95-100) Arterial Blood Base Excess -1.5 (-2-2) Migel Test Positive Dallas Womack MD Dec 16, 2018 19:54
[2018-12-16 20:00] VITALS: BP 101/61
[2018-12-16] MEDS: Heparin 5000 units/ml inj SUBQ SCH (21:09)
--- NOTE | 2018-12-16 22:00 | History and Physical Report ---
DATE OF ADMISSION: 12/16/2018 CHIEF COMPLAINT: The patient is an 83-year-old English female, who presents with chief complaint of shortness of breath. HISTORY OF PRESENT ILLNESS: The patient was admitted to [facility] from October 03 to October 09, 2018. The patient was diagnosed with [id number]-uensmpno myocardial infarction and atrial fibrillation at that time. It was determined that the patient needed cardiac cath. The patient's insurance denied transfer to higher level of care. The patient was discharged home with followup with her primary splunk dashboard developer. The patient presented to [facility] on December 16, 2018. The patient was complaining of a one-day history of shortness of breath. This was acute in onset. The patient was unable to speak in complete sentences. The patient was noted to be desaturating to the 80s. The patient was placed on BiPAP. The patient is admitted to the [facility] for respiratory failure. REVIEW OF SYSTEMS: Unable to assess secondary to the patient's mental status and BiPAP. PAST MEDICAL HISTORY: Significant for: 1. Mte-OT-okpitnkk myocardial infarction in September 2018 as above. 2. Paroxysmal atrial fibrillation. 3. Hypertension. 4. Diabetes type 2. 5. Gastritis. 6. Osteoarthritis. 7. Hypothyroidism. PAST SURGICAL HISTORY: Significant for: 1. Thyroidectomy. 2. Bilateral cataract surgery. 3. Laparoscopic cholecystectomy in October 2017. CURRENT MEDICATIONS: 1. Fosamax 70 mg 1 tablet p.o. weekly. 2. Aspirin 325 mg 1 tablet p.o. daily. 3. Atorvastatin 20 mg p.o. daily. 4. Baclofen 10 mg p.o. 3 times daily p.r.n. 5. Calcium carbonate 500 mg p.o. daily. 6. Carvedilol 12.5 mg p.o. twice daily. 7. Plavix 75 mg p.o. daily. 8. Doxazosin 4 mg p.o. daily. 9. Fenofibrate 145 mg p.o. daily. 10. Iron sulfate 325 mg p.o. 3 times daily. 11. Glipizide 5 mg p.o. twice daily. 12. Hydralazine 25 mg p.o. twice daily. 13. Isosorbide mononitrate 30 mg p.o. daily. 14. Levoxyl 0.125 mg p.o. daily. 15. Omeprazole 20 mg p.o. daily. 16. Demodex 20 mg p.o. twice daily. 17. Digoxin 0.125 mg p.o. daily. ALLERGIES: No known drug allergies. SOCIAL HISTORY: The patient is single and lives with her adult daughter. The patient denies tobacco or alcohol use. PHYSICAL EXAMINATION: VITAL SIGNS: Temperature 97.5, pulse 97, respirations 25, blood pressure 161/99, pulse ox 85% on room air. GENERAL: The patient is a well-developed, well-nourished female, in no apparent distress. HEENT: Eyes, pupils equal and responsive to light and accommodation. Extraocular movements are intact. NECK: Supple without lymphadenopathy. CHEST: Diffuse wheezes in bilateral lung pratt with crackles at bilateral bases, otherwise without wheezes. ABDOMEN: Soft, nontender, and nondistended. Positive bowel sounds. No evidence of hepatosplenomegaly. Currently, no rebound or guarding noted. CARDIOVASCULAR: Regular rhythm and rate. S1 and S2 are normal without murmurs, rubs, or gallops. EXTREMITIES: Negative for clubbing, cyanosis, or edema. RECTAL: Not performed. GENITAL: Not performed. NEUROLOGIC: Cranial nerves II through XII are grossly intact without focal deficits. LABORATORY STUDIES: WBC 8.2, hemoglobin 10.1, hematocrit 31.4, platelets 301,000. Sodium 136, potassium 5.3, chloride 102, CO2 of 24, BUN 36, creatinine 2.4, glucose 202. Troponin 0.0. BNP elevated at 14,319. A chest x-ray was reported as bilateral interstitial and airspace disease consistent with congestive heart failure and borderline cardiomegaly. ASSESSMENT: This is an 83-year-old female with: 1. Respiratory failure. 2. Shortness of breath. 3. Congestive heart failure, acute. 4. Coronary artery disease. 5. Atrial fibrillation. 6. Hypertension. 7. Hypothyroidism. TREATMENT: 1. Respiratory failure/shortness of breath. A Pulmonary consultation has been obtained with Dr. Aure Ortega. The patient is currently on BiPAP. We will follow recommendations of Pulmonary. 2. Congestive heart failure. Cardiology consultation has been obtained with Dr. Dallas Womack. The patient's BNP is elevated to more than 14,000. An echocardiogram is pending. 3. Coronary artery disease. An initial troponin level was negative. The patient has history of ezd-XP-kcxugouh myocardial infarction in September 2018 as above. 4. Atrial fibrillation, paroxysmal. 5. Hypertension. 6. Hypothyroidism. Morgan Ha M.D. DR: Beth JOB#: [id number] CC:
--- NOTE | 2018-12-16 23:15 | Consultation ---
DATE OF CONSULTATION: 12/16/2018 CARDIOLOGY CONSULTATION CONSULTING PHYSICIAN: Dallas Womack M.D. REFERRING PHYSICIAN: 1. Kalen Guan M.D. 2. Aure Ortega M.D. REASON FOR REFERRAL: Shortness of breath. HISTORY OF PRESENT ILLNESS: The patient is an elderly female with history of multiple medical problems. The patient was brought into emergency room at [facility] by ambulance from home due to shortness of breath as of yesterday morning. EMS found the patient in tripod position, audible wheezes, EMS applied CPAP and improved in oxygenation. No family members available at that time. The patient was transferred to the emergency room here at [facility] where she was evaluated by the emergency room physician and apparently been short of breath for approximately one day and woke up in the morning because of the shortness of breath. No chest pain was noted at that time. No relieving or aggravating factors were noted. She was felt to be severe in shortness of breath. The patient is at this time awake and responsive but she really does not remember even through the staff who speaks Indonesian why she was admitted to the hospital. All she is able to tell that she was not able to sleep. On arrival to the emergency room, she had a blood pressure of 161/99, 97% saturation on nonrebreather 15 liters nasal cannula. PAST MEDICAL HISTORY: Positive per the chart and multiple prior hospitalization here at [facility] where she has been seen by several different physicians and aquatic scientist as well. The last time she was noted to have acute on chronic diastolic and systolic heart failure and paroxysmal episodes of atrial fibrillation, nonsustained ventricular tachycardia, chronic renal insufficiency and minimal cardiac enzyme abnormalities. She also history of diabetes mellitus type 2, peripheral vascular disease, gastroesophageal reflux disease. ALLERGIES: She has no known drug allergies. SOCIAL HISTORY: According to the records negative for smoking, alcohol, or substance abuse. REVIEW OF SYSTEMS: Really unable to obtain. PHYSICAL EXAMINATION: GENERAL: Shows to be elderly female, in no respiratory distress, 2 liters nasal cannula 98% saturation. NECK: Supple. LUNGS: Crackles noted at the bases right more so than on the left. CARDIAC: Regular rate and rhythm. No heaves or thrills noted. ABDOMEN: Soft, obese. Positive bowel sounds. EXTREMITIES: There is no clubbing, cyanosis, nor edema. NEUROLOGICAL: She is awake and responsive, but really not much in terms of communication. She does have POLST form in the chart, Do Not Resuscitate, selective treatment, DNR/DNI, may use all other medications, antibiotic, pressors was mention according to the POLST notation in the chart. LABORATORY AND DIAGNOSTIC DATA: White count of 8.3, hemoglobin 10.1, and platelet count of 301. A pH is 7.47, pCO2 34, pO2 of 78, and saturation 95%. Sodium is 136, potassium 5.3, chloride 102, bicarb of 24, BUN 32, creatinine 2.4, and glucose 202. Creatinine has ranged between 1.3 she had back in October 2018 up to approximately 3.6 at time of her hospitalization here back in October [place] [address]. Cardiac enzymes 0.00. Troponin 0.075 that the latest one. INR 1 and PTT of 33. Chest x-ray showed bilateral interstitial and air space disease, somewhat similar to the previous examination likely combination of acute changes, obscured bilateral hemidiaphragms. An echocardiogram shows ejection fraction 35% to 40% with segmental wall motion abnormalities being noted, moderate aortic insufficiency, moderate diastolic relaxation, moderate mitral regurgitation, urco-il-nxcepkiq tricuspid regurgitation, and pulmonary hypertension in the 50s. The patient's electrocardiogram shows what appears to be sinus tachycardia with no significant ST-T wave abnormalities. ASSESSMENT AND PLAN: 1. Abnormal cardiac enzymes. 2. Chronic renal insufficiency. 3. Encephalopathy . 4. Congestive heart failure with acute systolic as well as diastolic component. 5. Moderate aortic insufficiency and mitral insufficiency. 6. Pulmonary hypertension. 7. Paroxysmal episodes of atrial fibrillation. 8. History of nonsustained ventricular tachycardia. 9. Acute on chronic renal insufficiency. Dr. Guan and Dr. Ortega, this patient was seen in cardiac consultation. The patient continued to exhibit signs of congestive heart failure. She should continue to receive diuretics. Creatinine to be followed. Blood pressure to be followed. Echocardiogram needs to be compared to prior to see if this is an acute finding and as such it appears that most of the changes that are present today have been present on prior occasions indicating the chronic nature of her systolic and diastolic abnormalities although they are new compared to 2016 echocardiogram. Continue diuretics as the patient's creatinine and blood pressure allows. GARETT inhibitors if and when the creatinine allows as she may need to be on some beta-blockers as well at some point in the future for treatment of congestive heart failure based on guideline directed therapy if the patient's blood pressure, creatinine, and potassium do allow. It is possible that her cardiac enzymes are related to degree of renal insufficiency but further workup may be necessary. Dallas Womack M.D. DR: Ross JOB#: [id number] CC:
[2018-12-17] VITALS: BP 105/68
--- NOTE | 2018-12-17 01:15 | NUR ---
NURSE NOTES: pt is sleeping on the bed and easy to arouse,and V/S is stable. pt O2sat is 97% with 2L of NC. bed at the lowest position, locked, and alarmed. will continue to monitor pt. call light within reach.
--- NOTE | 2018-12-17 02:45 | NUR ---
NURSE NOTES: pt confirmed to be A. Fib, pt is awake and asymptomatic. HR ranges from 115 to 125, BP 104/68, O2sat 97% with 2NC. notified regarding pt's A.fib event. new order received to tx pt's A.fib, and carried out. will continue to monitor pt.
[2018-12-17] MEDS: Metoprolol 25mg tab ORAL SCH ×3 (03:08→18:07)
[2018-12-17 04:00] VITALS: BP 94/59
[2018-12-17 04:48] LABS: EOSINOPHILS % (AUTO) 1.7 % (0.0-3.0); HEMATOCRIT 28.2 % (37.0-47.0); HEMOGLOBIN 9.5 G/DL (12.0-16.0); LYMPHOCYTES % (AUTO) 19.1 % (20.0-45.0); MEAN CORPUSCULAR VOLUME 99 FL (80-99); MONOCYTES % (AUTO) 8.2 % (1.0-10.0); NEUTROPHILS % (AUTO) 70.1 % (45.0-75.0); PLATELET COUNT 262 K/UL (150-450); RED BLOOD COUNT 2.85 M/UL (4.20-5.40); RED CELL DISTRIBUTION WIDTH 12.7 % (11.6-14.8); WHITE BLOOD COUNT 8.2 K/UL (4.8-10.8)
[2018-12-17 05:03] LABS: ANION GAP 15 mmol/L (5-15); BLOOD UREA NITROGEN 42 mg/dL (7-18); CALCIUM 8.8 MG/DL (8.5-10.1); CARBON DIOXIDE 24 MMOL/L (21-32); CHLORIDE 101 MMOL/L (98-107); CREATININE 2.7 MG/DL (0.55-1.30); POTASSIUM 4.1 MMOL/L (3.5-5.1); SODIUM 140 MMOL/L (136-145)
[2018-12-17] MEDS: Levothyroxine 125mcg tab ORAL SCH (06:17)
[2018-12-17] MEDS: NovoLOG Insulin Flexpen SUBQ SCH ×4 (06:21→20:57)
--- NOTE | 2018-12-17 07:25 | NUR ---
NURSE NOTES: Received report from Patricia Vega RN. Patient alert and oriented x 3, able to make needs known. Receiving O2 via nasal cannula @ 2L/min, respirations even and unlabored. [place] catheter patent and draining well. Right hand 22g and left forearm 20g saline locks intact and asymptomatic. Bed locked in lowest position with side rails up x 3. All needs attended to. Call light within reach. Will continue to monitor.
--- NOTE | 2018-12-17 07:26 | NUR ---
HAND-OFF: Report given to Dari LAGUNAS., pt is on 2L NC O2sat 97%. no s/s respiratory distress. pt is A.fib but asympomtomatic.
[2018-12-17 08:00] VITALS: BP 140/69
--- NOTE | 2018-12-17 08:13 | NUR ---
RADIOLOGY DEPT., CHEST X-RAY DONE.-P.DYE
[2018-12-17] MEDS: Heparin 5000 units/ml inj SUBQ SCH ×2 (09:09→20:58)
--- NOTE | 2018-12-17 09:11 | NUR ---
*-* INSURANCE *-* ALL AVAILABLE CLINICALS HAVE BEEN FAXED TO: IPA: [facility]/W TING - COORDINATOR P: EXT - [id number] F:
--- NOTE | 2018-12-17 09:58 | Diagnostic Imaging Report ---
Indication: Shortness of breath Technique: One view of the chest Comparison: 12/16/2018 Findings: Interstitial congestive changes at the lung bases appear probably slightly improved. However, there is increased bilateral basilar hazy opacity suggesting increasing bilateral pleural fluid. The heart remains enlarged. The aorta is tortuous ectatic and calcified. Impression: Possible interim slight improvement of interstitial congestion Suspect increasing bilateral pleural fluid
--- NOTE | 2018-12-17 11:39 | NUR ---
AGILE QA [employer] MA[employer] 83 YO FEMALE BIBA FROM HOME TO ER CC SOB SINCE AM, PT FOUND IN TRIPOD POSITION, PLACED ON 100% NRM SI; RESP DISTRESS T. 97.6 HR 97 RR 20 B/P 166/99 BIPAP 10/5 FIO2 40% K 5.3 BUN 36 CR 2.4 BNP [id number] TROP 0.075 UA+ PROTEIN,LEUKOCYTE ESTERASE,RBC BACTERIA CXR= Bilateral interstitial and airspace disease. This is somewhat similar to previous exam. Findings likely represent a combination of an acute changes. IS: LASIX IV CEFEPIME IV VANCO IV ADMITTED TO STEP DOWN STEP DOWN STATUS
[2018-12-17 12:00] VITALS: BP 117/64
[2018-12-17 16:00] VITALS: BP 133/57
--- NOTE | 2018-12-17 16:41 | Cardiology Report ---
APPROVED REPORT EXAM: Two-dimensional and M-mode echocardiogram with Doppler and color Doppler. INDICATION LV function M-Mode DIMENSIONS IVSd1.0 (0.7-1.1cm)Left Atrium (MM)5.7 (1.6-4.0cm) LVDd4.1 (3.5-5.6cm)Aortic Root2.7 (2.0-3.7cm) PWd1.2 (0.7-1.1cm)Aortic Cusp Exc.1.7 (1.5-2.0cm) LVDs2.8 (2.5-4.0cm) PWs1.6 cm Normal left ventricular chamber size. wall and akinesis of LV apex. Dyskinetic distal inferior Left ventricular ejection fraction estimated to be 40 %. Mild left ventricular hypertrophy. Anterior Echo-free space, may be due to pericardial fat or effusion. Possible pleural effusion . Mild left atrial enlargement . Right cardiac chamber sizes are within normal limits. Focal aortic valve sclerosis with adequate cusp excursion. Mildly thickened mitral valve leaflets with normal excursion. Mild mitral annulus and aortic root calcification. Pulmonic valve not well visualized. IVC at normal size with physiologic collapse. A color flow and spectral Doppler study was performed and revealed: Mild aortic insufficiency. Mitral inflow velocities indicates possible pseudo normalization pattern implying moderately elevated left atrial pressure (Grade II ) Moderate mitral regurgitation. Mild to moderate tricuspid regurgitation. Tricuspid systolic velocities suggests peak right ventricular systolic pressure of 55 mmHg, consistent with moderate pulmonary HTN. Pulmonic regurgitation present.
--- NOTE | 2018-12-17 17:12 | Internal Med Progress Note ---
Subjective Date of Service: Dec 17, 2018 Physician Name Morgan Ha Attending Physician Kalen Guan MD Current Medications Medications (Trade) Dose Ordered Sig/Tatianna Route PRN Reason Start Time Stop Time Status Last Admin Dose Admin Acetaminophen (Tylenol) 650 mg Q4H PRN ORAL Fever 12/16/18 12:30 01/15/19 12:29 Albuterol/ Ipratropium (Albuterol/ Ipratropium) 3 ml Q4H PRN HHN Shortness of Breath 12/16/18 12:30 12/21/18 12:29 Dextrose (Dextrose 50%) 25 ml Q30M PRN IV Hypoglycemia 12/16/18 12:30 01/15/19 12:29 Dextrose (Dextrose 50%) 50 ml Q30M PRN IV Hypoglycemia 12/16/18 12:30 01/15/19 12:29 Furosemide (Lasix) 40 mg EVERY 8 HOURS IV 12/16/18 14:00 01/15/19 13:59 12/17/18 14:22 Heparin Sodium (Porcine) (Heparin 5000 units/ml) 5,000 units EVERY 12 HOURS SUBQ 12/16/18 21:00 01/15/19 20:59 12/17/18 09:09 Insulin Aspart (NovoLOG) BEFORE MEALS AND HS SUBQ 12/16/18 16:30 01/15/19 16:29 12/17/18 16:51 Levothyroxine Sodium (Synthroid) 125 mcg Q24H ORAL 12/17/18 06:30 01/16/19 06:29 12/17/18 06:17 Metoprolol Tartrate (Lopressor) 25 mg BID ORAL 12/17/18 03:00 01/16/19 02:59 12/17/18 09:08 Ondansetron HCl (Zofran) 4 mg Q6H PRN IVP Nausea & Vomiting 12/16/18 12:30 01/15/19 12:29 Polyethylene Glycol (Miralax) 17 gm DAILYPRN PRN ORAL Constipation 12/16/18 12:30 01/15/19 12:29 Temazepam (Restoril) 15 mg HSPRN PRN ORAL Insomnia 12/16/18 12:30 12/23/18 12:29 Allergies: Coded Allergies: No Known Allergies (Verified , 07/20/11) UNABLE TO ASSESS (Unverified , 12/16/18) ROS Limited/Unobtainable: No Constitutional: Reports: no symptoms HEENT: Reports: no symptoms Cardiovascular: Reports: no symptoms Respiratory: Reports: shortness of breath Gastrointestinal/Abdominal: Reports: no symptoms Genitourinary: Reports: no symptoms Neurologic/Psychiatric: Reports: no symptoms Subjective 83 YO F admitted with shortness of breath. Now respiratory failure and CHF. Cover for Int Giorgio-Dr Guan. CHRISTIAN Objective Last Vital Signs Date Time Temp Pulse Resp B/P (MAP) Pulse Ox O2 Delivery O2 Flow Rate FiO2 12/17/18 16:00 Nasal Cannula 2.0 12/17/18 16:00 96.8 100 17 133/57 (82) 99 12/16/18 11:29 40 Laboratory Tests Test 12/17/18 03:35 White Blood Count 8.2 K/UL (4.8-10.8) Red Blood Count 2.85 M/UL (4.20-5.40) L Hemoglobin 9.5 G/DL (12.0-16.0) L Hematocrit 28.2 % (37.0-47.0) L Mean Corpuscular Volume 99 FL (80-99) Mean Corpuscular Hemoglobin 33.4 PG (27.0-31.0) H Mean Corpuscular Hemoglobin Concent 33.7 G/DL (32.0-36.0) Red Cell Distribution Width 12.7 % (11.6-14.8) Platelet Count 262 K/UL (150-450) Mean Platelet Volume 7.4 FL (6.5-10.1) Neutrophils (%) (Auto) 70.1 % (45.0-75.0) Lymphocytes (%) (Auto) 19.1 % (20.0-45.0) L Monocytes (%) (Auto) 8.2 % (1.0-10.0) Eosinophils (%) (Auto) 1.7 % (0.0-3.0) Basophils (%) (Auto) 1.0 % (0.0-2.0) Sodium Level 140 MMOL/L (136-145) Potassium Level 4.1 MMOL/L (3.5-5.1) Chloride Level 101 MMOL/L (98-107) Carbon Dioxide Level 24 MMOL/L (21-32) Anion Gap 15 mmol/L (5-15) Blood Urea Nitrogen 42 mg/dL (7-18) H Creatinine 2.7 MG/DL (0.55-1.30) H Estimat Glomerular Filtration Rate mL/min (>60) Glucose Level 230 MG/DL (74-106) H Calcium Level 8.8 MG/DL (8.5-10.1) Troponin I 0.039 ng/mL (0.000-0.056) Pro-B-Type Natriuretic Peptide 08214 pg/mL (0-125) H Microbiology Date/Time Source Procedure Growth Status 12/16/18 09:06 Urine,Clean Catch Urine Culture - Preliminary Gram Negative Bacillus 1 Resulted Intake and Output 12/16/18 12/17/18 19:00 07:00 Intake Total 430 ml 120 ml Output Total 290 ml 1250 ml Balance 140 ml -1130 ml Intake Oral 100 ml 120 ml IV Total 330 ml Output Urine Total 290 ml 1250 ml Objective PHYSICAL EXAMINATION: GENERAL: The patient is a well-developed, well-nourished female, in no apparent distress. HEENT: Eyes, pupils equal and responsive to light and accommodation. Extraocular movements are intact. NECK: Supple without lymphadenopathy. CHEST: Diffuse wheezes in bilateral lung pratt with crackles at bilateral bases, otherwise without wheezes. ABDOMEN: Soft, nontender, and nondistended. Positive bowel sounds. No evidence of hepatosplenomegaly. Currently, no rebound or guarding noted. CARDIOVASCULAR: Regular rhythm and rate. S1 and S2 are normal without murmurs, rubs, or gallops. EXTREMITIES: Negative for clubbing, cyanosis, or edema. RECTAL: Not performed. GENITAL: Not performed. NEUROLOGIC: Cranial nerves II through XII are grossly intact without focal deficits. Assessment/Plan Assessment/Plan ASSESSMENT: This is an 83-year-old female with: 1. Respiratory failure. 2. Shortness of breath. 3. Congestive heart failure, acute. 4. Coronary artery disease. 5. Atrial fibrillation. 6. Hypertension. 7. Hypothyroidism. TREATMENT: 1. Respiratory failure/shortness of breath. A Pulmonary consultation has been obtained with Dr. Aure Ortega. The patient is currently tolerating nasal canula. We will follow recommendations of Pulmonary. 2. Congestive heart failure. Cardiology consultation has been obtained with Dr. Dallas Womack. The patient's BNP is elevated to more than 14,000. An echocardiogram LVEF=40%. 3. Coronary artery disease. Serial roponin levels are elevated. The patient has history of [id number] myocardial infarction in September 2018 as above. See cardiology note-Dr Womack 4. Atrial fibrillation, paroxysmal. 5. Hypertension. 6. Hypothyroidism. Morgan Ha MD Dec 17, 2018 17:12
--- NOTE | 2018-12-17 17:18 | Cardiology Report ---
APPROVED REPORT EKG Measurement Heart [id number] Atrial fibrillation with rapid ventricular response Cannot rule out Anteroseptal infarct, age undetermined Abnormal ECG
--- NOTE | 2018-12-17 17:21 | Cardiology Report ---
APPROVED REPORT EKG Measurement Heart [id number] Normal sinus rhythm Septal infarct, age undetermined Abnormal ECG
--- NOTE | 2018-12-17 18:29 | Cardiology Progress Note ---
Assessment/Plan Assessment/Plan 1. Abnormal cardiac enzymes. 2. Chronic renal insufficiency. 3. Encephalopathy . 4. Congestive heart failure with acute systolic as well as diastolic component. 5. Moderate aortic insufficiency and mitral insufficiency. 6. Pulmonary hypertension. 7. Paroxysmal episodes of atrial fibrillation. 8. History of nonsustained ventricular tachycardia. 9. Acute on chronic renal insufficiency. diuretic as bp and cr allo seem improved tele noted sinus and afib recorded bp borderlien noral cr increased hr atr times higher trop back down likely demand related ekg reviewed d/w family Subjective Cardiovascular: Denies: chest pain, lightheadedness, palpitations Respiratory: Denies: shortness of breath Gastrointestinal/Abdominal: Denies: abdominal pain Genitourinary: Denies: burning Subjective family at bedside traslated for me Objective Last 24 Hour Vital Signs Date Time Temp Pulse Resp B/P (MAP) Pulse Ox O2 Delivery O2 Flow Rate FiO2 12/17/18 18:07 100 114/66 12/17/18 16:00 Nasal Cannula 2.0 12/17/18 16:00 2.0 12/17/18 16:00 96.8 100 17 133/57 (82) 99 12/17/18 16:00 103 12/17/18 12:00 Nasal Cannula 2.0 12/17/18 12:00 95.9 100 16 117/64 (81) 100 12/17/18 12:00 2.0 12/17/18 11:40 120 12/17/18 09:08 100 140/69 12/17/18 08:00 Nasal Cannula 2.0 12/17/18 08:00 96.2 100 17 140/69 (92) 98 12/17/18 08:00 2.0 12/17/18 07:57 93 12/17/18 04:00 2.0 12/17/18 04:00 96.4 106 17 94/59 (71) 96 12/17/18 04:00 Nasal Cannula 2.0 12/17/18 04:00 110 12/17/18 04:00 Nasal Cannula 2.0 12/17/18 03:08 112 103/65 12/17/18 00:00 Nasal Cannula 2.0 12/17/18 00:00 97.7 90 16 105/68 (80) 96 12/16/18 23:29 80 12/16/18 20:00 96.8 90 15 101/61 (74) 96 12/16/18 20:00 90 12/16/18 20:00 2.0 12/16/18 20:00 Nasal Cannula 2.0 General Appearance: no apparent distress, alert Neck: supple Cardiovascular: regularly irregular, tachycardia Respiratory/Chest: crackles/rales Abdomen: normal bowel sounds, non tender, soft Extremities: no swelling Intake and Output 12/16/18 12/17/18 19:00 07:00 Intake Total 430 ml 120 ml Output Total 290 ml 1250 ml Balance 140 ml -1130 ml Intake Oral 100 ml 120 ml IV Total 330 ml Output Urine Total 290 ml 1250 ml Laboratory Tests Test 12/17/18 03:35 White Blood Count 8.2 K/UL (4.8-10.8) Red Blood Count 2.85 M/UL (4.20-5.40) L Hemoglobin 9.5 G/DL (12.0-16.0) L Hematocrit 28.2 % (37.0-47.0) L Mean Corpuscular Volume 99 FL (80-99) Mean Corpuscular Hemoglobin 33.4 PG (27.0-31.0) H Mean Corpuscular Hemoglobin Concent 33.7 G/DL (32.0-36.0) Red Cell Distribution Width 12.7 % (11.6-14.8) Platelet Count 262 K/UL (150-450) Mean Platelet Volume 7.4 FL (6.5-10.1) Neutrophils (%) (Auto) 70.1 % (45.0-75.0) Lymphocytes (%) (Auto) 19.1 % (20.0-45.0) L Monocytes (%) (Auto) 8.2 % (1.0-10.0) Eosinophils (%) (Auto) 1.7 % (0.0-3.0) Basophils (%) (Auto) 1.0 % (0.0-2.0) Sodium Level 140 MMOL/L (136-145) Potassium Level 4.1 MMOL/L (3.5-5.1) Chloride Level 101 MMOL/L (98-107) Carbon Dioxide Level 24 MMOL/L (21-32) Anion Gap 15 mmol/L (5-15) Blood Urea Nitrogen 42 mg/dL (7-18) H Creatinine 2.7 MG/DL (0.55-1.30) H Estimat Glomerular Filtration Rate mL/min (>60) Glucose Level 230 MG/DL (74-106) H Calcium Level 8.8 MG/DL (8.5-10.1) Troponin I 0.039 ng/mL (0.000-0.056) Pro-B-Type Natriuretic Peptide 73370 pg/mL (0-125) H Microbiology Date/Time Source Procedure Growth Status 12/16/18 09:06 Urine,Clean Catch Urine Culture - Preliminary Gram Negative Bacillus 1 Resulted Dallas Womack MD Dec 17, 2018 18:29
[2018-12-17] MEDS ORDERED: ASPIRIN81 MG ORAL (18:56)
[2018-12-17] MEDS ORDERED: GENTAMICIN SULF15 ML OP (18:56)
--- NOTE | 2018-12-17 19:05 | NUR ---
HAND-OFF: Report given to Leon Blanco RN.
--- NOTE | 2018-12-17 19:06 | NUR ---
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
[2018-12-17 20:00] VITALS: BP 146/74
--- NOTE | 2018-12-17 22:00 | NUR ---
NURSE NOTES: IV on a R f/arm infiltrated,tender,D/C this IV site and inserted new line on L hand 22G,IV patent and intact,SL
[2018-12-18] VITALS: BP 128/62
[2018-12-18 04:00] VITALS: BP_SYST 102; BP_SYST 108; BP_DIAS 45; BP_DIAS 54
[2018-12-18 04:25] LABS: BASOPHILS % (AUTO) 1.2 % (0.0-2.0); EOSINOPHILS % (AUTO) 2.5 % (0.0-3.0); HEMATOCRIT 27.8 % (37.0-47.0); HEMOGLOBIN 9.2 G/DL (12.0-16.0); LYMPHOCYTES % (AUTO) 31.6 % (20.0-45.0); MEAN CORPUSCULAR VOLUME 100 FL (80-99); MONOCYTES % (AUTO) 9.7 % (1.0-10.0); NEUTROPHILS % (AUTO) 55.1 % (45.0-75.0); PLATELET COUNT 271 K/UL (150-450); RED BLOOD COUNT 2.78 M/UL (4.20-5.40); RED CELL DISTRIBUTION WIDTH 12.7 % (11.6-14.8); WHITE BLOOD COUNT 7.7 K/UL (4.8-10.8)
[2018-12-18 04:41] LABS: BLOOD UREA NITROGEN 48 mg/dL (7-18); CALCIUM 8.5 MG/DL (8.5-10.1); CHLORIDE 103 MMOL/L (98-107); CREATININE 2.8 MG/DL (0.55-1.30); POTASSIUM 4.2 MMOL/L (3.5-5.1); SODIUM 142 MMOL/L (136-145)
[2018-12-18 05:32] LABS: CARBON DIOXIDE 24 MMOL/L (21-32)
[2018-12-18] MEDS: Levothyroxine 125mcg tab ORAL SCH (06:07)
[2018-12-18] MEDS: NovoLOG Insulin Flexpen SUBQ SCH ×4 (06:10→20:51)
--- NOTE | 2018-12-18 07:20 | NUR ---
HAND-OFF: Report given to JANNETH Reyes.Patient stable.
--- NOTE | 2018-12-18 07:30 | NUR ---
NURSE NOTES: Received the patient from JANNETH Lazo. Patient resting in bed, easily arousable. Patient on 2L O2 via NC, O2 sat 98%. SR noted on registered nurse cardiac. No acute distress noted. Casper cath intact, draining urine by gravity. Left hand 22G and left forearm 20G intact, saline locked. Bed in lowest position, locked, side rails upx3. Bed alarm on. Call light within reach. Will continue to monitor.
[2018-12-18 08:00] VITALS: BP 115/68
[2018-12-18] MEDS: Heparin 5000 units/ml inj SUBQ SCH ×2 (08:51→20:52)
[2018-12-18] MEDS: Metoprolol 25mg tab ORAL SCH ×2 (08:52→17:40)
--- NOTE | 2018-12-18 10:26 | Pulmonology Progress Note ---
Assessment/Plan Problems: (1) Acute respiratory failure (2) CHF exacerbation (3) Pulmonary edema (4) Hypothyroidism (5) HTN (hypertension) (6) Diabetes mellitus Assessment/Plan doing better off bipap continue diuretics check electrolytes sliding scale diabetic diet monitor BP Subjective Interval Events: late note for Constitutional: Reports: fatigue Allergies: Coded Allergies: No Known Allergies (Verified , 07/20/11) UNABLE TO ASSESS (Unverified , 12/16/18) Objective Last 24 Hour Vital Signs Date Time Temp Pulse Resp B/P (MAP) Pulse Ox O2 Delivery O2 Flow Rate FiO2 12/18/18 08:52 80 115/68 12/18/18 08:00 2.0 12/18/18 08:00 97.1 82 14 115/68 (84) 98 12/18/18 08:00 Nasal Cannula 2.0 12/18/18 04:00 97.7 72 16 108/45 (66) 96 12/18/18 04:00 Nasal Cannula 2.0 12/18/18 04:00 2.0 12/18/18 03:32 76 12/18/18 00:00 97.6 78 20 128/62 (84) 100 12/18/18 00:00 Nasal Cannula 2.0 12/17/18 23:34 94 12/17/18 20:00 97.3 84 16 146/74 (98) 100 12/17/18 20:00 Nasal Cannula 2.0 12/17/18 20:00 2.0 12/17/18 19:32 94 12/17/18 18:07 100 114/66 12/17/18 16:00 Nasal Cannula 2.0 12/17/18 16:00 2.0 12/17/18 16:00 96.8 100 17 133/57 (82) 99 12/17/18 16:00 103 12/17/18 12:00 Nasal Cannula 2.0 12/17/18 12:00 95.9 100 16 117/64 (81) 100 12/17/18 12:00 2.0 12/17/18 11:40 120 Intake and Output 12/17/18 12/18/18 19:00 07:00 Intake Total 480 ml 120 ml Output Total 600 ml 1500 ml Balance -120 ml -1380 ml Intake Oral 480 ml 120 ml Output Urine Total 600 ml 1500 ml General Appearance: cachetic HEENT: normocephalic Respiratory/Chest: chest wall non-tender, lungs clear Breasts: no masses Cardiovascular: normal rate Abdomen: normal bowel sounds, soft, non tender Extremities: no cyanosis, no clubbing 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 Complete 12/16/18 09:06 Urine,Clean Catch Urine Culture - Final Klebsiella Pneumoniae Escherichia Coli Complete 12/16/18 09:00 Rectum VRE Culture - Final NO VANCOMYCIN RESISTANT ENTEROCOCCUS ... Complete Laboratory Tests 12/18/18 03:10: White Blood Count 7.7, Red Blood Count 2.78L, Hemoglobin 9.2L, Hematocrit 27.8L , Mean Corpuscular Volume 100H, Mean Corpuscular Hemoglobin 33.2H, Mean Corpuscular Hemoglobin Concent 33.2, Red Cell Distribution Width 12.7, Platelet Count 271, Mean Platelet Volume 7.1, Neutrophils (%) (Auto) 55.1, Lymphocytes (% ) (Auto) 31.6, Monocytes (%) (Auto) 9.7, Eosinophils (%) (Auto) 2.5, Basophils ( %) (Auto) 1.2, Sodium Level 142, Potassium Level 4.2, Chloride Level 103, Carbon Dioxide Level 24, Blood Urea Nitrogen 48H, Creatinine 2.8H, Estimat Glomerular Filtration Rate , Glucose Level 142H, Calcium Level 8.5, Troponin I 0.014 Current Medications Medications (Trade) Dose Ordered Sig/Tatianna Route PRN Reason Start Time Stop Time Status Last Admin Dose Admin Acetaminophen (Tylenol) 650 mg Q4H PRN ORAL Fever 12/16/18 12:30 01/15/19 12:29 Albuterol/ Ipratropium (Albuterol/ Ipratropium) 3 ml Q4H PRN HHN Shortness of Breath 12/16/18 12:30 12/21/18 12:29 Dextrose (Dextrose 50%) 25 ml Q30M PRN IV Hypoglycemia 12/16/18 12:30 01/15/19 12:29 Dextrose (Dextrose 50%) 50 ml Q30M PRN IV Hypoglycemia 12/16/18 12:30 01/15/19 12:29 Furosemide (Lasix) 40 mg EVERY 8 HOURS IV 12/16/18 14:00 01/15/19 13:59 12/18/18 06:07 Heparin Sodium (Porcine) (Heparin 5000 units/ml) 5,000 units EVERY 12 HOURS SUBQ 12/16/18 21:00 01/15/19 20:59 12/18/18 08:51 Insulin Aspart (NovoLOG) BEFORE MEALS AND HS SUBQ 12/16/18 16:30 01/15/19 16:29 12/18/18 06:10 Levothyroxine Sodium (Synthroid) 125 mcg Q24H ORAL 12/17/18 06:30 01/16/19 06:29 12/18/18 06:07 Metoprolol Tartrate (Lopressor) 25 mg BID ORAL 12/17/18 03:00 01/16/19 02:59 12/18/18 08:52 Ondansetron HCl (Zofran) 4 mg Q6H PRN IVP Nausea & Vomiting 12/16/18 12:30 01/15/19 12:29 Polyethylene Glycol (Miralax) 17 gm DAILYPRN PRN ORAL Constipation 12/16/18 12:30 01/15/19 12:29 Temazepam (Restoril) 15 mg HSPRN PRN ORAL Insomnia 12/16/18 12:30 12/23/18 12:29 Aure Ortega MD Dec 18, 2018 10:26
--- NOTE | 2018-12-18 10:31 | Pulmonology Progress Note ---
Assessment/Plan Problems: (1) Acute respiratory failure (2) CHF exacerbation (3) Pulmonary edema (4) Hypothyroidism (5) HTN (hypertension) (6) Diabetes mellitus Assessment/Plan continues to imprvedoing better off bipap continue diuretics, so far negative 2.4 liters decrease lasix to QD, watch bun/creatinine check electrolytes sliding scale diabetic diet monitor BP Subjective ROS Limited/Unobtainable: No Interval Events: continue to improve Allergies: Coded Allergies: No Known Allergies (Verified , 07/20/11) UNABLE TO ASSESS (Unverified , 12/16/18) Objective Last 24 Hour Vital Signs Date Time Temp Pulse Resp B/P (MAP) Pulse Ox O2 Delivery O2 Flow Rate FiO2 12/18/18 08:52 80 115/68 12/18/18 08:00 2.0 12/18/18 08:00 97.1 82 14 115/68 (84) 98 12/18/18 08:00 Nasal Cannula 2.0 12/18/18 04:00 97.7 72 16 108/45 (66) 96 12/18/18 04:00 Nasal Cannula 2.0 12/18/18 04:00 2.0 12/18/18 03:32 76 12/18/18 00:00 97.6 78 20 128/62 (84) 100 12/18/18 00:00 Nasal Cannula 2.0 12/17/18 23:34 94 12/17/18 20:00 97.3 84 16 146/74 (98) 100 12/17/18 20:00 Nasal Cannula 2.0 12/17/18 20:00 2.0 12/17/18 19:32 94 12/17/18 18:07 100 114/66 12/17/18 16:00 Nasal Cannula 2.0 12/17/18 16:00 2.0 12/17/18 16:00 96.8 100 17 133/57 (82) 99 12/17/18 16:00 103 12/17/18 12:00 Nasal Cannula 2.0 12/17/18 12:00 95.9 100 16 117/64 (81) 100 12/17/18 12:00 2.0 12/17/18 11:40 120 Intake and Output 12/17/18 12/18/18 19:00 07:00 Intake Total 480 ml 120 ml Output Total 600 ml 1500 ml Balance -120 ml -1380 ml Intake Oral 480 ml 120 ml Output Urine Total 600 ml 1500 ml General Appearance: cachetic HEENT: normocephalic, atraumatic Respiratory/Chest: lungs clear Breasts: no masses Cardiovascular: normal peripheral pulses Abdomen: normal bowel sounds, non distended Genitourinary: normal external genitalia Skin: no rash, no lesions Microbiology Date/Time Source Procedure Growth Status 12/16/18 09:30 Blood Blood Culture - Preliminary NO GROWTH AFTER 24 HOURS Resulted 12/16/18 09:06 Blood Blood Culture - Preliminary NO GROWTH AFTER 24 HOURS Resulted 12/16/18 09:00 Nasal Nares Left MRSA Culture - Final NO METHICILLIN RESISTANT STAPH AUREUS... Complete 12/16/18 09:06 Urine,Clean Catch Urine Culture - Final Klebsiella Pneumoniae Escherichia Coli Complete 12/16/18 09:00 Rectum VRE Culture - Final NO VANCOMYCIN RESISTANT ENTEROCOCCUS ... Complete Laboratory Tests 12/18/18 03:10: White Blood Count 7.7, Red Blood Count 2.78L, Hemoglobin 9.2L, Hematocrit 27.8L , Mean Corpuscular Volume 100H, Mean Corpuscular Hemoglobin 33.2H, Mean Corpuscular Hemoglobin Concent 33.2, Red Cell Distribution Width 12.7, Platelet Count 271, Mean Platelet Volume 7.1, Neutrophils (%) (Auto) 55.1, Lymphocytes (% ) (Auto) 31.6, Monocytes (%) (Auto) 9.7, Eosinophils (%) (Auto) 2.5, Basophils ( %) (Auto) 1.2, Sodium Level 142, Potassium Level 4.2, Chloride Level 103, Carbon Dioxide Level 24, Blood Urea Nitrogen 48H, Creatinine 2.8H, Estimat Glomerular Filtration Rate , Glucose Level 142H, Calcium Level 8.5, Troponin I 0.014 Current Medications Medications (Trade) Dose Ordered Sig/Tatianna Route PRN Reason Start Time Stop Time Status Last Admin Dose Admin Acetaminophen (Tylenol) 650 mg Q4H PRN ORAL Fever 12/16/18 12:30 01/15/19 12:29 Albuterol/ Ipratropium (Albuterol/ Ipratropium) 3 ml Q4H PRN HHN Shortness of Breath 12/16/18 12:30 12/21/18 12:29 Dextrose (Dextrose 50%) 25 ml Q30M PRN IV Hypoglycemia 12/16/18 12:30 01/15/19 12:29 Dextrose (Dextrose 50%) 50 ml Q30M PRN IV Hypoglycemia 12/16/18 12:30 01/15/19 12:29 Furosemide (Lasix) 40 mg EVERY 8 HOURS IV 12/16/18 14:00 01/15/19 13:59 12/18/18 06:07 Heparin Sodium (Porcine) (Heparin 5000 units/ml) 5,000 units EVERY 12 HOURS SUBQ 12/16/18 21:00 01/15/19 20:59 12/18/18 08:51 Insulin Aspart (NovoLOG) BEFORE MEALS AND HS SUBQ 12/16/18 16:30 01/15/19 16:29 12/18/18 06:10 Levothyroxine Sodium (Synthroid) 125 mcg Q24H ORAL 12/17/18 06:30 01/16/19 06:29 12/18/18 06:07 Metoprolol Tartrate (Lopressor) 25 mg BID ORAL 12/17/18 03:00 01/16/19 02:59 12/18/18 08:52 Ondansetron HCl (Zofran) 4 mg Q6H PRN IVP Nausea & Vomiting 12/16/18 12:30 01/15/19 12:29 Polyethylene Glycol (Miralax) 17 gm DAILYPRN PRN ORAL Constipation 12/16/18 12:30 01/15/19 12:29 Temazepam (Restoril) 15 mg HSPRN PRN ORAL Insomnia 12/16/18 12:30 12/23/18 12:29 Aure Ortega MD Dec 18, 2018 10:31
--- NOTE | 2018-12-18 11:20 | Internal Med Progress Note ---
Subjective Date of Service: Dec 18, 2018 Physician Name Morgan Ha Attending Physician Kalen Guan MD Current Medications Medications (Trade) Dose Ordered Sig/Tatianna Route PRN Reason Start Time Stop Time Status Last Admin Dose Admin Acetaminophen (Tylenol) 650 mg Q4H PRN ORAL Fever 12/16/18 12:30 01/15/19 12:29 Albuterol/ Ipratropium (Albuterol/ Ipratropium) 3 ml Q4H PRN HHN Shortness of Breath 12/16/18 12:30 12/21/18 12:29 Dextrose (Dextrose 50%) 25 ml Q30M PRN IV Hypoglycemia 12/16/18 12:30 01/15/19 12:29 Dextrose (Dextrose 50%) 50 ml Q30M PRN IV Hypoglycemia 12/16/18 12:30 01/15/19 12:29 Furosemide (Lasix) 40 mg DAILY IV 12/19/18 09:00 01/15/19 13:59 Heparin Sodium (Porcine) (Heparin 5000 units/ml) 5,000 units EVERY 12 HOURS SUBQ 12/16/18 21:00 01/15/19 20:59 12/18/18 08:51 Insulin Aspart (NovoLOG) BEFORE MEALS AND HS SUBQ 12/16/18 16:30 01/15/19 16:29 12/18/18 06:10 Levothyroxine Sodium (Synthroid) 125 mcg Q24H ORAL 12/17/18 06:30 01/16/19 06:29 12/18/18 06:07 Metoprolol Tartrate (Lopressor) 25 mg BID ORAL 12/17/18 03:00 01/16/19 02:59 12/18/18 08:52 Ondansetron HCl (Zofran) 4 mg Q6H PRN IVP Nausea & Vomiting 12/16/18 12:30 01/15/19 12:29 Polyethylene Glycol (Miralax) 17 gm DAILYPRN PRN ORAL Constipation 12/16/18 12:30 01/15/19 12:29 Temazepam (Restoril) 15 mg HSPRN PRN ORAL Insomnia 12/16/18 12:30 12/23/18 12:29 Allergies: Coded Allergies: No Known Allergies (Verified , 07/20/11) UNABLE TO ASSESS (Unverified , 12/16/18) ROS Limited/Unobtainable: No Constitutional: Reports: no symptoms HEENT: Reports: no symptoms Cardiovascular: Reports: no symptoms Respiratory: Reports: shortness of breath Gastrointestinal/Abdominal: Reports: no symptoms Genitourinary: Reports: no symptoms Neurologic/Psychiatric: Reports: no symptoms Subjective 83 YO F admitted with shortness of breath. Now respiratory failure and CHF. Cover for Int Giorgio-Dr Guan. CHRISTIAN Objective Last Vital Signs Date Time Temp Pulse Resp B/P (MAP) Pulse Ox O2 Delivery O2 Flow Rate FiO2 12/18/18 08:52 80 115/68 12/18/18 08:00 2.0 12/18/18 08:00 97.1 14 98 12/18/18 08:00 Nasal Cannula 12/16/18 11:29 40 Laboratory Tests Test 12/18/18 03:10 White Blood Count 7.7 K/UL (4.8-10.8) Red Blood Count 2.78 M/UL (4.20-5.40) L Hemoglobin 9.2 G/DL (12.0-16.0) L Hematocrit 27.8 % (37.0-47.0) L Mean Corpuscular Volume 100 FL (80-99) H Mean Corpuscular Hemoglobin 33.2 PG (27.0-31.0) H Mean Corpuscular Hemoglobin Concent 33.2 G/DL (32.0-36.0) Red Cell Distribution Width 12.7 % (11.6-14.8) Platelet Count 271 K/UL (150-450) Mean Platelet Volume 7.1 FL (6.5-10.1) Neutrophils (%) (Auto) 55.1 % (45.0-75.0) Lymphocytes (%) (Auto) 31.6 % (20.0-45.0) Monocytes (%) (Auto) 9.7 % (1.0-10.0) Eosinophils (%) (Auto) 2.5 % (0.0-3.0) Basophils (%) (Auto) 1.2 % (0.0-2.0) Sodium Level 142 MMOL/L (136-145) Potassium Level 4.2 MMOL/L (3.5-5.1) Chloride Level 103 MMOL/L (98-107) Carbon Dioxide Level 24 MMOL/L (21-32) Blood Urea Nitrogen 48 mg/dL (7-18) H Creatinine 2.8 MG/DL (0.55-1.30) H Estimat Glomerular Filtration Rate mL/min (>60) Glucose Level 142 MG/DL (74-106) H Calcium Level 8.5 MG/DL (8.5-10.1) Troponin I 0.014 ng/mL (0.000-0.056) Microbiology Date/Time Source Procedure Growth Status 12/16/18 09:30 Blood Blood Culture - Preliminary NO GROWTH AFTER 24 HOURS Resulted 12/16/18 09:06 Blood Blood Culture - Preliminary NO GROWTH AFTER 24 HOURS Resulted 12/16/18 09:00 Nasal Nares Left MRSA Culture - Final NO METHICILLIN RESISTANT STAPH AUREUS... Complete 12/16/18 09:06 Urine,Clean Catch Urine Culture - Final Klebsiella Pneumoniae Escherichia Coli Complete 12/16/18 09:00 Rectum VRE Culture - Final NO VANCOMYCIN RESISTANT ENTEROCOCCUS ... Complete Intake and Output 12/17/18 12/18/18 19:00 07:00 Intake Total 480 ml 120 ml Output Total 600 ml 1500 ml Balance -120 ml -1380 ml Intake Oral 480 ml 120 ml Output Urine Total 600 ml 1500 ml Objective PHYSICAL EXAMINATION: GENERAL: The patient is a well-developed, well-nourished female, in no apparent distress. HEENT: Eyes, pupils equal and responsive to light and accommodation. Extraocular movements are intact. NECK: Supple without lymphadenopathy. CHEST: Diffuse wheezes in bilateral lung pratt with crackles at bilateral bases, otherwise without wheezes. ABDOMEN: Soft, nontender, and nondistended. Positive bowel sounds. No evidence of hepatosplenomegaly. Currently, no rebound or guarding noted. CARDIOVASCULAR: Regular rhythm and rate. S1 and S2 are normal without murmurs, rubs, or gallops. EXTREMITIES: Negative for clubbing, cyanosis, or edema. RECTAL: Not performed. GENITAL: Not performed. NEUROLOGIC: Cranial nerves II through XII are grossly intact without focal deficits. Assessment/Plan Assessment/Plan ASSESSMENT: This is an 83-year-old female with: 1. Respiratory failure. 2. Shortness of breath. 3. Congestive heart failure, acute. 4. Coronary artery disease. 5. Atrial fibrillation. 6. Hypertension. 7. Hypothyroidism. 8. Acute on chronic renal failure TREATMENT: 1. Respiratory failure/shortness of breath. A Pulmonary consultation has been obtained with Dr. Aure Ortega. The patient is currently tolerating nasal canula. We will follow recommendations of Pulmonary. 2. Congestive heart failure. Cardiology consultation has been obtained with Dr. Dallas Womack. The patient's BNP is elevated to more than 14,000. An echocardiogram LVEF=40%. 3. Coronary artery disease. Serial troponin levels are elevated. ?demand ischemia? The patient has history of [id number] myocardial infarction in September 2018 as above. See cardiology note-Dr Womack 4. Atrial fibrillation, paroxysmal. 5. Hypertension. 6. Hypothyroidism. 7. Acute on chronic renal failure. await renal ultrasound. Nephrology=Morgan Chavez MD Dec 18, 2018 11:20
--- NOTE | 2018-12-18 11:30 | NUR ---
NURSE NOTES: Renal US being performed at bedside. Patient tolerating well.
[2018-12-18 11:42] VITALS: BP 91/51
--- NOTE | 2018-12-18 12:00 | NUR ---
MEDICAL LABORATORY TECHNOLOGISTTRANSFORMATION SPECIALIST SI: RESP DISTRESS T. 97.0 HR 70 RR 16 B/P 91/51 2L NC BUN 48 CR 2.8 IS: LASIX IV SYNTHROID PO HEPARIN SUBC LOPRESSOR PO STEP DOWN STATUS
--- NOTE | 2018-12-18 12:14 | Diagnostic Imaging Report ---
Indication: Acute renal failure Technique: Grayscale and duplex images of the kidneys, retroperitoneum, and bladder were obtained. Comparison: none Findings: Right kidney measures 7.1 cm in length. Left kidney measures 9.1 cm in length. Right kidney demonstrates cortical thinning and slightly increased echogenicity. No hydronephrosis. Cysts are seen in both kidneys. Normal inferior vena cava. Bladder is empty, contains a Casper catheter. Impression: Somewhat atrophic right kidney with increased echogenicity, likely indicates medical renal disease. Given asymmetry of the finding, the possibility of unilateral renal artery stenosis should be considered Negative for hydronephrosis.
--- NOTE | 2018-12-18 13:28 | NUR ---
*-* INSURANCE *-* ALL AVAILABLE CLINICALS HAVE BEEN FAXED TO: [facility]: [facility] S/W TING - COORDINATOR P: EXT - [id number] F:
--- NOTE | 2018-12-18 15:16 | Diagnostic Imaging Report ---
APPROVED REPORT CPT Code: 67056 Present Symptoms Shortness of breath BILATERAL: Imaging reveals a patent deep venous system bilaterally. There is no evidence of thrombus within the common femoral, superficial femoral, popliteal or right tibial segments. The greater saphenous veins are within normal limits. Doppler indicates normal spontaneous flow within these segments. The left tibial veins were not well visualized, due to bandages.
--- NOTE | 2018-12-18 15:47 | NUR ---
RD ASSESSMENT & RECOMMENDATIONS SEE CARE ACTIVITY FOR COMPLETE ASSESSMENT DAILY ESTIMATED NEEDS: Needs based on DM, CHF 55.5kg 25-30 kcals/kg 7796-1133 total kcals 1-1.5 g protein/kg 56-83 g total protein 20-22 mL/kg 4795-7114 total fluid mLs NUTRITION DIAGNOSIS: (1) Decreased sodium intake needs r/t exacerbated CHF and renal dysfunction as evidenced by pt w/ elevated proBNP (29007), on diuretics, elev creat (2.8) trend up. CURRENT DIET:CCHO MED PO DIET RECOMMENDATIONS: CCHO LOW, LOW NA/ texture as tolerated ADDITIONAL RECOMMENDATIONS: 1) Calibrated, daily wt monitoring: CHF dx 2) Monitor lytes daily w/ lasix, replete as needed 3) Add snacks w/ variable po intake 4) F/up with wound eval for sacral redness : add MVI x 1, Vit C 250mg QD
[2018-12-18 16:00] VITALS: BP 97/56
--- NOTE | 2018-12-18 16:07 | NUR ---
NURSE NOTES: Patient resting in bed comfortably, watching TV. Breathing even and unlabored. No acute distress noted. patient was turned and repositioned. Call light within reach. Will continue to monitor.
--- NOTE | 2018-12-18 16:09 | Consultation ---
Consult Note Consult Note asked to eval the patient at the request of dr reynoso for renal failure- Patient known to me from her previous admissions 83 Y Old Female , Belarusian speaker Cr ester from 2.4 on admission to 2.8 admitted via ER on 12/16/18 ER: HPI 83-year-old female history of diabetes, hypertension, atrial fibrillation, CHF presents with acute shortness of breath x1 day, patient woke up this morning acutely short of breath dyspneic, no chest pain, unknown aggravating or alleviating factors, severity was severe, symptoms are constant, 911 was called , patient was placed on BiPAP due to her desaturations, patient unable to speak full sentences due to shortness of breath Past Medical History: No History, Except For Hx Cardiac Problems: Yes Hx Hypertension: Yes Hx Diabetes: Yes Hx Gastrointestinal Problems: Yes examined data reviewed . Assessment/Plan seen in CHRISTIAN Acute on Chronic renal failure Anemia: CKD & or Low Iron Respiratory distress was the admitting reason h/o PAT CHF Low EjFx 40% DM High Lipids UTI HypoThyroidism Avoid nephrotoxics optimize cardiac status Keep BP and BS in check Monitor renal parameters Anemia walton , check TSH per orders GERDA: Impression: Somewhat atrophic right kidney with increased echogenicity, likely indicates medical renal disease. Given asymmetry of the finding, the possibility of unilateral renal artery stenosis should be considered Negative for hydronephrosis. Varinder Valdez MD Dec 18, 2018 16:09
[2018-12-18] MEDS: Docusate 100mg cap ORAL SCH (17:40)
--- NOTE | 2018-12-18 19:18 | NUR ---
HAND-OFF: Report given to JANNETH Diaz.
--- NOTE | 2018-12-18 19:20 | NUR ---
NURSE NOTES: Received patient from Nina Mott RN. patient is resting in bed, AO X4. denies pain at this time. patient is on room air, no s/sx of respiratory distress noted at this time. IV sites are patent and intact, asymptomatic. F/C is patent and intact, draining well. bed in lowest position and locked, siderails up X3, call light within reach. will continue to monitor.
--- NOTE | 2018-12-18 19:46 | Cardiology Progress Note ---
Assessment/Plan Assessment/Plan 1. Abnormal cardiac enzymes. 2. Chronic renal insufficiency. 3. Encephalopathy . 4. Congestive heart failure with acute systolic as well as diastolic component. 5. Moderate aortic insufficiency and mitral insufficiency. 6. Pulmonary hypertension. 7. Paroxysmal episodes of atrial fibrillation. 8. History of nonsustained ventricular tachycardia. 9. Acute on chronic renal insufficiency. diuretic switch to po chf seem resolved tele noted sinus no afib for few hours bp low cr increased trop back down likely demand related Subjective ROS Limited/Unobtainable: Yes Objective Last 24 Hour Vital Signs Date Time Temp Pulse Resp B/P (MAP) Pulse Ox O2 Delivery O2 Flow Rate FiO2 12/18/18 17:40 79 119/63 12/18/18 16:00 98.2 70 16 97/56 (70) 99 12/18/18 16:00 Room Air 12/18/18 16:00 77 12/18/18 12:00 71 12/18/18 12:00 Room Air 12/18/18 11:42 97.0 70 16 91/51 (64) 99 12/18/18 08:52 80 115/68 12/18/18 08:00 2.0 12/18/18 08:00 78 12/18/18 08:00 97.1 82 14 115/68 (84) 98 12/18/18 08:00 Nasal Cannula 2.0 12/18/18 04:00 97.7 72 16 108/45 (66) 96 12/18/18 04:00 Nasal Cannula 2.0 12/18/18 04:00 2.0 12/18/18 03:32 76 12/18/18 00:00 97.6 78 20 128/62 (84) 100 12/18/18 00:00 Nasal Cannula 2.0 12/17/18 23:34 94 12/17/18 20:00 97.3 84 16 146/74 (98) 100 12/17/18 20:00 Nasal Cannula 2.0 12/17/18 20:00 2.0 General Appearance: no apparent distress, alert Neck: supple Cardiovascular: normal rate Respiratory/Chest: lungs clear Abdomen: normal bowel sounds, non tender, soft Extremities: no swelling Intake and Output 12/17/18 12/18/18 19:00 07:00 Intake Total 480 ml 120 ml Output Total 600 ml 1500 ml Balance -120 ml -1380 ml Intake Oral 480 ml 120 ml Output Urine Total 600 ml 1500 ml Laboratory Tests Test 12/18/18 03:10 White Blood Count 7.7 K/UL (4.8-10.8) Red Blood Count 2.78 M/UL (4.20-5.40) L Hemoglobin 9.2 G/DL (12.0-16.0) L Hematocrit 27.8 % (37.0-47.0) L Mean Corpuscular Volume 100 FL (80-99) H Mean Corpuscular Hemoglobin 33.2 PG (27.0-31.0) H Mean Corpuscular Hemoglobin Concent 33.2 G/DL (32.0-36.0) Red Cell Distribution Width 12.7 % (11.6-14.8) Platelet Count 271 K/UL (150-450) Mean Platelet Volume 7.1 FL (6.5-10.1) Neutrophils (%) (Auto) 55.1 % (45.0-75.0) Lymphocytes (%) (Auto) 31.6 % (20.0-45.0) Monocytes (%) (Auto) 9.7 % (1.0-10.0) Eosinophils (%) (Auto) 2.5 % (0.0-3.0) Basophils (%) (Auto) 1.2 % (0.0-2.0) Sodium Level 142 MMOL/L (136-145) Potassium Level 4.2 MMOL/L (3.5-5.1) Chloride Level 103 MMOL/L (98-107) Carbon Dioxide Level 24 MMOL/L (21-32) Blood Urea Nitrogen 48 mg/dL (7-18) H Creatinine 2.8 MG/DL (0.55-1.30) H Estimat Glomerular Filtration Rate mL/min (>60) Glucose Level 142 MG/DL (74-106) H Calcium Level 8.5 MG/DL (8.5-10.1) Troponin I 0.014 ng/mL (0.000-0.056) Microbiology Date/Time Source Procedure Growth Status 12/16/18 09:30 Blood Blood Culture - Preliminary NO GROWTH AFTER 24 HOURS Resulted 12/16/18 09:06 Blood Blood Culture - Preliminary NO GROWTH AFTER 24 HOURS Resulted 12/16/18 09:00 Nasal Nares Left MRSA Culture - Final NO METHICILLIN RESISTANT STAPH AUREUS... Complete 12/16/18 09:06 Urine,Clean Catch Urine Culture - Final Klebsiella Pneumoniae Escherichia Coli Complete 12/16/18 09:00 Rectum VRE Culture - Final NO VANCOMYCIN RESISTANT ENTEROCOCCUS ... Complete Dallas Womack MD Dec 18, 2018 19:46
[2018-12-18 20:00] VITALS: BP 94/52
[2018-12-19] VITALS: BP 114/57
[2018-12-19 04:00] VITALS: BP 117/59
[2018-12-19 04:50] LABS: BASOPHILS % (AUTO) 1.3 % (0.0-2.0); EOSINOPHILS % (AUTO) 2.5 % (0.0-3.0); HEMATOCRIT 26.8 % (37.0-47.0); HEMOGLOBIN 8.9 G/DL (12.0-16.0); LYMPHOCYTES % (AUTO) 32.4 % (20.0-45.0); MEAN CORPUSCULAR VOLUME 99 FL (80-99); MONOCYTES % (AUTO) 8.3 % (1.0-10.0); NEUTROPHILS % (AUTO) 55.6 % (45.0-75.0); PLATELET COUNT 269 K/UL (150-450); RED CELL DISTRIBUTION WIDTH 12.7 % (11.6-14.8)
[2018-12-19 05:19] LABS: PHOSPHORUS 4.6 MG/DL (2.5-4.9)
[2018-12-19 05:28] LABS: ALANINE AMINOTRANSFERASE 7 U/L (12-78); ALBUMIN 3.3 G/DL (3.4-5.0); ALBUMIN/GLOBULIN RATIO 0.9 (1.0-2.7); ALKALINE PHOSPHATASE 37 U/L (46-116); ANION GAP 11 mmol/L (5-15); ASPARTATE AMINO TRANSFERASE 14 U/L (15-37); BILIRUBIN,TOTAL 0.5 MG/DL (0.2-1.0); BLOOD UREA NITROGEN 52 mg/dL (7-18); CALCIUM 8.2 MG/DL (8.5-10.1); CARBON DIOXIDE 28 MMOL/L (21-32); CHLORIDE 103 MMOL/L (98-107); CHOLESTEROL 139 MG/DL (< 200); CREATININE 2.5 MG/DL (0.55-1.30); FERRITIN 407 NG/ML (8-388); HDL CHOLESTEROL 44 MG/DL (40-60); POTASSIUM 3.7 MMOL/L (3.5-5.1); SODIUM 142 MMOL/L (136-145); TRIGLYCERIDES 121 MG/DL (30-150)
[2018-12-19 05:33] LABS: % IRON SATURATION 38 % (15-50); IRON 98 ug/dL (50-175); TOTAL IRON BINDING CAPACITY 258 ug/dL (250-450)
[2018-12-19] MEDS: Levothyroxine 125mcg tab ORAL SCH (06:29)
[2018-12-19] MEDS: NovoLOG Insulin Flexpen SUBQ SCH ×2 (06:32→11:35)
--- NOTE | 2018-12-19 07:15 | NUR ---
NURSE NOTES: Received pt from JANNETH Diaz. Patient is awake, A/Ox4; primarily Yoruba speaking. Patient denies any pain or discomfort at this time. No s/sx of SOB. Patient on RA, spo2 96%. Diminished bilateral b/s. Sinus rhythm with first degree AVB on monitoring analyst. Tolerated breakfast meal well, ate 50%. Casper catheter draining well to gravity. LH 22G and LFA 20G patent and asymptomatic; TKO. Upper and lower dentures with [employer] phone at bedside. Bed locked, alarmed and in lowest position.
--- NOTE | 2018-12-19 07:41 | NUR ---
HAND-OFF: Report given to JANNETH Aguilar. patient is in stable condition.
[2018-12-19 08:00] VITALS: BP 98/53
[2018-12-19] MEDS: Docusate 100mg cap ORAL SCH ×2 (09:00→13:00)
[2018-12-19] MEDS: Metoprolol 25mg tab ORAL SCH (09:00)
--- NOTE | 2018-12-19 09:24 | NUR ---
NURSE NOTES: Held metoprolol, BP 96/51, HR 72.
[2018-12-19] MEDS: Heparin 5000 units/ml inj SUBQ SCH (10:04)
--- NOTE | 2018-12-19 10:18 | Pulmonology Progress Note ---
Assessment/Plan Problems: (1) Acute respiratory failure (2) CHF exacerbation (3) Pulmonary edema (4) Hypothyroidism (5) HTN (hypertension) (6) Diabetes mellitus Assessment/Plan continues to improve doing better off bipap continue diuretics, so far negative 2.4 liters decrease lasix to QD, watch bun/creatinine check electrolytes sliding scale diabetic diet monitor BP Subjective ROS Limited/Unobtainable: No Constitutional: Reports: no symptoms HEENT: Repors: no symptoms Respiratory: Reports: no symptoms Allergies: Coded Allergies: No Known Allergies (Verified , 07/20/11) UNABLE TO ASSESS (Unverified , 12/16/18) Objective Last 24 Hour Vital Signs Date Time Temp Pulse Resp B/P (MAP) Pulse Ox O2 Delivery O2 Flow Rate FiO2 12/19/18 09:00 83 98/53 12/19/18 08:50 83 20 94 Room Air 21 12/19/18 08:00 Room Air 12/19/18 08:00 98.1 74 20 98/53 (68) 97 12/19/18 04:00 Room Air 12/19/18 04:00 97.5 78 20 117/59 (78) 97 12/19/18 04:00 74 12/19/18 00:00 76 12/19/18 00:00 Room Air 12/19/18 00:00 96.8 75 18 114/57 (76) 95 12/18/18 20:00 Room Air 12/18/18 20:00 74 12/18/18 20:00 98.1 74 16 94/52 (66) 95 12/18/18 17:40 79 119/63 12/18/18 16:00 98.2 70 16 97/56 (70) 99 12/18/18 16:00 Room Air 12/18/18 16:00 77 12/18/18 12:00 71 12/18/18 12:00 Room Air 12/18/18 11:42 97.0 70 16 91/51 (64) 99 Intake and Output 12/18/18 12/19/18 19:00 07:00 Intake Total 270 ml 50 ml Output Total 850 ml 500 ml Balance -580 ml -450 ml Intake Oral 270 ml 50 ml Output Urine Total 850 ml 500 ml # Bowel Movements 1 General Appearance: WD/WN HEENT: normocephalic Respiratory/Chest: chest wall non-tender, lungs clear Breasts: no masses Cardiovascular: normal peripheral pulses Abdomen: normal bowel sounds, no organomegaly Genitourinary: normal external genitalia Extremities: no cyanosis Skin: no rash Laboratory Tests 12/19/18 03:15: White Blood Count 7.0, Red Blood Count 2.70L, Hemoglobin 8.9L, Hematocrit 26.8L , Mean Corpuscular Volume 99, Mean Corpuscular Hemoglobin 33.0H, Mean Corpuscular Hemoglobin Concent 33.2, Red Cell Distribution Width 12.7, Platelet Count 269, Mean Platelet Volume 7.0, Neutrophils (%) (Auto) 55.6, Lymphocytes (% ) (Auto) 32.4, Monocytes (%) (Auto) 8.3, Eosinophils (%) (Auto) 2.5, Basophils ( %) (Auto) 1.3, Sodium Level 142, Potassium Level 3.7, Chloride Level 103, Carbon Dioxide Level 28, Anion Gap 11, Blood Urea Nitrogen 52H, Creatinine 2.5H , Estimat Glomerular Filtration Rate , Glucose Level 145H, Hemoglobin A1c 6.2H, Uric Acid 8.6H, Calcium Level 8.2L, Phosphorus Level 4.6, Magnesium Level 2.5H, Iron Level 98, Total Iron Binding Capacity 258, Percent Iron Saturation 38, Unsaturated Iron Binding 160, Ferritin 407H, Total Bilirubin 0.5, Aspartate Amino Transf (AST/SGOT) 14L, Alanine Aminotransferase (ALT/SGPT) 7L, Alkaline Phosphatase 37L, C-Reactive Protein, Quantitative 0.7, Pro-B-Type Natriuretic Peptide 39218J, Total Protein 7.1, Albumin 3.3L, Globulin 3.8, Albumin/Globulin Ratio 0.9L, Triglycerides Level 121, Cholesterol Level 139, LDL Cholesterol 191H , HDL Cholesterol 44, Cholesterol/HDL Ratio 3.2L, Vitamin B12 Level 305, Folate 9.4, Thyroid Stimulating Hormone (TSH) 5.203H, Free Thyroxine 1.23, Free Triiodothyronine 1.4L Current Medications Medications (Trade) Dose Ordered Sig/Tatianna Route PRN Reason Start Time Stop Time Status Last Admin Dose Admin Acetaminophen (Tylenol) 650 mg Q4H PRN ORAL Fever 12/16/18 12:30 01/15/19 12:29 Albuterol/ Ipratropium (Albuterol/ Ipratropium) 3 ml Q4H PRN HHN Shortness of Breath 12/16/18 12:30 12/21/18 12:29 Dextrose (Dextrose 50%) 25 ml Q30M PRN IV Hypoglycemia 12/16/18 12:30 01/15/19 12:29 Dextrose (Dextrose 50%) 50 ml Q30M PRN IV Hypoglycemia 12/16/18 12:30 01/15/19 12:29 Docusate Sodium (Colace) 100 mg THREE TIMES A DAY ORAL 12/18/18 18:00 01/17/19 17:59 12/19/18 09:00 Heparin Sodium (Porcine) (Heparin 5000 units/ml) 5,000 units EVERY 12 HOURS SUBQ 12/16/18 21:00 01/15/19 20:59 12/19/18 10:04 Insulin Aspart (NovoLOG) BEFORE MEALS AND HS SUBQ 12/16/18 16:30 01/15/19 16:29 12/19/18 06:32 Levothyroxine Sodium (Synthroid) 125 mcg Q24H ORAL 12/17/18 06:30 01/16/19 06:29 12/19/18 06:29 Metoprolol Tartrate (Lopressor) 25 mg BID ORAL 12/17/18 03:00 01/16/19 02:59 12/18/18 17:40 Ondansetron HCl (Zofran) 4 mg Q6H PRN IVP Nausea & Vomiting 12/16/18 12:30 01/15/19 12:29 Pantoprazole (Protonix) 40 mg EVERY 12 HOURS ORAL 12/18/18 21:00 01/17/19 20:59 12/19/18 09:00 Polyethylene Glycol (Miralax) 17 gm DAILYPRN PRN ORAL Constipation 12/16/18 12:30 01/15/19 12:29 Temazepam (Restoril) 15 mg HSPRN PRN ORAL Insomnia 12/16/18 12:30 12/23/18 12:29 Aure Ortega MD Dec 19, 2018 10:18
[2018-12-19 12:00] VITALS: BP 134/58
--- NOTE | 2018-12-19 13:42 | NUR ---
NURSE NOTES: Patient was discharged to home. VSS, denies pain, SOB or discomfort at this time. A/Ox4; able to ambulate but unsteady. Uses walker at home. Discharge education provided for patient and daughter, Ping Blackwell who was at bedside at the time of discharge. x2 IV sites removed, no bleeding noted and asymptomatic. Casper catheter removed. equipment monitor phototypesetting removed and returned to equipment monitor phototypesetting. Escorted to patient daughter's private car via wheelchair. No incidence noted.
--- NOTE | 2018-12-19 14:15 | NUR ---
*-* INSURANCE *-* ALL AVAILABLE CLINICALS HAVE BEEN FAXED TO: [facility]: [facility]/W TING - COORDINATOR P: EXT - [id number] F:
--- NOTE | 2018-12-19 15:35 | Nephrology Progress Note ---
Assessment/Plan Problem List: (1) Renal failure (ARF), acute on chronic (2) CHF exacerbation (3) Hypothyroidism (4) Diabetes mellitus (5) Hypothyroidism Assessment Acute on Chronic renal failure Anemia: CKD & or Low Iron Respiratory distress was the admitting reason h/o PAT CHF Low EjFx 40% DM High Lipids UTI HypoThyroidism Plan Avoid nephrotoxics optimize cardiac status Keep BP and BS in check Monitor renal parameters Anemia walton , check TSH Ok to DC - stable from renal stand Subjective Interval Events/Complaints late entery- seen at 8.45 am Objective Objective Last 24 Hour Vital Signs Date Time Temp Pulse Resp B/P (MAP) Pulse Ox O2 Delivery O2 Flow Rate FiO2 12/19/18 12:00 Room Air 12/19/18 12:00 98.3 74 20 134/58 (83) 96 12/19/18 12:00 81 12/19/18 09:00 83 98/53 12/19/18 08:50 83 20 94 Room Air 21 12/19/18 08:00 Room Air 12/19/18 08:00 78 12/19/18 08:00 98.1 74 20 98/53 (68) 97 12/19/18 04:00 Room Air 12/19/18 04:00 97.5 78 20 117/59 (78) 97 12/19/18 04:00 74 12/19/18 00:00 76 12/19/18 00:00 Room Air 12/19/18 00:00 96.8 75 18 114/57 (76) 95 12/18/18 20:00 Room Air 12/18/18 20:00 74 12/18/18 20:00 98.1 74 16 94/52 (66) 95 12/18/18 17:40 79 119/63 12/18/18 16:00 98.2 70 16 97/56 (70) 99 12/18/18 16:00 Room Air 12/18/18 16:00 77 Intake and Output 12/18/18 12/19/18 19:00 07:00 Intake Total 270 ml 50 ml Output Total 850 ml 500 ml Balance -580 ml -450 ml Intake Oral 270 ml 50 ml Output Urine Total 850 ml 500 ml # Bowel Movements 1 Laboratory Tests 12/19/18 03:15: White Blood Count 7.0, Red Blood Count 2.70L, Hemoglobin 8.9L, Hematocrit 26.8L , Mean Corpuscular Volume 99, Mean Corpuscular Hemoglobin 33.0H, Mean Corpuscular Hemoglobin Concent 33.2, Red Cell Distribution Width 12.7, Platelet Count 269, Mean Platelet Volume 7.0, Neutrophils (%) (Auto) 55.6, Lymphocytes (% ) (Auto) 32.4, Monocytes (%) (Auto) 8.3, Eosinophils (%) (Auto) 2.5, Basophils ( %) (Auto) 1.3, Sodium Level 142, Potassium Level 3.7, Chloride Level 103, Carbon Dioxide Level 28, Anion Gap 11, Blood Urea Nitrogen 52H, Creatinine 2.5H , Estimat Glomerular Filtration Rate , Glucose Level 145H, Hemoglobin A1c 6.2H, Uric Acid 8.6H, Calcium Level 8.2L, Phosphorus Level 4.6, Magnesium Level 2.5H, Iron Level 98, Total Iron Binding Capacity 258, Percent Iron Saturation 38, Unsaturated Iron Binding 160, Ferritin 407H, Total Bilirubin 0.5, Aspartate Amino Transf (AST/SGOT) 14L, Alanine Aminotransferase (ALT/SGPT) 7L, Alkaline Phosphatase 37L, C-Reactive Protein, Quantitative 0.7, Pro-B-Type Natriuretic Peptide [id number], Total Protein 7.1, Albumin 3.3L, Globulin 3.8, Albumin/Globulin Ratio 0.9L, Triglycerides Level 121, Cholesterol Level 139, LDL Cholesterol 191H , HDL Cholesterol 44, Cholesterol/HDL Ratio 3.2L, Vitamin B12 Level 305, Folate 9.4, Thyroid Stimulating Hormone (TSH) 5.203H, Free Thyroxine 1.23, Free Triiodothyronine 1.4L Height (Feet): 5 Height (Inches): 0.00 Weight (Pounds): 122 General Appearance: no apparent distress Cardiovascular: normal rate Respiratory/Chest: decreased breath sounds Abdomen: soft Varinder Valdez MD Dec 19, 2018 15:35
--- NOTE | 2018-12-20 10:44 | Discharge Summary ---
Discharge Summary Discharge Summary _ DATE OF ADMISSION: 12/16/2018 DATE OF DISCHARGE: 12/19/2018 DISCHARGED BY: Dr. Guan REASON FOR ADMISSION: 83 years old female with past medical history of hypertension, atrial fibrillation, congestive heart failure, diabetes mellitus, presented with acute shortness of breath for 1 day. Patient woke up in the morning with acutely short of breath and dyspneic. She denied chest pain. Family called paramedics. Upon presentation patient was unable to speak full sentences due to shortness of breath. Upon evaluation blood pressure was elevated 161/99. Patient was placed on 100% nonrebreathing mask and saturated 97%. ABG was stable and 100% nonrebreathing mask. Laboratory work-up revealed no leukocytosis ,hemoglobin 10.1 ,hematocrit 31.4. Potassium 5.3. BUN 36, creatinine 2.4. Glucose 202. Stable LFT and lipase. Troponin negative. pro BNP 04515. EKG revealed sinus rhythm, no acute ischemic changes. Chest x-ray demonstrated bilateral interstitial and airspace disease. Borderline cardiomegaly. Patient with DNR/DNI status. Urinalysis revealed evidence of possible urinary tract infection. In emergency department patient started on the BiPAP. Patient received IV Lasix and empiric antibiotic. Patient appeared to be more comfortable on the BiPAP. Patient reevaluated and subsequently was admitted for further management to [facility]. CONSULTANTS: delinquent account clerk Dr. Womack pulmonary /hospitalist Dr. Ortega copyright clerk Dr. Valdez [facility] COURSE: Patient admitted to direct observational unit. Receiver Dispatcher and delinquent account clerk closely followed. Echocardiogram revealed dyskinetic distal inferior wall and akinesis of left ventricular apex. Left ventricular ejection fraction estimated to be 40%. Moderately elevated left atrial pressure grade 2. Right ventricular systolic pressure of 55 , consistent with moderate pulmonary hypertension. Evidence of moderate mitral regurgitation, mild aortic insufficiency and mild to moderate tricuspid regurgitation. Patient started on the IV diuresis with close monitoring of volumes and cardiorenal parameters. Beta-michi provided. Patient had evidence of paroxysmal episodes of atrial fibrillation . Blood pressure was low and no GARETT inhibitor was started. Noted minimally elevated second troponin -0.075, likely demand related. The last two troponin were negative as well as the first one. Lipid panel revealed elevated LDL, recommended to start statin. Receiver Dispatcher closely followed. Pulmonary status was closely monitored. Venous duplex bilateral lower extremity reveal no evidence of acute DVT. Patient initially was on the BiPAP. As patient clinically improved , patient was able to be weaned to nasal cannula and then subsequently to room air. Prior to discharge pulse oximetry was stable on room air. Bronchodilator treatment provided as needed. Follow-up chest x-ray revealed slight improvement of interstitial congestion[place] [address] [place] [address] Used Car Make Ready Mechanic followed. Renal ultrasound demonstrated no hydronephrosis. Somewhat atrophic right kidney with increased echogenicity , likely indicative of medical renal disease. Renal parameters and electrolytes were closely monitored. Electrolytes corrected as needed , and nephrotoxins were avoided . Creatinine increased to 2.8 during the stay from initial 2.4, but then trended down to 2.5 upon discharge. Electrolytes corrected as needed. Per copyright clerk, patient had acute on chronic renal failure. Used Car Make Ready Mechanic recommended avoid nephrotoxins if possible. TSH was mildly elevated, and levothyroxine dose was increased. Repeat TFT in 1 month. Hemoglobin and hematocrit were closely monitored with goal to keep hemoglobin above 7. Anemia work-up revealed stable iron and ferritin 407. Prior to discharge hemoglobin 8.9, hematocrit 26.8. DVT and GI prophylaxis provided. Blood sugar was managed with sliding scale of insulin. Bowel regimen instituted. Supportive care provided. Urine culture revealed growth of E. coli and Klebsiella pneumonia. Patient remained afebrile , no leukocytosis. Patient had no urinary complaints. Patient likely had asymptomatic bacteriuria and was not treated. Patient clinically stabilized and was ready for discharge home. FINAL DIAGNOSES: Acute respiratory failure-resolved Congestive heart failure with acute systolic as well as diastolic component , EF 40% Shortness of breath -resolved ( due to CHF exacerbation) Coronary artery disease Paroxysmal atrial fibrillation Pulmonary hypertension Moderate aortic insufficiency and mitral insufficiency Hypertension Hypothyroidism Diabetes mellitus Anemia DISCHARGE MEDICATIONS: See Medication Reconciliation list. DISCHARGE INSTRUCTIONS: Patient was discharged home. Follow up with primary care provider in one week. I have been assigned to dictate discharge summary for this account. I was not involved in the patient's management. Tita Lopez NP Dec 20, 2018 10:44
== END 2018-12-19 13:30 | disposition home or self-care (01) | DRG 291 ==
LOC: EDBD 08:55 → EMR 09:41 → 2W 11:20 → EDBEDREQ 11:34 → 2W 13:10
DX: I13.0 Hypertensive heart and chronic kidney disease with heart failure and stage 1 through stage 4 chronic kidney disease, or unspecified chronic kidney disease (principal); I50.43 Acute on chronic combined systolic (congestive) and diastolic (congestive) heart failure; J96.00 Acute respiratory failure, unspecified whether with hypoxia or hypercapnia; G92 Toxic encephalopathy; N17.9 Acute kidney failure, unspecified; I25.2 Old myocardial infarction; E11.9 Type 2 diabetes mellitus without complications; M19.90 Unspecified osteoarthritis, unspecified site; E03.9 Hypothyroidism, unspecified; Z79.84 Long term (current) use of oral hypoglycemic drugs; Z79.02 Long term (current) use of antithrombotics/antiplatelets; Z79.82 Long term (current) use of aspirin; I25.10 Atherosclerotic heart disease of native coronary artery without angina pectoris; I48.0 Paroxysmal atrial fibrillation; Z66 Do not resuscitate; I27.20 Pulmonary hypertension, unspecified; I35.1 Nonrheumatic aortic (valve) insufficiency; I34.0 Nonrheumatic mitral (valve) insufficiency; D64.9 Anemia, unspecified; E11.22 Type 2 diabetes mellitus with diabetic chronic kidney disease; N18.9 Chronic kidney disease, unspecified; Z85.850 Personal history of malignant neoplasm of thyroid
CPT/HCPCS: 36415; 36600; 71045; 76770; 80048; 80053; 80061; 81003; 82550; 82553; 82607; 82728; 82746; 82803; 82962; 83036; 83540; 83550; 83605; 83690; 83735; 83880; 84100; 84439; 84443; 84481; 84484; 84550; 85025; 85610; 85730; 86140; 87040; 87081; 87086; 87181; 93005; 93306; 93970; 94664; 96365; 96368; 96375; 99291; J1815

== ENCOUNTER 2019-09-17 19:37 | Inpatient (IN) | payer OTHER ==
[~2019-09-17] VITALS: Ht 152.4 cm; Wt 57.6 kg
[2019-09-17] VITALS (7 sets, daily range): BP systolic 66–108; BP diastolic 29–70
[~2019-09-17 19:37] MED LIST changes: +ASPIRIN81 MG ORAL; +FENOFIBRATE 13134 MG ORAL; +GENTAMICIN SULF15 ML OP; +GLIPIZIDE5 MG ORAL; +ISOSORBIDE MONO10 MG PO
[2019-09-17 20:45] LABS: ANION GAP 15 mmol/L (5-15); BLOOD UREA NITROGEN 58 mg/dL (7-18); CALCIUM 7.9 MG/DL (8.5-10.1); CARBON DIOXIDE 22 MMOL/L (21-32); CHLORIDE 102 MMOL/L (98-107); CREATININE 4.1 MG/DL (0.55-1.30); POTASSIUM 4.4 MMOL/L (3.5-5.1); SODIUM 139 MMOL/L (136-145)
[2019-09-17 20:47] LABS: RED BLOOD COUNT 2.61 M/UL (4.20-5.40); WHITE BLOOD COUNT 5.5 K/UL (4.8-10.8)
[2019-09-17 20:48] LABS: EOSINOPHILS % (AUTO) 0.9 % (0.0-3.0); HEMATOCRIT 27.4 % (37.0-47.0); HEMOGLOBIN 8.5 G/DL (12.0-16.0); LYMPHOCYTES % (AUTO) 23.6 % (20.0-45.0); MEAN CORPUSCULAR VOLUME 105 FL (80-99); NEUTROPHILS % (AUTO) 66.5 % (45.0-75.0); PLATELET COUNT 297 K/UL (150-450); RED CELL DISTRIBUTION WIDTH 15.3 % (11.6-14.8)
[2019-09-17 20:56] LABS: ALANINE AMINOTRANSFERASE 14 U/L (12-78); ALBUMIN 3.3 G/DL (3.4-5.0); ALBUMIN/GLOBULIN RATIO 0.9 (1.0-2.7); ALKALINE PHOSPHATASE 151 U/L (46-116); ASPARTATE AMINO TRANSFERASE 22 U/L (15-37); BILIRUBIN,TOTAL 0.5 MG/DL (0.2-1.0)
--- NOTE | 2019-09-17 21:53 | Diagnostic Imaging Report ---
EXAM: XR Chest, 1 View CLINICAL HISTORY: SOB TECHNIQUE: Frontal view of the chest. COMPARISON: No relevant prior studies available. FINDINGS: Lungs: Bilateral airspace and interstitial opacities. Pleural space: Pleural effusions and/or pleural thickening. No pneumothorax. Heart: Poor assessment of the cardiac silhouette due to the opacifications. Mediastinum: Unremarkable. Bones/joints: No acute fracture. IMPRESSION: Bilateral airspace and interstitial opacities. Could be from pneumonia + - edema. Underlying lesions not excluded.
[2019-09-17] MEDS ORDERED: Lidocaine 1% Plain 30 ml INJ ONE ×2 (22:07→22:15)
[2019-09-17] MEDS ORDERED: Piperacillin/Tazobactam 3.375 GM in NS 110 ML IVPB ONE (23:15)
[2019-09-17] MEDS ORDERED: Azithromycin 500 MG in NS 275 ML IV ONE (23:15)
--- NOTE | 2019-09-17 23:38 | Emergency Room Report ---
History of Present Illness General Chief Complaint: General Complaint Source: Patient Present Illness HPI 84-year-old female presents with shortness of breath. Daughter at bedside states that patient's been having increasing shortness of breath for the last 2 weeks. Worse with exertion. Denies fevers or chills. Denies cough. Denies chest pain. No other aggravating relieving factors. Denies any other associated symptoms Allergies: Coded Allergies: No Known Allergies (Verified , 09/17/19) COVID-19 Screening Contact w/high risk pt: No Recent Travel to affected area: No Experienced COVID-19 symptoms?: No COVID-19 symptoms experienced: Shortness of Breath COVID-19 Testing performed GRADUATE RESEARCH ASSISTANT: No Patient History Past Medical History: DM, HTN, CHF Past Surgical History: none Pertinent Family History: none Social History: Denies: smoking, alcohol use, drug use Now: No Immunizations: UTD Reviewed Nursing Documentation: PMH: Agreed; PSxH: Agreed Nursing Documentation-PMH Hx Cardiac Problems: Yes - CHF Hx Hypertension: Yes Hx Diabetes: Yes Hx Cancer: No Hx Gastrointestinal Problems: Yes Hx Neurological Problems: No Review of Systems All Other Systems: negative except mentioned in HPI Physical Exam Vital Signs Date Time Temp Pulse Resp B/P (MAP) Pulse Ox O2 Delivery O2 Flow Rate FiO2 09/17/19 19:47 97.3 90 21 98 Room Air 09/17/19 20:15 82/58 09/17/19 20:40 2.0 Sp02 EP Interpretation: reviewed, normal General Appearance: no apparent distress, alert, GCS 15, non-toxic Head: normocephalic, atraumatic Eyes: bilateral eye normal inspection, bilateral eye PERRL ENT: hearing grossly normal, normal pharynx, no angioedema, normal voice Neck: full range of motion, supple/symm/no masses Respiratory: normal breath sounds, crackles, speaking full sentences Cardiovascular #1: regular rate, rhythm, no edema Cardiovascular #2: 2+ carotid (R), 2+ carotid (L), 2+ radial (R), 2+ radial (L) , 2+ dorsalis pedis (R), 2+ dorsalis pedis (L) Gastrointestinal: normal bowel sounds, non tender, soft, non-distended, no guarding, no rebound Rectal: deferred Genitourinary: normal inspection, no CVA tenderness Musculoskeletal: back normal, normal range of motion, gait/station normal, non- tender Neurologic: alert, motor strength/tone normal, oriented x3, sensory intact, responsive, speech normal Psychiatric: judgement/insight normal, memory normal, mood/affect normal, no suicidal/homicidal ideation Reflexes: 3+ bicep (R), 3+ bicep (L), 3+ tricep (R), 3+ tricep (L), 3+ knee (R) , 3+ knee (L) Skin: other - see nursing skin notes Lymphatic: no adenopathy Procedures Critical Care Time Critical Care Time i. I feel this is a highly complex case requiring extensive working including EKG/Rhythm strip, Xray/CT/US, Blood/urine lab work, repeat exams while in ED, and administration of strong opiates/narcotics for pain control, admission to hospital or close patient follow up. Total time: 60 min bedside evaluation and treatment excludes procedures (EKG). Reason for critical care: Hypotensive, shortness of breath Possible complications: hypotension, hypertension, MT, shock, arrhythmias, metabolic acidosis, end organ damage, respiratory failure. Interventions: Labs, EKG, chest x-ray, ABG, central line, Levophed, BiPAP Course: Patient presenting with shortness of breath. Chest x-ray shows large significant effusion. Questionable infiltrate. Hypotensive despite IV fluid boluses. BUN/creatinine significantly elevated. Discussed with daughter at bedside. Central line placed. Levophed started. Rapid COVID negative. BiPAP started. Broad-spectrum antibiotics given Consultations: nursing staff, EMS, family Performed by: Dr Gonzalez Tolerated well condition = critical j. because of unstable vital signs this patient had a condition that could potentially threaten life or limb. I feel this is a critical patient who required my full attention while patient was considered critical. Total Critical Care Time excluding procedures was greater than 60 minutes Central Line Central Line : Consent: Verbal Central Line Lumen: triple Maximal Sterile Barrier Tech: yes cap, yes mask, yes sterile gown, yes sterile gloves, yes large sterile sheet, yes hand hygiene, yes chlorhexidine prep Central Line Postion: femoral (R) Anesthesia: Lidocaine Complications: none Central Line Post Position: sutured, good blood return Attempts: One Patient Tolerated: Well Complications: None Medical Decision Making Diagnostic Impression: Primary Impression: CHF exacerbation Qualified Codes: I50.9 - Heart failure, unspecified Additional Impression: Renal failure (ARF), acute on chronic Qualified Codes: N17.9 - Acute kidney failure, unspecified; N18.9 - Chronic kidney disease, unspecified ER Course Hospital Course 84-year-old female presents ED complaining of shortness of breath, leg swelling x2 weeks Differential diagnoses include: MT/unstable angina, contusion, muscle strain, PTX, rib fracture Clinical course Patient placed on stretcher. on front desk monitor. After initial history and physical I ordered labs, EKG, chest x-ray labs reviewed- no leukocytosis, hemoglobin/hematocrit stable, creatinine elevated, troponins negative, BNP elevated EKG - NSr, no acute ischemic changes interpreted by me Chest x-ray- significant pleural effusion, ? infiltrates Patient BP low despite fluid bolusing. Central line placed. Levophed started. Rapid COVID negative. BiPAP started. broad spectrum abx given Case discussed with Dr. Limon and he agreed to accept the patient to his service for further care and support I. I feel this is a highly complex case requiring extensive working including EKG/Rhythm strip, Xray/CT/US, Blood/urine lab work, repeat exams while in ED, and administration of strong opiates/narcotics for pain control, admission to hospital or close patient follow up. Diagnosis - CHF exacerbation, renal failuere admitted to ICU in critical condition Labs Test 09/17/19 19:56 09/17/19 20:55 09/17/19 22:30 White Blood Count 5.5 K/UL (4.8-10.8) Red Blood Count 2.61 M/UL (4.20-5.40) Hemoglobin 8.5 G/DL (12.0-16.0) Hematocrit 27.4 % (37.0-47.0) Mean Corpuscular Volume 105 FL (80-99) Mean Corpuscular Hemoglobin 32.4 PG (27.0-31.0) Mean Corpuscular Hemoglobin Concent 30.9 G/DL (32.0-36.0) Red Cell Distribution Width 15.3 % (11.6-14.8) Platelet Count 297 K/UL (150-450) Mean Platelet Volume 9.0 FL (6.5-10.1) Neutrophils (%) (Auto) 66.5 % (45.0-75.0) Lymphocytes (%) (Auto) 23.6 % (20.0-45.0) Monocytes (%) (Auto) 8.0 % (1.0-10.0) Eosinophils (%) (Auto) 0.9 % (0.0-3.0) Basophils (%) (Auto) 1.0 % (0.0-2.0) Sodium Level 139 MMOL/L (136-145) Potassium Level 4.4 MMOL/L (3.5-5.1) Chloride Level 102 MMOL/L (98-107) Carbon Dioxide Level 22 MMOL/L (21-32) Anion Gap 15 mmol/L (5-15) Blood Urea Nitrogen 58 mg/dL (7-18) Creatinine 4.1 MG/DL (0.55-1.30) Estimat Glomerular Filtration Rate 10.4 mL/min (>60) Glucose Level 211 MG/DL (74-106) Calcium Level 7.9 MG/DL (8.5-10.1) Total Bilirubin 0.5 MG/DL (0.2-1.0) Aspartate Amino Transf (AST/SGOT) 22 U/L (15-37) Alanine Aminotransferase (ALT/SGPT) 14 U/L (12-78) Alkaline Phosphatase 151 U/L (46-116) Troponin I 0.035 ng/mL (0.000-0.056) Pro-B-Type Natriuretic Peptide > 39872 pg/mL (0-125) Total Protein 7.0 G/DL (6.4-8.2) Albumin 3.3 G/DL (3.4-5.0) Globulin 3.7 g/dL Albumin/Globulin Ratio 0.9 (1.0-2.7) Arterial Blood pH 7.377 (7.350-7.450) Arterial Blood Partial Pressure CO2 31.4 mmHg (35.0-45.0) Arterial Blood Partial Pressure O2 89.4 mmHg (75.0-100.0) Arterial Blood HCO3 18.0 mmol/L (22.0-26.0) Arterial Blood Oxygen Saturation 95.4 % (95-100) Arterial Blood Base Excess -6.4 (-2-2) Migel Test Positive Lactic Acid Level 1.60 mmol/L (0.4-2.0) EKG Diagnostic Results Rate: normal Rhythm: NSR ST Segments: no acute changes ASA given to the pt in ED: No Rhythm Strip Diag. Results EP Interpretation: yes Rhythm: NSR, no PVC's, no ectopy Chest X-Ray Diagnostic Results Chest X-Ray Diagnostic Results : Chest X-Ray Ordered: Yes # of Views/Limited/Complete: 1 View Indication: Shortness of Breath EP Interpretation: Yes Interpretation: no pneumothorax, other - bilateral pleura effusion/ infiltrates Impression: Other - chf/pneumonia Electronically Signed by: Electronically signed by Ilya Gonzalez MD Last Vital Signs Date Time Temp Pulse Resp B/P (MAP) Pulse Ox O2 Delivery O2 Flow Rate FiO2 09/17/19 23:15 98/52 09/17/19 21:37 85 29 98 Nasal Cannula 2.0 09/17/19 20:15 97.4 Status: improved Disposition: ADMITTED INPATIENT Condition: Critical Referrals: NON PHYSICIAN (PCP) Ilya Gonzalez MD Sep 17, 2019 23:38
[2019-09-18] VITALS (72 sets, daily range): BP systolic 70–161; BP diastolic 37–86
[2019-09-18 00:18] LABS: INR 1.1 (0.9-1.1)
[2019-09-18] MEDS ORDERED: EPINEPHrine 1mg/1ml Amp 1 MG in D5W 249 ML IV SCH (00:30)
[2019-09-18] MEDS ORDERED: EPINEPHrine 1mg/1ml Amp ONE (00:30)
[2019-09-18] MEDS ORDERED: DOPamine 400mg/250ml 250 ML IV SCH (01:15)
--- NOTE | 2019-09-18 01:34 | Emergency Room Report ---
Physical Exam Vital Signs Date Time Temp Pulse Resp B/P (MAP) Pulse Ox O2 Delivery O2 Flow Rate FiO2 09/17/19 19:47 97.3 90 21 98 Room Air 09/17/19 20:15 82/58 09/17/19 20:40 2.0 09/17/19 23:42 35 Medical Decision Making Diagnostic Impression: Primary Impression: CHF exacerbation Qualified Codes: I50.9 - Heart failure, unspecified Additional Impression: Renal failure (ARF), acute on chronic Qualified Codes: N17.9 - Acute kidney failure, unspecified; N18.9 - Chronic kidney disease, unspecified ER Course Patient seen and admitted by prior attending. Patient was awaiting an ICU bed. Patient was hypotensive and central line was placed. Patient's blood pressure was low. Patient was on BiPAP. ABG demonstrates no significant hypercarbia or hypoxia. pH normal. Patient's chest x-ray demonstrates pleural effusion. Patient maxed out on Levophed. I have started the patient on an epi drip. Patient still hypotensive even though she was maxed out on epi drip. Dopamine has been ordered. Patient remains in critical condition and will be admitted to the ICU. Total critical care time: Approximately 35 minutes. Due to a high probability of clinically significant, life threatening deterioration, the patient required my highest level of preparedness to intervene emergently and I personally spent this critical care time directly and personally managing the patient. This critical care time included obtaining a history; examining the patient; pulse oximetry; ordering and review of studies; arranging urgent treatment with development of a management plan; evaluation of patient's response to treatment ; frequent reassessment; and, discussions with other providers.This critical care time was performed to assess and manage the high probability of imminent, life-threatening deterioration that could result in multi-organ failure. It was exclusive of separately billable procedures and treating other patients and teaching time. Please see MDM section and the rest of the note for further information on patient assessment and treatment. Current vital signs are 95/56. Patient's oxygen saturation 98% on 35% on BiPAP , heart rate of 84 and respiratory rate of 32. Last Vital Signs Date Time Temp Pulse Resp B/P (MAP) Pulse Ox O2 Delivery O2 Flow Rate FiO2 09/18/19 01:20 81/67 09/17/19 23:43 90 28 100 35 09/17/19 23:42 Bi-pap 15.0 09/17/19 20:15 97.4 Disposition: ADMITTED INPATIENT Condition: Critical Referrals: NON PHYSICIAN (PCP) Marysol Murrell M.D. Sep 18, 2019 01:34
[2019-09-18] MEDS: DOPamine 400mg/250ml 250 ML IV SCH ×2 (03:00→04:30)
[2019-09-18] MEDS: EPINEPHrine 1mg/1ml Amp 1 MG in D5W 249 ML IV SCH (03:09)
[2019-09-18] MEDS: Azithromycin 500 MG in D5W 275 ML IV SCH (04:12)
[2019-09-18] MEDS ORDERED: Vancomycin 1gm/D5W 275ml IVPB ONE ×2 (05:00)
[2019-09-18] MEDS: Hydrocortisone 100mg Inj IV SCH ×3 (06:26→21:27)
[2019-09-18] MEDS: Heparin 5000 units/ml inj SUBQ SCH ×3 (06:27→21:27)
[2019-09-18 08:14] LABS: HEMATOCRIT 27.2 % (37.0-47.0); HEMOGLOBIN 9.1 G/DL (12.0-16.0); MEAN CORPUSCULAR VOLUME 97 FL (80-99); PLATELET COUNT 343 K/UL (150-450); RED CELL DISTRIBUTION WIDTH 13.5 % (11.6-14.8); WHITE BLOOD COUNT 10.6 K/UL (4.8-10.8)
[2019-09-18] MEDS: Piperacillin/Tazobactam 3.375 GM in NS 110 ML IVPB SCH ×2 (08:32→21:26)
[2019-09-18 08:42] LABS: ALANINE AMINOTRANSFERASE 36 U/L (12-78); ALBUMIN 2.8 G/DL (3.4-5.0); ALBUMIN/GLOBULIN RATIO 0.8 (1.0-2.7); ALKALINE PHOSPHATASE 135 U/L (46-116); ANION GAP 14 mmol/L (5-15); ASPARTATE AMINO TRANSFERASE 86 U/L (15-37); BILIRUBIN,TOTAL 0.8 MG/DL (0.2-1.0); BLOOD UREA NITROGEN 57 mg/dL (7-18); CALCIUM 6.8 MG/DL (8.5-10.1); CARBON DIOXIDE 19 MMOL/L (21-32); CHLORIDE 97 MMOL/L (98-107); CHOLESTEROL 76 MG/DL (< 200); CREATININE 4.2 MG/DL (0.55-1.30); HDL CHOLESTEROL 30 MG/DL (40-60); POTASSIUM 4.8 MMOL/L (3.5-5.1); SODIUM 130 MMOL/L (136-145); TRIGLYCERIDES 78 MG/DL (30-150)
[2019-09-18] MEDS ORDERED: Pantoprazole Inj IVP SCH ×2 (09:00→21:00)
--- NOTE | 2019-09-18 09:15 | Consultation ---
Consult Note Consult Note I am asked to evaluate the patient on renal consultation for kidney failure by PMD Dr. Limon. Patient seen in ICU room H. Discussed with RN, history unobtainable from the patient as she is Portuguese. Records reviewed. Labs reviewed. In reviewing the records, patient had previous admissions here at [facility] in the year 2018. At that time I also evaluated the patient for his kidney problem. Dose records are reviewed. Emergency room note: 84-year-old female presents with shortness of breath. Daughter at bedside states that patient's been having increasing shortness of breath for the last 2 weeks. Worse with exertion. Denies fevers or chills. Denies cough. Denies chest pain. No other aggravating relieving factors. Denies any other associated symptoms No Known Allergies (Verified , 09/17/19) COVID-19 Screening Contact w/high risk pt: No Recent Travel to affected area: No Experienced COVID-19 symptoms?: No COVID-19 symptoms experienced: Shortness of Breath COVID-19 Testing performed CLOTH ROLL WINDER: No Past Medical History: DM, HTN, CHF Social History: Denies: smoking, alcohol use, drug use Hx Cardiac Problems: Yes - CHF Hx Hypertension: Yes Hx Diabetes: Yes Hx Gastrointestinal Problems: Yes . Assessment/Plan (1) Renal failure (ARF), acute on chronic, on previous admission serum creatinine was 2.5 upon discharge at this time serum creatinine is 4.2 (2) CHF exacerbation (3) history of hypothyroidism (4) Diabetes mellitus, presents with high blood sugar and hyperglycemia, associated with high lipid panel (5) history of paroxysmal atrial fibrillation (6) anemia of chronic kidney disease and or low iron (7) low ejection fraction of 40% on previous 2D echocardiograms Suggestions: Avoid nephrotoxics Add Flomax 1 dose IV digoxin optimize cardiac status Keep BP and BS in check Monitor renal parameters Anemia walton , check TSH Urine studies 2D echocardiogram and kidney ultrasound to be repeated on this admission Per orders Varinder Valdez MD Sep 18, 2019 09:15
--- NOTE | 2019-09-18 10:39 | History and Physical ---
JohnTita DIRECTOR INTEGRATED 09/18/19 1039: History of Present Illness General Date patient seen: Sep 18, 2019 Time patient seen: 09:30 Reason for Hospitalization: SOB, resp failure Present Illness HPI 84 years old female with past medical history of diabetes mellitus, hypertension , congestive heart failure, PAF, CKD, hypothyroidism, presented from home due to shortness of breath for the last 2 weeks. Shortness of breath worse with exertion. No fever or chills. No chest pain. No cough. Upon evaluation patient was hypotensive with blood pressure 82/58 , pulse oximetry was 98% on 2 L of oxygen via nasal cannula. Patient remained hypotensive despite IV fluid boluses. Central line was placed in the emergency department , in anticipation for pressors Laboratory work-up revealed no leukocytosis, anemia with hemoglobin 8.5, hematocrit 27.4, platelet count 297. Chemistry revealed stable electrolytes. BUN 58, creatinine 4.1. Glucose 211 and this morning 610 with normal anion gap. Troponin initial 0.035, repeated 0.198. Pro BNP above 35,000. Lactic acid 1.6, repeated 2.9. CRP 0.6 Chest x-ray demonstrated bilateral airspace and interstitial opacity : pneumonia versus pulmonary edema. Rapid COVID test negative. patient received empiric antibiotics for possible pneumonia and subsequently admitted to ICU for further management. In ED patient started on pressors, received 1 dose of metolazone , 1 L of fluid Patient pancultured and started on empiric abx. Patient subsequently admitted to ICU for further management Allergies: Coded Allergies: No Known Allergies (Verified , 09/17/19) COVID-19 Screening Contact w/high risk pt: No Recent Travel to affected area: No Experienced COVID-19 symptoms?: No COVID-19 symptoms experienced: Shortness of Breath Medication History Scheduled Alendronate Sodium* (Fosamax*), 70 MG ORAL ONCE A WEEK, (Reported) Aspirin* (Aspirin*), 81 MG ORAL DAILY, (Reported) Atorvastatin Calcium* (Atorvastatin Calcium*), 20 MG ORAL BEDTIME, (Reported) Calcium Carbonate (Oyster Shell Calcium), 500 MG PO BID, (Reported) Carvedilol* (Carvedilol*), 12.5 MG ORAL EVERY 12 HOURS, (Reported) Clopidogrel Bisulfate* (Plavix*), 75 MG ORAL DAILY, (Reported) Fenofibrate (Fenofibrate), 145 MG ORAL DAILY, (Reported) Ferrous Sulfate* (Ferrous Sulfate*), 325 MG ORAL TID, (Reported) Gentamicin Sulfate (Gentamicin Sulfate), 5 ML OP Q4HR, (Reported) Glipizide* (Glipizide*), 5 MG ORAL BID AC, (Reported) Hydralazine Hcl* (Hydralazine Hcl*), 25 MG ORAL BID, (Reported) Isosorbide Mononitrate (Isosorbide Mononitrate), 30 MG PO DAILY, (Reported) Levothyroxine Sodium* (Synthroid*), 125 MCG ORAL DAILY, (Reported) Omeprazole (Omeprazole), 40 MG ORAL DAILY, (Reported) Torsemide* (Demadex*), 20 MG ORAL BID, (Reported) Patient History Healthcare decision maker Resuscitation status Advanced Directive on File Past Medical/Surgical History Past Medical/Surgical History: (1) CHF exacerbation (2) Paroxysmal A-fib (3) HTN (hypertension) (4) Anemia, chronic renal failure (5) Hypothyroidism (6) Diabetes mellitus Review of Systems ROS Narrative unable to obtain due to AMS Physical Exam Last 24 Hour Vital Signs Date Time Temp Pulse Resp B/P (MAP) Pulse Ox O2 Delivery O2 Flow Rate FiO2 09/18/19 09:06 103/60 09/18/19 07:15 112 23 97 100 09/18/19 07:00 117 25 129/80 (96) 100 09/18/19 07:00 129/80 09/18/19 06:45 117 22 123/82 (96) 100 09/18/19 06:30 116 27 137/74 (95) 100 09/18/19 06:26 129/85 09/18/19 06:15 115 30 129/85 (100) 100 09/18/19 06:00 114 27 114/70 (85) 100 09/18/19 06:00 129/85 09/18/19 05:45 111 34 93/55 (68) 99 09/18/19 05:38 111 27 70/49 (56) 100 09/18/19 05:37 110 33 80/53 (62) 100 09/18/19 05:30 113 28 86/54 (65) 100 09/18/19 05:15 115 21 89/56 (67) 100 09/18/19 05:00 115 21 106/69 (81) 100 09/18/19 05:00 89/56 09/18/19 04:45 114 23 133/69 (90) 99 09/18/19 04:30 136/75 09/18/19 04:30 136/75 09/18/19 04:30 102 22 136/75 (95) 100 09/18/19 04:15 107 22 151/81 (104) 99 09/18/19 04:11 147/84 09/18/19 04:00 Bi-pap 09/18/19 04:00 98.2 107 28 147/84 (105) 100 09/18/19 03:45 105 22 148/81 (103) 100 09/18/19 03:30 104 21 142/78 (99) 100 09/18/19 03:23 90 28 95 100 09/18/19 03:23 90 28 97 Bi-Pap 100 09/18/19 03:15 104 18 137/80 (99) 100 09/18/19 03:00 147/84 09/18/19 03:00 105 27 121/69 (86) 97 09/18/19 02:45 105 26 136/78 (97) 99 09/18/19 02:43 35 09/18/19 02:30 103 24 121/72 (88) 100 09/18/19 02:15 102 25 115/67 (83) 100 09/18/19 02:10 96.7 99 26 109/64 (79) 100 09/18/19 02:10 95 09/18/19 02:00 Bi-Pap 09/18/19 01:45 97.4 87 25 95/55 97 Bi-pap 15.0 35 09/18/19 01:40 95/55 09/18/19 01:35 91/54 09/18/19 01:35 91/54 09/18/19 01:30 95/56 09/18/19 01:25 89/68 09/18/19 01:20 81/67 09/18/19 01:20 97/61 09/18/19 01:15 81/67 09/18/19 01:05 82/59 09/18/19 01:00 81/59 09/18/19 00:55 99/65 09/18/19 00:50 69/48 09/18/19 00:45 67/52 09/18/19 00:40 66/50 09/18/19 00:35 62/46 09/18/19 00:30 70/52 09/18/19 00:25 72/54 09/18/19 00:20 76/51 09/18/19 00:15 83/57 09/18/19 00:10 82/57 09/18/19 00:05 89/64 09/18/19 00:00 106/72 09/17/19 23:55 103/72 09/17/19 23:45 103/72 09/17/19 23:43 90 28 100 35 09/17/19 23:42 88 28 108/70 100 Bi-pap 15.0 35 09/17/19 23:40 108/70 09/17/19 23:35 99/68 09/17/19 23:30 96/66 09/17/19 23:25 94/65 09/17/19 23:20 98/66 09/17/19 23:15 98/52 09/17/19 23:00 95/62 09/17/19 22:54 78/51 09/17/19 22:39 79/54 09/17/19 21:37 85 29 80/55 98 Nasal Cannula 2.0 09/17/19 21:24 85 33 79/56 98 Nasal Cannula 2.0 09/17/19 21:00 84 31 77/51 97 Nasal Cannula 2.0 09/17/19 20:50 85 37 66/29 97 Nasal Cannula 2.0 09/17/19 20:40 85 29 72/51 98 Nasal Cannula 2.0 09/17/19 20:15 97.4 87 27 82/58 98 Room Air 09/17/19 20:15 87 27 Room Air 09/17/19 19:47 97.3 90 21 98 Room Air Intake and Output 09/17/19 09/18/19 19:00 07:00 Intake Total 2041.7655 ml Balance 2041.7655 ml Intake Oral 0 ml IV Total 2041.7655 ml # Voids 100 Laboratory Tests Test 09/17/19 19:56 09/17/19 20:55 09/17/19 22:30 09/17/19 23:55 White Blood Count 5.5 K/UL (4.8-10.8) Red Blood Count 2.61 M/UL (4.20-5.40) L Hemoglobin 8.5 G/DL (12.0-16.0) L Hematocrit 27.4 % (37.0-47.0) L Mean Corpuscular Volume 105 FL (80-99) H Mean Corpuscular Hemoglobin 32.4 PG (27.0-31.0) H Mean Corpuscular Hemoglobin Concent 30.9 G/DL (32.0-36.0) L Red Cell Distribution Width 15.3 % (11.6-14.8) H Platelet Count 297 K/UL (150-450) Mean Platelet Volume 9.0 FL (6.5-10.1) Neutrophils (%) (Auto) 66.5 % (45.0-75.0) Lymphocytes (%) (Auto) 23.6 % (20.0-45.0) Monocytes (%) (Auto) 8.0 % (1.0-10.0) Eosinophils (%) (Auto) 0.9 % (0.0-3.0) Basophils (%) (Auto) 1.0 % (0.0-2.0) Sodium Level 139 MMOL/L (136-145) Potassium Level 4.4 MMOL/L (3.5-5.1) Chloride Level 102 MMOL/L (98-107) Carbon Dioxide Level 22 MMOL/L (21-32) Anion Gap 15 mmol/L (5-15) Blood Urea Nitrogen 58 mg/dL (7-18) H Creatinine 4.1 MG/DL (0.55-1.30) H Estimat Glomerular Filtration Rate 10.4 mL/min (>60) Glucose Level 211 MG/DL (74-106) H Calcium Level 7.9 MG/DL (8.5-10.1) L Total Bilirubin 0.5 MG/DL (0.2-1.0) Aspartate Amino Transf (AST/SGOT) 22 U/L (15-37) Alanine Aminotransferase (ALT/SGPT) 14 U/L (12-78) Alkaline Phosphatase 151 U/L (46-116) H Troponin I 0.035 ng/mL (0.000-0.056) Pro-B-Type Natriuretic Peptide > 93220 pg/mL (0-125) H Total Protein 7.0 G/DL (6.4-8.2) Albumin 3.3 G/DL (3.4-5.0) L Globulin 3.7 g/dL Albumin/Globulin Ratio 0.9 (1.0-2.7) L Arterial Blood pH 7.377 (7.350-7.450) Arterial Blood Partial Pressure CO2 31.4 mmHg (35.0-45.0) L Arterial Blood Partial Pressure O2 89.4 mmHg (75.0-100.0) Arterial Blood HCO3 18.0 mmol/L (22.0-26.0) L Arterial Blood Oxygen Saturation 95.4 % (95-100) Arterial Blood Base Excess -6.4 (-2-2) L Migel Test Positive Lactic Acid Level 1.60 mmol/L (0.4-2.0) Prothrombin Time 12.3 SEC (9.30-11.50) H Prothromb Time International Ratio 1.1 (0.9-1.1) Activated Partial Thromboplast Time 22 SEC (23-33) L Test 09/18/19 02:53 09/18/19 07:25 Arterial Blood pH 7.310 (7.350-7.450) Arterial Blood Partial Pressure CO2 29.1 mmHg (35.0-45.0) L Arterial Blood Partial Pressure O2 136.3 mmHg (75.0-100.0) H Arterial Blood HCO3 14.6 mmol/L (22.0-26.0) *L Arterial Blood Oxygen Saturation 97.8 % (95-100) Arterial Blood Base Excess -10.4 (-2-2) *L Migel Test Positive White Blood Count 10.6 K/UL (4.8-10.8) # Red Blood Count 2.80 M/UL (4.20-5.40) L Hemoglobin 9.1 G/DL (12.0-16.0) L Hematocrit 27.2 % (37.0-47.0) L Mean Corpuscular Volume 97 FL (80-99) Mean Corpuscular Hemoglobin 32.7 PG (27.0-31.0) H Mean Corpuscular Hemoglobin Concent 33.7 G/DL (32.0-36.0) Red Cell Distribution Width 13.5 % (11.6-14.8) Platelet Count 343 K/UL (150-450) Mean Platelet Volume 7.2 FL (6.5-10.1) Neutrophils (%) (Auto) % (45.0-75.0) Lymphocytes (%) (Auto) % (20.0-45.0) Monocytes (%) (Auto) % (1.0-10.0) Eosinophils (%) (Auto) % (0.0-3.0) Basophils (%) (Auto) % (0.0-2.0) Neutrophils % (Manual) Pending Lymphocytes % (Manual) Pending Platelet Estimate Pending Platelet Morphology Pending Sodium Level 130 MMOL/L (136-145) L Potassium Level 4.8 MMOL/L (3.5-5.1) Chloride Level 97 MMOL/L (98-107) L Carbon Dioxide Level 19 MMOL/L (21-32) L Anion Gap 14 mmol/L (5-15) Blood Urea Nitrogen 57 mg/dL (7-18) H Creatinine 4.2 MG/DL (0.55-1.30) H Estimat Glomerular Filtration Rate 10.1 mL/min (>60) Glucose Level 610 MG/DL (74-106) #*H Lactic Acid Level 2.90 mmol/L (0.4-2.0) H Calcium Level 6.8 MG/DL (8.5-10.1) L Total Bilirubin 0.8 MG/DL (0.2-1.0) Aspartate Amino Transf (AST/SGOT) 86 U/L (15-37) H Alanine Aminotransferase (ALT/SGPT) 36 U/L (12-78) Alkaline Phosphatase 135 U/L (46-116) H Troponin I 0.198 ng/mL (0.000-0.056) C-Reactive Protein, Quantitative 0.6 mg/dL (0.00-0.90) Total Protein 6.1 G/DL (6.4-8.2) L Albumin 2.8 G/DL (3.4-5.0) L Globulin 3.3 g/dL Albumin/Globulin Ratio 0.8 (1.0-2.7) L Triglycerides Level 78 MG/DL (30-150) Cholesterol Level 76 MG/DL (< 200) LDL Cholesterol 33 mg/dL (<100) HDL Cholesterol 30 MG/DL (40-60) L Cholesterol/HDL Ratio 2.5 (3.3-4.4) L Microbiology Date/Time Source Procedure Growth Status 09/17/19 22:08 Nasopharynx SARS-CoV-2 RdRp Gene Assay - Final Complete Height (Feet): 5 Height (Inches): 0.00 Weight (Pounds): 127 Medications Current Medications Medications (Trade) Dose Ordered Sig/Tatianna Route PRN Reason Start Time Stop Time Status Last Admin Dose Admin Azithromycin 500 mg/Dextrose 275 ml @ 275 mls/hr Q24HRS IV 09/18/19 04:00 09/21/19 04:59 09/18/19 04:12 Digoxin (Lanoxin) 0.25 mg ONCE IVP 09/18/19 09:30 09/18/19 10:30 Docusate Sodium (Colace) 100 mg THREE TIMES A DAY ORAL 09/18/19 13:00 10/18/19 12:59 Dopamine HCl/ Dextrose 250 ml @ 0 mls/hr Q24H IV 09/18/19 03:00 12/17/19 02:59 09/18/19 04:30 Epinephrine 1 mg/ Dextrose 250 ml @ 0 mls/hr Q24H IV 09/18/19 03:00 10/18/19 02:59 09/18/19 03:09 Heparin Sodium (Porcine) (Heparin 5000 units/ml) 5,000 units EVERY 8 HOURS SUBQ 09/18/19 06:00 11/02/19 05:59 09/18/19 06:27 Hydrocortisone (Solu-CORTEF) 100 mg EVERY 8 HOURS IV 09/18/19 06:00 12/17/19 05:59 09/18/19 06:26 Metolazone (Zaroxolyn) 10 mg ONCE ORAL 09/18/19 10:00 09/18/19 11:00 Norepinephrine Bitartrate 8 mg/ Dextrose 508 ml @ 0 mls/hr Q24H IV 09/18/19 09:00 10/18/19 08:59 09/18/19 09:06 Pantoprazole (Protonix) 40 mg Q12HR IVP 09/18/19 21:00 10/18/19 08:59 Piperacillin Sod/ Tazobactam Sod 3.375 gm/Sodium Chloride 110 ml @ 27.5 mls/hr Q12HR@08,1999 IVPB 09/18/19 08:00 09/25/19 07:59 09/18/19 08:32 Tamsulosin HCl (Flomax) 0.4 mg BID ORAL 09/18/19 09:30 10/18/19 09:29 Vancomycin HCl ([facility] pharmacy to dose) 1 ea DAILY PRN MISC Per rx protocol 09/18/19 03:30 10/18/19 03:29 Assessment/Plan Assessment/Plan: ASSESSMENT SOB Acute resp failure requiring 100% NRM Shock Pulmonary edema CHF, acute on chronic Cardiomyopathy (prior EF40%) Elevated troponin ARF on CKD Possible PNA Suspected COVID 19 infection DM with hyperglycemia Hypothyroidism History of HTN, currently hypotensive PAF Anemia of CKD PLAN OF CARE ICU titrate O2 to keep sat above 90% Pulm toilet empiric abx fup with cx ID consult pending fup with CXR isolation for now rapid COVID 19 NGT, awaiting for second COVID DVT prophylaxis Venous Duplex BLE pressors, levo and Dopamine titrate to keep mean arterial BP > 65 ECHO pending, prior EF 40% serial troponin, ECG elev troponin possibly due to ARF vs demand ischemia due to shock cardio eval pending currently in SR s/p Dig x 1 nephro eval appreciated renal US pending monitor e/lytes, correct lytes as needed Flomax added monitor HH with goal to keep Hgb > 7 anemia w/up ( already ordered by nephro) started on IV steroids hyperglycemia likely due to steroids check BS q 6 monitor and SSI check HgA1c , TSH GI prophylaxis Anup Limon MD 09/18/19 2134: History of Present Illness General Reason for Hospitalization: SOB, resp failure Present Illness Allergies: Coded Allergies: No Known Allergies (Verified , 09/17/19) Medication History Scheduled Alendronate Sodium* (Fosamax*), 70 MG ORAL ONCE A WEEK, (Reported) Aspirin* (Aspirin*), 81 MG ORAL DAILY, (Reported) Atorvastatin Calcium* (Atorvastatin Calcium*), 20 MG ORAL BEDTIME, (Reported) Calcium Carbonate (Oyster Shell Calcium), 500 MG PO BID, (Reported) Carvedilol* (Carvedilol*), 12.5 MG ORAL EVERY 12 HOURS, (Reported) Clopidogrel Bisulfate* (Plavix*), 75 MG ORAL DAILY, (Reported) Fenofibrate (Fenofibrate), 145 MG ORAL DAILY, (Reported) Ferrous Sulfate* (Ferrous Sulfate*), 325 MG ORAL TID, (Reported) Gentamicin Sulfate (Gentamicin Sulfate), 5 ML OP Q4HR, (Reported) Glipizide* (Glipizide*), 5 MG ORAL BID AC, (Reported) Hydralazine Hcl* (Hydralazine Hcl*), 25 MG ORAL BID, (Reported) Isosorbide Mononitrate (Isosorbide Mononitrate), 30 MG PO DAILY, (Reported) Levothyroxine Sodium* (Synthroid*), 125 MCG ORAL DAILY, (Reported) Omeprazole (Omeprazole), 40 MG ORAL DAILY, (Reported) Torsemide* (Demadex*), 20 MG ORAL BID, (Reported) Assessment/Plan Assessment/Plan: Patient seen and examined with DIRECTOR INTEGRATED. Agree with above A&P as it reflects our joint deliberations. CC Time: 100 minutes Tita Lopez NP Sep 18, 2019 10:39 Anup Limon MD Sep 18, 2019 21:34
--- NOTE | 2019-09-18 10:52 | Diagnostic Imaging Report ---
Indication: Shortness of breath Technique: One view of the chest Comparison: 09/17/2019 Findings: Bilateral interstitial and airspace infiltrates versus edema appear unchanged. There is suggestion of slightly increased right pleural fluid. The heart is borderline enlarged. There is what appears to be an old healed fracture deformity of the right proximal humerus. There is also somewhat mottled in appearance. This probably relates to prior humeral fracture described in 2012 and appears similar to multiple prior studies. Impression: Slightly increased right pleural effusion. Otherwise little change director one day
[2019-09-18] MEDS: Tamsulosin 0.4mg cap ORAL SCH ×2 (10:59→17:11)
[2019-09-18] MEDS: Digoxin 0.5mg/2ml Inj IVP SCH ×2 (10:59→11:42)
[2019-09-18] MEDS: NovoLOG Insulin Flexpen SUBQ SCH ×3 (12:14→21:00)
--- NOTE | 2019-09-18 12:42 | Cardiac Electrophysiology PN ---
Subjective Subjective [id number] Objective Last 24 Hour Vital Signs Date Time Temp Pulse Resp B/P (MAP) Pulse Ox O2 Delivery O2 Flow Rate FiO2 09/18/19 10:15 87 27 111/59 (76) 100 09/18/19 10:00 88 30 96/71 (79) 100 09/18/19 10:00 96/71 09/18/19 09:45 89 30 112/54 (73) 100 09/18/19 09:30 88 32 109/69 (82) 100 09/18/19 09:15 83 35 99/61 (74) 100 09/18/19 09:06 103/60 09/18/19 09:00 89 25 103/60 (74) 100 09/18/19 08:53 104 29 110/70 (83) 100 09/18/19 08:44 112 30 146/80 (102) 100 09/18/19 08:30 112 29 161/72 (101) 100 09/18/19 08:15 111 27 153/80 (104) 100 09/18/19 08:00 98.6 110 27 160/70 (100) 100 09/18/19 08:00 160/70 09/18/19 08:00 160/70 09/18/19 07:45 108 22 153/76 (101) 100 09/18/19 07:30 108 28 150/86 (107) 100 09/18/19 07:15 117 32 151/86 (107) 100 09/18/19 07:15 112 23 97 100 09/18/19 07:00 117 25 129/80 (96) 100 09/18/19 07:00 129/80 09/18/19 07:00 129/80 09/18/19 06:45 117 22 123/82 (96) 100 09/18/19 06:30 116 27 137/74 (95) 100 09/18/19 06:26 129/85 09/18/19 06:15 115 30 129/85 (100) 100 09/18/19 06:00 114 27 114/70 (85) 100 09/18/19 06:00 129/85 09/18/19 05:45 111 34 93/55 (68) 99 09/18/19 05:38 111 27 70/49 (56) 100 09/18/19 05:37 110 33 80/53 (62) 100 09/18/19 05:30 113 28 86/54 (65) 100 09/18/19 05:15 115 21 89/56 (67) 100 09/18/19 05:00 115 21 106/69 (81) 100 09/18/19 05:00 89/56 09/18/19 04:45 114 23 133/69 (90) 99 09/18/19 04:30 136/75 09/18/19 04:30 136/75 09/18/19 04:30 102 22 136/75 (95) 100 09/18/19 04:15 107 22 151/81 (104) 99 09/18/19 04:11 147/84 09/18/19 04:00 Bi-pap 09/18/19 04:00 98.2 107 28 147/84 (105) 100 09/18/19 03:45 105 22 148/81 (103) 100 09/18/19 03:30 104 21 142/78 (99) 100 09/18/19 03:23 90 28 95 100 09/18/19 03:23 90 28 97 Bi-Pap 100 09/18/19 03:15 104 18 137/80 (99) 100 09/18/19 03:00 147/84 09/18/19 03:00 105 27 121/69 (86) 97 09/18/19 02:45 105 26 136/78 (97) 99 09/18/19 02:43 35 09/18/19 02:30 103 24 121/72 (88) 100 09/18/19 02:15 102 25 115/67 (83) 100 09/18/19 02:10 96.7 99 26 109/64 (79) 100 09/18/19 02:10 95 09/18/19 02:00 Bi-Pap 09/18/19 01:45 97.4 87 25 95/55 97 Bi-pap 15.0 35 09/18/19 01:40 95/55 09/18/19 01:35 91/54 09/18/19 01:35 91/54 09/18/19 01:30 95/56 09/18/19 01:25 89/68 09/18/19 01:20 81/67 09/18/19 01:20 97/61 09/18/19 01:15 81/67 09/18/19 01:05 82/59 09/18/19 01:00 81/59 09/18/19 00:55 99/65 09/18/19 00:50 69/48 09/18/19 00:45 67/52 09/18/19 00:40 66/50 09/18/19 00:35 62/46 09/18/19 00:30 70/52 09/18/19 00:25 72/54 09/18/19 00:20 76/51 09/18/19 00:15 83/57 09/18/19 00:10 82/57 09/18/19 00:05 89/64 09/18/19 00:00 106/72 09/17/19 23:55 103/72 09/17/19 23:45 103/72 09/17/19 23:43 90 28 100 35 09/17/19 23:42 88 28 108/70 100 Bi-pap 15.0 35 09/17/19 23:40 108/70 09/17/19 23:35 99/68 09/17/19 23:30 96/66 09/17/19 23:25 94/65 09/17/19 23:20 98/66 09/17/19 23:15 98/52 09/17/19 23:00 95/62 09/17/19 22:54 78/51 09/17/19 22:39 79/54 09/17/19 21:37 85 29 80/55 98 Nasal Cannula 2.0 09/17/19 21:24 85 33 79/56 98 Nasal Cannula 2.0 09/17/19 21:00 84 31 77/51 97 Nasal Cannula 2.0 09/17/19 20:50 85 37 66/29 97 Nasal Cannula 2.0 09/17/19 20:40 85 29 72/51 98 Nasal Cannula 2.0 09/17/19 20:15 97.4 87 27 82/58 98 Room Air 09/17/19 20:15 87 27 Room Air 09/17/19 19:47 97.3 90 21 98 Room Air Intake and Output 09/17/19 09/18/19 19:00 07:00 Intake Total 2156.0655 ml Balance 2156.0655 ml Intake Oral 0 ml IV Total 2156.0655 ml # Voids 100 Laboratory Tests Test 09/17/19 19:56 09/17/19 20:55 09/17/19 22:30 09/17/19 23:55 White Blood Count 5.5 K/UL (4.8-10.8) Red Blood Count 2.61 M/UL (4.20-5.40) L Hemoglobin 8.5 G/DL (12.0-16.0) L Hematocrit 27.4 % (37.0-47.0) L Mean Corpuscular Volume 105 FL (80-99) H Mean Corpuscular Hemoglobin 32.4 PG (27.0-31.0) H Mean Corpuscular Hemoglobin Concent 30.9 G/DL (32.0-36.0) L Red Cell Distribution Width 15.3 % (11.6-14.8) H Platelet Count 297 K/UL (150-450) Mean Platelet Volume 9.0 FL (6.5-10.1) Neutrophils (%) (Auto) 66.5 % (45.0-75.0) Lymphocytes (%) (Auto) 23.6 % (20.0-45.0) Monocytes (%) (Auto) 8.0 % (1.0-10.0) Eosinophils (%) (Auto) 0.9 % (0.0-3.0) Basophils (%) (Auto) 1.0 % (0.0-2.0) Sodium Level 139 MMOL/L (136-145) Potassium Level 4.4 MMOL/L (3.5-5.1) Chloride Level 102 MMOL/L (98-107) Carbon Dioxide Level 22 MMOL/L (21-32) Anion Gap 15 mmol/L (5-15) Blood Urea Nitrogen 58 mg/dL (7-18) H Creatinine 4.1 MG/DL (0.55-1.30) H Estimat Glomerular Filtration Rate 10.4 mL/min (>60) Glucose Level 211 MG/DL (74-106) H Calcium Level 7.9 MG/DL (8.5-10.1) L Total Bilirubin 0.5 MG/DL (0.2-1.0) Aspartate Amino Transf (AST/SGOT) 22 U/L (15-37) Alanine Aminotransferase (ALT/SGPT) 14 U/L (12-78) Alkaline Phosphatase 151 U/L (46-116) H Troponin I 0.035 ng/mL (0.000-0.056) Pro-B-Type Natriuretic Peptide > 01015 pg/mL (0-125) H Total Protein 7.0 G/DL (6.4-8.2) Albumin 3.3 G/DL (3.4-5.0) L Globulin 3.7 g/dL Albumin/Globulin Ratio 0.9 (1.0-2.7) L Arterial Blood pH 7.377 (7.350-7.450) Arterial Blood Partial Pressure CO2 31.4 mmHg (35.0-45.0) L Arterial Blood Partial Pressure O2 89.4 mmHg (75.0-100.0) Arterial Blood HCO3 18.0 mmol/L (22.0-26.0) L Arterial Blood Oxygen Saturation 95.4 % (95-100) Arterial Blood Base Excess -6.4 (-2-2) L Migel Test Positive Lactic Acid Level 1.60 mmol/L (0.4-2.0) Prothrombin Time 12.3 SEC (9.30-11.50) H Prothromb Time International Ratio 1.1 (0.9-1.1) Activated Partial Thromboplast Time 22 SEC (23-33) L Test 09/18/19 02:53 09/18/19 07:25 09/18/19 11:00 Arterial Blood pH 7.310 (7.350-7.450) Arterial Blood Partial Pressure CO2 29.1 mmHg (35.0-45.0) L Arterial Blood Partial Pressure O2 136.3 mmHg (75.0-100.0) H Arterial Blood HCO3 14.6 mmol/L (22.0-26.0) *L Arterial Blood Oxygen Saturation 97.8 % (95-100) Arterial Blood Base Excess -10.4 (-2-2) *L Migel Test Positive White Blood Count 10.6 K/UL (4.8-10.8) # Red Blood Count 2.80 M/UL (4.20-5.40) L Hemoglobin 9.1 G/DL (12.0-16.0) L Hematocrit 27.2 % (37.0-47.0) L Mean Corpuscular Volume 97 FL (80-99) Mean Corpuscular Hemoglobin 32.7 PG (27.0-31.0) H Mean Corpuscular Hemoglobin Concent 33.7 G/DL (32.0-36.0) Red Cell Distribution Width 13.5 % (11.6-14.8) Platelet Count 343 K/UL (150-450) Mean Platelet Volume 7.2 FL (6.5-10.1) Neutrophils (%) (Auto) % (45.0-75.0) Lymphocytes (%) (Auto) % (20.0-45.0) Monocytes (%) (Auto) % (1.0-10.0) Eosinophils (%) (Auto) % (0.0-3.0) Basophils (%) (Auto) % (0.0-2.0) Differential Total Cells Counted 100 Neutrophils % (Manual) 84 % (45-75) H Lymphocytes % (Manual) 10 % (20-45) L Monocytes % (Manual) 6 % (1-10) Eosinophils % (Manual) 0 % (0-3) Basophils % (Manual) 0 % (0-2) Band Neutrophils 0 % (0-8) Platelet Estimate Adequate Platelet Morphology Normal Hypochromasia 2+ Anisocytosis 1+ Spherocytes 1+ Sodium Level 130 MMOL/L (136-145) L Potassium Level 4.8 MMOL/L (3.5-5.1) Chloride Level 97 MMOL/L (98-107) L Carbon Dioxide Level 19 MMOL/L (21-32) L Anion Gap 14 mmol/L (5-15) Blood Urea Nitrogen 57 mg/dL (7-18) H Creatinine 4.2 MG/DL (0.55-1.30) H Estimat Glomerular Filtration Rate 10.1 mL/min (>60) Glucose Level 610 MG/DL (74-106) #*H Lactic Acid Level 2.90 mmol/L (0.4-2.0) H Calcium Level 6.8 MG/DL (8.5-10.1) L Total Bilirubin 0.8 MG/DL (0.2-1.0) Aspartate Amino Transf (AST/SGOT) 86 U/L (15-37) H Alanine Aminotransferase (ALT/SGPT) 36 U/L (12-78) Alkaline Phosphatase 135 U/L (46-116) H Troponin I 0.198 ng/mL (0.000-0.056) C-Reactive Protein, Quantitative 0.6 mg/dL (0.00-0.90) Total Protein 6.1 G/DL (6.4-8.2) L Albumin 2.8 G/DL (3.4-5.0) L Globulin 3.3 g/dL Albumin/Globulin Ratio 0.8 (1.0-2.7) L Triglycerides Level 78 MG/DL (30-150) Cholesterol Level 76 MG/DL (< 200) LDL Cholesterol 33 mg/dL (<100) HDL Cholesterol 30 MG/DL (40-60) L Cholesterol/HDL Ratio 2.5 (3.3-4.4) L Urine Color Pending Urine Appearance Pending Urine pH Pending Urine Specific [place] Pending Urine Protein Pending Urine Glucose (UA) Pending Urine Ketones Pending Urine Blood Pending Urine Nitrite Pending Urine Bilirubin Pending Urine Urobilinogen Pending Urine Leukocyte Esterase Pending Urine RBC Pending Urine WBC Pending Urine Squamous Epithelial Cells Pending Urine Bacteria Pending Microbiology Date/Time Source Procedure Growth Status 09/17/19 22:08 Nasopharynx SARS-CoV-2 RdRp Gene Assay - Final Complete Steven Robert MD Sep 18, 2019 12:42
[2019-09-18 12:44] LABS: APPEARANCE,URINE CLOUDY; BILIRUBIN, URINE NEGATIVE (NEGATIVE); GLUCOSE, URINE (UA) 4+ (NEGATIVE); KETONES,URINE NEGATIVE (NEGATIVE); LEUKOCYTE ESTERASE ,URINE 3+ (NEGATIVE); NITRITE,URINE NEGATIVE (NEGATIVE); PH,URINE 5 (4.5-8.0); PROTEIN,URINE 2+ (NEGATIVE); UROBILINOGEN,URINE NORMAL MG/DL (0.0-1.0)
[2019-09-18 12:45] LABS: COLOR,URINE YELLOW
[2019-09-18] MEDS: Docusate 100mg cap ORAL SCH ×2 (13:38→17:11)
--- NOTE | 2019-09-18 15:07 | Diagnostic Imaging Report ---
Indication: Acute renal failure Technique: Grayscale and duplex images of the kidneys, retroperitoneum, and bladder were obtained. Comparison: none Findings: Right kidney measures 6.5 cm in length. Left kidney measures 7.8 cm in length. Both kidneys demonstrate increased echogenicity.. No hydronephrosis. Small cysts are demonstrated bilaterally.. Normal inferior vena cava. Bladder is empty, contains a Casper catheter. Ascites fluid is present. Impression: Atrophic echogenic kidneys, consistent with chronic medical renal disease Negative for hydronephrosis Small cysts are demonstrated bilaterally and 2 bladder with a Casper catheter Ascites.
[2019-09-18] MEDS ORDERED: Levemir Flexpen SUBQ SCH (21:00)
--- NOTE | 2019-09-18 21:00 | Consultation ---
DATE OF CONSULTATION: 09/18/2019 CARDIOLOGY CONSULTATION CONSULTING PHYSICIAN: Steven Robert MD. REFERRING PHYSICIAN: Anup Limon MD. REASON FOR CONSULTATION: Septic shock, requiring 3 pressors. HISTORY OF PRESENT ILLNESS: The patient is an 84-year-old lady with history of hypertension, diabetes, and congestive heart failure, who was brought to the emergency room for increasing shortness of breath. The patient's daughter stated the patient was having increased shortness of breath for the last 2 weeks that has been worse with exertion. The patient came from home. The patient's rapid COVID was negative. The patient was initially started on three pressors including epinephrine, dopamine, and Levophed. At the time of my evaluation, the patient is in intensive care unit only on Levophed 15 mcg/minute. Her EKG also shows sinus rhythm with first-degree AV block. The patient currently is on 100% non-rebreather face mask for pneumonia. REVIEW OF SYSTEMS: Cannot be obtained as the patient is altered. PAST MEDICAL HISTORY: As mentioned above. FAMILY HISTORY: Noncontributory. SOCIAL HISTORY: She does not smoke or drink alcohol. Lives at home with her family. PHYSICAL EXAMINATION: VITAL SIGNS: Show blood pressure of 111/69 on Levophed, pulse 87, respirations 27, and temperature was 98.6. HEAD AND NECK: Shows no JVD or carotid bruit. LUNGS: Coarse rhonchi bilaterally. CARDIOVASCULAR: Shows tachycardic, S1 and S2 with no gallop. ABDOMEN: Soft. EXTREMITIES: No pitting edema. LABORATORY AND DIAGNOSTIC DATA: Labs show white count of 10.6, hemoglobin 9.1, hematocrit of 27, and platelet count of 343,000. Sodium 130, potassium 4.8, BUN of 57, creatinine of 4.2, and glucose of 610. First troponin was negative. Second troponin is positive. ASSESSMENT AND PLAN: 1. Pwb-VC-fungallwm myocardial infarction with troponin level of 0.2. The first troponin is negative; however, this could be due to renal failure as the patient's creatinine is 4.2 as well as demand ischemia in view of the patient's active pneumonia. We will get an echocardiogram for further evaluation and repeat EKG. 2. Septic shock. The patient was on 3 pressors and currently on Levophed that will be continued. 3. Respiratory failure and pneumonia. The patient is already on broad-spectrum IV antibiotics with vancomycin and azithromycin. 4. Acute renal failure. Further evaluation by Dr. Valdez. 5. Respiratory failure, on 100% non-rebreather face mask for pneumonia. 6. Uncontrolled diabetes with glucose of 600. Thank you very much for allowing me to participate in the care of this patient. Please do not hesitate to contact me for any questions regarding my evaluation. The case was discussed with the ICU nurse as well as Dr. Valdez and other consultants on the case. Steven Robert M.D. DR: Fritz JOB#: [id number] CC:
[2019-09-18] MEDS ORDERED: Hydrocortisone 100mg Inj IV SCH (22:00)
[2019-09-19] VITALS (27 sets, daily range): BP systolic 44–208; BP diastolic 16–116
[2019-09-19] MEDS: EPINEPHrine 1mg/1ml Amp 1 MG in D5W 249 ML IV SCH (02:49)
[2019-09-19] MEDS: Azithromycin 500 MG in D5W 275 ML IV SCH (05:13)
[2019-09-19] MEDS: Heparin 5000 units/ml inj SUBQ SCH (05:14)
[2019-09-19 05:49] LABS: HEMOGLOBIN 8.4 G/DL (12.0-16.0); MEAN CORPUSCULAR VOLUME 101 FL (80-99); PLATELET COUNT 260 K/UL (150-450); RED BLOOD COUNT 2.57 M/UL (4.20-5.40); RED CELL DISTRIBUTION WIDTH 12.9 % (11.6-14.8); WHITE BLOOD COUNT 9.7 K/UL (4.8-10.8)
[2019-09-19] MEDS: NovoLOG Insulin Flexpen SUBQ SCH (05:56)
[2019-09-19] MEDS ORDERED: Hydrocortisone 100mg Inj IV SCH (06:00)
[2019-09-19 06:23] LABS: ALANINE AMINOTRANSFERASE 27 U/L (12-78); ALBUMIN 2.7 G/DL (3.4-5.0); ALBUMIN/GLOBULIN RATIO 0.9 (1.0-2.7); ALKALINE PHOSPHATASE 105 U/L (46-116); ANION GAP 18 mmol/L (5-15); ASPARTATE AMINO TRANSFERASE 44 U/L (15-37); BILIRUBIN,TOTAL 0.6 MG/DL (0.2-1.0); BLOOD UREA NITROGEN 67 mg/dL (7-18); CALCIUM 6.6 MG/DL (8.5-10.1); CARBON DIOXIDE 17 MMOL/L (21-32); CHLORIDE 102 MMOL/L (98-107); CREATINE KINASE 84 U/L (26-308); CREATININE 4.9 MG/DL (0.55-1.30); GAMMA GLUTAMYL TRANSPEPTIDASE 54 U/L (5-85); PHOSPHORUS 7.7 MG/DL (2.5-4.9); POTASSIUM 4.6 MMOL/L (3.5-5.1); SODIUM 137 MMOL/L (136-145)
[2019-09-19] MEDS ORDERED: Atropine Inj 1mg/10ml Syr ONE (06:27)
[2019-09-19] MEDS ORDERED: Sodium Bicarbonate 8.4% 50ml Inj ONE (06:27)
[2019-09-19] MEDS ORDERED: Magnesium Sulfate 2ml Inj ONE (06:27)
[2019-09-19] MEDS ORDERED: Tubing IV Secondary IV ONE ×2 (06:27)
[2019-09-19] MEDS ORDERED: D5W 275ml ONE ×3 (06:27)
[2019-09-19] MEDS ORDERED: NS 275ml ONE (06:27)
--- NOTE | 2019-09-19 07:42 | Emergency Room Report ---
History of Present Illness General Chief Complaint: General Complaint Source: Medical Record Present Illness HPI A CODE BLUE to the ICU was called overhead. I am on shift in the emergency department. I responded to the ICU for the overhead CODE BLUE. I was informed that this patient was on pressor medications and was septic. She had been on BiPAP. She had been being treated for a CHF exacerbation. She is a person under investigation for COVID-19. Per the RN, the patient became bradycardic and subsequently went into cardiopulmonary arrest with asystole. On my arrival , the patient was being bagged and was undergoing CPR and being given medications per ACLS protocol. See the RN code report. Allergies: Coded Allergies: No Known Allergies (Verified , 09/17/19) COVID-19 Screening Contact w/high risk pt: No Recent Travel to affected area: No Experienced COVID-19 symptoms?: No COVID-19 symptoms experienced: Shortness of Breath COVID-19 Testing performed SKIN CARE INSTRUCTOR: No COVID-19 Screening: PUI COVID-19 Patient History Now: No Nursing Documentation-[facility] Hx Cardiac Problems: Yes Hx Hypertension: Yes Hx Diabetes: Yes Hx Cancer: No Hx Gastrointestinal Problems: Yes Hx Neurological Problems: No Physical Exam Vital Signs Date Time Temp Pulse Resp B/P (MAP) Pulse Ox O2 Delivery O2 Flow Rate FiO2 09/17/19 19:47 97.3 90 21 98 Room Air 09/17/19 20:15 82/58 09/17/19 20:40 2.0 09/17/19 23:42 35 Medical Decision Making Diagnostic Impression: Primary Impression: Cardiopulmonary arrest ER Course The patient underwent CPR and ACLS per protocol. The patient remained in asystole during the entire resuscitation process. There was no return of spontaneous circulation or any other rhythm other than asystole. Given the patient's age of 84 and the complicated multiple chronic medical problems and the ongoing rhythm of asystole, I felt that further resuscitation was futile. Time of 06:28 AM. Last Vital Signs Date Time Temp Pulse Resp B/P (MAP) Pulse Ox O2 Delivery O2 Flow Rate FiO2 09/19/19 06:16 37 47 208/116 (146) 09/19/19 06:00 100 09/19/19 04:00 Non-Rebreather 09/19/19 04:00 97.7 09/18/19 07:15 100 09/18/19 01:45 15.0 Disposition: Condition: Referrals: NON PHYSICIAN (PCP) Pamela Granados DO Sep 19, 2019 07:42
[2019-09-19 08:32] LABS: % IRON SATURATION 40 % (15-50); IRON 94 ug/dL (50-175); TOTAL IRON BINDING CAPACITY 233 ug/dL (250-450)
[2019-09-19 08:48] LABS: FERRITIN 1117 NG/ML (8-388)
[2019-09-19] MEDS ORDERED: Dyna-Hex 2% Top Sol 2oz TOPIC SCH (20:00)
--- NOTE | 2019-09-22 17:20 | Discharge Summary ---
Discharge Summary Discharge Summary _ SUMMARY DATE OF ADMISSION: 09/17/2019 DATE OF EXPIRATION: 09/19/2019 REASON FOR ADMISSION: 84 years old female with past medical history of diabetes mellitus, hypertension , congestive heart failure, PAF, CKD, hypothyroidism, presented from home due to shortness of breath for the last 2 weeks. No fever or chills. No chest pain. No cough. Upon evaluation patient was hypotensive and hypoxic, requiring supplemental oxygen. Patient remained hypotensive despite IV fluid boluses. Central line was placed in the emergency department , in anticipation for pressors Laboratory work-up revealed no leukocytosis, anemia with hemoglobin 8.5, hematocrit 27.4, platelet count 297. Chemistry revealed stable electrolytes. BUN 58, creatinine 4.1. Glucose 211 . Troponin initial 0.035, repeated 0.198. Pro BNP above 35,000. Lactic acid 1.6, repeated 2.9. CRP 0.6 Chest x-ray demonstrated bilateral airspace and interstitial opacity : pneumonia versus pulmonary edema. Patient received empiric antibiotics for possible pneumonia and subsequently admitted to ICU for further management. In ED patient was started on pressors, received 1 dose of metolazone , 1 L of fluid Patient pancultured and started on empiric abx. Patient subsequently admitted to ICU for further management CONSULTANTS: cost accounting clerk Dr. Stokes barber stylist Dr. Valdez [facility] COURSE: Patient admitted to ICU. Patient was on 100% nonrebreathing mask. Supplemental oxygen provided and titrated to keep saturation above 90%. Pulmonary toilet provided. Patient was kept in isolation. Patient started on empiric antibiotic. ID consult was requested. SARS COV 2 on 09/16 came back not detected. Blood culture 1 out of 2 revealed diphtheroids , likely contaminant. Urine culture revealed E. coli. DVT prophylaxis provided. Venous duplex bilateral lower extremity was ordered. Patient was on pressors, titrated to keep mean arterial blood pressure above 65 . Prior ejection fraction 40%. Cardiology consult was requested. First troponin was negative , second and third troponin elevated. Echocardiogram revealed ejection fraction of 40% with left ventricular hypokinesis. No evidence of pericardial effusion. No evidence of left ventricular hypertrophy. Severe mitral regurgitation. Right ventricular systolic pressure of 43 consistent with mild pulmonary hypertension. Moderately elevated left atrial pressure grade 2. Per cost accounting clerk patient had NSTEMI , probably precipitated by septic shock. Patient was on Levophed , dopamine and epinephrine. Eventually patient was weaned from dopamine and epinephrine and was continued on Levophed. Patient demonstrated intermittent episodes of atrial fibrillation. Patient received 1 dose of digoxin and converted to sinus rhythm. Renal ultrasound revealed findings consistent with chronic medical renal disease. Message Broker Developer followed. Renal parameters and electrolytes were closely monitored. Electrolytes corrected as needed. Hemoglobin and hematocrit were closely monitored with goal to keep hemoglobin above 7. Anemia work-up was consistent with anemia of chronic disease, ferritin 1117. Likely anemia of chronic kidney disease. Patient started on the IV steroids. Blood sugar the next morning 600. Hyperglycemia was likely due to steroids. However hemoglobin A1c 8.6, not at goal. Blood sugar was managed with long-acting Levemir and sliding scale of insulin. GI prophylaxis provided. Overall prognosis was poor. Patient remained full code. LUIS CRANE was called on 09/18. Patient became bradycardic and subsequently went to cardiopulmonary arrest with asystole. ACLS protocol initiated. All resuscitative efforts appeared to be futile. Patient subsequently pronounced at 6:28 AM on 09/18. Cause of : cardiopulmonary arrest due to septic shock FINAL DIAGNOSES: Acute respiratory failure requiring 100% percent nonrebreathing mask Septic shock Pneumonia Renal failure , acute on chronic NSTEMI Pulmonary edema Acute on chronic congestive heart failure Cardiomyopathy with EF 40% Severe mitral regurgitation UTI Diabetes mellitus [id number] Suspected COVID-19 infection -ruled out Hypothyroidism History of hypertension , currently hypotensive Paroxysmal atrial fibrillation Anemia of chronic kidney disease Tita Lopez NP Sep 22, 2019 17:20
== END 2019-09-19 06:28 | disposition expired | DRG 871 ==
LOC: EMR 20:45 → EDBEDREQ 22:08 → EDBEDREQSVC 22:08 → ICU 22:12 → EDBEDREQ 09-18 00:35
PROC: 06HM33Z Insertion of Infusion Device into Right Femoral Vein, Percutaneous Approach (ICD-10-PCS; 2019-09-17)
PROC: 5A09357 Assistance with Respiratory Ventilation, Less than 24 Consecutive Hours, Continuous Positive Airway Pressure (ICD-10-PCS; 2019-09-18)
PROC: 5A12012 Performance of Cardiac Output, Single, Manual (ICD-10-PCS; principal; 2019-09-19)
DX: A41.9 Sepsis, unspecified organism (principal); I21.4 Non-ST elevation (NSTEMI) myocardial infarction; J18.9 Pneumonia, unspecified organism; J96.00 Acute respiratory failure, unspecified whether with hypoxia or hypercapnia; R65.21 Severe sepsis with septic shock; N17.9 Acute kidney failure, unspecified; I13.0 Hypertensive heart and chronic kidney disease with heart failure and stage 1 through stage 4 chronic kidney disease, or unspecified chronic kidney disease; I42.9 Cardiomyopathy, unspecified; N39.0 Urinary tract infection, site not specified; N18.9 Chronic kidney disease, unspecified; E11.22 Type 2 diabetes mellitus with diabetic chronic kidney disease; D63.8 Anemia in other chronic diseases classified elsewhere; I48.0 Paroxysmal atrial fibrillation; I50.9 Heart failure, unspecified; E03.9 Hypothyroidism, unspecified; Z79.82 Long term (current) use of aspirin; E11.65 Type 2 diabetes mellitus with hyperglycemia; I34.0 Nonrheumatic mitral (valve) insufficiency; I27.20 Pulmonary hypertension, unspecified; I44.0 Atrioventricular block, first degree; B96.20 Unspecified Escherichia coli [E. coli] as the cause of diseases classified elsewhere
CPT/HCPCS: 36415; 36600; 71045; 76770; 80053; 80061; 80162; 81001; 82550; 82607; 82728; 82746; 82803; 82962; 82977; 83036; 83540; 83550; 83605; 83735; 83880; 84100; 84443; 84484; 84550; 85007; 85025; 85379; 85610; 85730; 86140; 87040; 87081; 87086; 89050; 93005; 93306; 94660; 94664; 96365; 96367; 96368; 96375; 99291; J0171; J1815; J7030